=== PATIENT | male | born 1945 | race Caucasian/White ===

== ENCOUNTER 2017-06-19 02:44 | Inpatient (IN) | payer OTHER, MEDICARE ==
[~2017-06-19 02:44] MED LIST: ANUC25SU RE; GLIM1 PO; HYDR2.5%T TOP; JANU100T PO; LEVO150T7 PO; LISI-363 PO; LITH300C2 PO; PIOG30 PO; TRAZ100 PO
[2017-06-19 03:03] VITALS: BP 159/73; PULSE 60; RESP 20; TEMP 97.8; O2SAT 96
[2017-06-19] MEDS ORDERED: LISI10TA3 PO (03:12)
[2017-06-19 03:51] LABS: AUTOMATED NEUTROPHIL # 4.1 TH/MM3 (1.8-7.7); BASOPHIL # 0.1 TH/MM3 (0-0.2); BASOPHIL % 1.1 % (0.0-2.0); EOSINOPHIL % 0.7 % (0.0-4.0); HEMATOCRIT 29.2 % (39.0-51.0); LYMPH % 21.3 % (9.0-44.0); LYMPHOCYTE # 1.3 TH/MM3 (1.0-4.8); MEAN CELL VOLUME 97.4 FL (80.0-100.0); MEAN CORPUSCULAR HEMOGLOBIN 36.8 PG (27.0-34.0); MONO % 11.8 % (0.0-8.0); NEUT % 65.1 % (16.0-70.0); PLATELET COUNT 163 TH/MM3 (150-450); RED CELL DISTRIBUTION WIDTH 12.9 % (11.6-17.2); WHITE BLOOD COUNT 6.3 TH/MM3 (4.0-11.0)
[2017-06-19 04:01] LABS: HEMO FLAGS AUTO DIFF; MEAN CORPUSCULAR HGB CONC 37.8 % (32.0-36.0)
--- NOTE | 2017-06-19 04:09 | PD ---
HPI Chief Complaint: Psychiatric Symptoms Time Seen by Provider: 02:57 Travel History International Travel<30 days: No Contact w/Intl Traveler<30days: No Traveled to known affect area: No History of Present Illness HPI 72-year-old male presents to emergency department under a Ballard act for psychiatric evaluation. Patient states that he has been off his lithium for several months after he decided not to take it after getting sick from lithium toxicity. Patient states he is not suicidal but made suicidal comments to his "in passing." Patient states he was just frustrated. Denies any illicit drug use. Takes his prescribed medication as needed for blood pressure and diabetes. He does not take his medication for his bipolar disorder. Patient has no acute medical needs at this time. PFS Past Medical History Bipolar Disorder: Yes Depression: Yes Diabetes: Yes Patient Takes Glucophage: No Diminished Hearing: No Hypertension: Yes Thyroid Disease: Yes Past Surgical History Eye Surgery: Yes (cataract) Tonsillectomy: Yes Other Surgery: Yes (CYST- NECK ) Social History Alcohol Use: No Tobacco Use: Yes (1.5 ppd) Substance Use: No Allergies-Medications (Allergen,Severity, Reaction): Coded Allergies: penicillin G (Unverified Allergy, Unknown, CHILDHOOD , 06/19/17) Reported Meds & Prescriptions Reported Meds & Active Scripts Active Reported Lisinopril 10 Mg Tab 10 Mg PO DAILY PRN Review of Systems Except as stated in HPI: all other systems reviewed are Neg Physical Exam Narrative GENERAL: Well-nourished male patient, ambulatory and in no acute distress SKIN: Focused skin assessment warm/dry. HEAD: Atraumatic. Normocephalic. EYES: Pupils equal and round. No scleral icterus. No injection or drainage. ENT: No nasal bleeding or discharge. Mucous membranes pink and moist. NECK: Trachea midline. No JVD. CARDIOVASCULAR: Regular rate and rhythm. No murmur appreciated. RESPIRATORY: No accessory muscle use. Clear to auscultation. Breath sounds equal bilaterally. GASTROINTESTINAL: Abdomen soft, non-tender, nondistended. Hepatic and splenic margins not palpable. MUSCULOSKELETAL: No obvious deformities. No clubbing. No cyanosis. No edema. NEUROLOGICAL: Awake and alert. No obvious cranial nerve deficits. Motor grossly within normal limits. Normal speech. Data Data Last Documented VS Vital Signs Date Time Temp Pulse Resp B/P (MAP) Pulse Ox O2 Delivery O2 Flow Rate FiO2 06/19/17 03:03 97.8 60 20 159/73 (101) 96 Orders Orders Complete Blood Count With Diff (06/19/17 02:57) Basic Metabolic Panel (Bmp) (06/19/17 02:57) Urinalysis - C+S If Indicated (06/19/17 02:57) Psych Screen (06/19/17 02:57) Drug Screen, Random Urine (06/19/17 02:57) Alcohol (Ethanol) (06/19/17 02:57) Labs Laboratory Tests Test 06/19/17 03:40 White Blood Count 6.3 TH/MM3 Red Blood Count 3.00 MIL/MM3 Hemoglobin 11.0 GM/DL Hematocrit 29.2 % Mean Corpuscular Volume 97.4 FL Mean Corpuscular Hemoglobin 36.8 PG Mean Corpuscular Hemoglobin Concent 37.8 % Red Cell Distribution Width 12.9 % Platelet Count 163 TH/MM3 Mean Platelet Volume 6.9 FL Neutrophils (%) (Auto) 65.1 % Lymphocytes (%) (Auto) 21.3 % Monocytes (%) (Auto) 11.8 % Eosinophils (%) (Auto) 0.7 % Basophils (%) (Auto) 1.1 % Neutrophils # (Auto) 4.1 TH/MM3 Lymphocytes # (Auto) 1.3 TH/MM3 Monocytes # (Auto) 0.7 TH/MM3 Eosinophils # (Auto) 0.0 TH/MM3 Basophils # (Auto) 0.1 TH/MM3 CBC Comment AUTO DIFF Blood Urea Nitrogen 11 MG/DL Creatinine 0.87 MG/DL Random Glucose 115 MG/DL Calcium Level 8.4 MG/DL Sodium Level 127 MEQ/L Potassium Level 3.7 MEQ/L Chloride Level 93 MEQ/L Carbon Dioxide Level 26.4 MEQ/L Anion Gap 8 MEQ/L Estimat Glomerular Filtration Rate 87 ML/MIN Ethyl Alcohol Level LESS THAN 3 MG/DL MDM Medical Decision Making Medical Screen Exam Complete: Yes Emergency Medical Condition: Yes Medical Record Reviewed: Yes Differential Diagnosis Mood disorder versus personality disorder versus adjustment reaction disorder Narrative Course 72-year-old male presents to the emergency department under a Ballard act for psychiatric evaluation. Patient appears well and without distress. His vital signs are stable. Lab work is without acute concern. Patient is medically cleared to undergo psychiatric screening for further evaluation and disposition. Mental health screening discussed with the patient. Psychiatric screen ordered. Diagnosis Primary Impression: Adjustment reaction Qualified Codes: F43.25 - Adjustment disorder with mixed disturbance of emotions and conduct Additional Impression: Hyponatremia Condition: Stable Deidra Tuttle Jun 19, 2017 04:09
[2017-06-19 04:11] LABS: ANION GAP 8 MEQ/L (5-15); BICARBONATE 26.4 MEQ/L (21.0-32.0); BLOOD UREA NITROGEN 11 MG/DL (7-18); CHLORIDE 93 MEQ/L (98-107); GLOMERULAR FILTRATION RATE 87 ML/MIN (>89); POTASSIUM 3.7 MEQ/L (3.5-5.1); SODIUM (NA) 127 MEQ/L (136-145)
[2017-06-19 04:15] LABS: ALCOHOL LESS THAN 3 MG/DL (0-5)
[2017-06-19 04:29] LABS: SCAN/DIFF AUTO DIFF CONFIRMED
[2017-06-19] MEDS ORDERED: SODIUM CHLORIDE 1 GRAM TAB PO ONE (04:30)
[2017-06-19 04:36] LABS: BLOOD, URINE NEG (NEG); GLUCOSE,URINE 70 mg/dL (NEG); KETONE, URINE NEG (NEG); NITRITE,URINE NEG (NEG); URINE COLOR LIGHT-YELLOW (YELLW/STRAW)
[2017-06-19 04:41] LABS: COMMENT (UR) CULT NOT INDICATED; CULTURE IF INDICATED CULT NOT INDICATED
[2017-06-19 07:46] VITALS: BP 150/77; PULSE 62; RESP 19; TEMP 98.4; O2SAT 97
[2017-06-19] MEDS ORDERED: MAGNESIUM HYDROXIDE SUSP 30 ML CUP PO PRN (13:30)
[2017-06-19] MEDS ORDERED: LORazepam 2 MG/ML VIAL IM PRN (13:30)
[2017-06-19] MEDS ORDERED: LORazepam 1 MG TAB PO PRN (13:30)
[2017-06-19] MEDS ORDERED: ALUMINUM/MAGNESIUM/SIMETH 30 ML CUP PO PRN (13:30)
--- NOTE | 2017-06-19 13:40 | HHI.HP ---
Provisional Diagnosis Admission Date [place] I. Bipolar disorder, mixed, severe with psychotic features. Certification of Person's Competence To Provide Express and Informed Consent I have personally examined Anish Paul , a person being served at [facility] on, Jun 19, 2017 13:28. Express and informed consent means consent voluntarily given in writing, by a competent person, after sufficient explanation and disclosure of the subject matter involved to enable the person to make a knowing and willful decision without any element of force, fraud, deceit, duress, or other form of constraint or coercion. This person is 18 years of age or older, is not now known to be incompetent to consent to treatment with a guardian advocate, and does not have a health care surrogate or proxy currently making medical treatment decisions. I have found this person to be one of the following: [x] Competent to provide express and informed consent, as defined above, for voluntary admission to this facility and is competent to provide express and informed consent for treatment. He/she has the consistent capacity to make well reasoned, willful, and knowing decisions concerning his or her medical or mental health treatment. The person fully and consistently understands the purpose of the admission for examination/placement and is fully capable of personally exercising all rights assured [place] Incompetent to provide express and informed consent to voluntary admission, and this is incompetent to provide express and informed consent to treatment. The person must be transferred to involuntary status and a petition for a guardian advocate filed with the Circuit Court. [] Refusing to provide express and informed consent to voluntary admission but is competent to provide express and informed consent for treatment. The person must be discharged or transferred to involuntary status. Form shall be completed within 24 hours of a person's arrival at the receiving facility and filed in the clinical record of each person: 1. Admitted on a voluntary basis 2. Permitted to provide express and informed consent to his/her own treatment 3. Allowed to transfer from involuntary to voluntary status 4. Prior to permitting a person to consent to his or her own treatment after having been previously found incompetent to consent to treatment. History of Present Illness Capacity: Has Capacity HPI 72-year-old male with a multiyear history of bipolar disorder, presents under a Ballard act for suicidal ideation, psychotic thinking, inability to care for himself, etc. Patient reportedly made suicidal comments to his of many years and to a neighbor. He has been increasingly unstable since stopping his lithium, several months ago. Apparently the patient had a history of lithium toxicity. (He also has diabetes and hypertension and there is concern about his kidneys.) Since he stopped his lithium, however, he has become emotionally unstable. Apparently he is not sleeping. He is quite tearful and suicidal at some moments and hypomanic to manic at other moments, talking to God, relating his special abilities, etc. 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 She called law enforcement for assistance and does not feel capable of caring for him. As the patient is hypomanic to manic, without knowing his medications for diabetes and hypertension or how to treat himself, this physician feels he is unable to care for himself. He denies the use of alcohol or illicit drugs. His has assisted him in being compliant with his non-psychotropic medicines. He is reportedly treated by a nonpsychiatrist. Review of Systems Except as stated in HPI: all other systems reviewed are Neg Past Psych History Psychological trauma history Denied for psychological trauma. Previous inpatient and outpatient treatment for bipolar disorder. Violence risk - others (6 mos) Moderate Violence risk - self (6 mos) High Substance Abuse History Drugs/Alcohol past 12 months Denied Past Family Social History Coded Allergies: penicillin G (Unverified Allergy, Unknown, CHILDHOOD , 06/19/17) Reported Medications Lisinopril (Lisinopril) 10 Mg Tab, 10 MG PO DAILY Y for as prescribed, #30 TAB 0 Refills 06/19/17 Discontinued Reported Medications Levothyroxine Sodium (Levothyroxine 150 mcg) 150 Mcg Tab, 150 MCG PO DAILY, TAB 12/31/15 Lisinopril 20 mg (Lisinopril 20 mg) 20 Mg Tab, 1 TAB PO BID, TAB 12/31/15 Trazodone HCl (Trazodone HCl) 100 Mg Tab, 100 MG PO HS, TAB 12/31/15 Discontinued Scripts Hydrocortisone (Anusol-Hc) 2.5 % Cre, 1 DOSE TOP QID for Pain, #1 TUBE APPLY NEEDED FOR PAIN DISPENSE 1 TUBE Prov:Remi Childs MD 12/31/15 Current Medications Medications (Trade) Dose Ordered Sig/Alanna Route Start Time Stop Time Status Last Admin (Ativan) 1 mg Q6H PRN PO 06/19/17 13:30 UNV (Ativan Inj) 1 mg Q6H PRN IM 06/19/17 13:30 UNV (Tylenol) 650 mg Q4H PRN PO 06/19/17 13:30 UNV (Milk Of Magnesia Liq) 30 ml DAILY PRN PO 06/19/17 13:30 UNV (Mag-Al Plus Susp Liq) 30 ml Q6H PRN PO 06/19/17 13:30 UNV Family History Positive for mood disorders. Social History Lives in a 1 bedroom apartment with his of many years. Denies substance abuse or alcoholism. Unemployed and retired. Treated by his primary care physician. Patient's Strengths (min. 2) Resilient and has access to healthcare. Physical Exam GENERAL: SKIN: Warm and dry. HEAD: Normocephalic. EYES: No scleral icterus. No injection or drainage. NECK: Supple, trachea midline. No JVD or lymphadenopathy. CARDIOVASCULAR: Regular rate and rhythm without murmurs, gallops, or rubs. RESPIRATORY: Breath sounds equal bilaterally. No accessory muscle use. GASTROINTESTINAL: Abdomen soft, non-tender, nondistended. MUSCULOSKELETAL: No cyanosis, or edema. BACK: Nontender without obvious deformity. No CVA tenderness. Vital Signs Vital Signs Date Time Temp Pulse Resp B/P (MAP) Pulse Ox O2 Delivery O2 Flow Rate FiO2 06/19/17 07:46 98.4 62 19 150/77 (101) 97 Room Air Lab Results Test 06/19/17 03:40 06/19/17 04:15 White Blood Count 6.3 TH/MM3 Red Blood Count 3.00 MIL/MM3 Hemoglobin 11.0 GM/DL Hematocrit 29.2 % Mean Corpuscular Volume 97.4 FL Mean Corpuscular Hemoglobin 36.8 PG Mean Corpuscular Hemoglobin Concent 37.8 % Red Cell Distribution Width 12.9 % Platelet Count 163 TH/MM3 Mean Platelet Volume 6.9 FL Neutrophils (%) (Auto) 65.1 % Lymphocytes (%) (Auto) 21.3 % Monocytes (%) (Auto) 11.8 % Eosinophils (%) (Auto) 0.7 % Basophils (%) (Auto) 1.1 % Neutrophils # (Auto) 4.1 TH/MM3 Lymphocytes # (Auto) 1.3 TH/MM3 Monocytes # (Auto) 0.7 TH/MM3 Eosinophils # (Auto) 0.0 TH/MM3 Basophils # (Auto) 0.1 TH/MM3 CBC Comment AUTO DIFF Differential Comment AUTO DIFF CONFIRMED Blood Urea Nitrogen 11 MG/DL Creatinine 0.87 MG/DL Random Glucose 115 MG/DL Calcium Level 8.4 MG/DL Sodium Level 127 MEQ/L Potassium Level 3.7 MEQ/L Chloride Level 93 MEQ/L Carbon Dioxide Level 26.4 MEQ/L Anion Gap 8 MEQ/L Estimat Glomerular Filtration Rate 87 ML/MIN Ethyl Alcohol Level LESS THAN 3 MG/DL Urine Color LIGHT-YELLOW Urine Turbidity CLEAR Urine pH 6.0 Urine Specific [place] 1.004 Urine Protein NEG mg/dL Urine Glucose (UA) 70 mg/dL Urine Ketones NEG mg/dL Urine Occult Blood NEG Urine Nitrite NEG Urine Bilirubin NEG Urine Urobilinogen LESS THAN 2.0 MG/DL Urine Leukocyte Esterase NEG Urine RBC LESS THAN 1 /hpf Microscopic Urinalysis Comment CULT NOT INDICATED Urine Opiates Screen NEG Urine Barbiturates Screen NEG Urine Amphetamines Screen NEG Urine Benzodiazepines Screen NEG Urine Cocaine Screen NEG Urine Cannabinoids Screen POS Mental Status Examination Speech: Pressured, Rapid Orientation: x3 Memory: Unremarkable Thought Process: Circumstantial, Flight of Ideas, Loose Association, Tangential Thought Content: Bizarre thinking, Paranoid Hallucination Type: Auditory Attention and Concentration: Abnormal Suicidal Ideation: Yes Previous Suicide Attempts: No Homicidal Ideation: No Previous Homicide Attempts: No Insight: Fair Judgment: Unrealistic Affect: Irritable, Sad Affect if Inappropriate: Labile Mood: Sad Motor Activity: Normal gait Assessment & Plan Problem List: (1) Bipolar disorder, current episode mixed, severe, with psychotic features ICD Codes: F31.64 - Bipolar disorder, current episode mixed, severe, with psychotic features Status: Acute Assessment & Plan Bipolar disorder. Patient has a history of diabetes and lithium toxicity and therefore may be experiencing metabolic problems which can alter his level of cognitive clarity. We are also checking his thyroid due to the possibility of lithium toxicity to the thyroid gland. We will obtain a thyroid stimulating hormone level. Estimated LOS: days 72-year-old male brought in under a Ballard act for making suicidal statements, talking to God, expressing his special abilities, not taking care of himself and no longer having his be able to care for him. Patient is felt to be at high risk for self neglect and possible self-harm due to his psychosis, suicidal ideation and obvious confusion. For this reason he is being admitted for further evaluation and treatment. Patient is being ordered a CBC and comprehensive metabolic profile to determine if any infectious or metabolic process is causing or contributing to his bipolar disorder instability. As the patient has a history of lithium toxicity , diabetes and hypertension, it is possible that he has renal or other organ impairment which is causing or contributing to his delaney and confusion. Additionally, we will check his thyroid stimulating hormone, vitamin B-12 and vitamin D levels to look for any deficiency that may be causing or contributing to his mood disorder. Patient's history of lithium toxicity may have created a hypothyroid event. As he is elderly and likely not to be in the sun, he may be vitamin D deficient or vitamin B-12 deficient. Furthermore, we are obtaining an EKG to determine the patient's cardiac conduction status prior to starting antipsychotic/mood stabilizing medications. This physician spoke with the patient's nurse regarding his recent behavior. The nurse had spoken with the patient's . Case management is also being involved to assist with information gathering and appropriate disposition planning. Milind Nguyễn MD Jun 19, 2017 13:40
[2017-06-19 14:41] VITALS: BP 166/79; PULSE 77; RESP 18; O2SAT 99
[2017-06-19 14:50] VITALS: BP 166/79; PULSE 77; RESP 18; O2SAT 99
[2017-06-19 16:00] VITALS: BP 147/68; PULSE 67; RESP 20; TEMP 97.9
[2017-06-19] MEDS: NICOTINE 21 MG/24 HR PATCH T-DERMAL SCH (17:00)
--- NOTE | 2017-06-19 17:57 | PD.CONS ---
HPI Service [facility] Consult Requested By Dr Nguyễn Reason for Consult Medical management Primary Care Physician No Primary Care Physician Diagnoses: History of Present Illness This is a 72-year-old male with past medical history of hypertension and diabetes who presents to [facility] after making some suicidal comments. The patient at this moment cannot provide a good history, he is very tearful and crying and stating that his white once he locked up. As per psychiatry medical records the patient has a long-standing history of bipolar disorder and he presented to [facility] under Ballard act for suicidal ideation, psychotic thinking and inability to care for himself. As per documentation the patient made suicidal comments to his of many years until a neighbor. The patient denies these allegations. The patient has been on lithium for several years, however he was taken off this for some concerns of damage to his kidneys. Only the patient has become more emotionally unstable since he stopped his lithium. As per the documentation the called to the enforcement for assistance due to the patient being not be capable of caring for himself. The patient states he takes Tujeo for diabetes and that he takes lisinopril for blood pressure. I also obtain collateral from the patient's states that the patient has been on lithium for several years and on January this was discontinued by his family physician due to his symptoms concordant with lithium toxicity. She said that the patient is supposed to happy on 1800 mg a day of lithium however he was taking 600-900 per day and his level was still high. The patient's also states that the patient has been on Synthroid, however she does not know the dose. The patient otherwise denies any chest pain, trouble breathing, he states that he feels dizzy. Denies nausea, vomiting or diarrhea as well as abdominal pain. The patient states he has been coughing some but not as much today. Review of Systems As per history of present illness, other systems reviewed by me and negative Past Family Social History Allergies: Coded Allergies: penicillin G (Unverified Allergy, Unknown, CHILDHOOD , 06/19/17) Past Medical History Hypertension, diabetes Past Surgical History Patient states that he does not want to discuss this. Reported Medications Reported Meds & Active Scripts Active Reported Lisinopril 10 Mg Tab 10 Mg PO DAILY PRN Active Ordered Medications Current Medications Medications (Trade) Dose Ordered Sig/Alanna Route Start Time Stop Time Status Last Admin (Ativan) 1 mg Q6H PRN PO 06/19/17 13:30 06/19/17 14:24 (Ativan Inj) 1 mg Q6H PRN IM 06/19/17 13:30 (Tylenol) 650 mg Q4H PRN PO 06/19/17 13:30 (Milk Of Magnesia Liq) 30 ml DAILY PRN PO 06/19/17 13:30 (Mag-Al Plus Susp Liq) 30 ml Q6H PRN PO 06/19/17 13:30 (Habitrol 21 Mg Patch.24 Hr) 1 patch DAILY T-DERMAL 06/19/17 17:00 Miscellaneous Information 1 DAILY T-DERMAL 06/20/17 09:00 Family History Patient denies any family history. Social History The patient states she smokes a couple packs per day. Patient states he drinks 1-2 beers per day. Patient denies any illicit drug use. The patient is and has one children. Physical Exam Vital Signs Vital Signs Date Time Temp Pulse Resp B/P (MAP) Pulse Ox O2 Delivery O2 Flow Rate FiO2 06/19/17 16:00 97.9 67 20 147/68 (94) 06/19/17 14:50 77 18 166/79 (108) 99 Room Air 06/19/17 14:41 77 18 166/79 (108) 99 Room Air 06/19/17 07:46 98.4 62 19 150/77 (101) 97 Room Air 06/19/17 03:03 97.8 60 20 159/73 (101) 96 Physical Exam GENERAL: This is a well-nourished, well-developed patient, in no apparent distress. SKIN: No rashes, ecchymoses or lesions. Cool and dry. HEAD: Atraumatic. Normocephalic. No temporal or scalp tenderness. EYES: Pupils equal round and reactive. Extraocular motions intact. No scleral icterus. No injection or drainage. ENT: Nose without bleeding, purulent drainage or septal hematoma. Throat without erythema, tonsillar hypertrophy or exudate. Uvula midline. Airway patent. NECK: Trachea midline. No JVD or lymphadenopathy. Supple, nontender, no meningeal signs. CARDIOVASCULAR: Regular rate and rhythm without murmurs, gallops, or rubs. RESPIRATORY: There is diffuse mild expiratory wheezing. No rales or rhonchi auscultated. There is good air entry bilaterally. GASTROINTESTINAL: Abdomen soft, non-tender, nondistended. No hepato-splenomegaly , or palpable masses. No guarding. MUSCULOSKELETAL: Extremities without clubbing, cyanosis, or edema. No joint tenderness, effusion, or edema noted. No calf tenderness. Negative Homans sign bilaterally. NEUROLOGICAL: Awake and alert. Cranial nerves II through XII intact. Motor and sensory grossly within normal limits. Five out of 5 muscle strength in all muscle groups. Normal speech. Laboratory Laboratory Tests Test 06/19/17 03:40 06/19/17 04:15 White Blood Count 6.3 Red Blood Count 3.00 Hemoglobin 11.0 Hematocrit 29.2 Mean Corpuscular Volume 97.4 Mean Corpuscular Hemoglobin 36.8 Mean Corpuscular Hemoglobin Concent 37.8 Red Cell Distribution Width 12.9 Platelet Count 163 Mean Platelet Volume 6.9 Neutrophils (%) (Auto) 65.1 Lymphocytes (%) (Auto) 21.3 Monocytes (%) (Auto) 11.8 Eosinophils (%) (Auto) 0.7 Basophils (%) (Auto) 1.1 Neutrophils # (Auto) 4.1 Lymphocytes # (Auto) 1.3 Monocytes # (Auto) 0.7 Eosinophils # (Auto) 0.0 Basophils # (Auto) 0.1 CBC Comment AUTO DIFF Differential Comment AUTO DIFF CONFIRMED Blood Urea Nitrogen 11 Creatinine 0.87 Random Glucose 115 Calcium Level 8.4 Sodium Level 127 Potassium Level 3.7 Chloride Level 93 Carbon Dioxide Level 26.4 Anion Gap 8 Estimat Glomerular Filtration Rate 87 Ethyl Alcohol Level LESS THAN 3 Urine Color LIGHT-YELLOW Urine Turbidity CLEAR Urine pH 6.0 Urine Specific [place] 1.004 Urine Protein NEG Urine Glucose (UA) 70 Urine Ketones NEG Urine Occult Blood NEG Urine Nitrite NEG Urine Bilirubin NEG Urine Urobilinogen LESS THAN 2.0 Urine Leukocyte Esterase NEG Urine RBC LESS THAN 1 Microscopic Urinalysis Comment CULT NOT INDICATED Urine Opiates Screen NEG Urine Barbiturates Screen NEG Urine Amphetamines Screen NEG Urine Benzodiazepines Screen NEG Urine Cocaine Screen NEG Urine Cannabinoids Screen POS Result Diagram: 06/19/1733906/19/17339 Assessment and Plan Problem List: (1) Bipolar disorder, current episode mixed, severe, with psychotic features ICD Code: F31.64 - Bipolar disorder, current episode mixed, severe, with psychotic features Status: Acute Plan: Management is per psychiatry. (2) Hyponatremia ICD Code: E87.1 - Hypo-osmolality and hyponatremia Status: Acute Plan: Patient seems to be euvolemic. I will check urine and sodium osmolality. Patient Jony restriction 1 L per day. (3) Diabetes ICD Code: E11.9 - Type 2 diabetes mellitus without complications Plan: I will check hemoglobin A1c. Place on SSI with insulin NovoLog. Patient states that he is on insulin margin at home. He does not remember the dose. I will hold insulin glargine for now. (4) HTN (hypertension) ICD Code: I10 - Essential (primary) hypertension Plan: BP seems to be slightly elevated. Patient is on lisinopril at home which I will continue. Continue to monitor vital signs and BMP. (5) Wheezing ICD Code: R06.2 - Wheezing Status: Acute Plan: The patient has mild diffuse bilateral expiratory wheezing on exam. The patient is a heavy smoker and this is probably likely due to some long-standing damage due to tobacco use. I will start the patient on DuoNeb treatments and steroid inhalers. Will also check a chest x-ray to assess for any infiltrates or any radiologic signs of COPD. (6) Hypothyroidism ICD Code: E03.9 - Hypothyroidism, unspecified Plan: Check TSH, will try to get dose not the patient was taking. As per patient's the patient has not been compliant with his medications. Will resume levothyroxine once the dose is confirmed. (7) Anemia ICD Code: D64.9 - Anemia, unspecified Plan: The patient has history of liver cirrhosis. Anemia is normocytic, likely secondary to liver disease. Continue to monitor hemoglobin and CBC. 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 (9) Tobacco abuse ICD Code: Z72.0 - Tobacco use Plan: Advises smoking cessation, will place on nicotine patch. Assessment and Plan DVT prophylaxis: Encourage early ambulation. Code Status Full code Discussed Condition With , patient, RN. Problem Qualifiers (1) Diabetes: Qualified Codes: E11.9 - Type 2 diabetes mellitus without complications (2) HTN (hypertension): Qualified Codes: I10 - Essential (primary) hypertension (3) Hypothyroidism: Qualified Codes: E03.9 - Hypothyroidism, unspecified Mooney Grajeda,Lawrence MD Jun 19, 2017 17:57
[2017-06-19] MEDS ORDERED: DEXTROSE 50% IN WATER 50 ML VIAL(D50) IV PRN (18:00)
[2017-06-19] MEDS ORDERED: GLUCAGON 1 MG/ML VIAL OTHER PRN (18:00)
[2017-06-20 05:43] VITALS: BP 130/67; PULSE 78; RESP 17; TEMP 98.9; O2SAT 96
--- NOTE | 2017-06-20 07:26 | HHI.PYPN ---
Subjective Remarks Patient seen and examined. Chart reviewed. I note the patient was brought in under a Ballard act from [facility] alleging suicidal ideation. Case discussed with nursing staff. On my examination this morning, the patient accuses his of Ballard acting him "because I smoked a cigarette." He is emotionally labile. He does admit that he saw "a manic episode coming on" and his history of bipolar illness, noting that his mood was becoming more unstable. However, the patient says that he has not been taking medications. He was previously on lithium but has a history of lithium toxicity and stopped this medication in January. He is not interested in taking other medications because they are "synthetic shit." He is somewhat intrusive and distractible. Speech is somewhat pressured. Thought process with some loosening of associations. Affect is fairly dysphoric. Sleep reportedly poor. He denies audiovisual hallucinations. Denies SI or HI but appears unreliable to contract for safety. Remainder of the psychiatric ROS is negative. He is requesting discharge from the inpatient psychiatric unit. With the patient's permission, I have obtained collateral from the patient's over the phone. She notes that the patient has had recent increase in symptoms of psychosis in the setting of his mood illness. She notes that evening he was speaking to God and answering himself as God. She notes that they have been 27 years and he has a history of 4-5 hospitalizations in that time for mood episodes. Typically, when he decompensates with respect to his mood he becomes quite psychotic his says. She does say that he has a history of lithium toxicity. He has tried Abilify in the past but this made him very anxious. She says that he has cut back on his lithium on his own because he enjoys being hypomanic. She also notes that his primary care doctor advised him to stop lithium in January. She also notes that he recently threw away his Synthroid. He gets his prescriptions filled at [facility] in [place] on [address]. is willing to act his healthcare surrogate and believes he requires psychiatric stabilization on the inpatient unit for safety. I have discussed my plan of care highlighting the risks of ongoing hospitalization and the patient of Mr. Paul's age including but not limited to the risk of fall, infection and other misadventure. I have also discussed a possible course of treatment with a sedating atypical antipsychotic such as Zyprexa/Seroquel and reviewed the side effects of these medications in some detail. Past psychiatric history: Patient reports a history of bipolar illness. He has until recently followed with his primary care doctor for this problem. He says that his most recent psychiatric admission was in [facility] several years ago. He denies a history of suicide attempts. Family history: The patient believes his father may have had some sort of bipolar illness. Chemical dependency history: The patient admits to a history of hallucinogen and cannabis use in [place]. He says that he has been drinking 1 or 2 beers a day recently and has a history of heavier drinking in the past. He denies any history of DTs or seizures. Social history: Patient is . He served in [employer] in the . He is presently on disability. Unable to obtain additional social history as the patient is fairly distractible and discursive. Past medical history: Includes a history of diabetes, hypothyroidism, hypertension as well as a history of hepatitis C and associated cirrhosis treated with Harvoni. Review of Systems ROS Limitations: Psychotic, Poor Historian Except as stated in HPI: all other systems reviewed are Neg Objective Alert: Yes [place]: Person, Place, Date Mood: Anxious Affect: Restricted (dysphoric) Memory Intact: Comment (intact on clinical exam) Hallucinations: Other (denies AVH) Delusions: Yes Delusion Type: Paranoid (suspect paranoia related to ) Suicidal: Ideation (denies suicidal ideation but is unreliable to contract for safety) Homicidal: Ideation (denies homicidal ideation but is unreliable to contract for safety) Insight/Judgment Poor Remarks Perhaps some subtle oral dyskinesias, and patient's reports that these are chronic. No other motoric abnormalities noted. Thought process with some loosening of associations. Grooming and hygiene fair. Speech rambling and a little bit pressured. Labs Labs reviewed: I note a hemoglobin of 11. Hyponatremia noted. Urine toxicology is positive for cannabinoids. Vitals/IOs Vital Signs Date Time Temp Pulse Resp B/P (MAP) Pulse Ox O2 Delivery O2 Flow Rate FiO2 06/20/17 05:43 98.9 78 17 130/67 (88) 96 06/19/17 14:50 Room Air Intake and Output 06/20/17 06/20/17 06/21/17 08:00 16:00 00:00 Intake Total 720 ml Balance 720 ml Assessment & Plan Problem List: (1) Bipolar disorder, current episode mixed, severe, with psychotic features ICD Codes: F31.64 - Bipolar disorder, current episode mixed, severe, with psychotic features Status: Acute Assessment & Plan 72-year-old male with psychiatric history as detailed above who presents under Ballard act. Patient continues to display symptoms and signs of severe mixed state with psychotic features. Patient is presently unwilling to remain in the hospital voluntarily but requires hospitalization for safety, observation and stabilization. He is incapacitated with respect to making medical and psychiatric decisions as a consequence of his currently severely decompensated mental illness. I will be assuming primary care of the patient and will initiate a petition for involuntary psychiatric hospitalization. I will consult for a second opinion and request a healthcare surrogate and guardian advocate, most likely the patient's . I have called the patient's pharmacy and requested a medication list be faxed to us once they open. In the meantime, I will continue his lisinopril for which we have a known dose. I will initiate Accu-Cheks and sliding scale and place the patient on a diabetic diet. I will follow up the laboratories ordered by Dr. Nguyễn, and based on these laboratories as well as the EKG consider instituting a course of treatment with a sedating antipsychotic as noted above for the patient's mental illness. Hospitalist input noted and appreciated. Physical therapy consult. Falls precautions. Continue other medications and care as ordered. Justification for Cont. Inpt. Medication changes planned. Impairment in reality construction. High risk for decompensation in less restrictive environment. Discharge Planning pending psychiatric stabilization. ELOS: 7-9 days Request HC Surrog/Guard Advoc?: Yes Piter Fenton MD Jun 20, 2017 07:26
[2017-06-20] MEDS ORDERED: DEXTROSE 50% IN WATER 50 ML VIAL(D50) IV PRN (07:30)
[2017-06-20] MEDS ORDERED: GLUCAGON 1 MG/ML VIAL OTHER PRN (07:30)
[2017-06-20] MEDS ORDERED: REMOVE OLD PATCH T-DERMAL SCH (09:00)
[2017-06-20] MEDS: NICOTINE 21 MG/24 HR PATCH T-DERMAL SCH ×2 (09:00→11:15)
[2017-06-20] MEDS: INSULIN ASPART SUPPLEMENTAL SCALE SQ SCH ×3 (11:00→21:00)
[2017-06-20 11:11] LABS: AUTOMATED NEUTROPHIL # 3.1 TH/MM3 (1.8-7.7); BASOPHIL % 0.8 % (0.0-2.0); LYMPH % 21.5 % (9.0-44.0); MONO % 13.8 % (0.0-8.0); NEUT % 63.9 % (16.0-70.0); PLATELET COUNT 157 TH/MM3 (150-450); WHITE BLOOD COUNT 4.8 TH/MM3 (4.0-11.0)
--- NOTE | 2017-06-20 11:14 | PD.PSY.CON ---
Provisional Diagnosis Admission Date Jun 19, 2017 at 13:23 [place] I. Bipolar disorder, mixed, severe with psychotic features. History of Present Illness Service Psychiatry Consult Requested By Reason for Consult Second opinion Primary Care Physician No Primary Care Physician HPI 72-year-old male with a multiyear history of bipolar disorder, presents under a Ballard act for suicidal ideation, psychotic thinking, inability to care for himself, etc. Patient reportedly made suicidal comments to his of many years and to a neighbor. He has been increasingly unstable since stopping his lithium, several months ago. Apparently the patient had a history of lithium toxicity. (He also has diabetes and hypertension and there is concern about his kidneys.) Since he stopped his lithium, however, he has become emotionally unstable. Apparently he is not sleeping. He is quite tearful and suicidal at some moments and hypomanic to manic at other moments, talking to God, relating his special abilities, etc. 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 She called law enforcement for assistance and does not feel capable of caring for him. As the patient is hypomanic to manic, without knowing his medications for diabetes and hypertension or how to treat himself, this physician feels he is unable to care for himself. He denies the use of alcohol or illicit drugs. His has assisted him in being compliant with his non-psychotropic medicines. He is reportedly treated by a nonpsychiatrist. The patient is a 72-year-old man, domicile with his in [place] , retired, with reported psychiatric history of bipolar disorder, multiple psychiatric hospitalizations, brought under Ballard act due to suicidal ideation, manic behavior, irritability and aggressiveness at home in the context of noncompliance with medications. Patient was consulted to me for second opinion. Patient reports that the reason he is here is because his pressed charges against him. He says that all he did wrong was waking up very late at night and trying to fix his garage. He says that he just call his and try to make a deal "I told her that if she drops charges against man I would forgive her". Patient seems to be kind of disorganized, with somewhat pressured speech, circumstantial, disorganized. However, patient is fully oriented 3. He denies suicidal and homicidal ideation, he denies visual and auditory hallucinations. Review of Systems Constitutional: DENIES: Diaphoretic episodes, Fatigue, Fever, Weight gain, Weight loss, Chills, Dizziness, Change in appetite, Night Sweats Endocrine: DENIES: Heat/cold intolerance, Polydipsia, Polyuria, Polyphagia Ears, nose, mouth, throat: DENIES: Tinnitus, Hearing loss, Vertigo, Nasal discharge, Oral lesions, Throat pain, Hoarseness, Ear Pain, Running Nose, Epistaxis, Sinus Pain, Toothache, Odynophagia Respiratory: DENIES: Apneas, Cough, Snoring, Wheezing, Hemoptysis, Sputum production, Shortness of breath Cardiovascular: DENIES: Chest pain, Palpitations, Syncope, Dyspnea on Exertion , PND, Lower Extremity Edema, Orthopnea, Claudication Gastrointestinal: DENIES: Abdominal pain, Black stools, Bloody stools, Constipation, Diarrhea, Nausea, Vomiting, Difficulty Swallowing, Anorexia Musculoskeletal: DENIES: Joint pain, Muscle aches, Stiffness, Joint Swelling, Back pain, Neck pain Integumentary: DENIES: Abnormal pigmentation, Nail changes, Pruritus, Rash Hematologic/lymphatic: DENIES: Bruising, Lymphadenopathy Immunologic/allergic: DENIES: Eczema, Urticaria Neurologic: DENIES: Abnormal gait, Headache, Localized weakness, Paresthesias, Seizures, Speech Problems, Tremor, Poor Balance Psychiatric: COMPLAINS OF: Delusions, DENIES: Anxiety, Confusion, Mood changes , Depression, Hallucinations, Agitation, Suicidal Ideation, Homicidal Ideation Past Family Social History Coded Allergies: penicillin G (Unverified Allergy, Unknown, CHILDHOOD , 06/19/17) Reported Medications Lisinopril (Lisinopril) 10 Mg Tab, 10 MG PO DAILY Y for as prescribed, #30 TAB 0 Refills 06/19/17 Discontinued Reported Medications Levothyroxine Sodium (Levothyroxine 150 mcg) 150 Mcg Tab, 150 MCG PO DAILY, TAB 12/31/15 Lisinopril 20 mg (Lisinopril 20 mg) 20 Mg Tab, 1 TAB PO BID, TAB 12/31/15 Trazodone HCl (Trazodone HCl) 100 Mg Tab, 100 MG PO HS, TAB 12/31/15 Discontinued Scripts Hydrocortisone (Anusol-Hc) 2.5 % Cre, 1 DOSE TOP QID for Pain, #1 TUBE APPLY NEEDED FOR PAIN DISPENSE 1 TUBE Prov:Remi Childs MD 12/31/15 Current Medications Medications (Trade) Dose Ordered Sig/Alanna Route Start Time Stop Time Status Last Admin (Tylenol) 650 mg Q4H PRN PO 06/19/17 13:30 (Milk Of Magnesia Liq) 30 ml DAILY PRN PO 06/19/17 13:30 (Mag-Al Plus Susp Liq) 30 ml Q6H PRN PO 06/19/17 13:30 (Habitrol 21 Mg Patch.24 Hr) 1 patch DAILY T-DERMAL 06/19/17 17:00 Miscellaneous Information 1 DAILY T-DERMAL 06/20/17 09:00 (Prinivil) 10 mg DAILY PRN PO 06/19/17 18:00 (Ativan) 0.5 mg Q6H PRN PO 06/20/17 13:30 (Ativan Inj) 0.5 mg Q6H PRN IM 06/20/17 13:30 (D50w (Vial) Inj) 50 ml UNSCH PRN IV 06/20/17 07:30 (Glucagon Inj) 1 mg UNSCH PRN OTHER 06/20/17 07:30 (NovoLOG SUPPLEMENTAL SCALE) 1 ACHS SLIDING SCALE SQ 06/20/17 11:00 (Duoneb Neb) 1 ampule Q6HR WHILE AWAKE NEB NEB 06/20/17 14:00 UNV (Symbicort 160-4.5 Inh) 2 puff Q12HR INH 06/20/17 11:15 UNV (Habitrol 21 Mg Patch.24 Hr) 1 patch DAILY T-DERMAL 06/20/17 11:15 UNV Miscellaneous Information 1 DAILY T-DERMAL 06/21/17 09:00 UNV Family History He denies family psychiatric history Social History Patient was born and raised in [place], he lives with his in [place] , is retired, he has a bachelor degree in [employer] Patient's Strengths (min. 2) Resilient and has access to healthcare. Physical Exam Vital Signs Vital Signs Date Time Temp Pulse Resp B/P (MAP) Pulse Ox O2 Delivery O2 Flow Rate FiO2 06/20/17 05:43 98.9 78 17 130/67 (88) 96 06/19/17 14:50 Room Air I/O 06/20/17 06/20/17 06/21/17 08:00 16:00 00:00 Intake Total 720 ml Balance 720 ml Lab Results Test 06/20/17 09:06 Mental Status Examination Appearance man, good hygiene, age appearance, irritable, cooperative Speech: Pressured, Rapid Orientation: x3 Memory: Unremarkable Thought Process: Circumstantial, Flight of Ideas, Loose Association, Tangential Thought Content: Bizarre thinking, Paranoid Hallucination Type: Auditory Attention and Concentration: Abnormal Suicidal Ideation: Yes Previous Suicide Attempts: No Homicidal Ideation: No Previous Homicide Attempts: No Insight: Fair Judgment: Unrealistic Affect: Irritable, Sad Affect if Inappropriate: Labile Mood: Sad Motor Activity: Normal gait Assessment & Plan Problem List: (1) Bipolar disorder, current episode mixed, severe, with psychotic features ICD Codes: F31.64 - Bipolar disorder, current episode mixed, severe, with psychotic features Status: Acute Assessment & Plan: I have seen and examined this patient, reviewed the documentation, I completely agree and concur with Dr. Fenton assessment and plan. Consult appreciated. Assessment & Plan Estimated LOS: days Request HC Surrog/Guard Advoc?: Yes Elder Mark MD Jun 20, 2017 11:14
[2017-06-20] MEDS: BUDESONIDE-FORMOTEROL 160/4.5 MCG INHALER INH SCH ×2 (11:15→21:24)
--- NOTE | 2017-06-20 11:18 | EKG ---
Date Performed: 06/20/2017 Time Performed: 07:18:29 PTAGE: 72 years EKG: Sinus rhythm RIGHT BUNDLE BRANCH BLOCK LEFT ANTERIOR FASCICULAR BLOCK ABNORMAL ECG NO PREVIOUS TRACING DOCTOR: Forrest Calderón Interpretating Date/Time 06/20/2017 11:17:46
[2017-06-20 11:32] LABS: ALT (GPT) 33 U/L (12-78); ANION GAP 5 MEQ/L (5-15); AST (GOT) 34 U/L (15-37); BICARBONATE 28.7 MEQ/L (21.0-32.0); BLOOD UREA NITROGEN 13 MG/DL (7-18); CHLORIDE 99 MEQ/L (98-107); GLOMERULAR FILTRATION RATE 65 ML/MIN (>89); POTASSIUM 4.3 MEQ/L (3.5-5.1); SODIUM (NA) 133 MEQ/L (136-145)
[2017-06-20 11:41] LABS: HEMO FLAGS DIFF FINAL; RED BLOOD COUNT 3.85 MIL/MM3 (4.50-5.90)
[2017-06-20 11:42] LABS: HEMATOCRIT 35.1 % (39.0-51.0); MEAN CELL VOLUME 91.2 FL (80.0-100.0); MEAN CORPUSCULAR HEMOGLOBIN 31.2 PG (27.0-34.0); MEAN CORPUSCULAR HGB CONC 34.2 % (32.0-36.0); RED CELL DISTRIBUTION WIDTH 13.5 % (11.6-17.2)
[2017-06-20 11:58] LABS: ALKALINE PHOSPHATASE 78 U/L (45-117); HDL CHOLESTEROL 20.6 MG/DL (40.0-60.0); LDL CHOLESTEROL 65 MG/DL (0-99)
[2017-06-20] MEDS ORDERED: OLANZapine IM 10 MG VIAL IM PRN (13:45)
[2017-06-20 16:13] LABS: HEMOGLOBIN A1a 0.9 %; HEMOGLOBIN A1b 1.3 %; HEMOGLOBIN LA1C 2.3 %; HEMOGLOBIN P3 3.6 %
--- NOTE | 2017-06-20 17:05 | HHI.PR ---
Subjective Remarks denies cp/sob bp elevated earlier today now better Objective Vitals Vital Signs Date Time Temp Pulse Resp B/P (MAP) Pulse Ox O2 Delivery O2 Flow Rate FiO2 06/20/17 05:43 98.9 78 17 130/67 (88) 96 I/O 06/19/17 06/19/17 06/19/17 06/20/17 06/20/17 06/20/17 07:00 15:00 23:00 07:00 15:00 23:00 Intake Total 720 ml Balance 720 ml Intake Oral 720 ml # Voids 4 Result Diagram: 06/20/1790506/20/17905 Objective Remarks GENERAL: This is a well-nourished, well-developed patient, in no apparent distress. SKIN: No rashes, ecchymoses or lesions. Cool and dry. HEAD: Atraumatic. Normocephalic. No temporal or scalp tenderness. EYES: Pupils equal round and reactive. Extraocular motions intact. No scleral icterus. No injection or drainage. ENT: Nose without bleeding, purulent drainage or septal hematoma. Throat without erythema, tonsillar hypertrophy or exudate. Uvula midline. Airway patent. NECK: Trachea midline. No JVD or lymphadenopathy. Supple, nontender, no meningeal signs. CARDIOVASCULAR: Regular rate and rhythm without murmurs, gallops, or rubs. RESPIRATORY: There is diffuse mild expiratory wheezing. No rales or rhonchi auscultated. There is good air entry bilaterally. GASTROINTESTINAL: Abdomen soft, non-tender, nondistended. No hepato-splenomegaly , or palpable masses. No guarding. MUSCULOSKELETAL: Extremities without clubbing, cyanosis, or edema. No joint tenderness, effusion, or edema noted. No calf tenderness. Negative Homans sign bilaterally. NEUROLOGICAL: Awake and alert. Cranial nerves II through XII intact. Motor and sensory grossly within normal limits. Five out of 5 muscle strength in all muscle groups. Normal speech. Medications and IVs Current Medications Medications (Trade) Dose Ordered Sig/Alanna Route Start Time Stop Time Status Last Admin (Tylenol) 650 mg Q4H PRN PO 06/19/17 13:30 (Milk Of Magnesia Liq) 30 ml DAILY PRN PO 06/19/17 13:30 (Mag-Al Plus Susp Liq) 30 ml Q6H PRN PO 06/19/17 13:30 (Prinivil) 10 mg DAILY PRN PO 06/19/17 18:00 (Ativan) 0.5 mg Q6H PRN PO 06/20/17 13:30 (Ativan Inj) 0.5 mg Q6H PRN IM 06/20/17 13:30 (D50w (Vial) Inj) 50 ml UNSCH PRN IV 06/20/17 07:30 (Glucagon Inj) 1 mg UNSCH PRN OTHER 06/20/17 07:30 (NovoLOG SUPPLEMENTAL SCALE) 1 ACHS SLIDING SCALE SQ 06/20/17 11:00 (Duoneb Neb) 1 ampule Q6HR WHILE AWAKE NEB NEB 06/20/17 14:00 (Symbicort 160-4.5 Inh) 2 puff Q12HR INH 06/20/17 11:15 06/20/17 11:15 (Habitrol 21 Mg Patch.24 Hr) 1 patch DAILY T-DERMAL 06/20/17 11:15 06/20/17 11:15 Miscellaneous Information 1 DAILY T-DERMAL 06/21/17 09:00 (ZyPREXA INJ) 5 mg HS PRN IM 06/20/17 13:45 (ZyPREXA ZYDIS ODT) 5 mg HS PO 06/20/17 21:00 Urinary Catheter: No Vascular Central Line Catheter: No A/P Problem List: (1) Bipolar disorder, current episode mixed, severe, with psychotic features ICD Code: F31.64 - Bipolar disorder, current episode mixed, severe, with psychotic features Status: Acute Plan: Management as per psychiatry. (2) Hyponatremia ICD Code: E87.1 - Hypo-osmolality and hyponatremia Status: Acute Plan: Patient seems to be euvolemic. 06/21 sodium trending up from 127 - 133. Continue fluid restriction. Normal serum osmolality but no sodium osmolality obtained. (3) Diabetes ICD Code: E11.9 - Type 2 diabetes mellitus without complications Plan: I will check hemoglobin A1c. Place on SSI with insulin NovoLog. Patient states that he is on insulin Glargin at home. He does not remember the dose. 06/20 Blood sugars somewhat elevated. Continue SSI with insulin Novolog (4) HTN (hypertension) ICD Code: I10 - Essential (primary) hypertension Plan: BP seems to be slightly elevated. Patient is on lisinopril at home which I will continue. Continue to monitor vital signs and BMP. 06/20 BP better controlled. continue Lisinopril. (5) Wheezing ICD Code: R06.2 - Wheezing Status: Acute Plan: The patient has mild diffuse bilateral expiratory wheezing on exam. The patient is a heavy smoker and this is probably likely due to some long-standing damage due to tobacco use. Continue DuoNeb treatments and steroid inhalers. Will also check a chest x-ray to assess for any infiltrates or any radiologic signs of COPD. (6) Hypothyroidism ICD Code: E03.9 - Hypothyroidism, unspecified Plan: Check TSH, will try to get dose not the patient was taking. As per patient's the patient has not been compliant with his medications. TSH IS ELEVATED AT 4.880 - Check free t4 and will start on 50 mcg of levothyroxine for now. (7) Anemia ICD Code: D64.9 - Anemia, unspecified Plan: The patient has history of liver cirrhosis. Anemia is normocytic, likely secondary to liver disease. Continue to monitor hemoglobin and CBC. 06/20 hemoglobin stable. monitor cbc. 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 (9) Tobacco abuse ICD Code: Z72.0 - Tobacco use Plan: Advises smoking cessation, continue nicotine patch. Assessment and Plan DVT Prophylaxis: SCD's Problem Qualifiers (1) Diabetes: Qualified Codes: E11.9 - Type 2 diabetes mellitus without complications (2) HTN (hypertension): Qualified Codes: I10 - Essential (primary) hypertension (3) Hypothyroidism: Qualified Codes: E03.9 - Hypothyroidism, unspecified Lawrence Reynaga MD Jun 20, 2017 17:05
[2017-06-20] MEDS ORDERED: LISI10TA3 PO (17:20)
[2017-06-20] MEDS ORDERED: TIZA2CAP3 PO (17:20)
[2017-06-20] MEDS ORDERED: SITA1TAB2 PO (17:20)
[2017-06-20] MEDS ORDERED: TIZA4CAP3 PO (17:20)
[2017-06-20] MEDS ORDERED: LEVO150T7 PO (17:20)
[2017-06-20] MEDS ORDERED: HYDR25TA5 PO (17:20)
[2017-06-20] MEDS ORDERED: INSU1.2I SQ (17:20)
[2017-06-20 17:57] VITALS: BP 165/73; PULSE 76; RESP 20; TEMP 99; O2SAT 94
--- NOTE | 2017-06-20 21:00 | RADRPT ---
EXAM DATE/TIME: 06/20/2017 20:38 [facility] COMPARISON: No previous studies available for comparison. INDICATIONS : Coughing and wheezing. MEDICAL HISTORY : None. SURGICAL HISTORY : None. ENCOUNTER: Subsequent ACUITY: 4 - 6 days PAIN SCORE: 0/10 LOCATION: Bilateral chest FINDINGS: A single view of the chest demonstrates the lungs to be symmetrically aerated without evidence of mas s, infiltrate or effusion. Calcified granulomata in the lungs. The cardiomediastinal contours are un remarkable. Osseous structures are intact. CONCLUSION: 1. No acute findings. Calcified granulomata in the lungs. Scoliosis. Navin Kaur MD on June 20, 2017 at 20:58 Board Certified Radiologist. This report was verified electronically.
[2017-06-20] MEDS: OLANZapine ODT 5 MG TAB PO SCH (21:25)
[2017-06-21 06:43] VITALS: BP 165/76; PULSE 91; RESP 18; TEMP 100.2; O2SAT 96
[2017-06-21] MEDS: INSULIN ASPART SUPPLEMENTAL SCALE SQ SCH ×4 (06:57→21:00)
[2017-06-21] MEDS: LEVOTHYROXINE SODIUM 50 MCG TAB PO SCH ×2 (06:59→07:00)
[2017-06-21 09:00] VITALS: TEMP 99.3
[2017-06-21] MEDS: BUDESONIDE-FORMOTEROL 160/4.5 MCG INHALER INH SCH ×2 (09:00→21:04)
[2017-06-21] MEDS: RESP: ALBUTEROL 2.5 MG/IPRATROPIUM 0.5 MG NEB (SCH) NEB ×3 (09:00→21:25)
[2017-06-21] MEDS: REMOVE OLD PATCH T-DERMAL SCH (09:00)
[2017-06-21] MEDS: NICOTINE 21 MG/24 HR PATCH T-DERMAL SCH (09:00)
--- NOTE | 2017-06-21 11:10 | HHI.PYPN ---
Subjective Remarks Remains hypomanic to manic. Easily agitated. Emotionally labile. Reviewed labs. Discuss case with patient's mental health tech. Review of Systems Except as stated in HPI: all other systems reviewed are Neg Objective Alert: Yes [place]: Person, Place, Date Mood: Anxious Affect: Restricted (dysphoric) Memory Intact: Comment (intact on clinical exam) Hallucinations: Other (denies AVH) Delusions: Yes Delusion Type: Paranoid (suspect paranoia related to ) Suicidal: Ideation (denies suicidal ideation but is unreliable to contract for safety) Homicidal: Ideation (denies homicidal ideation but is unreliable to contract for safety) Insight/Judgment Impaired Vitals/IOs Vital Signs Date Time Temp Pulse Resp B/P (MAP) Pulse Ox O2 Delivery O2 Flow Rate FiO2 06/21/17 06:43 100.2 91 18 165/76 (105) 96 06/19/17 14:50 Room Air Intake and Output 06/21/17 06/21/17 06/22/17 08:00 16:00 00:00 Intake Total 720 ml Balance 720 ml Assessment & Plan Problem List: (1) Bipolar disorder, current episode mixed, severe, with psychotic features ICD Codes: F31.64 - Bipolar disorder, current episode mixed, severe, with psychotic features Status: Acute Assessment & Plan Estimated LOS: days continue to observe for medication efficacy and tolerability. Justification for Cont. Inpt. Unable to care for self and dangerous to others. Request HC Surrog/Guard Advoc?: Yes Milind Nguyễn MD Jun 21, 2017 11:10
[2017-06-21 12:52] LABS: BICARBONATE 29.3 MEQ/L (21.0-32.0); POTASSIUM 4.2 MEQ/L (3.5-5.1)
[2017-06-21] MEDS: LISINOPRIL 10 MG TAB PO PRN (18:01)
[2017-06-21 18:11] VITALS: BP 198/91; PULSE 93; RESP 18; TEMP 98.7; O2SAT 97
[2017-06-21] MEDS: OLANZapine ODT 5 MG TAB PO SCH (21:04)
[2017-06-22] MEDS: LORazepam 2 MG/ML VIAL IM PRN (01:43)
[2017-06-22 03:16] VITALS: BP 147/70; PULSE 99
[2017-06-22] MEDS: LEVOTHYROXINE SODIUM 50 MCG TAB PO SCH (05:50)
[2017-06-22 06:00] VITALS: BP 131/53; PULSE 76; RESP 18; TEMP 97.8; O2SAT 98
[2017-06-22] MEDS: INSULIN ASPART SUPPLEMENTAL SCALE SQ SCH ×4 (06:01→20:36)
[2017-06-22] MEDS: RESP: ALBUTEROL 2.5 MG/IPRATROPIUM 0.5 MG NEB (SCH) NEB ×3 (08:00→20:00)
[2017-06-22] MEDS: REMOVE OLD PATCH T-DERMAL SCH (09:00)
[2017-06-22] MEDS: NICOTINE 21 MG/24 HR PATCH T-DERMAL SCH (09:32)
[2017-06-22] MEDS: BUDESONIDE-FORMOTEROL 160/4.5 MCG INHALER INH SCH ×2 (09:33→22:11)
--- NOTE | 2017-06-22 10:53 | HHI.PYPN ---
Subjective Remarks Patient seen and examined. Chart reviewed. Case discussed with nursing staff. Patient apparently slept only 1 hour overnight. Noted by nursing staff to remain somewhat labile. On my examination today, the patient says that he was "getting a little manic" overnight. He says that the Ativan that he received was helpful to get him some sleep. Remains in a little bit mixed state. Denies side effects from medications. Agreeable to titration of Zyprexa. No physical complaints. Review of Systems ROS Limitations: Poor Historian Except as stated in HPI: all other systems reviewed are Neg Objective Alert: Yes [place]: Person, Place, Date Mood: Calm Affect: Restricted (a little dysphoric) Memory Intact: Comment (intact on clinical exam) Hallucinations: Other (No AVH) Delusions: No Delusion Type: Other (No delusions today) Suicidal: Ideation (No SI) Homicidal: Ideation (No HI) Insight/Judgment Poor Remarks No abnormal motor movements noted. Thought process fairly linear. Abdomen appears a little distended but is soft and nontender. Patient reports that he has been moving his bowels without difficulty. Labs Labs reviewed. Mild hyponatremia noted. Anemia improved. Test 06/21/17 11:33 Blood Urea Nitrogen 11 MG/DL Creatinine 0.94 MG/DL Random Glucose 116 MG/DL Calcium Level 8.9 MG/DL Sodium Level 134 MEQ/L Potassium Level 4.2 MEQ/L Chloride Level 98 MEQ/L Carbon Dioxide Level 29.3 MEQ/L Anion Gap 7 MEQ/L Estimat Glomerular Filtration Rate 79 ML/MIN Vitals/IOs Vital Signs Date Time Temp Pulse Resp B/P (MAP) Pulse Ox O2 Delivery O2 Flow Rate FiO2 06/22/17 06:00 97.8 76 18 131/53 (79) 98 06/19/17 14:50 Room Air Assessment & Plan Problem List: (1) Bipolar disorder, current episode mixed, severe, with psychotic features ICD Codes: F31.64 - Bipolar disorder, current episode mixed, severe, with psychotic features Status: Acute Assessment & Plan Titrate Zyprexa to 10 mg at bedtime for mood stabilization and sleep. Hospitalist input noted and appreciated. Continue to monitor on the inpatient unit. Continue other medications and care as ordered. Justification for Cont. Inpt. Med changes. High risk for decompensation in less restrictive environment. Discharge Planning Pending psychiatric stabilization. Possible discharge sometime next week depending on progress on the unit. Request HC Surrog/Guard Advoc?: Yes Piter Fenton MD Jun 22, 2017 10:53
[2017-06-22] MEDS ORDERED: OLANZapine IM 10 MG VIAL IM PRN (11:00)
[2017-06-22 16:05] VITALS: BP 140/86; PULSE 82; RESP 18; TEMP 98.6; O2SAT 99
--- NOTE | 2017-06-22 17:09 | HHI.PR ---
Subjective Remarks In the chair. appears in nad. Says he is breathing well no wheezing. He is able to walk. No chest pain or sob. No fever ro chills/ Doesn't feel weak. No n/ v/d/c. Says he is eating well. Objective Vitals Vital Signs Date Time Temp Pulse Resp B/P (MAP) Pulse Ox O2 Delivery O2 Flow Rate FiO2 06/22/17 16:05 98.6 82 18 140/86 (104) 99 06/22/17 06:00 97.8 76 18 131/53 (79) 98 06/22/17 03:16 99 147/70 (95) 06/21/17 18:11 98.7 93 18 198/91 (126) 97 I/O 06/21/17 06/21/17 06/21/17 06/22/17 06/22/17 06/22/17 06:59 14:59 22:59 06:59 14:59 22:59 Intake Total 720 ml 480 ml 960 ml 720 ml Balance 720 ml 480 ml 960 ml 720 ml Intake Oral 720 ml 480 ml 960 ml 720 ml # Voids 4 2 2 # Bowel Movements 0 Result Diagram: 06/20/17 0906 06/21/17 1133 Imaging Last Impressions Chest X-Ray 06/20/17 0000 Signed Impressions: Service Date/Time: Tuesday, June 20, 2017 20:38 - CONCLUSION: 1. No acute findings. Calcified granulomata in the lungs. Scoliosis. Navin Kaur MD Objective Remarks GENERAL: This is a well-nourished, well-developed patient, in no apparent distress. CARDIOVASCULAR: Regular rate and rhythm without murmurs, gallops, or rubs. RESPIRATORY: There is diffuse mild expiratory wheezing. No rales or rhonchi auscultated. There is good air entry bilaterally. GASTROINTESTINAL: Abdomen soft, non-tender, nondistended. No hepato-splenomegaly , or palpable masses. No guarding. MUSCULOSKELETAL: Extremities without clubbing, cyanosis, or edema. No joint tenderness, effusion, or edema noted. No calf tenderness. Negative Homans sign bilaterally. NEUROLOGICAL: Awake and alert. Cranial nerves II through XII intact. Motor and sensory grossly within normal limits. Five out of 5 muscle strength in all muscle groups. Normal speech. A/P Problem List: (1) Bipolar disorder, current episode mixed, severe, with psychotic features ICD Code: F31.64 - Bipolar disorder, current episode mixed, severe, with psychotic features Status: Acute (2) Hyponatremia ICD Code: E87.1 - Hypo-osmolality and hyponatremia Status: Acute (3) Diabetes ICD Code: E11.9 - Type 2 diabetes mellitus without complications (4) HTN (hypertension) ICD Code: I10 - Essential (primary) hypertension (5) Wheezing ICD Code: R06.2 - Wheezing Status: Acute (6) Hypothyroidism ICD Code: E03.9 - Hypothyroidism, unspecified (7) Anemia ICD Code: D64.9 - Anemia, unspecified (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 (2) Hyponatremia, improving ICD Code: E87.1 - Hypo-osmolality and hyponatremia Status: Acute Plan: Patient seems to be euvolemic. 06/21 sodium trending up from 127 - 133- 134 . Continue fluid restriction. Normal serum osmolality but no sodium osmolality obtained. (3) Diabetes ICD Code: E11.9 - Type 2 diabetes mellitus without complications Plan: I will check hemoglobin A1c. Place on SSI with insulin NovoLog. Patient states that he is on insulin Glargin at home. He does not remember the dose. 06/20 Blood sugars somewhat elevated. Continue SSI with insulin Novolog (4) HTN (hypertension) ICD Code: I10 - Essential (primary) hypertension Plan: BP seems to be slightly elevated. Patient is on lisinopril at home which I will continue. Continue to monitor vital signs and BMP. 06/20 BP better controlled. continue Lisinopril. (5) Wheezing ICD Code: R06.2 - Wheezing Status: Acute Plan: The patient has mild diffuse bilateral expiratory wheezing on exam. The patient is a heavy smoker and this is probably likely due to some long-standing damage due to tobacco use. Continue DuoNeb treatments and steroid inhalers. Wheezing Improved Chest x-ray reviewed shows findings consistent with granuloma of the lungs. Might benefit from steroid use. Also noted scoliosis. ICD Code: E03.9 - Hypothyroidism, unspecified Plan: Check TSH, will try to get dose not the patient was taking. As per patient's the patient has not been compliant with his medications. TSH IS ELEVATED AT 4.880 - Check free t4 and will start on 50 mcg of levothyroxine for now. (7) Anemia ICD Code: D64.9 - Anemia, unspecified Plan: The patient has history of liver cirrhosis. Anemia is normocytic, likely secondary to liver disease. Continue to monitor hemoglobin and CBC. 06/20 hemoglobin stable. monitor cbc. 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 (9) Tobacco abuse ICD Code: Z72.0 - Tobacco use Plan: Advises smoking cessation, continue nicotine patch. Assessment and Plan DVT Prophylaxis: SCD's Discussed with the patient. nurse Problem Qualifiers (1) Diabetes: Qualified Codes: E11.9 - Type 2 diabetes mellitus without complications (2) HTN (hypertension): Qualified Codes: I10 - Essential (primary) hypertension (3) Hypothyroidism: Qualified Codes: E03.9 - Hypothyroidism, unspecified Rola Mcnally MD Jun 22, 2017 17:09
[2017-06-22] MEDS: LORazepam 0.5 MG TAB PO PRN (22:12)
[2017-06-22] MEDS: OLANZapine ODT 5 MG TAB PO SCH (22:12)
[2017-06-23] MEDS: LEVOTHYROXINE SODIUM 50 MCG TAB PO SCH (05:52)
[2017-06-23 06:00] VITALS: BP 154/87; PULSE 91; RESP 18; TEMP 97.6; O2SAT 96
[2017-06-23] MEDS: INSULIN ASPART SUPPLEMENTAL SCALE SQ SCH ×4 (06:14→20:53)
--- NOTE | 2017-06-23 06:57 | HHI.PYPN ---
Subjective Remarks Patient seen and examined. Chart reviewed. Case d/w RN: slept better ON with Zyprexa. On my examination this morning, patient continues with some loosening of associations although mood seems more stable. Subjectively feels like his mood is stabilizing and says that he feels less angry. No SI or HI. Denies side effects from medications. No physical complaints. Review of Systems ROS Limitations: Poor Historian Except as stated in HPI: all other systems reviewed are Neg Objective Alert: Yes [place]: Person, Place (at least) Mood: Calm Affect: Blunted Memory Intact: Comment (not formally assessed) Hallucinations: Other (No AVH) Delusions: No Delusion Type: Other (no delusions) Suicidal: Ideation (No SI) Homicidal: Ideation (No HI) Insight/Judgment Poor Remarks No motor abnormalities noted. Labs Labs reviewed. CBC and BMP ordered this morning are pending. Vitals/IOs Vital Signs Date Time Temp Pulse Resp B/P (MAP) Pulse Ox O2 Delivery O2 Flow Rate FiO2 06/23/17 06:00 97.6 91 18 154/87 (109) 96 06/19/17 14:50 Room Air Assessment & Plan Problem List: (1) Bipolar disorder, current episode mixed, severe, with psychotic features ICD Codes: F31.64 - Bipolar disorder, current episode mixed, severe, with psychotic features Status: Acute Assessment & Plan Continue Zyprexa 10mg qHS as ordered. Follow up on labs ordered by hospitalist. Continue to monitor on geropsychiatric unit. Continue other meds and care as ordered. Justification for Cont. Inpt. Risk for decompensation in less restrictive environment. Discharge Planning Pending stabilization. Request HC Surrog/Guard Advoc?: Yes Piter Fenton MD Jun 23, 2017 06:57
[2017-06-23] MEDS: REMOVE OLD PATCH T-DERMAL SCH (09:00)
[2017-06-23] MEDS: BUDESONIDE-FORMOTEROL 160/4.5 MCG INHALER INH SCH ×2 (09:00→20:52)
[2017-06-23] MEDS: NICOTINE 21 MG/24 HR PATCH T-DERMAL SCH (09:24)
[2017-06-23] MEDS: RESP: ALBUTEROL 2.5 MG/IPRATROPIUM 0.5 MG NEB (SCH) NEB ×3 (10:48→20:20)
[2017-06-23 11:18] LABS: AUTOMATED NEUTROPHIL # 2.5 TH/MM3 (1.8-7.7); BASOPHIL # 0.1 TH/MM3 (0-0.2); BASOPHIL % 1.1 % (0.0-2.0); EOSINOPHIL % 0.2 % (0.0-4.0); HEMATOCRIT 33.5 % (39.0-51.0); HEMO FLAGS DIFF FINAL; LYMPH % 35.5 % (9.0-44.0); LYMPHOCYTE # 1.8 TH/MM3 (1.0-4.8); MEAN CELL VOLUME 91.5 FL (80.0-100.0); MEAN CORPUSCULAR HEMOGLOBIN 32.4 PG (27.0-34.0); MEAN CORPUSCULAR HGB CONC 35.4 % (32.0-36.0); MONO % 14.5 % (0.0-8.0); NEUT % 48.7 % (16.0-70.0); PLATELET COUNT 142 TH/MM3 (150-450); RED BLOOD COUNT 3.66 MIL/MM3 (4.50-5.90); RED CELL DISTRIBUTION WIDTH 13.2 % (11.6-17.2); WHITE BLOOD COUNT 5.1 TH/MM3 (4.0-11.0)
[2017-06-23 11:22] LABS: BICARBONATE 22.9 MEQ/L (21.0-32.0); POTASSIUM 4.1 MEQ/L (3.5-5.1)
--- NOTE | 2017-06-23 16:15 | HHI.PR ---
Subjective Remarks Seen earlier. Denies chest pain or sob. He was noted more agitated and in appropriate he is in the room. No wheezing. No sob No n/v/d/c. Objective Vitals Vital Signs Date Time Temp Pulse Resp B/P (MAP) Pulse Ox O2 Delivery O2 Flow Rate FiO2 06/23/17 06:00 97.6 91 18 154/87 (109) 96 I/O 06/22/17 06/22/17 06/22/17 06/23/17 06/23/17 06/23/17 07:00 15:00 23:00 07:00 15:00 23:00 Intake Total 960 ml 30 ml Balance 960 ml 30 ml Intake Oral 960 ml 30 ml # Voids 2 2 1 Result Diagram: 06/23/1794406/23/17944 Objective Remarks GENERAL: This is a well-nourished, well-developed patient, in no apparent distress. CARDIOVASCULAR: Regular rate and rhythm without murmurs, gallops, or rubs. RESPIRATORY: There is diffuse mild expiratory wheezing. No rales or rhonchi auscultated. There is good air entry bilaterally. GASTROINTESTINAL: Abdomen soft, non-tender, nondistended. No hepato-splenomegaly , or palpable masses. No guarding. MUSCULOSKELETAL: Extremities without clubbing, cyanosis, or edema. No joint tenderness, effusion, or edema noted. No calf tenderness. Negative Homans sign bilaterally. NEUROLOGICAL: Awake and alert. Cranial nerves II through XII intact. Motor and sensory grossly within normal limits. Five out of 5 muscle strength in all muscle groups. Normal speech. A/P Problem List: (1) Bipolar disorder, current episode mixed, severe, with psychotic features ICD Code: F31.64 - Bipolar disorder, current episode mixed, severe, with psychotic features Status: Acute (2) Hyponatremia ICD Code: E87.1 - Hypo-osmolality and hyponatremia Status: Acute (3) Diabetes ICD Code: E11.9 - Type 2 diabetes mellitus without complications (4) HTN (hypertension) ICD Code: I10 - Essential (primary) hypertension (5) Wheezing ICD Code: R06.2 - Wheezing Status: Acute (6) Hypothyroidism ICD Code: E03.9 - Hypothyroidism, unspecified (7) Anemia ICD Code: D64.9 - Anemia, unspecified (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 (2) Hyponatremia, improving ICD Code: E87.1 - Hypo-osmolality and hyponatremia Status: Acute Plan: Patient seems to be euvolemic. 06/21 sodium trending up from 127 - 133- 134 . Continue fluid restriction. Normal serum osmolality but no sodium osmolality obtained. (3) Diabetes ICD Code: E11.9 - Type 2 diabetes mellitus without complications Plan: I will check hemoglobin A1c. Place on SSI with insulin NovoLog. Patient states that he is on insulin Glargin at home. He does not remember the dose. 06/20 Blood sugars somewhat elevated. Continue SSI with insulin Novolog (4) HTN (hypertension) ICD Code: I10 - Essential (primary) hypertension Plan: BP seems to be slightly elevated. Patient is on lisinopril at home which I will continue. Continue to monitor vital signs and BMP. 06/20 BP better controlled. continue Lisinopril. (5) Wheezing ICD Code: R06.2 - Wheezing Status: Acute Plan: The patient has mild diffuse bilateral expiratory wheezing on exam. The patient is a heavy smoker and this is probably likely due to some long-standing damage due to tobacco use. Continue DuoNeb treatments and steroid inhalers. Wheezing Improved Chest x-ray reviewed shows findings consistent with granuloma of the lungs. Might benefit from steroid use. Also noted scoliosis. ICD Code: E03.9 - Hypothyroidism, unspecified Plan: Check TSH, will try to get dose not the patient was taking. As per patient's the patient has not been compliant with his medications. TSH IS ELEVATED AT 4.880 - Check free t4 and will start on 50 mcg of levothyroxine for now. (7) Anemia ICD Code: D64.9 - Anemia, unspecified Plan: The patient has history of liver cirrhosis. Anemia is normocytic, likely secondary to liver disease. Continue to monitor hemoglobin and CBC. 06/20 hemoglobin stable. monitor cbc. 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 (9) Tobacco abuse ICD Code: Z72.0 - Tobacco use Plan: Advises smoking cessation, continue nicotine patch. Assessment and Plan DVT Prophylaxis: SCD's Discussed with the patient. nurse Problem Qualifiers (1) Diabetes: Qualified Codes: E11.9 - Type 2 diabetes mellitus without complications (2) HTN (hypertension): Qualified Codes: I10 - Essential (primary) hypertension (3) Hypothyroidism: Qualified Codes: E03.9 - Hypothyroidism, unspecified Rola Mcnally MD Jun 23, 2017 16:15
[2017-06-23] MEDS: OLANZapine ODT 5 MG TAB PO SCH (20:56)
[2017-06-23] MEDS: LORazepam 0.5 MG TAB PO PRN (20:56)
[2017-06-24] MEDS: LORazepam 0.5 MG TAB PO PRN (03:24)
[2017-06-24] MEDS: ACETAMINOPHEN 325 MG TAB PO PRN (03:25)
[2017-06-24 06:00] VITALS: BP 125/59; PULSE 65; RESP 17; TEMP 97.2; O2SAT 94
[2017-06-24] MEDS: INSULIN ASPART SUPPLEMENTAL SCALE SQ SCH ×4 (06:00→21:00)
[2017-06-24] MEDS: LEVOTHYROXINE SODIUM 50 MCG TAB PO SCH (06:02)
--- NOTE | 2017-06-24 07:34 | HHI.PYPN ---
Subjective Remarks Patient seen and examined. Chart reviewed. Case discussed in treatment team. No behavioral issues overnight per nursing staff. Case discussed with counselor. On my examination today, patient's mood seems fairly stable, and the patient feels subjectively improved in this regard. He denies SI/HI. Denies AVH. Sleep subjectively improved. Complains of feeling a little bit stiff with Zyprexa but no other side effects. Does report ~2 days without BM and says he is not passing flatus. I did check a KUB, which was negative for obstruction. No other physical complaints. Review of Systems ROS Limitations: Poor Historian Except as stated in HPI: all other systems reviewed are Neg Objective Alert: Yes [place]: Person, Place Mood: Calm Affect: Blunted Memory Intact: Comment (Not assessed) Hallucinations: Other (Denies AVH) Delusions: No Delusion Type: Other (No delusional material) Suicidal: Ideation (Denies SI) Homicidal: Ideation (Denies HI) Insight/Judgment Poor Remarks Perhaps some mild stiffness and cog-wheeling in UE. No hypertonia in LE. No signs of NMS. No other motor abnormalities. TP fairly linear. Labs Test 06/23/17 09:45 White Blood Count 5.1 TH/MM3 Red Blood Count 3.66 MIL/MM3 Hemoglobin 11.9 GM/DL Hematocrit 33.5 % Mean Corpuscular Volume 91.5 FL Mean Corpuscular Hemoglobin 32.4 PG Mean Corpuscular Hemoglobin Concent 35.4 % Red Cell Distribution Width 13.2 % Platelet Count 142 TH/MM3 Mean Platelet Volume 8.0 FL Neutrophils (%) (Auto) 48.7 % Lymphocytes (%) (Auto) 35.5 % Monocytes (%) (Auto) 14.5 % Eosinophils (%) (Auto) 0.2 % Basophils (%) (Auto) 1.1 % Neutrophils # (Auto) 2.5 TH/MM3 Lymphocytes # (Auto) 1.8 TH/MM3 Monocytes # (Auto) 0.7 TH/MM3 Eosinophils # (Auto) 0.0 TH/MM3 Basophils # (Auto) 0.1 TH/MM3 CBC Comment DIFF FINAL Differential Comment Hematology Comments Blood Urea Nitrogen 17 MG/DL Creatinine 1.07 MG/DL Random Glucose 135 MG/DL Calcium Level 9.0 MG/DL Sodium Level 131 MEQ/L Potassium Level 4.1 MEQ/L Chloride Level 98 MEQ/L Carbon Dioxide Level 22.9 MEQ/L Anion Gap 10 MEQ/L Estimat Glomerular Filtration Rate 68 ML/MIN Labs reviewed. Stable anemia. Mild hyponatremia being managed by the hospitalist. GFR within recent range. Last Impressions Abdomen X-Ray 06/24/17 0000 Signed Impressions: Service Date/Time: Saturday, June 24, 2017 08:48 - CONCLUSION: Nonobstructive bowel gas pattern. Juan Carlos Emery MD Chest X-Ray 06/20/17 0000 Signed Impressions: Service Date/Time: Tuesday, June 20, 2017 20:38 - CONCLUSION: 1. No acute findings. Calcified granulomata in the lungs. Scoliosis. Navin Kaur MD Vitals/IOs Vital Signs Date Time Temp Pulse Resp B/P (MAP) Pulse Ox O2 Delivery O2 Flow Rate FiO2 06/24/17 06:00 97.2 65 17 125/59 (81) 94 Assessment & Plan Problem List: (1) Bipolar disorder, current episode mixed, severe, with psychotic features ICD Codes: F31.64 - Bipolar disorder, current episode mixed, severe, with psychotic features Status: Acute Assessment & Plan Continue Zyprexa 10 mg at bedtime. The patient does seem to be experiencing some mild EPS, and I will start scheduled Cogentin 0.5 mg twice daily, keeping the dose low on account of his age. Bowel regimen of scheduled [place]-Colace and Dulcolax PRN. Hospitalist input noted and appreciated. Continue to monitor on the inpatient unit. Continue other medications and care as ordered. Justification for Cont. Inpt. Med changes/Side effect management. Risk for decompensation and less restrictive environment. Discharge Planning Pending stabilization. I have asked the counselor to have patient's come out and visit with the patient to see if he is approaching his chronic baseline. Request HC Surrog/Guard Advoc?: Yes Piter Fenton MD Jun 24, 2017 07:34
[2017-06-24] MEDS: REMOVE OLD PATCH T-DERMAL SCH (09:00)
[2017-06-24] MEDS: RESP: ALBUTEROL 2.5 MG/IPRATROPIUM 0.5 MG NEB (SCH) NEB (09:15)
[2017-06-24] MEDS: BUDESONIDE-FORMOTEROL 160/4.5 MCG INHALER INH SCH (09:24)
[2017-06-24] MEDS: NICOTINE 21 MG/24 HR PATCH T-DERMAL SCH (09:24)
--- NOTE | 2017-06-24 09:29 | RADRPT ---
EXAM DATE/TIME: 06/24/2017 08:48 [facility] COMPARISON: No previous studies available for comparison. INDICATIONS : Abdominal distention and possible obstruction.. MEDICAL HISTORY : Hypertension. cardiac disorders, diabetes, smoker, psychiatric disorders SURGICAL HISTORY : None. ENCOUNTER: Initial ACUITY: 4 - 6 days PAIN SCORE: Non-responsive. LOCATION: Bilateral abdomen FINDINGS: 2 AP supine portable views of the abdomen were obtained and demonstrate gas and stool noted segmental ly in the colon. There is no evidence of free air or mass effect on this supine study. The lung bases are clear. The bony structures are intact. There is mild scoliosis. CONCLUSION: Nonobstructive bowel gas pattern. Juan Carlos Emery MD on June 24, 2017 at 9:27 Board Certified Radiologist. This report was verified electronically.
[2017-06-24] MEDS ORDERED: BISACODYL EC 5 MG TABEC PO PRN (10:45)
--- NOTE | 2017-06-24 10:58 | HHI.PR ---
Subjective Remarks In the chair at recreational room. Says he was not able to eat in the morning much. Appetite is good. No n/v/d/c. Has no wheezing. No fever or chills. Objective Vitals Vital Signs Date Time Temp Pulse Resp B/P (MAP) Pulse Ox O2 Delivery O2 Flow Rate FiO2 06/24/17 06:00 97.2 65 17 125/59 (81) 94 I/O 06/23/17 06/23/17 06/23/17 06/24/17 06/24/17 06/24/17 07:00 15:00 23:00 07:00 15:00 23:00 Intake Total 30 ml 460 ml Balance 30 ml 460 ml Intake Oral 30 ml 460 ml # Voids 1 3 2 Result Diagram: 06/23/1745 06/23/17944 Objective Remarks GENERAL: This is a well-nourished, well-developed patient, in no apparent distress. CARDIOVASCULAR: Regular rate and rhythm without murmurs, gallops, or rubs. RESPIRATORY: There is diffuse mild expiratory wheezing. No rales or rhonchi auscultated. There is good air entry bilaterally. GASTROINTESTINAL: Abdomen soft, non-tender, nondistended. No hepato-splenomegaly , or palpable masses. No guarding. MUSCULOSKELETAL: Extremities without clubbing, cyanosis, or edema. No joint tenderness, effusion, or edema noted. No calf tenderness. Negative Homans sign bilaterally. NEUROLOGICAL: Awake and alert. Cranial nerves II through XII intact. Motor and sensory grossly within normal limits. Five out of 5 muscle strength in all muscle groups. Normal speech. A/P Problem List: (1) Bipolar disorder, current episode mixed, severe, with psychotic features ICD Code: F31.64 - Bipolar disorder, current episode mixed, severe, with psychotic features Status: Acute (2) Hyponatremia ICD Code: E87.1 - Hypo-osmolality and hyponatremia Status: Acute (3) Diabetes ICD Code: E11.9 - Type 2 diabetes mellitus without complications (4) HTN (hypertension) ICD Code: I10 - Essential (primary) hypertension (5) Wheezing ICD Code: R06.2 - Wheezing Status: Acute (6) Hypothyroidism ICD Code: E03.9 - Hypothyroidism, unspecified (7) Anemia ICD Code: D64.9 - Anemia, unspecified (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 (2) Hyponatremia, improving ICD Code: E87.1 - Hypo-osmolality and hyponatremia Status: Acute Plan: Patient seems to be euvolemic. 06/21 sodium trending up from 127 - 133- 134 . Continue fluid restriction. Normal serum osmolality but no sodium osmolality obtained. (3) Diabetes ICD Code: E11.9 - Type 2 diabetes mellitus without complications Plan: I will check hemoglobin A1c. Place on SSI with insulin NovoLog. Patient states that he is on insulin Glargin at home. He does not remember the dose. 06/20 Blood sugars somewhat elevated. Continue SSI with insulin Novolog (4) HTN (hypertension) ICD Code: I10 - Essential (primary) hypertension Plan: BP seems to be slightly elevated. Patient is on lisinopril at home which I will continue. Continue to monitor vital signs and BMP. 06/20 BP better controlled. continue Lisinopril. (5) Wheezing ICD Code: R06.2 - Wheezing Status: Acute Plan: The patient has mild diffuse bilateral expiratory wheezing on exam. The patient is a heavy smoker and this is probably likely due to some long-standing damage due to tobacco use. Continue DuoNeb treatments and steroid inhalers. Wheezing Improved Chest x-ray reviewed shows findings consistent with granuloma of the lungs. Might benefit from steroid use. Also noted scoliosis. ICD Code: E03.9 - Hypothyroidism, unspecified Plan: Check TSH, will try to get dose not the patient was taking. As per patient's the patient has not been compliant with his medications. TSH IS ELEVATED AT 4.880 - Check free t4 and will start on 50 mcg of levothyroxine for now. (7) Anemia ICD Code: D64.9 - Anemia, unspecified Plan: The patient has history of liver cirrhosis. Anemia is normocytic, likely secondary to liver disease. Continue to monitor hemoglobin and CBC. 06/20 hemoglobin stable. monitor cbc. 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 (9) Tobacco abuse ICD Code: Z72.0 - Tobacco use Plan: Advises smoking cessation, continue nicotine patch. Assessment and Plan DVT Prophylaxis: SCD's Discussed with the patient. nurse Problem Qualifiers (1) Diabetes: Qualified Codes: E11.9 - Type 2 diabetes mellitus without complications (2) HTN (hypertension): Qualified Codes: I10 - Essential (primary) hypertension (3) Hypothyroidism: Qualified Codes: E03.9 - Hypothyroidism, unspecified Rola Mcnally MD Jun 24, 2017 10:58
[2017-06-24] MEDS: BENZTROPINE MESYLATE 1 MG TAB PO SCH ×2 (11:30→21:43)
[2017-06-24] MEDS: OLANZapine ODT 5 MG TAB PO SCH (21:43)
[2017-06-24] MEDS: DOCUSATE SODIUM 50 MG/SENNA 8.6 MG TAB PO SCH (21:43)
[2017-06-25] MEDS: LEVOTHYROXINE SODIUM 50 MCG TAB PO SCH (06:13)
[2017-06-25 06:24] VITALS: BP 155/82; PULSE 84; RESP 18; TEMP 97.2; O2SAT 98
[2017-06-25] MEDS: INSULIN ASPART SUPPLEMENTAL SCALE SQ SCH ×5 (07:00→21:54)
--- NOTE | 2017-06-25 07:34 | HHI.PYPN ---
Subjective Remarks Patient seen and examined. Chart reviewed. Case discussed with nursing staff. Case also discussed with counselor who has spoken with the patient's . Visit with yesterday evening apparently did not go terribly well. Patient remained labile with increased goal-directed activity in their interaction per counselor. He was likewise noted to be somewhat inappropriate on the unit. On my exam, patient is calm with no evidence of behavioral disturbance. He does present as somewhat grandiose and rambling. No side effects from medications. No physical complaints. Review of Systems ROS Limitations: Poor Historian Except as stated in HPI: all other systems reviewed are Neg Objective Alert: Yes [place]: Person, Place Mood: Calm Affect: Blunted Memory Intact: Comment (Not formally assessed) Hallucinations: Other (None) Delusions: No Delusion Type: Other (No delusions) Suicidal: Ideation (No SI) Homicidal: Ideation (No HI) Insight/Judgment Poor Remarks No motor abnormalities noted. TP with some loosening of associations. Labs Labs reviewed. Vitals/IOs Vital Signs Date Time Temp Pulse Resp B/P (MAP) Pulse Ox O2 Delivery O2 Flow Rate FiO2 06/25/17 06:24 97.2 84 18 155/82 (106) 98 Intake and Output 06/25/17 06/25/17 06/26/17 08:00 16:00 00:00 Intake Total 600 ml Balance 600 ml Assessment & Plan Problem List: (1) Bipolar disorder, current episode mixed, severe, with psychotic features ICD Codes: F31.64 - Bipolar disorder, current episode mixed, severe, with psychotic features Status: Acute Assessment & Plan Titrate Zyprexa to 2.5/10mg for mood stabilization. Check BMP to follow up hyponatremia. Hospitalist input noted and appreciated. Continue to monitor on inpatient unit. Continue other medications and care as ordered. Justification for Cont. Inpt. Med changes. Risk for decompensation in less restrictive environment Request HC Surrog/Guard Advoc?: Yes Piter Fenton MD Jun 25, 2017 07:34
[2017-06-25] MEDS: BENZTROPINE MESYLATE 1 MG TAB PO SCH ×2 (08:43→20:20)
[2017-06-25] MEDS: DOCUSATE SODIUM 50 MG/SENNA 8.6 MG TAB PO SCH ×2 (08:44→20:21)
[2017-06-25] MEDS: NICOTINE 21 MG/24 HR PATCH T-DERMAL SCH (08:44)
[2017-06-25] MEDS: REMOVE OLD PATCH T-DERMAL SCH (09:00)
[2017-06-25] MEDS: BUDESONIDE-FORMOTEROL 160/4.5 MCG INHALER INH SCH ×2 (09:00→20:20)
[2017-06-25] MEDS: OLANZapine 2.5 MG TAB PO SCH (11:30)
--- NOTE | 2017-06-25 11:43 | HHI.PR ---
Subjective Remarks In the chair. Says she has appetite however did not eat much breakfast. No n/v/d /c. Deneis any fever or chills, no cough. No wheezing/ No LE edema. Ambulating without problems. Objective Vitals Vital Signs Date Time Temp Pulse Resp B/P (MAP) Pulse Ox O2 Delivery O2 Flow Rate FiO2 06/25/17 06:24 97.2 84 18 155/82 (106) 98 I/O 06/24/17 06/24/17 06/24/17 06/25/17 06/25/17 06/25/17 07:00 15:00 23:00 07:00 15:00 23:00 Intake Total 120 ml 600 ml Balance 120 ml 600 ml Intake Oral 120 ml 600 ml # Voids 2 3 2 # Bowel Movements 1 0 Result Diagram: 06/23/1794406/23/17944 Objective Remarks GENERAL: This is a well-nourished, well-developed patient, in no apparent distress. CARDIOVASCULAR: Regular rate and rhythm without murmurs, gallops, or rubs. RESPIRATORY: There is diffuse mild expiratory wheezing. No rales or rhonchi auscultated. There is good air entry bilaterally. GASTROINTESTINAL: Abdomen soft, non-tender, nondistended. No hepato-splenomegaly , or palpable masses. No guarding. MUSCULOSKELETAL: Extremities without clubbing, cyanosis, or edema. No joint tenderness, effusion, or edema noted. No calf tenderness. Negative Homans sign bilaterally. NEUROLOGICAL: Awake and alert. Cranial nerves II through XII intact. Motor and sensory grossly within normal limits. Five out of 5 muscle strength in all muscle groups. Normal speech. A/P Problem List: (1) Bipolar disorder, current episode mixed, severe, with psychotic features ICD Code: F31.64 - Bipolar disorder, current episode mixed, severe, with psychotic features Status: Acute (2) Hyponatremia ICD Code: E87.1 - Hypo-osmolality and hyponatremia Status: Acute (3) Diabetes ICD Code: E11.9 - Type 2 diabetes mellitus without complications (4) HTN (hypertension) ICD Code: I10 - Essential (primary) hypertension (5) Wheezing ICD Code: R06.2 - Wheezing Status: Acute (6) Hypothyroidism ICD Code: E03.9 - Hypothyroidism, unspecified (7) Anemia ICD Code: D64.9 - Anemia, unspecified (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 (2) Hyponatremia, improving ICD Code: E87.1 - Hypo-osmolality and hyponatremia Status: Acute Plan: Patient seems to be euvolemic. 06/21 sodium trending up from 127 - 133- 134 . Continue fluid restriction. Normal serum osmolality but no sodium osmolality obtained. (3) Diabetes ICD Code: E11.9 - Type 2 diabetes mellitus without complications Plan: I will check hemoglobin A1c. Place on SSI with insulin NovoLog. Patient states that he is on insulin Glargin at home. He does not remember the dose. 06/20 Blood sugars somewhat elevated. Continue SSI with insulin Novolog (4) HTN (hypertension) ICD Code: I10 - Essential (primary) hypertension Plan: BP seems to be slightly elevated. Patient is on lisinopril at home which I will continue. Continue to monitor vital signs and BMP. 06/20 BP better controlled. continue Lisinopril. (5) Wheezing ICD Code: R06.2 - Wheezing Status: Acute Plan: The patient has mild diffuse bilateral expiratory wheezing on exam. The patient is a heavy smoker and this is probably likely due to some long-standing damage due to tobacco use. Continue DuoNeb treatments and steroid inhalers. Wheezing Improved Chest x-ray reviewed shows findings consistent with granuloma of the lungs. Might benefit from steroid use. Also noted scoliosis. ICD Code: E03.9 - Hypothyroidism, unspecified Plan: Check TSH, will try to get dose not the patient was taking. As per patient's the patient has not been compliant with his medications. TSH IS ELEVATED AT 4.880 - Check free t4 and will start on 50 mcg of levothyroxine for now. (7) Anemia ICD Code: D64.9 - Anemia, unspecified Plan: The patient has history of liver cirrhosis. Anemia is normocytic, likely secondary to liver disease. Continue to monitor hemoglobin and CBC. 06/20 hemoglobin stable. monitor cbc. 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 (9) Tobacco abuse ICD Code: Z72.0 - Tobacco use Plan: Advises smoking cessation, continue nicotine patch. Assessment and Plan DVT Prophylaxis: SCD's Discussed with the patient. nurse Problem Qualifiers (1) Diabetes: Qualified Codes: E11.9 - Type 2 diabetes mellitus without complications (2) HTN (hypertension): Qualified Codes: I10 - Essential (primary) hypertension (3) Hypothyroidism: Qualified Codes: E03.9 - Hypothyroidism, unspecified Rola Mcnally MD Jun 25, 2017 11:43
[2017-06-25 17:34] VITALS: BP 177/80; PULSE 87; RESP 18; TEMP 98.7; O2SAT 97
[2017-06-25] MEDS: LORazepam 0.5 MG TAB PO PRN (20:19)
[2017-06-25] MEDS: OLANZapine 10 MG TAB PO SCH (20:20)
[2017-06-25 22:15] VITALS: BP 116/68
[2017-06-25 22:43] LABS: BICARBONATE 23.8 MEQ/L (21.0-32.0); POTASSIUM 3.9 MEQ/L (3.5-5.1)
[2017-06-26] MEDS: LEVOTHYROXINE SODIUM 50 MCG TAB PO SCH (06:02)
[2017-06-26 06:47] VITALS: BP 159/74; PULSE 84; RESP 16; TEMP 97.1; O2SAT 98
--- NOTE | 2017-06-26 07:05 | HHI.PYPN ---
Subjective Remarks Patient seen and examined. Chart reviewed. Case discussed with RN. On my exam , patient continues to display some looseness of associations. 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 Likewise, when I ask if he thinks he is experiencing some memory difficulties, he talks about his cannabis use. He describes some racing thoughts at HS. He tells me, "I don't think I'm completely recovered" from his mood episode. Denies side effects from medications. No physical complaints. Review of Systems ROS Limitations: Poor Historian Except as stated in HPI: all other systems reviewed are Neg Objective Alert: Yes [place]: Person, Place Mood: Calm Affect: Blunted (remains a little blunted) Memory Intact: Comment (Not formally assessed) Hallucinations: Other (No AVH) Delusions: No Delusion Type: Other (No delusions) Suicidal: Ideation (No SI) Homicidal: Ideation (No HI) Insight/Judgment Poor Remarks Loosening of associations present. Speech a little rambling and disjointed. Mouth dyskinesias as before. No other motor abnormalities noted. Labs Test 06/25/17 21:56 Blood Urea Nitrogen 13 MG/DL Creatinine 0.99 MG/DL Random Glucose 188 MG/DL Calcium Level 9.2 MG/DL Sodium Level 129 MEQ/L Potassium Level 3.9 MEQ/L Chloride Level 96 MEQ/L Carbon Dioxide Level 23.8 MEQ/L Anion Gap 9 MEQ/L Estimat Glomerular Filtration Rate 75 ML/MIN Labs reviewed. GFR improved. Interval worsening of hyponatremia being followed by hospitalist. Vitals/IOs Vital Signs Date Time Temp Pulse Resp B/P (MAP) Pulse Ox O2 Delivery O2 Flow Rate FiO2 06/26/17 06:47 97.1 84 16 159/74 (102) 98 Intake and Output 06/26/17 06/26/17 06/26/17 07:59 15:59 23:59 Intake Total 0 ml Balance 0 ml Assessment & Plan Problem List: (1) Bipolar disorder, current episode mixed, severe, with psychotic features ICD Codes: F31.64 - Bipolar disorder, current episode mixed, severe, with psychotic features Status: Acute Assessment & Plan Titrate Zyprexa to 5/10mg for further mood stabilization. I do wonder about some degree of underlying cognitive impairment, but any cognitive screen performed now would be invalid because of mood episode. To consider evaluation for cognitive impairment once mood stabilizes. Hospitalist human resources consultant input appreciated. Continue to monitor on the inpatient unit. Continue other medications and care as ordered. Justification for Cont. Inpt. Med changes. Risk for decompensation in less restrictive environment. Discharge Planning Pending psychiatric stabilization. Request HC Surrog/Guard Advoc?: Yes Piter Fenton MD Jun 26, 2017 07:05
[2017-06-26] MEDS: INSULIN ASPART SUPPLEMENTAL SCALE SQ SCH ×4 (08:00→20:54)
[2017-06-26] MEDS: OLANZapine 2.5 MG TAB PO SCH (08:52)
[2017-06-26] MEDS: BUDESONIDE-FORMOTEROL 160/4.5 MCG INHALER INH SCH ×3 (08:53→21:00)
[2017-06-26] MEDS: DOCUSATE SODIUM 50 MG/SENNA 8.6 MG TAB PO SCH ×3 (08:53→21:00)
[2017-06-26] MEDS: BENZTROPINE MESYLATE 1 MG TAB PO SCH ×3 (08:53→21:00)
[2017-06-26] MEDS: NICOTINE 21 MG/24 HR PATCH T-DERMAL SCH (08:54)
[2017-06-26] MEDS: REMOVE OLD PATCH T-DERMAL SCH (09:00)
--- NOTE | 2017-06-26 09:30 | HHI.PR ---
Subjective Remarks Ambulating appear in nad. Per nurse he is more alert and less agitated. Deneis any chest pain or sob. No wheezing. Eating better. Objective Vitals Vital Signs Date Time Temp Pulse Resp B/P (MAP) Pulse Ox O2 Delivery O2 Flow Rate FiO2 06/26/17 06:47 97.1 84 16 159/74 (102) 98 06/25/17 22:15 116/68 (84) 06/25/17 17:34 98.7 87 18 177/80 (112) 97 I/O 06/25/17 06/25/17 06/25/17 06/26/17 06/26/17 06/26/17 07:00 15:00 23:00 07:00 15:00 23:00 Intake Total 600 ml 360 ml 0 ml Balance 600 ml 360 ml 0 ml Intake Oral 600 ml 360 ml 0 ml # Voids 2 2 # Bowel Movements 0 Result Diagram: 06/23/17 0945 06/25/17 9825 Objective Remarks GENERAL: This is a well-nourished, well-developed patient, in no apparent distress. CARDIOVASCULAR: Regular rate and rhythm without murmurs, gallops, or rubs. RESPIRATORY: There is diffuse mild expiratory wheezing. No rales or rhonchi auscultated. There is good air entry bilaterally. GASTROINTESTINAL: Abdomen soft, non-tender, nondistended. No hepato-splenomegaly , or palpable masses. No guarding. MUSCULOSKELETAL: Extremities without clubbing, cyanosis, or edema. No joint tenderness, effusion, or edema noted. No calf tenderness. Negative Homans sign bilaterally. NEUROLOGICAL: Awake and alert. Cranial nerves II through XII intact. Motor and sensory grossly within normal limits. Five out of 5 muscle strength in all muscle groups. Normal speech. A/P Problem List: (1) Bipolar disorder, current episode mixed, severe, with psychotic features ICD Code: F31.64 - Bipolar disorder, current episode mixed, severe, with psychotic features Status: Acute (2) Hyponatremia ICD Code: E87.1 - Hypo-osmolality and hyponatremia Status: Acute (3) Diabetes ICD Code: E11.9 - Type 2 diabetes mellitus without complications (4) HTN (hypertension) ICD Code: I10 - Essential (primary) hypertension (5) Wheezing ICD Code: R06.2 - Wheezing Status: Acute (6) Hypothyroidism ICD Code: E03.9 - Hypothyroidism, unspecified (7) Anemia ICD Code: D64.9 - Anemia, unspecified (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 (2) Hyponatremia, improving ICD Code: E87.1 - Hypo-osmolality and hyponatremia Status: Acute Plan: Patient seems to be euvolemic. 06/21 sodium trending up from 127 - 133- 134 . Continue fluid restriction. Normal serum osmolality but no sodium osmolality obtained. (3) Diabetes ICD Code: E11.9 - Type 2 diabetes mellitus without complications Plan: I will check hemoglobin A1c. Place on SSI with insulin NovoLog. Patient states that he is on insulin Glargin at home. He does not remember the dose. 06/20 Blood sugars somewhat elevated. Continue SSI with insulin Novolog (4) HTN (hypertension) ICD Code: I10 - Essential (primary) hypertension Plan: BP seems to be slightly elevated. Patient is on lisinopril at home which I will continue. Continue to monitor vital signs and BMP. 06/20 BP better controlled. continue Lisinopril. (5) Wheezing ICD Code: R06.2 - Wheezing Status: Acute Plan: The patient has mild diffuse bilateral expiratory wheezing on exam. The patient is a heavy smoker and this is probably likely due to some long-standing damage due to tobacco use. Continue DuoNeb treatments and steroid inhalers. Wheezing Improved Chest x-ray reviewed shows findings consistent with granuloma of the lungs. Might benefit from steroid use. Also noted scoliosis. ICD Code: E03.9 - Hypothyroidism, unspecified Plan: Check TSH, will try to get dose not the patient was taking. As per patient's the patient has not been compliant with his medications. TSH IS ELEVATED AT 4.880 - Check free t4 and will start on 50 mcg of levothyroxine for now. (7) Anemia ICD Code: D64.9 - Anemia, unspecified Plan: The patient has history of liver cirrhosis. Anemia is normocytic, likely secondary to liver disease. Continue to monitor hemoglobin and CBC. 06/20 hemoglobin stable. monitor cbc. 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 (9) Tobacco abuse ICD Code: Z72.0 - Tobacco use Plan: Advises smoking cessation, continue nicotine patch. Assessment and Plan DVT Prophylaxis: SCD's Discussed with the patient. nurse Problem Qualifiers (1) Diabetes: Qualified Codes: E11.9 - Type 2 diabetes mellitus without complications (2) HTN (hypertension): Qualified Codes: I10 - Essential (primary) hypertension (3) Hypothyroidism: Qualified Codes: E03.9 - Hypothyroidism, unspecified Rola Mcnally MD Jun 26, 2017 09:30
[2017-06-26 18:07] VITALS: BP 154/103; PULSE 79; RESP 17; TEMP 97.9
[2017-06-26] MEDS: OLANZapine 10 MG TAB PO SCH (20:55)
[2017-06-26] MEDS: LORazepam 2 MG/ML VIAL IM PRN (22:18)
[2017-06-27 05:38] VITALS: BP 164/75; PULSE 90; RESP 18; TEMP 98.1
[2017-06-27] MEDS: LEVOTHYROXINE SODIUM 50 MCG TAB PO SCH (05:42)
[2017-06-27] MEDS: LORazepam 2 MG/ML VIAL IM PRN ×2 (07:45→13:07)
--- NOTE | 2017-06-27 07:57 | HHI.PYPN ---
Subjective Remarks Patient seen and examined. Chart reviewed. Case discussed with RN who reports that patient banged his head yesterday evening and punched mirror this morning. It does not appear physician was notified about the head-banging. I have ordered a STAT head CT as well as a R hand XR and ordered patient placed with 1: 1 sitter. On my exam this morning, patient presents as labile, alternating between anger and tears. He has disrobed. He tells me, "I hate you so much! You never know how much I thank you!" When I ask about the cause of his self- injurious behavior, he says, "I'm trying to con my [id number]. Scam her. Rajiv Paredes, Benedicto Peralta, Himanshu Dunne." When I ask about ongoing SI or SIB, patient is oppositional and says, "I'm not telling you." No side effects from medications. No physical complaints. Updated patient's over phone. She notes that on her visit yesterday patient was labile with family and disinhibited, singing at times. We discuss lack of progress with Zyprexa and alternatives for treatment going forward. Patient did not tolerate Abilify previously. Geodon might be a reasonable alternative. Given history of liver issues, VPA and CBZ are likely not great options. After a discussion of therapeutic options, we settle on a trial of Geodon. Also will check an ammonia level and updated set of basic labs. Review of Systems ROS Limitations: Poor Historian Except as stated in HPI: all other systems reviewed are Neg Objective Alert: Yes [place]: Person, Place, Date Mood: Agitated, Oppositional Affect: Labile Memory Intact: Comment (Not formally assessed) Hallucinations: Other (No hallucinations) Delusions: No Delusion Type: Other (No mirlande delusions) Suicidal: Ideation (Will not say re: SI) Homicidal: Ideation (No HI) Insight/Judgment Poor Remarks No abnormal motor movements noted. TP with significant loosening of associations. Speech rambling. Labs Labs reviewed. Vitals/IOs Vital Signs Date Time Temp Pulse Resp B/P (MAP) Pulse Ox O2 Delivery O2 Flow Rate FiO2 06/27/17 05:38 98.1 90 18 164/75 (104) 06/26/17 06:47 98 Assessment & Plan Problem List: (1) Bipolar disorder, current episode mixed, severe, with psychotic features ICD Codes: F31.64 - Bipolar disorder, current episode mixed, severe, with psychotic features Status: Acute Assessment & Plan Patient remains agitated and at high risk for ongoing self-injury. Haldol and Benadryl ETO. D/c Zyprexa and start Geodon 40mg BID PC with IM backup. Follow up Head CT and hand XR [Update: CT read as no acute process, hand XR read as no fracture]. CBC, CMP and ammonia level. 1:1 prec. Continue other meds and care as ordered. Justification for Cont. Inpt. Impairment in safety. Medication changes in process. High risk for decompensation in less restrictive environment. Discharge Planning Pending psychiatric stabilization Request HC Surrog/Guard Advoc?: Yes Piter Fenton MD Jun 27, 2017 07:57
[2017-06-27] MEDS: INSULIN ASPART SUPPLEMENTAL SCALE SQ SCH ×4 (08:00→22:49)
[2017-06-27] MEDS ORDERED: ZIPRASIDONE MESYLATE 20 MG VIAL IM PRN (08:15)
[2017-06-27] MEDS ORDERED: diphenhydrAMINE HCL 50 MG/ML VIAL IM STA (08:23)
[2017-06-27] MEDS ORDERED: HALOPERIDOL LACTATE 5 MG/ML AMP IM STA (08:25)
[2017-06-27] MEDS: ZIPRASIDONE HCL 40 MG CAP PO SCH ×2 (09:00→17:57)
[2017-06-27] MEDS: DOCUSATE SODIUM 50 MG/SENNA 8.6 MG TAB PO SCH (09:00)
[2017-06-27] MEDS: BENZTROPINE MESYLATE 1 MG TAB PO SCH ×2 (09:00→22:50)
[2017-06-27] MEDS ORDERED: OLANZapine 5 MG TAB PO SCH (09:00)
[2017-06-27] MEDS: NICOTINE 21 MG/24 HR PATCH T-DERMAL SCH (09:00)
[2017-06-27] MEDS: BUDESONIDE-FORMOTEROL 160/4.5 MCG INHALER INH SCH ×2 (09:00→22:50)
[2017-06-27] MEDS: REMOVE OLD PATCH T-DERMAL SCH (09:00)
--- NOTE | 2017-06-27 09:05 | RADRPT ---
EXAM DATE/TIME: 06/27/2017 08:43 [facility] COMPARISON: No previous studies available for comparison. INDICATIONS : Trauma; fall. RADIATION DOSE: 52.13 CTDIvol (mGy) MEDICAL HISTORY : Cardiovascular disease. Hypertension. SURGICAL HISTORY : Tonsillectomy. ENCOUNTER: Initial ACUITY: 1 day PAIN SCALE: 5/10 LOCATION: cranial TECHNIQUE: Multiple contiguous axial images were obtained of the head. Using automated exposure control and adj ustment of the mA and/or kV according to patient size, radiation dose was kept as low as reasonably a chievable to obtain optimal diagnostic quality images. DICOM format image data is available electro nically for review and comparison. FINDINGS: CEREBRUM: The ventricles are normal for age. No evidence of midline shift, mass lesion, hemorrhage or acute in farction. No extra-axial fluid collections are seen. POSTERIOR FOSSA: The cerebellum and brainstem are intact. The 4th ventricle is midline. The cerebellopontine angle i s unremarkable. EXTRACRANIAL: The visualized portion of the orbits is intact. SKULL: The calvaria is intact. No evidence of skull fracture. CONCLUSION: No acute disease. Jose Elias Gonzalez MD on June 27, 2017 at 9:03 Board Certified Radiologist. This report was verified electronically.
--- NOTE | 2017-06-27 09:42 | RADRPT ---
EXAM DATE/TIME: 06/27/2017 08:55 [facility] COMPARISON: ABDOMEN SINGLE VIEW, June 24, 2017, 8:48. INDICATIONS : Right hand pain. MEDICAL HISTORY : Hypertension. cardiac disorders, diabetes, psychiatric disorders SURGICAL HISTORY : None. ENCOUNTER: Initial ACUITY: 3 days PAIN SCORE: Non-responsive. LOCATION: Right hand FINDINGS: Two view examination of the right hand demonstrates no soft tissue swelling, dislocation, or fracture . The joint spaces are maintained. Bony mineralization is normal. CONCLUSION: 1. No acute bony abnormality identified. Jeramy Mccurdy MD on June 27, 2017 at 9:38 Board Certified Radiologist. This report was verified electronically.
[2017-06-27 13:17] LABS: AUTOMATED NEUTROPHIL # 1.1 TH/MM3 (1.8-7.7); BASOPHIL % 0.7 % (0.0-2.0); EOSINOPHIL % 0.3 % (0.0-4.0); HEMATOCRIT 36.8 % (39.0-51.0); LYMPH % 39.2 % (9.0-44.0); MEAN CELL VOLUME 90.2 FL (80.0-100.0); MEAN CORPUSCULAR HEMOGLOBIN 31.6 PG (27.0-34.0); NEUT % 43.8 % (16.0-70.0); PLATELET COUNT 136 TH/MM3 (150-450); RED BLOOD COUNT 4.08 MIL/MM3 (4.50-5.90); RED CELL DISTRIBUTION WIDTH 13.3 % (11.6-17.2); WHITE BLOOD COUNT 2.6 TH/MM3 (4.0-11.0)
[2017-06-27 13:18] LABS: HEMO FLAGS AUTO DIFF
[2017-06-27 13:28] LABS: ANION GAP 4 MEQ/L (5-15); AST (GOT) 47 U/L (15-37); BICARBONATE 29.3 MEQ/L (21.0-32.0); BLOOD UREA NITROGEN 18 MG/DL (7-18); CHLORIDE 102 MEQ/L (98-107); GLOMERULAR FILTRATION RATE 63 ML/MIN (>89); POTASSIUM 3.8 MEQ/L (3.5-5.1); SODIUM (NA) 135 MEQ/L (136-145)
[2017-06-27 13:32] LABS: ALKALINE PHOSPHATASE 61 U/L (45-117); ALT (GPT) 63 U/L (12-78); TOTAL BILIRUBIN ADULT 1.3 MG/DL (0.2-1.0)
[2017-06-27 14:17] LABS: SCAN/DIFF AUTO DIFF CONFIRMED
--- NOTE | 2017-06-27 14:48 | HHI.PR ---
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 The patient is in bed, naked, appears delusional, not moving much . He is not violent . Doesn't answer appropriately questions. Says no to all questions asked. Objective Vitals Vital Signs Date Time Temp Pulse Resp B/P (MAP) Pulse Ox O2 Delivery O2 Flow Rate FiO2 06/27/17 05:38 98.1 90 18 164/75 (104) 06/26/17 18:07 97.9 79 17 154/103 (120) I/O 06/26/17 06/26/17 06/26/17 06/27/17 06/27/17 06/27/17 07:00 15:00 23:00 07:00 15:00 23:00 Intake Total 240 ml 120 ml Balance 240 ml 120 ml Intake Oral 240 ml 120 ml # Voids 2 3 Result Diagram: 06/27/17 1231 06/27/17 1231 Objective Remarks GENERAL: This is a well-nourished, well-developed patient, in no apparent distress. CARDIOVASCULAR: Regular rate and rhythm without murmurs, gallops, or rubs. RESPIRATORY: There is diffuse mild expiratory wheezing. No rales or rhonchi auscultated. There is good air entry bilaterally. GASTROINTESTINAL: Abdomen soft, non-tender, nondistended. No hepato-splenomegaly , or palpable masses. No guarding. MUSCULOSKELETAL: Extremities without clubbing, cyanosis, or edema. No joint tenderness, effusion, or edema noted. No calf tenderness. Negative Homans sign bilaterally. NEUROLOGICAL: Awake and alert. Cranial nerves II through XII intact. Motor and sensory grossly within normal limits. Five out of 5 muscle strength in all muscle groups. Normal speech. A/P Problem List: (1) Bipolar disorder, current episode mixed, severe, with psychotic features ICD Code: F31.64 - Bipolar disorder, current episode mixed, severe, with psychotic features Status: Acute (2) Hyponatremia ICD Code: E87.1 - Hypo-osmolality and hyponatremia Status: Acute (3) Diabetes ICD Code: E11.9 - Type 2 diabetes mellitus without complications (4) HTN (hypertension) ICD Code: I10 - Essential (primary) hypertension (5) Wheezing ICD Code: R06.2 - Wheezing Status: Acute (6) Hypothyroidism ICD Code: E03.9 - Hypothyroidism, unspecified (7) Anemia ICD Code: D64.9 - Anemia, unspecified (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 (2) Hyponatremia, improving ICD Code: E87.1 - Hypo-osmolality and hyponatremia Status: Acute Plan: Patient seems to be euvolemic. 06/21 sodium trending up from 127 - 133- 134 . Continue fluid restriction. Normal serum osmolality but no sodium osmolality obtained. (3) Diabetes ICD Code: E11.9 - Type 2 diabetes mellitus without complications Plan: I will check hemoglobin A1c. Place on SSI with insulin NovoLog. Patient states that he is on insulin Glargin at home. He does not remember the dose. 06/20 Blood sugars somewhat elevated. Continue SSI with insulin Novolog (4) HTN (hypertension) ICD Code: I10 - Essential (primary) hypertension Plan: BP seems to be slightly elevated. Patient is on lisinopril at home which I will continue. Continue to monitor vital signs and BMP. 06/20 BP better controlled. continue Lisinopril. (5) Wheezing ICD Code: R06.2 - Wheezing Status: Acute Plan: The patient has mild diffuse bilateral expiratory wheezing on exam. The patient is a heavy smoker and this is probably likely due to some long-standing damage due to tobacco use. Continue DuoNeb treatments and steroid inhalers. Wheezing Improved Chest x-ray reviewed shows findings consistent with granuloma of the lungs. Might benefit from steroid use. Also noted scoliosis. ICD Code: E03.9 - Hypothyroidism, unspecified Plan: Check TSH, will try to get dose not the patient was taking. As per patient's the patient has not been compliant with his medications. TSH IS ELEVATED AT 4.880 - Check free t4 and will start on 50 mcg of levothyroxine for now. (7) Anemia ICD Code: D64.9 - Anemia, unspecified Plan: The patient has history of liver cirrhosis. Anemia is normocytic, likely secondary to liver disease. Continue to monitor hemoglobin and CBC. 06/20 hemoglobin stable. monitor cbc. 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 (9) Tobacco abuse ICD Code: Z72.0 - Tobacco use Plan: Advises smoking cessation, continue nicotine patch. Assessment and Plan DVT Prophylaxis: SCD's Discussed with the patient. nurse Problem Qualifiers (1) Diabetes: Qualified Codes: E11.9 - Type 2 diabetes mellitus without complications (2) HTN (hypertension): Qualified Codes: I10 - Essential (primary) hypertension (3) Hypothyroidism: Qualified Codes: E03.9 - Hypothyroidism, unspecified Rola Mcnally MD Jun 27, 2017 14:48
[2017-06-27] MEDS: LACTULOSE SYRUP 20 GM/30 ML CUP PO SCH (17:57)
[2017-06-27 18:27] VITALS: BP 111/64; PULSE 83; RESP 18; TEMP 98.2
--- NOTE | 2017-06-27 23:34 | MB ---
cc: CHON POPE M.D. DATE OF CONSULTATION June 27, [address] Fenton REASON FOR CONSULTATION Hematology consulted to render opinion regarding patient with leukopenia and thrombocytopenia. HISTORY OF PRESENT ILLNESS The patient is a 72-year-old male admitted to the [facility] for suicidal ideation and psychosis. He has history of bipolar disorder and reportedly was on lithium which was recently discontinued. During this hospital stay he was started on Zyprexa June 20 which was just discontinued today. On admission his white blood cell count and platelet count were normal. He had mild anemia with hemoglobin of 11. Today his white blood cell count trended down to 2.6 with platelet count down to 136,000. Hemoglobin actually went up to 12.9. He was recently given some sedation and he is quite sleepy. He is able to answer some simple questions. Apparently, he had hepatitis C that was treated about 2 years ago. It is unclear if he has cirrhosis. He denies any known hematology disorder in the past. He denies any chest pain, palpitation. Denies any shortness of breath, coughing, bleeding, bruising. PAST MEDICAL HISTORY Bipolar disorder, hypertension, diabetes mellitus, hypothyroidism, hepatitis C. Unclear if he has cirrhosis. PAST SURGICAL HISTORY None reported. FAMILY HISTORY Noncontributory. SOCIAL HISTORY He smoked one to two packs a day. He drank one to two beers a day. ALLERGIES PENICILLIN G. CURRENT MEDICATIONS 1. Geodon. 2. Lactulose. 3. Cogentin. 4. Synthroid. 5. Symbicort. 6. Nicotine patch. REVIEW OF SYSTEMS CONSTITUTIONAL: Negative. EYES: Negative. ENT: Negative. CARDIOVASCULAR: Denies chest or palpitation. RESPIRATORY: Denies shortness breath, cough. GI: Denies nausea, vomiting, diarrhea, abdominal pain. : Denies dysuria, hematuria. HEMATOLOGY: As above. ENDOCRINE: Negative. PSYCHIATRIC: As above. NEUROLOGIC: Negative. PHYSICAL EXAMINATION VITAL SIGNS: Temperature 98.1, blood pressure 164/75. GENERAL: He is laying in bed naked. In no acute distress. He looks sleepy but easily arousable. HEENT: Atraumatic, normocephalic. Pupils equal, round and reactive to light. Extraocular muscle intact. No scleral icterus. Oropharynx dry mucosa. No lesion. NECK: No thyromegaly. No palpable masses. LYMPHATICS: No palpable cervical, clavicular, axillary, inguinal lymph node. CARDIOVASCULAR: Regular S1-S2, normal. LUNGS: Clear to auscultation bilaterally. ABDOMEN: Slightly distended. Difficult to palpate liver, spleen. Positive bowel sounds. Nontender. EXTREMITIES: No cyanosis, clubbing or edema. SKIN: No rash or petechiae. NEURO: Nonfocal. LABORATORY DATA Reviewed. ASSESSMENT 1. Mild pancytopenia which appeared to be new onset. When he first presented his white blood cell count and platelet count were normal. Over the last week it has trended a little lower. He only had mild neutropenia. He has a history of hepatitis C which may cause him to have a borderline low blood count. The recent drop in blood counts I think is possibly due to Zyprexa. The Zyprexa has been discontinued today. Clinically, he is asymptomatic. I would continue to monitor his CBC for now. If his blood count does not improve then we could proceed with further workup. 2. History of hepatitis C and possible cirrhosis. He said he was treated 2 years ago. His AST is slightly elevated. 3. Bipolar disorder with psychosis 4. Hypothyroidism, on supplement. 5. Diabetes mellitus, hypertension. RECOMMENDATIONS 1. Continue to monitor CBC for now. Anemia workup. 2. Consider getting ultrasound to evaluate liver and spleen when he is more stable. Thank you Dr. Fenton for asking me to see this patient. MD DAMARI Odom/TRUDI /6:00 PM /11:09 PM CHRISTIANO
[2017-06-28] MEDS: LORazepam 0.5 MG TAB PO PRN ×2 (01:04→22:15)
[2017-06-28] MEDS: LEVOTHYROXINE SODIUM 50 MCG TAB PO SCH (04:54)
[2017-06-28] MEDS: ACETAMINOPHEN 325 MG TAB PO PRN (04:55)
[2017-06-28 06:20] VITALS: BP 132/65; PULSE 74; RESP 20; TEMP 98.2; O2SAT 96
[2017-06-28] MEDS: INSULIN ASPART SUPPLEMENTAL SCALE SQ SCH ×4 (08:00→21:00)
--- NOTE | 2017-06-28 08:29 | HHI.PR ---
Subjective Remarks In the chair eating breakfast, more appropriate today. Eating well, no n/v/d/c. Denies sob or wheezing,.no chest pain. Objective Vitals Vital Signs Date Time Temp Pulse Resp B/P (MAP) Pulse Ox O2 Delivery O2 Flow Rate FiO2 06/28/17 06:20 98.2 74 20 132/65 (87) 96 06/27/17 18:27 98.2 83 18 111/64 (80) 06/27/17 17:04 I/O 06/27/17 06/27/17 06/27/17 06/28/17 06/28/17 06/28/17 07:00 15:00 23:00 07:00 15:00 23:00 Intake Total 440 ml Balance 440 ml Intake Oral 440 ml # Voids 3 1 4 # Bowel Movements 2 Result Diagram: 06/27/17 1231 06/27/17 1231 Objective Remarks GENERAL: This is a well-nourished, well-developed patient, in no apparent distress. CARDIOVASCULAR: Regular rate and rhythm without murmurs, gallops, or rubs. RESPIRATORY: There is diffuse mild expiratory wheezing. No rales or rhonchi auscultated. There is good air entry bilaterally. GASTROINTESTINAL: Abdomen soft, non-tender, nondistended. No hepato-splenomegaly , or palpable masses. No guarding. MUSCULOSKELETAL: Extremities without clubbing, cyanosis, or edema. No joint tenderness, effusion, or edema noted. No calf tenderness. Negative Homans sign bilaterally. NEUROLOGICAL: Awake and alert. Cranial nerves II through XII intact. Motor and sensory grossly within normal limits. Five out of 5 muscle strength in all muscle groups. Normal speech. A/P Problem List: (1) Bipolar disorder, current episode mixed, severe, with psychotic features ICD Code: F31.64 - Bipolar disorder, current episode mixed, severe, with psychotic features Status: Acute (2) Hyponatremia ICD Code: E87.1 - Hypo-osmolality and hyponatremia Status: Acute (3) Diabetes ICD Code: E11.9 - Type 2 diabetes mellitus without complications (4) HTN (hypertension) ICD Code: I10 - Essential (primary) hypertension (5) Wheezing ICD Code: R06.2 - Wheezing Status: Acute (6) Hypothyroidism ICD Code: E03.9 - Hypothyroidism, unspecified (7) Anemia ICD Code: D64.9 - Anemia, unspecified (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 (2) Hyponatremia, improving ICD Code: E87.1 - Hypo-osmolality and hyponatremia Status: Acute Plan: Patient seems to be euvolemic. sodium trending up from 127 - 133- 134 . Continue fluid restriction. Monitor Na level. Normal serum osmolality but no sodium osmolality obtained. (3) Diabetes mellitus controlled ICD Code: E11.9 - Type 2 diabetes mellitus without complications Plan: I will check hemoglobin A1c. Place on SSI with insulin NovoLog. Patient states that he is on insulin Glargin at home. He does not remember the dose. 06/20 Blood sugars somewhat elevated. Continue SSI with insulin Novolog (4) HTN (hypertension) ICD Code: I10 - Essential (primary) hypertension Plan: BP seems to be slightly elevated. Patient is on lisinopril at home which I will continue. Continue to monitor vital signs and BMP. 06/20 BP better controlled. continue Lisinopril. (5) Wheezing ICD Code: R06.2 - Wheezing Status: Acute Plan: The patient has mild diffuse bilateral expiratory wheezing on exam. The patient is a heavy smoker and this is probably likely due to some long-standing damage due to tobacco use. Continue DuoNeb treatments and steroid inhalers. Wheezing Improved Chest x-ray reviewed shows findings consistent with granuloma of the lungs. Might benefit from steroid use. Also noted scoliosis. ICD Code: E03.9 - Hypothyroidism, unspecified Plan: Check TSH, will try to get dose not the patient was taking. As per patient's the patient has not been compliant with his medications. TSH IS ELEVATED AT 4.880 - Check free t4 and started on 50 mcg of levothyroxine. (7) Anemia ICD Code: D64.9 - Anemia, unspecified Plan: The patient has history of liver cirrhosis. Anemia is normocytic, likely secondary to liver disease. Continue to monitor hemoglobin and CBC. 06/20 hemoglobin stable. monitor cbc. 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 (9) Tobacco abuse ICD Code: Z72.0 - Tobacco use Plan: Advises smoking cessation, continue nicotine patch. (10) Pancytopenia Monitor CBC. Consult hem/onc Assessment and Plan DVT Prophylaxis: SCD's Discussed with the patient. nurse Problem Qualifiers (1) Diabetes: Qualified Codes: E11.9 - Type 2 diabetes mellitus without complications (2) HTN (hypertension): Qualified Codes: I10 - Essential (primary) hypertension (3) Hypothyroidism: Qualified Codes: E03.9 - Hypothyroidism, unspecified Rola Mcnally MD Jun 28, 2017 08:29
[2017-06-28] MEDS: LACTULOSE SYRUP 20 GM/30 ML CUP PO SCH ×3 (08:53→18:00)
[2017-06-28] MEDS: BENZTROPINE MESYLATE 1 MG TAB PO SCH ×2 (08:53→22:15)
[2017-06-28] MEDS: BUDESONIDE-FORMOTEROL 160/4.5 MCG INHALER INH SCH ×2 (08:53→21:00)
[2017-06-28] MEDS: ZIPRASIDONE HCL 40 MG CAP PO SCH ×2 (08:54→18:00)
[2017-06-28] MEDS: NICOTINE 21 MG/24 HR PATCH T-DERMAL SCH (08:57)
[2017-06-28] MEDS: REMOVE OLD PATCH T-DERMAL SCH (09:00)
[2017-06-28 14:24] LABS: FERRITIN 1601 NG/ML (26-388); TRANSFERRIN IRON PROFILE 171 MG/DL (200-360)
--- NOTE | 2017-06-28 14:26 | HHI.PYPN ---
Subjective Remarks Patient was seen and case discussed with nursing. Patient is more organized compared to yesterday. Less oppositional more compliant with medications. Social with others per nursing. Says he sleeping well. Alert and oriented 3. Denies increased energy or mood lability. Denies depressed mood. Thought process is disorganized Objective Alert: Yes [place]: Person, Place, Date Mood: Agitated, Calm Affect: Labile Memory Intact: Comment (Not formally assessed) Hallucinations: Other (No hallucinations) Delusions: No Delusion Type: Other (No mirlande delusions) Suicidal: Ideation (denies) Homicidal: Ideation (No HI) Insight/Judgment Poor Labs Test 06/28/17 06:00 06/28/17 11:43 Iron Level 44 MCG/DL Vitals/IOs Vital Signs Date Time Temp Pulse Resp B/P (MAP) Pulse Ox O2 Delivery O2 Flow Rate FiO2 06/28/17 06:20 98.2 74 20 132/65 (87) 96 Intake and Output 06/28/17 06/28/17 06/29/17 08:00 16:00 00:00 Intake Total 480 ml Balance 480 ml Assessment & Plan Problem List: (1) Bipolar disorder, current episode mixed, severe, with psychotic features ICD Codes: F31.64 - Bipolar disorder, current episode mixed, severe, with psychotic features Status: Acute Assessment & Plan Continue current treatment plan Justification for Cont. Inpt. Patient would decompensate in a less restrictive setting Request HC Surrog/Guard Advoc?: Yes Jose Mcgrath DO Jun 28, 2017 14:26
[2017-06-28 14:46] LABS: AUTOMATED NEUTROPHIL # 2.3 TH/MM3 (1.8-7.7); BASOPHIL % 0.7 % (0.0-2.0); EOSINOPHIL % 0.5 % (0.0-4.0); HEMATOCRIT 31.5 % (39.0-51.0); HEMO FLAGS AUTO DIFF; LYMPH % 38.7 % (9.0-44.0); LYMPHOCYTE # 1.9 TH/MM3 (1.0-4.8); MEAN CELL VOLUME 89.6 FL (80.0-100.0); MEAN CORPUSCULAR HEMOGLOBIN 30.5 PG (27.0-34.0); MONO % 13.3 % (0.0-8.0); NEUT % 46.8 % (16.0-70.0); PLATELET COUNT 167 TH/MM3 (150-450); RED BLOOD COUNT 3.52 MIL/MM3 (4.50-5.90); RED CELL DISTRIBUTION WIDTH 13.1 % (11.6-17.2); WHITE BLOOD COUNT 3.2 TH/MM3 (4.0-11.0)
[2017-06-28 14:49] LABS: RETIC % 3.9 % (0.4-3.0); REVIEW FLAG FINAL
[2017-06-28 15:05] LABS: BANDS 6 % (0-6); BASOPHILS 1 % (0-2); NEUTROPHIL # MANUAL DIFF 1.5 TH/MM3 (1.8-7.7); POLYS (SEG NEUTROPHILS) 40 % (16-70); WBC DIFF SAMPLE 100
[2017-06-28 15:08] LABS: PLATELET ESTIMATE SMEAR NORMAL (NORMAL); PLATELET MORPHOLOGY NORMAL (NORMAL); SCAN/DIFF FINAL DIFF MANUAL
[2017-06-28 18:25] VITALS: BP 148/68; PULSE 86; RESP 18; TEMP 98.2; O2SAT 98
[2017-06-29 05:33] VITALS: BP 149/78; PULSE 83; RESP 18; TEMP 98.6; O2SAT 90
[2017-06-29] MEDS: LEVOTHYROXINE SODIUM 50 MCG TAB PO SCH (06:25)
--- NOTE | 2017-06-29 07:15 | HHI.PR ---
Subjective Remarks In the chair awaiting for breakfast. No sob or wheezing. no n/v/d/c. Appropriate today. Objective Vitals Vital Signs Date Time Temp Pulse Resp B/P (MAP) Pulse Ox O2 Delivery O2 Flow Rate FiO2 06/29/17 05:33 98.6 83 18 149/78 (101) 90 06/28/17 18:25 98.2 86 18 148/68 (94) 98 I/O 06/28/17 06/28/17 06/28/17 06/29/17 06/29/17 06/29/17 07:00 15:00 23:00 07:00 15:00 23:00 Intake Total 480 ml 480 ml Balance 480 ml 480 ml Intake Oral 480 ml 480 ml # Voids 4 # Bowel Movements 2 Result Diagram: 06/28/17 1143 06/27/17 1231 Objective Remarks GENERAL: This is a well-nourished, well-developed patient, in no apparent distress. CARDIOVASCULAR: Regular rate and rhythm without murmurs, gallops, or rubs. RESPIRATORY: There is diffuse mild expiratory wheezing. No rales or rhonchi auscultated. There is good air entry bilaterally. GASTROINTESTINAL: Abdomen soft, non-tender, nondistended. No hepato-splenomegaly , or palpable masses. No guarding. MUSCULOSKELETAL: Extremities without clubbing, cyanosis, or edema. No joint tenderness, effusion, or edema noted. No calf tenderness. Negative Homans sign bilaterally. NEUROLOGICAL: Awake and alert. Cranial nerves II through XII intact. Motor and sensory grossly within normal limits. Five out of 5 muscle strength in all muscle groups. Normal speech. A/P Problem List: (1) Bipolar disorder, current episode mixed, severe, with psychotic features ICD Code: F31.64 - Bipolar disorder, current episode mixed, severe, with psychotic features Status: Acute (2) Hyponatremia ICD Code: E87.1 - Hypo-osmolality and hyponatremia Status: Acute (3) Diabetes ICD Code: E11.9 - Type 2 diabetes mellitus without complications (4) HTN (hypertension) ICD Code: I10 - Essential (primary) hypertension (5) Wheezing ICD Code: R06.2 - Wheezing Status: Acute (6) Hypothyroidism ICD Code: E03.9 - Hypothyroidism, unspecified (7) Anemia ICD Code: D64.9 - Anemia, unspecified (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 (2) Hyponatremia, improving ICD Code: E87.1 - Hypo-osmolality and hyponatremia Status: Acute Plan: Patient seems to be euvolemic. sodium trending up from 127 - 133- 134 . Continue fluid restriction. Monitor Na level. Normal serum osmolality but no sodium osmolality obtained. (3) Diabetes mellitus controlled ICD Code: E11.9 - Type 2 diabetes mellitus without complications Plan: I will check hemoglobin A1c. Place on SSI with insulin NovoLog. Patient states that he is on insulin Glargin at home. He does not remember the dose. 06/20 Blood sugars somewhat elevated. Continue SSI with insulin Novolog (4) HTN (hypertension) ICD Code: I10 - Essential (primary) hypertension Plan: BP seems to be slightly elevated. Patient is on lisinopril at home which I will continue. Continue to monitor vital signs and BMP. 06/20 BP better controlled. continue Lisinopril. (5) Wheezing ICD Code: R06.2 - Wheezing Status: Acute Plan: The patient has mild diffuse bilateral expiratory wheezing on exam. The patient is a heavy smoker and this is probably likely due to some long-standing damage due to tobacco use. Continue DuoNeb treatments and steroid inhalers. Wheezing Improved Chest x-ray reviewed shows findings consistent with granuloma of the lungs. Might benefit from steroid use. Also noted scoliosis. ICD Code: E03.9 - Hypothyroidism, unspecified Plan: Check TSH, will try to get dose not the patient was taking. As per patient's the patient has not been compliant with his medications. TSH IS ELEVATED AT 4.880 - Check free t4 and started on 50 mcg of levothyroxine. (7) Anemia ICD Code: D64.9 - Anemia, unspecified Plan: The patient has history of liver cirrhosis. Anemia is normocytic, likely secondary to liver disease. Continue to monitor hemoglobin and CBC. 06/20 hemoglobin stable. monitor cbc. 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 (9) Tobacco abuse ICD Code: Z72.0 - Tobacco use Plan: Advises smoking cessation, continue nicotine patch. (10) Pancytopenia Monitor CBC. Consult hem/onc Assessment and Plan DVT Prophylaxis: SCD's Discussed with the patient. nurse Problem Qualifiers (1) Diabetes: Qualified Codes: E11.9 - Type 2 diabetes mellitus without complications (2) HTN (hypertension): Qualified Codes: I10 - Essential (primary) hypertension (3) Hypothyroidism: Qualified Codes: E03.9 - Hypothyroidism, unspecified Rola Mcnally MD Jun 29, 2017 07:15
[2017-06-29 07:57] LABS: AUTOMATED NEUTROPHIL # 1.8 TH/MM3 (1.8-7.7); BASOPHIL # 0.1 TH/MM3 (0-0.2); BASOPHIL % 1.8 % (0.0-2.0); EOSINOPHIL % 0.6 % (0.0-4.0); LYMPHOCYTE # 1.1 TH/MM3 (1.0-4.8); MONO % 12.3 % (0.0-8.0); NEUT % 54.3 % (16.0-70.0); PLATELET COUNT 184 TH/MM3 (150-450); RED CELL DISTRIBUTION WIDTH 13.1 % (11.6-17.2); WHITE BLOOD COUNT 3.4 TH/MM3 (4.0-11.0)
[2017-06-29] MEDS: INSULIN ASPART SUPPLEMENTAL SCALE SQ SCH ×4 (08:00→21:00)
[2017-06-29 08:16] LABS: RED BLOOD COUNT 2.98 MIL/MM3 (4.50-5.90)
[2017-06-29 08:17] LABS: HEMATOCRIT 28.8 % (39.0-51.0); MEAN CELL VOLUME 96.8 FL (80.0-100.0); MEAN CORPUSCULAR HEMOGLOBIN 36.2 PG (27.0-34.0); MEAN CORPUSCULAR HGB CONC 37.4 % (32.0-36.0)
[2017-06-29 08:18] LABS: BICARBONATE 27.5 MEQ/L (21.0-32.0); HEMO FLAGS AUTO DIFF; POTASSIUM 4.2 MEQ/L (3.5-5.1)
[2017-06-29 08:56] LABS: SCAN/DIFF AUTO DIFF CONFIRMED
[2017-06-29] MEDS: REMOVE OLD PATCH T-DERMAL SCH (09:00)
[2017-06-29] MEDS: BENZTROPINE MESYLATE 1 MG TAB PO SCH ×2 (09:15→21:17)
[2017-06-29] MEDS: ZIPRASIDONE HCL 40 MG CAP PO SCH ×2 (09:15→18:35)
[2017-06-29] MEDS: BUDESONIDE-FORMOTEROL 160/4.5 MCG INHALER INH SCH ×2 (09:16→21:17)
[2017-06-29] MEDS: LACTULOSE SYRUP 20 GM/30 ML CUP PO SCH ×3 (09:17→18:35)
[2017-06-29] MEDS: NICOTINE 21 MG/24 HR PATCH T-DERMAL SCH (09:18)
--- NOTE | 2017-06-29 14:03 | HHI.PYPN ---
Subjective Remarks Patient was seen and case discussed with nursing. Patient is bizarre with a disorganized thought process. He is spending the day disrobing. When I approach him he raises his hands and says this stay away because he is contaminated with LSD. Patient claims he used LSD last night, "in his mind." Admits to hallucinations "sometimes, signals." Per one-to-one he has been talking to himself. He has not been aggressive or had any outbursts Objective Alert: Yes [place]: Person, Place Mood: Anxious Affect: Labile Memory Intact: Comment (Not formally assessed) Hallucinations: Auditory ("signals") Delusions: No Delusion Type: Other (bizarre delusions) Suicidal: Ideation (denies) Homicidal: Ideation (No HI) Insight/Judgment Poor Labs Test 06/29/17 07:02 White Blood Count 3.4 TH/MM3 Red Blood Count 2.98 MIL/MM3 Hemoglobin 10.8 GM/DL Hematocrit 28.8 % Mean Corpuscular Volume 96.8 FL Mean Corpuscular Hemoglobin 36.2 PG Mean Corpuscular Hemoglobin Concent 37.4 % Red Cell Distribution Width 13.1 % Platelet Count 184 TH/MM3 Mean Platelet Volume 8.0 FL Neutrophils (%) (Auto) 54.3 % Lymphocytes (%) (Auto) 31.0 % Monocytes (%) (Auto) 12.3 % Eosinophils (%) (Auto) 0.6 % Basophils (%) (Auto) 1.8 % Neutrophils # (Auto) 1.8 TH/MM3 Lymphocytes # (Auto) 1.1 TH/MM3 Monocytes # (Auto) 0.4 TH/MM3 Eosinophils # (Auto) 0.0 TH/MM3 Basophils # (Auto) 0.1 TH/MM3 CBC Comment AUTO DIFF Differential Comment AUTO DIFF CONFIRMED Hematology Comments Blood Urea Nitrogen 13 MG/DL Creatinine 1.23 MG/DL Random Glucose 150 MG/DL Calcium Level 9.2 MG/DL Sodium Level 135 MEQ/L Potassium Level 4.2 MEQ/L Chloride Level 102 MEQ/L Carbon Dioxide Level 27.5 MEQ/L Anion Gap 6 MEQ/L Estimat Glomerular Filtration Rate 58 ML/MIN Vitals/IOs Vital Signs Date Time Temp Pulse Resp B/P (MAP) Pulse Ox O2 Delivery O2 Flow Rate FiO2 06/29/17 05:33 98.6 83 18 149/78 (101) 90 Intake and Output 06/29/17 06/29/17 06/30/17 08:00 16:00 00:00 Intake Total 480 ml Balance 480 ml Assessment & Plan Problem List: (1) Bipolar disorder, current episode mixed, severe, with psychotic features ICD Codes: F31.64 - Bipolar disorder, current episode mixed, severe, with psychotic features Status: Acute Assessment & Plan Continue current treatment plan Justification for Cont. Inpt. Patient will decompensate in a less restrictive setting Request HC Surrog/Guard Advoc?: Yes Jose Mcgrath DO Jun 29, 2017 14:03
--- NOTE | 2017-06-29 16:36 | PD.ONC.PN ---
Subjective Subjective Remarks Feeling better. More calm. Objective Data Date Time Temp Pulse Resp B/P (MAP) Pulse Ox O2 Delivery O2 Flow Rate FiO2 06/29/17 05:33 98.6 83 18 149/78 (101) 90 06/28/17 18:25 98.2 86 18 148/68 (94) 98 06/29/17 06/29/17 06/29/17 07:00 15:00 23:00 Intake Total 480 ml Balance 480 ml Result Diagram: 06/29/17 0702 06/29/17 0702 Laboratory Results Laboratory Tests Test 06/29/17 07:02 White Blood Count 3.4 TH/MM3 Red Blood Count 2.98 MIL/MM3 Hemoglobin 10.8 GM/DL Hematocrit 28.8 % Mean Corpuscular Volume 96.8 FL Mean Corpuscular Hemoglobin 36.2 PG Mean Corpuscular Hemoglobin Concent 37.4 % Red Cell Distribution Width 13.1 % Platelet Count 184 TH/MM3 Mean Platelet Volume 8.0 FL Neutrophils (%) (Auto) 54.3 % Lymphocytes (%) (Auto) 31.0 % Monocytes (%) (Auto) 12.3 % Eosinophils (%) (Auto) 0.6 % Basophils (%) (Auto) 1.8 % Neutrophils # (Auto) 1.8 TH/MM3 Lymphocytes # (Auto) 1.1 TH/MM3 Monocytes # (Auto) 0.4 TH/MM3 Eosinophils # (Auto) 0.0 TH/MM3 Basophils # (Auto) 0.1 TH/MM3 CBC Comment AUTO DIFF Differential Comment AUTO DIFF CONFIRMED Hematology Comments Blood Urea Nitrogen 13 MG/DL Creatinine 1.23 MG/DL Random Glucose 150 MG/DL Calcium Level 9.2 MG/DL Sodium Level 135 MEQ/L Potassium Level 4.2 MEQ/L Chloride Level 102 MEQ/L Carbon Dioxide Level 27.5 MEQ/L Anion Gap 6 MEQ/L Estimat Glomerular Filtration Rate 58 ML/MIN Administered Medications Medications (Trade) Dose Ordered Sig/Alanna Route PRN Reason Start Time Stop Time Status Last Admin Dose Admin Acetaminophen (Tylenol) 650 mg Q4H PRN PO Pain 1-5 or Temp >101F 06/19/17 13:30 06/28/17 04:55 Lisinopril (Prinivil) 10 mg DAILY PRN PO as prescribed 06/19/17 18:00 06/21/17 18:01 Lorazepam (Ativan) 0.5 mg Q6H PRN PO MODERATE TO SEVERE ANXIETY 06/20/17 13:30 06/28/17 22:15 Lorazepam (Ativan Inj) 0.5 mg Q6H PRN IM MODERATE TO SEVERE ANXIETY 06/20/17 13:30 06/27/17 13:07 Insulin Aspart (NovoLOG SUPPLEMENTAL SCALE) 1 ACHS SLIDING SCALE SQ 06/20/17 11:00 06/29/17 11:22 Budesonide/ Formoterol Fumarate (Symbicort 160-4.5 Inh) 2 puff Q12HR INH 06/20/17 11:15 06/29/17 09:16 Nicotine (Habitrol 21 Mg Patch.24 Hr) 1 patch DAILY T-DERMAL 06/20/17 11:15 06/29/17 09:18 Miscellaneous Information 1 DAILY T-DERMAL 06/21/17 09:00 06/27/17 09:00 Levothyroxine Sodium (Synthroid) 50 mcg DAILY@0600 PO 06/20/17 17:15 06/29/17 06:25 Benztropine Mesylate (Cogentin) 0.5 mg Q12HR PO 06/24/17 11:30 06/29/17 09:15 Ziprasidone (Geodon) 40 mg BIDPC PO 06/27/17 09:00 06/29/17 09:15 Lactulose (Lactulose Liq) 30 ml TID PO 06/27/17 18:00 06/29/17 13:21 Objective Remarks GENERAL: Well-nourished, well-developed patient. SKIN: Warm and dry. HEAD: Normocephalic. EYES: No scleral icterus. No injection or drainage. NECK: Supple, trachea midline. No JVD or lymphadenopathy. LYMPHATIC: No adenopathy. CARDIOVASCULAR: Regular rate and rhythm without murmurs. RESPIRATORY: Breath sounds equal bilaterally. No accessory muscle use. GASTROINTESTINAL: Abdomen soft, non-tender, nondistended. EXTREMITIES: No cyanosis, or edema. MUSCULOSKELETAL: Adequate muscle tone. Assessment/Plan Assessment 1. Mild pancytopenia which appeared to be new onset. When he first presented his white blood cell count and platelet count were normal. Over the last week it has trended a little lower. He only had mild neutropenia. He has a history of hepatitis C which may cause him to have a borderline low blood count. The recent drop in blood counts I think is possibly due to Zyprexa. The Zyprexa has been discontinued. Blood counts have trended up. Platelet is now normal. 2. History of hepatitis C and possible cirrhosis. He said he was treated 2 years ago. His AST is slightly elevated. 3. Bipolar disorder with psychosis 4. Hypothyroidism, on supplement. 5. Diabetes mellitus, hypertension. Plan Plan: 1. Continue to monitor CBC. 2. Consider getting ultrasound to evaluate liver and spleen when he is more stable. Jose Fay MD Jun 29, 2017 16:36
[2017-06-29 18:28] VITALS: BP 167/79; PULSE 81; RESP 17; TEMP 98.8; O2SAT 97
[2017-06-29] MEDS: LORazepam 0.5 MG TAB PO PRN (22:56)
[2017-06-30] MEDS: LEVOTHYROXINE SODIUM 50 MCG TAB PO SCH (05:04)
[2017-06-30 05:31] VITALS: BP 153/67; PULSE 75; RESP 19; TEMP 98.9; O2SAT 96
[2017-06-30] MEDS: LISINOPRIL 10 MG TAB PO PRN (05:45)
[2017-06-30 05:54] VITALS: BP 153/67; PULSE 75; RESP 19; TEMP 98.9; O2SAT 96
[2017-06-30 06:00] VITALS: BP 135/64; PULSE 75; RESP 18; TEMP 98.9; O2SAT 97
[2017-06-30] MEDS: INSULIN ASPART SUPPLEMENTAL SCALE SQ SCH ×4 (08:00→21:00)
--- NOTE | 2017-06-30 08:36 | HHI.PYPN ---
Subjective Remarks Patient seen and examined. Chart reviewed. Case discussed with RN. Patient remains a 1:1. He was disrobing overnight and had to be medicated with Ativan PRN. On my examination today, patient continues to display loosening of associations. When I discuss his behavior overnight, he indicates that he was disrobing "because I wanted to get out there [to the day area] and call my . " It is unclear how disrobing would help in this goal, but he insists "it would [help] because someone would have to jump up and stop me [from disrobing]. 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 Denies side effects from medications. No physical complaints. Review of Systems ROS Limitations: Poor Historian Except as stated in HPI: all other systems reviewed are Neg Objective Alert: Yes [place]: Person, Place, Date Mood: Other (somewhat elevated) Affect: Labile (remains labile) Memory Intact: Comment (Not formally assessed) Hallucinations: Other (no AVH) Delusions: No Delusion Type: Other (no delusions) Suicidal: Ideation (no SI) Homicidal: Ideation (no HI) Insight/Judgment Poor Remarks Oral dyskinesias continue unchanged. No other motoric abnormalities noted. Thought process with ongoing loosening of associations. Speech rambling and difficult to follow at times. Grooming and hygiene fair at best. Labs Labs reviewed. Leukopenia/neutrophilia improving. Hyponatremia improved. GFR fairly stable. Ammonia level normalized. Vitals/IOs Vital Signs Date Time Temp Pulse Resp B/P (MAP) Pulse Ox O2 Delivery O2 Flow Rate FiO2 06/30/17 05:54 98.9 75 19 153/67 (95) 96 Intake and Output 06/30/17 06/30/17 07/01/17 08:00 16:00 00:00 Intake Total 120 ml Balance 120 ml Assessment & Plan Problem List: (1) Bipolar disorder, current episode mixed, severe, with psychotic features ICD Codes: F31.64 - Bipolar disorder, current episode mixed, severe, with psychotic features Status: Acute Assessment & Plan Titrate Geodon to 60 mg twice daily with meals for mood stabilization with plans for daily dose titrations as tolerated. Continue to monitor on the geropsychiatric unit on a one-to-one. Appreciate hematology and hospitalist input. As recommended by hematology, we will try to obtain an ultrasound of the liver and spleen once the patient is more psychiatrically stable. Continue other medications and care as ordered. Justification for Cont. Inpt. Medication changes in process. Impairment in social function. Complicating conditions. High risk for decompensation in less restrictive environment. Discharge Planning Pending psychiatric stabilization. Patient will likely require ongoing psychiatric hospitalization through the remainder of the week but might be stable enough for discharge by the end of this week or beginning of next week. Request HC Surrog/Guard Advoc?: Yes Piter Fenton MD Jun 30, 2017 08:36
[2017-06-30] MEDS: REMOVE OLD PATCH T-DERMAL SCH (09:00)
[2017-06-30] MEDS: BENZTROPINE MESYLATE 1 MG TAB PO SCH ×2 (09:40→21:00)
[2017-06-30] MEDS: LACTULOSE SYRUP 20 GM/30 ML CUP PO SCH ×3 (09:40→18:33)
[2017-06-30] MEDS: ZIPRASIDONE HCL 40 MG CAP PO SCH (09:40)
[2017-06-30] MEDS: BUDESONIDE-FORMOTEROL 160/4.5 MCG INHALER INH SCH ×2 (09:41→21:00)
[2017-06-30] MEDS: NICOTINE 21 MG/24 HR PATCH T-DERMAL SCH (09:42)
--- NOTE | 2017-06-30 12:13 | HHI.PR ---
Subjective Remarks Seen skiver welt end. Patient says he gets at times sob, he is satting well on room air at this time. He is not on O2. He is not wheezing. No n/v/d/c. Objective Vitals Vital Signs Date Time Temp Pulse Resp B/P (MAP) Pulse Ox O2 Delivery O2 Flow Rate FiO2 06/30/17 05:54 98.9 75 19 153/67 (95) 96 06/30/17 05:31 98.9 75 19 153/67 (95) 96 06/29/17 18:28 98.8 81 17 167/79 (108) 97 I/O 06/29/17 06/29/17 06/29/17 06/30/17 06/30/17 06/30/17 07:00 15:00 23:00 07:00 15:00 23:00 Intake Total 480 ml 780 ml 120 ml 240 ml Balance 480 ml 780 ml 120 ml 240 ml Intake Oral 480 ml 780 ml 120 ml 240 ml Result Diagram: 06/29/17 0702 06/29/17 0702 Imaging Last Impressions Head CT 06/27/17 0000 Signed Impressions: Service Date/Time: Tuesday, June 27, 2017 08:43 - CONCLUSION: No acute disease. Jose Elias Gonzalez MD Hand X-Ray 06/27/17 0000 Signed Impressions: Service Date/Time: Tuesday, June 27, 2017 08:55 - CONCLUSION: 1. No acute bony abnormality identified. Jeramy Mccurdy MD Abdomen X-Ray 06/24/17 0000 Signed Impressions: Service Date/Time: Saturday, June 24, 2017 08:48 - CONCLUSION: Nonobstructive bowel gas pattern. Juan Carlos Emery MD Chest X-Ray 06/20/17 0000 Signed Impressions: Service Date/Time: Tuesday, June 20, 2017 20:38 - CONCLUSION: 1. No acute findings. Calcified granulomata in the lungs. Scoliosis. Navin Kaur MD Objective Remarks GENERAL: This is a well-nourished, well-developed patient, in no apparent distress. CARDIOVASCULAR: Regular rate and rhythm without murmurs, gallops, or rubs. RESPIRATORY: No wheezing. No rales or rhonchi auscultated. There is good air entry bilaterally. GASTROINTESTINAL: Abdomen soft, non-tender, nondistended. No hepato-splenomegaly , or palpable masses. No guarding. MUSCULOSKELETAL: Extremities without clubbing, cyanosis, or edema. No joint tenderness, effusion, or edema noted. No calf tenderness. Negative Homans sign bilaterally. NEUROLOGICAL: Awake and alert. Cranial nerves II through XII intact. Motor and sensory grossly within normal limits. Five out of 5 muscle strength in all muscle groups. Normal speech. A/P Problem List: (1) Bipolar disorder, current episode mixed, severe, with psychotic features ICD Code: F31.64 - Bipolar disorder, current episode mixed, severe, with psychotic features Status: Acute (2) Hyponatremia ICD Code: E87.1 - Hypo-osmolality and hyponatremia Status: Acute (3) Diabetes ICD Code: E11.9 - Type 2 diabetes mellitus without complications (4) HTN (hypertension) ICD Code: I10 - Essential (primary) hypertension (5) Wheezing ICD Code: R06.2 - Wheezing Status: Acute (6) Hypothyroidism ICD Code: E03.9 - Hypothyroidism, unspecified (7) Anemia ICD Code: D64.9 - Anemia, unspecified (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 (2) Hyponatremia, improving ICD Code: E87.1 - Hypo-osmolality and hyponatremia Status: Acute Plan: Patient seems to be euvolemic. sodium trending up from 127 - 133- 134 . Continue fluid restriction. Monitor Na level. Normal serum osmolality but no sodium osmolality obtained. (3) Diabetes mellitus controlled ICD Code: E11.9 - Type 2 diabetes mellitus without complications Plan: I will check hemoglobin A1c. Place on SSI with insulin NovoLog. Patient states that he is on insulin Glargin at home. He does not remember the dose. 06/20 Blood sugars somewhat elevated. Continue SSI with insulin Novolog (4) HTN (hypertension) ICD Code: I10 - Essential (primary) hypertension Plan: BP seems to be slightly elevated. Patient is on lisinopril at home which I will continue. Continue to monitor vital signs and BMP. 06/20 BP better controlled. continue Lisinopril. (5) Wheezing, resolved ICD Code: R06.2 - Wheezing Status: Acute Plan: The patient is a heavy smoker and this is probably likely due to some long-standing damage due to tobacco use. Continue DuoNeb treatments and steroid inhalers. Wheezing Improved Chest x-ray reviewed shows findings consistent with granuloma of the lungs. Might benefit from steroid use. Also noted scoliosis. (6) Hypothyroidism, unspecified Plan: Check TSH, will try to get dose not the patient was taking. As per patient's the patient has not been compliant with his medications. TSH IS ELEVATED AT 4.880 - Check free t4 and started on 50 mcg of levothyroxine. (7) Anemia ICD Code: D64.9 - Anemia, unspecified Plan: The patient has history of liver cirrhosis. Anemia is normocytic, likely secondary to liver disease. Continue to monitor hemoglobin and CBC. 06/20 hemoglobin stable. monitor cbc. 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 (9) Tobacco abuse ICD Code: Z72.0 - Tobacco use Plan: Advises smoking cessation, continue nicotine patch. (10) Pancytopenia Monitor CBC. Consult hem/onc Assessment and Plan DVT Prophylaxis: SCD's Discussed with the patient. nurse Problem Qualifiers (1) Diabetes: Qualified Codes: E11.9 - Type 2 diabetes mellitus without complications (2) HTN (hypertension): Qualified Codes: I10 - Essential (primary) hypertension (3) Hypothyroidism: Qualified Codes: E03.9 - Hypothyroidism, unspecified Rola Mcnally MD Jun 30, 2017 11:58
[2017-06-30] MEDS: ZIPRASIDONE HCL 60 MG CAP PO SCH (18:33)
--- NOTE | 2017-06-30 19:19 | RADRPT ---
EXAM DATE/TIME: 06/30/2017 17:22 [facility] COMPARISON: No previous studies available for comparison. INDICATIONS : Increased lab values. MEDICAL HISTORY : Hypertension. Thyroid disease. Diabetes. Bipolar disorder. SURGICAL HISTORY : Tonsillectomy. Cyst removed, neck. ENCOUNTER: Initial ACUITY: 1 day PAIN SCORE: 110 LOCATION: Abdomen. MEASUREMENTS: LIVER: 18.2 cm length COMMON DUCT: 3 mm RIGHT KIDNEY: 10.7 x 5.2 x 5.6 cm SPLEEN: 15.6 cm length FINDINGS: The liver is enlarged and demonstrates heterogeneous echotexture suggesting diffuse hepatic disease. No focal hepatic mass is noted. No biliary ductal dilatation is noted. The gallbladder contains debr is but its wall is not thickened. No pericholecystic fluid or sonographic Khan's sign is noted. Th e common bile duct is normal in caliber and measures 3 mm. There is hepatopetal flow within the port al vein. The spleen is mildly enlarged. Moderate hydronephrosis is noted bilaterally of indeterminate etiology. The pancreas is echogenic but demonstrates no focal mass. CONCLUSION: 1. Moderate bilateral hydronephrosis of indeterminate etiology. 2. Hepatosplenomegaly. 3. Coarse echotexture of the liver suggesting diffuse hepatic disease. 4. Gallbladder sludge. Jose Elias Gonzalez MD on June 30, 2017 at 19:09 Board Certified Radiologist. This report was verified electronically.
[2017-06-30] MEDS: LORazepam 0.5 MG TAB PO PRN (22:53)
[2017-07-01 06:01] VITALS: BP 151/72; PULSE 89; RESP 19; TEMP 98.6; O2SAT 97
[2017-07-01] MEDS: LEVOTHYROXINE SODIUM 50 MCG TAB PO SCH (06:07)
[2017-07-01] MEDS: LISINOPRIL 10 MG TAB PO PRN (06:27)
[2017-07-01] MEDS: INSULIN ASPART SUPPLEMENTAL SCALE SQ SCH ×4 (08:00→20:41)
--- NOTE | 2017-07-01 08:03 | HHI.PR ---
Subjective Remarks In the chair eating breakfast. Says he is not wheezing today and he is less sob. No fever or chills. No n/v/d/c. Denies chest pain or sob. Had US of liver yesterday Objective Vitals Vital Signs Date Time Temp Pulse Resp B/P (MAP) Pulse Ox O2 Delivery O2 Flow Rate FiO2 07/01/17 06:01 98.6 89 19 151/72 (98) 97 I/O 06/30/17 06/30/17 06/30/17 07/01/17 07/01/17 07/01/17 07:00 15:00 23:00 07:00 15:00 23:00 Intake Total 120 ml 240 ml 0 ml 800 ml Balance 120 ml 240 ml 0 ml 800 ml Intake Oral 120 ml 240 ml 0 ml 800 ml # Voids 3 Result Diagram: 06/29/17 0702 06/29/17 0702 Imaging Last Impressions Liver Ultrasound 06/30/17 0000 Signed Impressions: Service Date/Time: Friday, June 30, 2017 17:22 - CONCLUSION: 1. Moderate bilateral hydronephrosis of indeterminate etiology. 2. Hepatosplenomegaly. 3. Coarse echotexture of the liver suggesting diffuse hepatic disease. 4. Gallbladder sludge. Jose Elias Gonzalez MD Head CT 06/27/17 0000 Signed Impressions: Service Date/Time: Tuesday, June 27, 2017 08:43 - CONCLUSION: No acute disease. Jose Elias Gonzalez MD Hand X-Ray 06/27/17 0000 Signed Impressions: Service Date/Time: Tuesday, June 27, 2017 08:55 - CONCLUSION: 1. No acute bony abnormality identified. Jeramy Mccurdy MD Abdomen X-Ray 06/24/17 0000 Signed Impressions: Service Date/Time: Saturday, June 24, 2017 08:48 - CONCLUSION: Nonobstructive bowel gas pattern. Juan Carlos Emery MD Chest X-Ray 06/20/17 0000 Signed Impressions: Service Date/Time: Tuesday, June 20, 2017 20:38 - CONCLUSION: 1. No acute findings. Calcified granulomata in the lungs. Scoliosis. Navin Kaur MD Objective Remarks GENERAL: This is a well-nourished, well-developed patient, in no apparent distress. CARDIOVASCULAR: Regular rate and rhythm without murmurs, gallops, or rubs. RESPIRATORY: No wheezing. No rales or rhonchi auscultated. There is good air entry bilaterally. GASTROINTESTINAL: Abdomen soft, non-tender, nondistended. No hepato-splenomegaly , or palpable masses. No guarding. MUSCULOSKELETAL: Extremities without clubbing, cyanosis, or edema. No joint tenderness, effusion, or edema noted. No calf tenderness. Negative Homans sign bilaterally. NEUROLOGICAL: Awake and alert. Cranial nerves II through XII intact. Motor and sensory grossly within normal limits. Five out of 5 muscle strength in all muscle groups. Normal speech. A/P Problem List: (1) Bipolar disorder, current episode mixed, severe, with psychotic features ICD Code: F31.64 - Bipolar disorder, current episode mixed, severe, with psychotic features Status: Acute (2) Hyponatremia ICD Code: E87.1 - Hypo-osmolality and hyponatremia Status: Acute (3) Diabetes ICD Code: E11.9 - Type 2 diabetes mellitus without complications (4) HTN (hypertension) ICD Code: I10 - Essential (primary) hypertension (5) Wheezing ICD Code: R06.2 - Wheezing Status: Acute (6) Hypothyroidism ICD Code: E03.9 - Hypothyroidism, unspecified (7) Anemia ICD Code: D64.9 - Anemia, unspecified (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 Hyponatremia, improving ICD Code: E87.1 - Hypo-osmolality and hyponatremia Status: Acute Plan: Patient seems to be euvolemic. sodium trending up from 127 - 133- 134 . Continue fluid restriction. Monitor Na level. Normal serum osmolality but no sodium osmolality obtained. Diabetes mellitus controlled ICD Code: E11.9 - Type 2 diabetes mellitus without complications Plan: I will check hemoglobin A1c. Place on SSI with insulin NovoLog. Patient states that he is on insulin Glargin at home. He does not remember the dose. 06/20 Blood sugars somewhat elevated. Continue SSI with insulin Novolog HTN (hypertension) ICD Code: I10 - Essential (primary) hypertension Plan: BP seems to be slightly elevated. Patient is on lisinopril at home which I will continue. Continue to monitor vital signs and BMP. 06/20 BP better controlled. continue Lisinopril. Wheezing, resolved ICD Code: R06.2 - Wheezing Status: Acute Plan: The patient is a heavy smoker and this is probably likely due to some long-standing damage due to tobacco use. Continue DuoNeb treatments and steroid inhalers. Wheezing Improved Chest x-ray reviewed shows findings consistent with granuloma of the lungs. Might benefit from steroid use. Also noted scoliosis. Hypothyroidism, unspecified Plan: Check TSH, will try to get dose not the patient was taking. As per patient's the patient has not been compliant with his medications. TSH IS ELEVATED AT 4.880 - Check free t4 and started on 50 mcg of levothyroxine. Anemia Pancytopenia . Hem;/onc consulted ICD Code: D64.9 - Anemia, unspecified Plan: The patient has history of liver cirrhosis. Anemia is normocytic, likely secondary to liver disease. Continue to monitor hemoglobin and CBC. 06/20 hemoglobin stable. monitor cbc. Patient with pancytopenia, consult hem/onc recommends liver/spleen US when stable. Patient has liver /spleen US 06/30/17 reviewed, patient with bilateral hydronephrosis, hepatosplenomegaly, diffuse hepatic disease. 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 Tobacco abuse ICD Code: Z72.0 - Tobacco use Plan: Advises smoking cessation, continue nicotine patch. Assessment and Plan DVT Prophylaxis: SCD's Discussed with the patient. nurse Problem Qualifiers (1) Diabetes: Qualified Codes: E11.9 - Type 2 diabetes mellitus without complications (2) HTN (hypertension): Qualified Codes: I10 - Essential (primary) hypertension (3) Hypothyroidism: Qualified Codes: E03.9 - Hypothyroidism, unspecified Rola Mcnally MD Jul 01, 2017 08:03
[2017-07-01] MEDS: REMOVE OLD PATCH T-DERMAL SCH (09:00)
[2017-07-01] MEDS: BUDESONIDE-FORMOTEROL 160/4.5 MCG INHALER INH SCH ×2 (09:00→21:28)
[2017-07-01] MEDS: ZIPRASIDONE HCL 60 MG CAP PO SCH (09:40)
[2017-07-01] MEDS: LACTULOSE SYRUP 20 GM/30 ML CUP PO SCH ×3 (09:40→17:32)
[2017-07-01] MEDS: BENZTROPINE MESYLATE 1 MG TAB PO SCH ×2 (09:40→20:40)
[2017-07-01 09:41] LABS: AUTOMATED NEUTROPHIL # 2.1 TH/MM3 (1.8-7.7); BASOPHIL # 0.3 TH/MM3 (0-0.2); BASOPHIL % 7.8 % (0.0-2.0); EOSINOPHIL % 0.2 % (0.0-4.0); LYMPH % 23.6 % (9.0-44.0); LYMPHOCYTE # 0.9 TH/MM3 (1.0-4.8); MONO % 11.4 % (0.0-8.0); PLATELET COUNT 220 TH/MM3 (150-450); WHITE BLOOD COUNT 3.7 TH/MM3 (4.0-11.0)
[2017-07-01] MEDS: NICOTINE 21 MG/24 HR PATCH T-DERMAL SCH (09:41)
--- NOTE | 2017-07-01 09:52 | RADRPT ---
EXAM DATE/TIME: 07/01/2017 09:07 [facility] COMPARISON: US ABDOMEN - LIVER, June 30, 2017, 17:22. INDICATIONS : Hyrdonephrosis. MEDICAL HISTORY : Hypothyroidism. Hypertension. Diabetes. Bipolar disorder. Substance use. Anemia. SURGICAL HISTORY : Tonsillectomy. Cataract removal. Cyst on neck removed. ENCOUNTER: Initial ACUITY: 1 day PAIN SCORE: 0/10 LOCATION: Bilateral flank MEASUREMENTS: RIGHT KIDNEY: 12.0 x 5.7 x 6.2 cm LEFT KIDNEY: 12.8 x 5.4 x 7.1 cm FINDINGS: RIGHT KIDNEY: The examination demonstrates mild hydronephrotic changes. This appears slightly increased when compar ed to previous study dated 06/30/17. The renal cortex appears of adequate thickness. No masses seen. LEFT KIDNEY: The examination demonstrates mild hydronephrosis. This is unchanged from previous examination. The re nal cortex appears of adequate thickness. No masses identified. BLADDER: The bladder is distended but otherwise unremarkable. CONCLUSION: Mild hydronephrotic changes bilaterally. Hydronephrosis on the left is stable. Hydronephrosis on the right appear slightly increased when compared to previous. Jeramy Mccurdy MD on July 01, 2017 at 9:39 Board Certified Radiologist. This report was verified electronically.
[2017-07-01 10:06] LABS: HEMATOCRIT 31.1 % (39.0-51.0); HEMO FLAGS AUTO DIFF; MEAN CELL VOLUME 98.5 FL (80.0-100.0); MEAN CORPUSCULAR HGB CONC 36.6 % (32.0-36.0); RED BLOOD COUNT 3.15 MIL/MM3 (4.50-5.90); RED CELL DISTRIBUTION WIDTH 13.2 % (11.6-17.2)
[2017-07-01 11:14] LABS: SCAN/DIFF AUTO DIFF CONFIRMED
--- NOTE | 2017-07-01 11:37 | HHI.PYPN ---
Subjective Remarks Patient seen and examined. Chart reviewed. Case discussed in treatment team. On my examination today, the patient feels his mood is stabilizing. He is more organized and relevant in conversation. Patient did try to disrobe once yesterday per nursing notes but has not engaged in any inappropriate behaviors so far this morning. Sleep remains somewhat poor per nursing staff. He denies SI, HI or AVH. Denies side effects from medications. No physical complaints. Review of Systems Except as stated in HPI: all other systems reviewed are Neg Objective Alert: Yes [place]: Person, Place, Date Mood: Calm Affect: Other (fairly appropriate today) Memory Intact: Comment (Not formally assessed) Hallucinations: Other (denies AVH) Delusions: No Delusion Type: Other (no delusional material) Suicidal: Ideation (denies SI) Homicidal: Ideation (denies HI) Insight/Judgment Poor Remarks Thought process more organized and linear. Motoric abnormalities noted. Grooming and hygiene remain marginal. Labs Test 07/01/17 06:55 White Blood Count 3.7 TH/MM3 Red Blood Count 3.15 MIL/MM3 Hemoglobin 11.4 GM/DL Hematocrit 31.1 % Mean Corpuscular Volume 98.5 FL Mean Corpuscular Hemoglobin 36.0 PG Mean Corpuscular Hemoglobin Concent 36.6 % Red Cell Distribution Width 13.2 % Platelet Count 220 TH/MM3 Mean Platelet Volume 8.1 FL Neutrophils (%) (Auto) 57.0 % Lymphocytes (%) (Auto) 23.6 % Monocytes (%) (Auto) 11.4 % Eosinophils (%) (Auto) 0.2 % Basophils (%) (Auto) 7.8 % Neutrophils # (Auto) 2.1 TH/MM3 Lymphocytes # (Auto) 0.9 TH/MM3 Monocytes # (Auto) 0.4 TH/MM3 Eosinophils # (Auto) 0.0 TH/MM3 Basophils # (Auto) 0.3 TH/MM3 CBC Comment AUTO DIFF Differential Comment AUTO DIFF CONFIRMED Hematology Comments Labs reviewed. Cell counts improving on CBC. Ultrasound results noted, and I see the hospitalist has consulted urology. Last Impressions Renal Ultrasound 07/01/17 0000 Signed Impressions: Service Date/Time: Saturday, July 01, 2017 09:07 - CONCLUSION: Mild hydronephrotic changes bilaterally. Hydronephrosis on the left is stable. Hydronephrosis on the right appear slightly increased when compared to previous. Jeramy Mccurdy MD Liver Ultrasound 06/30/17 0000 Signed Impressions: Service Date/Time: Friday, June 30, 2017 17:22 - CONCLUSION: 1. Moderate bilateral hydronephrosis of indeterminate etiology. 2. Hepatosplenomegaly. 3. Coarse echotexture of the liver suggesting diffuse hepatic disease. 4. Gallbladder sludge. Jose Elias Gonzalez MD Head CT 06/27/17 0000 Signed Impressions: Service Date/Time: Tuesday, June 27, 2017 08:43 - CONCLUSION: No acute disease. Jose Elias Gonzalez MD Hand X-Ray 06/27/17 0000 Signed Impressions: Service Date/Time: Tuesday, June 27, 2017 08:55 - CONCLUSION: 1. No acute bony abnormality identified. Jeramy Mccurdy MD Abdomen X-Ray 06/24/17 0000 Signed Impressions: Service Date/Time: Saturday, June 24, 2017 08:48 - CONCLUSION: Nonobstructive bowel gas pattern. Juan Carlos Emery MD Chest X-Ray 06/20/17 0000 Signed Impressions: Service Date/Time: Tuesday, June 20, 2017 20:38 - CONCLUSION: 1. No acute findings. Calcified granulomata in the lungs. Scoliosis. Navin Kaur MD Vitals/IOs Vital Signs Date Time Temp Pulse Resp B/P (MAP) Pulse Ox O2 Delivery O2 Flow Rate FiO2 07/01/17 06:01 98.6 89 19 151/72 (98) 97 Intake and Output 07/01/17 07/01/17 07/02/17 08:00 16:00 00:00 Intake Total 1040 ml Balance 1040 ml Assessment & Plan Problem List: (1) Bipolar disorder, current episode mixed, severe, with psychotic features ICD Codes: F31.64 - Bipolar disorder, current episode mixed, severe, with psychotic features Status: Acute Assessment & Plan Titrate Geodon to 80mg BIDPC for further mood stabilization; patient seems to be responding better to this agent and he did to the Zyprexa. Add melatonin at HS for sleep. D/c 1:1 and monitor on unit. Political Scientist input appreciated. Follow-up urology recommendations. Continue to monitor on the geropsychiatric unit. Continue other medications and care as ordered. Justification for Cont. Inpt. Medication changes in process. Risk for decompensation in less restrictive environment. Discharge Planning Pending stabilization. If trajectory of improvement continues, possible discharge by the end of the week. Request HC Surrog/Guard Advoc?: Yes Piter Fenton MD Jul 01, 2017 11:37
--- NOTE | 2017-07-01 13:05 | MB ---
cc: SERGEI OHARA MD DATE OF CONSULTATION 07/01/2017 REASON FOR CONSULTATION Bilateral hydronephrosis. HISTORY OF PRESENT ILLNESS The patient is a 72-year-old male admitted to the psychiatric [facility] for suicidal ideation and psychosis. He has a history of bipolar disorder and reportedly was on lithium which he recently discontinued. He told his and some family members that he wanted to hurt himself. During his hospital stay, he was found to have leukopenia and thrombocytopenia. An abdominal ultrasound was done which showed bilateral hydronephrosis. Subsequently, a renal ultrasound was then performed earlier today which showed bilateral hydronephrosis as well as a distended bladder of approximated 1500 cc's of urine in the bladder. Urology was consulted for this urinary retention and bilateral hydronephrosis. The patient states he does have significant problems urinating including nocturia times five weeks, occasional burning and leaking on himself. He does not feel like he empties his bladder. Today he continues to feel full and has more abdominal pain. He denies history of kidney stones or history of genitourinary malignancies. Denies history of urinary tract infections as well. He denies fevers, chills, nausea, vomiting, flank pain or hematuria at this time. PAST HISTORY Significant for: 1. Bipolar disorder 2. Hypertension 3. Diabetes 4. Hypothyroidism 5. Hepatitis C 6. Cirrhosis PAST SURGICAL HISTORY Denies any surgical. FAMILY HISTORY Denies urolithiasis or genitourinary malignancies. He smokes one to two packs a day. Drinks one to two beers a day. Denies illicit drugs. He is . ALLERGIES PENICILLIN-G MEDICATIONS Current medications include: 1. Geodon 2. Lactulose 3. Cogentin 4. Synthroid 5. Symbicort 6. Nicotine patch REVIEW OF SYSTEMS See HPI. All systems reviewed and are otherwise negative. PHYSICAL EXAMINATION VITAL SIGNS: Temperature 98.6, pulse 89, respiratory rate 19, BP 151/72, sating 97% on room air. GENERAL: He is alert and oriented x3 in no apparent stress pleasant and cooperative, appears his stated age. HEAD: Normocephalic, atraumatic. EYES: No scleral icterus. Extraocular muscles intact. NECK: Supple. Trachea is midline. No JVD. LUNGS: Clear to auscultation bilaterally. No wheezes, rales or rhonchi. HEART: Regular rhythm. No murmurs, gallops or rubs. ABDOMEN: Soft, nontender, nondistended, but his bladder appears to be palpable his. GENITOURINARY: No CVA tenderness bilaterally. His penis is uncircumcised. Testes are descended bilaterally. Normal size and consistency without mass. EXTREMITIES: Nontender. No clubbing, cyanosis or edema. PSYCH: Flat affect. NEUROLOGIC: Cranial nerves II-XII, 5/5 in four extremities. SKIN: No ulcers or rashes, pink and moist. LABS White count 3.7, hemoglobin 11.4, hematocrit 31.1, platelet count 220. BMP, no recent BMP. Urine was completely negative. IMAGING STUDIES Renal ultrasound images were reviewed. Agree with radiologist report. The patient has bilateral nephrosis with a large distended bladder with a prostate volume of 1500 cc's. ASSESSMENT The patient is a 72-year-old male admitted with suicidal ideation and was found to have bilateral hydronephrosis secondary to urinary retention. PLAN We will start the patient on Flomax 0.4 mm daily. We will check a BMP today to monitor his renal function. Discussed with the patient the need for having Guevara catheter placement and the patient was agreeable, therefore we will order a catheter to be placed and should be left in place for a minimal of one week then can be void trial as an outpatient. Thank you for this consult. Please call with any questions. MD BARBARA Goldman/LUCIUS /11:59 AM /12:40 PM
[2017-07-01] MEDS: TAMSULOSIN HCL 0.4 MG CAP PO SCH (13:27)
--- NOTE | 2017-07-01 16:10 | PD.TTN ---
Patient Problems 1. Discharge planning 2. Medication compliance 3. Knowledge deficit 4. Lack of coping skills Progress Toward Goals Provider Present: Dr. Kierra Fenton Provider Input: needs labs checked and is on fluid restriction Nurse(s) Input: Nadiya: pt needs to have labs and is still trying to drink a lot yesterday labile and on 1:1 but today calmer Psychiatric Counselors Present: Leix Garcia LCSW Psych Therapist Input: pt is still labile and will visit again, court is tomorrow and she will be there he can return home once stable but reports he has never been this difficult or commenting the way he does now and being inappropriate the way he is now Group Spec/RT/OT/CLARK Present: VALENCIA Sierra Verena LCSW Jul 01, 2017 16:10
[2017-07-01] MEDS: ZIPRASIDONE HCL 80 MG CAP PO SCH (17:31)
[2017-07-01 17:45] VITALS: BP 146/81; PULSE 84; RESP 16; TEMP 98.1; O2SAT 100
[2017-07-01] MEDS: LORazepam 0.5 MG TAB PO PRN (18:26)
[2017-07-01] MEDS: MELATONIN 5 MG TAB PO SCH (21:28)
[2017-07-02] MEDS: LORazepam 0.5 MG TAB PO PRN ×3 (00:19→21:38)
[2017-07-02] MEDS: LEVOTHYROXINE SODIUM 50 MCG TAB PO SCH (05:15)
[2017-07-02] MEDS: ACETAMINOPHEN 325 MG TAB PO PRN (05:16)
[2017-07-02 05:19] VITALS: BP 161/59; PULSE 80; RESP 18; TEMP 98.8; O2SAT 97
--- NOTE | 2017-07-02 07:26 | HHI.PR ---
Subjective Remarks Seen later. Patient in the chair, playing with segura. Says she has no pain. No fever or chiolls. deneis nausea or vomiting Eating well. No sob or wheezing. Segura in place with good UOP Objective Vitals Vital Signs Date Time Temp Pulse Resp B/P (MAP) Pulse Ox O2 Delivery O2 Flow Rate FiO2 07/02/17 06:16 20 07/02/17 05:19 98.8 80 18 161/59 (93) 97 07/01/17 17:45 98.1 84 16 146/81 (102) 100 I/O 07/01/17 07/01/17 07/01/17 07/02/17 07/02/17 07/02/17 07:00 15:00 23:00 07:00 15:00 23:00 Intake Total 800 ml 480 ml 360 ml 480 ml Output Total 750 ml 800 ml Balance 800 ml 480 ml -390 ml -320 ml Intake Oral 800 ml 480 ml 360 ml 480 ml Output Urine Total 750 ml 800 ml # Voids 3 Result Diagram: 07/01/17 0655 06/29/17 0702 Imaging Last Impressions Renal Ultrasound 07/01/17 0000 Signed Impressions: Service Date/Time: Saturday, July 01, 2017 09:07 - CONCLUSION: Mild hydronephrotic changes bilaterally. Hydronephrosis on the left is stable. Hydronephrosis on the right appear slightly increased when compared to previous. Jeramy Mccurdy MD Liver Ultrasound 06/30/17 0000 Signed Impressions: Service Date/Time: Friday, June 30, 2017 17:22 - CONCLUSION: 1. Moderate bilateral hydronephrosis of indeterminate etiology. 2. Hepatosplenomegaly. 3. Coarse echotexture of the liver suggesting diffuse hepatic disease. 4. Gallbladder sludge. Jose Elias Gonzalez MD Head CT 06/27/17 0000 Signed Impressions: Service Date/Time: Tuesday, June 27, 2017 08:43 - CONCLUSION: No acute disease. Jose Elias Gonzalez MD Hand X-Ray 06/27/17 0000 Signed Impressions: Service Date/Time: Tuesday, June 27, 2017 08:55 - CONCLUSION: 1. No acute bony abnormality identified. Jeramy Mccurdy MD Abdomen X-Ray 06/24/17 0000 Signed Impressions: Service Date/Time: Saturday, June 24, 2017 08:48 - CONCLUSION: Nonobstructive bowel gas pattern. Juan Carlos Emery MD Chest X-Ray 06/20/17 0000 Signed Impressions: Service Date/Time: Tuesday, June 20, 2017 20:38 - CONCLUSION: 1. No acute findings. Calcified granulomata in the lungs. Scoliosis. Navin Kaur MD Objective Remarks GENERAL: This is a well-nourished, well-developed patient, in no apparent distress. CARDIOVASCULAR: Regular rate and rhythm without murmurs, gallops, or rubs. RESPIRATORY: No wheezing. No rales or rhonchi auscultated. There is good air entry bilaterally. GASTROINTESTINAL: Abdomen soft, non-tender, nondistended. No hepato-splenomegaly , or palpable masses. No guarding. MUSCULOSKELETAL: Extremities without clubbing, cyanosis, or edema. No joint tenderness, effusion, or edema noted. No calf tenderness. Negative Homans sign bilaterally. NEUROLOGICAL: Awake and alert. Cranial nerves II through XII intact. Motor and sensory grossly within normal limits. Five out of 5 muscle strength in all muscle groups. Normal speech. : Segura in place with good UOP, urine is clear. A/P Problem List: (1) Bipolar disorder, current episode mixed, severe, with psychotic features ICD Code: F31.64 - Bipolar disorder, current episode mixed, severe, with psychotic features Status: Acute (2) Hyponatremia ICD Code: E87.1 - Hypo-osmolality and hyponatremia Status: Acute (3) Diabetes ICD Code: E11.9 - Type 2 diabetes mellitus without complications (4) HTN (hypertension) ICD Code: I10 - Essential (primary) hypertension (5) Wheezing ICD Code: R06.2 - Wheezing Status: Acute (6) Hypothyroidism ICD Code: E03.9 - Hypothyroidism, unspecified (7) Anemia ICD Code: D64.9 - Anemia, unspecified (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 Hyponatremia, improving ICD Code: E87.1 - Hypo-osmolality and hyponatremia Status: Acute Plan: Patient seems to be euvolemic. sodium trending up from 127 - 133- 134 . Continue fluid restriction. Monitor Na level. Normal serum osmolality but no sodium osmolality obtained. Diabetes mellitus controlled ICD Code: E11.9 - Type 2 diabetes mellitus without complications Plan: I will check hemoglobin A1c. Place on SSI with insulin NovoLog. Patient states that he is on insulin Glargin at home. He does not remember the dose. 06/20 Blood sugars somewhat elevated. Continue SSI with insulin Novolog HTN (hypertension) ICD Code: I10 - Essential (primary) hypertension Plan: BP seems to be slightly elevated. Patient is on lisinopril at home which I will continue. Continue to monitor vital signs and BMP. 06/20 BP better controlled. continue Lisinopril. Wheezing, resolved ICD Code: R06.2 - Wheezing Status: Acute Plan: The patient is a heavy smoker and this is probably likely due to some long-standing damage due to tobacco use. Continue DuoNeb treatments and steroid inhalers. Wheezing Improved Chest x-ray reviewed shows findings consistent with granuloma of the lungs. Might benefit from steroid use. Also noted scoliosis. Hypothyroidism, unspecified Plan: Check TSH, will try to get dose not the patient was taking. As per patient's the patient has not been compliant with his medications. TSH IS ELEVATED AT 4.880 - Check free t4 and started on 50 mcg of levothyroxine. Anemia Pancytopenia . Hem;/onc consulted ICD Code: D64.9 - Anemia, unspecified Plan: The patient has history of liver cirrhosis. Anemia is normocytic, likely secondary to liver disease. Continue to monitor hemoglobin and CBC. 06/20 hemoglobin stable. monitor cbc. Patient with pancytopenia, consult hem/onc recommends liver/spleen US when stable. Patient has liver /spleen US 06/30/17 reviewed, patient with bilateral hydronephrosis, hepatosplenomegaly, diffuse hepatic disease. Bilateral hydronephrosis, of undetermined etiology per US, consult urology. Place segura. 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 Tobacco abuse ICD Code: Z72.0 - Tobacco use Plan: Advises smoking cessation, continue nicotine patch. Assessment and Plan DVT Prophylaxis: SCD's Discussed with the patient. nurse Appears stable medically. Patient to be discharged with Segura per urology . To follow up as OP with urology Problem Qualifiers (1) Diabetes: Qualified Codes: E11.9 - Type 2 diabetes mellitus without complications (2) HTN (hypertension): Qualified Codes: I10 - Essential (primary) hypertension (3) Hypothyroidism: Qualified Codes: E03.9 - Hypothyroidism, unspecified Rola Mcnally MD Jul 02, 2017 07:26
[2017-07-02] MEDS: INSULIN ASPART SUPPLEMENTAL SCALE SQ SCH ×4 (08:00→21:00)
--- NOTE | 2017-07-02 08:07 | HHI.PYPN ---
Subjective Remarks Patient seen and examined. Chart reviewed. Case discussed with nursing staff. Patient transferred to the medical psychiatric unit yesterday on account of urinary retention, seen by urology in consultation and urinary catheter was placed. Nursing reports no behavioral disturbance so far this morning but reports that the patient was yelling at nurse yesterday evening without provocation. On my examination today, patient is calm but continues to exhibit some odd ideation and loosening of associations. For example, when I ask about homicidal ideation, he says that he will "take out my aggressions on this" pointing to a butter container he had from breakfast. He denies SI. Denies AVH. Patient's was present at [employer] today and feels patient is not yet at his baseline. She notes that during their visit last evening and this morning prior to court, the patient rambled about [facility] being associated with [facility] and that the money collected here was sent to him. Denies side effects from medications. No new physical complaints. Review of Systems ROS Limitations: Poor Historian Except as stated in HPI: all other systems reviewed are Neg Objective Alert: Yes [place]: Person, Place, Date Mood: Calm Affect: Appropriate Memory Intact: Comment (Not formally assessed) Hallucinations: Other (No AVH) Delusions: No Delusion Type: Other (No delusions for me but some bizarre material to .) Suicidal: Ideation (denies SI) Homicidal: Ideation (denies HI) Insight/Judgment Poor Remarks Oral dyskinesias unchanged. No other motoric abnormalities noted. Thought process with some lingering loosening of associations. Speech within normal limits for rate, tone and volume. Labs Labs reviewed. No new labs. Vitals/IOs Vital Signs Date Time Temp Pulse Resp B/P (MAP) Pulse Ox O2 Delivery O2 Flow Rate FiO2 07/02/17 06:16 20 07/02/17 05:19 98.8 80 161/59 (93) 97 Intake and Output 07/02/17 07/02/17 07/03/17 08:00 16:00 00:00 Intake Total 480 ml Output Total 800 ml Balance -320 ml Assessment & Plan Problem List: (1) Bipolar disorder, current episode mixed, severe, with psychotic features ICD Codes: F31.64 - Bipolar disorder, current episode mixed, severe, with psychotic features Status: Acute Assessment & Plan Titrate Geodon to 100mg BID for mood stabilization. Urology recs appreciated. Hospitalist input appreciated. Continue to monitor on medical psychiatric unit. Continue other medications and care as ordered. Patient's case was presented to [place] [facility] and case was placed in continuance for 2 weeks and was appointed as HCS. Justification for Cont. Inpt. Complicating conditions. 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 High risk for decompensation in less restrictive environment. Medication changes in process. Discharge Planning Pending stabilization. Request HC Surrog/Guard Advoc?: Yes Piter Fenton MD Jul 02, 2017 08:07
[2017-07-02 08:12] LABS: BICARBONATE 27.3 MEQ/L (21.0-32.0); POTASSIUM 4.2 MEQ/L (3.5-5.1)
[2017-07-02] MEDS: BENZTROPINE MESYLATE 1 MG TAB PO SCH ×2 (08:59→21:38)
[2017-07-02] MEDS: LACTULOSE SYRUP 20 GM/30 ML CUP PO SCH ×3 (08:59→18:00)
[2017-07-02] MEDS: ZIPRASIDONE HCL 80 MG CAP PO SCH ×2 (08:59→18:00)
[2017-07-02] MEDS: TAMSULOSIN HCL 0.4 MG CAP PO SCH (08:59)
[2017-07-02] MEDS: REMOVE OLD PATCH T-DERMAL SCH (08:59)
[2017-07-02] MEDS: NICOTINE 21 MG/24 HR PATCH T-DERMAL SCH (08:59)
[2017-07-02] MEDS: BUDESONIDE-FORMOTEROL 160/4.5 MCG INHALER INH SCH ×2 (09:00→21:40)
--- NOTE | 2017-07-02 16:24 | PD.ONC.PN ---
Subjective Subjective Remarks Feeling better. No bleeding. Objective Data Date Time Temp Pulse Resp B/P (MAP) Pulse Ox O2 Delivery O2 Flow Rate FiO2 07/02/17 06:16 20 07/02/17 05:19 98.8 80 18 161/59 (93) 97 07/01/17 17:45 98.1 84 16 146/81 (102) 100 07/02/17 07/02/17 07/02/17 07:00 15:00 23:00 Intake Total 480 ml 480 ml Output Total 800 ml Balance -320 ml 480 ml Result Diagram: 07/01/17 0655 07/02/17 0739 Laboratory Results Laboratory Tests Test 07/02/17 07:39 Blood Urea Nitrogen 15 MG/DL Creatinine 1.04 MG/DL Random Glucose 138 MG/DL Calcium Level 9.2 MG/DL Sodium Level 133 MEQ/L Potassium Level 4.2 MEQ/L Chloride Level 99 MEQ/L Carbon Dioxide Level 27.3 MEQ/L Anion Gap 7 MEQ/L Estimat Glomerular Filtration Rate 70 ML/MIN Administered Medications Medications (Trade) Dose Ordered Sig/Alanna Route PRN Reason Start Time Stop Time Status Last Admin Dose Admin Acetaminophen (Tylenol) 650 mg Q4H PRN PO Pain 1-5 or Temp >101F 06/19/17 13:30 07/02/17 05:16 Lisinopril (Prinivil) 10 mg DAILY PRN PO as prescribed 06/19/17 18:00 07/01/17 06:27 Lorazepam (Ativan) 0.5 mg Q6H PRN PO MODERATE TO SEVERE ANXIETY 06/20/17 13:30 07/02/17 12:33 Lorazepam (Ativan Inj) 0.5 mg Q6H PRN IM MODERATE TO SEVERE ANXIETY 06/20/17 13:30 06/27/17 13:07 Insulin Aspart (NovoLOG SUPPLEMENTAL SCALE) 1 ACHS SLIDING SCALE SQ 06/20/17 11:00 07/02/17 12:00 Budesonide/ Formoterol Fumarate (Symbicort 160-4.5 Inh) 2 puff Q12HR INH 06/20/17 11:15 07/01/17 21:28 Nicotine (Habitrol 21 Mg Patch.24 Hr) 1 patch DAILY T-DERMAL 06/20/17 11:15 07/02/17 08:59 Miscellaneous Information 1 DAILY T-DERMAL 06/21/17 09:00 07/01/17 09:00 Levothyroxine Sodium (Synthroid) 50 mcg DAILY@0600 PO 06/20/17 17:15 07/02/17 05:15 Benztropine Mesylate (Cogentin) 0.5 mg Q12HR PO 06/24/17 11:30 07/02/17 08:59 Lactulose (Lactulose Liq) 30 ml TID PO 06/27/17 18:00 07/02/17 12:19 Tamsulosin HCl (Flomax) 0.4 mg DAILY PO 07/01/17 12:00 07/02/17 08:59 Melatonin (Melatonin) 5 mg HS PO 07/01/17 21:00 07/01/17 21:28 Objective Remarks GENERAL: Well-nourished, well-developed patient. SKIN: Warm and dry. HEAD: Normocephalic. EYES: No scleral icterus. No injection or drainage. NECK: Supple, trachea midline. No JVD or lymphadenopathy. LYMPHATIC: No adenopathy. CARDIOVASCULAR: Regular rate and rhythm without murmurs. RESPIRATORY: Breath sounds equal bilaterally. No accessory muscle use. GASTROINTESTINAL: Abdomen soft, non-tender, nondistended. EXTREMITIES: No cyanosis, or edema. MUSCULOSKELETAL: Adequate muscle tone. Assessment/Plan Assessment 1. Mild pancytopenia which appeared to be new onset. When he first presented his white blood cell count and platelet count were normal. Over the last week it has trended a little lower. He only had mild neutropenia. He has a history of hepatitis C which may cause him to have a borderline low blood count. The recent drop in blood counts I think is possibly due to Zyprexa. The Zyprexa has been discontinued. Blood counts have trended up. Platelet is now normal. 07/02 Platelet is remains normal and WBC trending up. Likely due to Zyprexa which has been d/c. 2. History of hepatitis C and possible cirrhosis. He said he was treated 2 years ago. His AST is slightly elevated. US showed hepatosplenomegaly with hepatocellular disease. 3. Bipolar disorder with psychosis 4. Hypothyroidism, on supplement. 5. Diabetes mellitus, hypertension. Plan Plan: 1. Continue to monitor CBC. 2. Continue supportive care. Jose Fay MD Jul 02, 2017 16:24
[2017-07-02] MEDS: ZIPRASIDONE HCL 20 MG CAP PO SCH (18:00)
[2017-07-02 18:02] VITALS: BP 146/66; PULSE 98; RESP 18; TEMP 99; O2SAT 97
[2017-07-02] MEDS ORDERED: clonazePAM 1 MG TAB PO ONE (22:30)
[2017-07-02] MEDS: MELATONIN 5 MG TAB PO SCH (22:33)
[2017-07-03 05:48] VITALS: BP 122/61; PULSE 76; RESP 16; TEMP 98.7; O2SAT 94
[2017-07-03] MEDS: LEVOTHYROXINE SODIUM 50 MCG TAB PO SCH (06:00)
--- NOTE | 2017-07-03 07:40 | PD.ONC.PN ---
Subjective Subjective Remarks Still confused. No report of bleeding. Objective Data Date Time Temp Pulse Resp B/P (MAP) Pulse Ox O2 Delivery O2 Flow Rate FiO2 07/03/17 05:48 98.7 76 16 122/61 (81) 94 07/02/17 18:02 99.0 98 18 146/66 (92) 97 07/03/17 07/03/17 07/03/17 07:00 15:00 23:00 Intake Total 360 ml Output Total 1250 ml Balance -890 ml Result Diagram: 07/01/17 0655 07/02/17 0739 Laboratory Results Laboratory Tests Test 07/02/17 07:39 Blood Urea Nitrogen 15 MG/DL Creatinine 1.04 MG/DL Random Glucose 138 MG/DL Calcium Level 9.2 MG/DL Sodium Level 133 MEQ/L Potassium Level 4.2 MEQ/L Chloride Level 99 MEQ/L Carbon Dioxide Level 27.3 MEQ/L Anion Gap 7 MEQ/L Estimat Glomerular Filtration Rate 70 ML/MIN Administered Medications Medications (Trade) Dose Ordered Sig/Alanna Route PRN Reason Start Time Stop Time Status Last Admin Dose Admin Acetaminophen (Tylenol) 650 mg Q4H PRN PO Pain 1-5 or Temp >101F 06/19/17 13:30 07/02/17 05:16 Lisinopril (Prinivil) 10 mg DAILY PRN PO as prescribed 06/19/17 18:00 07/01/17 06:27 Lorazepam (Ativan) 0.5 mg Q6H PRN PO MODERATE TO SEVERE ANXIETY 06/20/17 13:30 07/02/17 21:38 Lorazepam (Ativan Inj) 0.5 mg Q6H PRN IM MODERATE TO SEVERE ANXIETY 06/20/17 13:30 06/27/17 13:07 Insulin Aspart (NovoLOG SUPPLEMENTAL SCALE) 1 ACHS SLIDING SCALE SQ 06/20/17 11:00 07/02/17 12:00 Budesonide/ Formoterol Fumarate (Symbicort 160-4.5 Inh) 2 puff Q12HR INH 06/20/17 11:15 07/02/17 21:40 Nicotine (Habitrol 21 Mg Patch.24 Hr) 1 patch DAILY T-DERMAL 06/20/17 11:15 07/02/17 08:59 Miscellaneous Information 1 DAILY T-DERMAL 06/21/17 09:00 07/01/17 09:00 Levothyroxine Sodium (Synthroid) 50 mcg DAILY@0600 PO 06/20/17 17:15 07/03/17 06:00 Benztropine Mesylate (Cogentin) 0.5 mg Q12HR PO 06/24/17 11:30 07/02/17 21:38 Lactulose (Lactulose Liq) 30 ml TID PO 06/27/17 18:00 07/02/17 18:00 Tamsulosin HCl (Flomax) 0.4 mg DAILY PO 07/01/17 12:00 07/02/17 08:59 Melatonin (Melatonin) 5 mg HS PO 07/01/17 21:00 07/02/17 22:33 Ziprasidone (Geodon) 80 mg BIDPC PO 07/02/17 18:00 07/02/17 18:00 Ziprasidone (Geodon) 20 mg BIDPC PO 07/02/17 18:00 07/02/17 18:00 Objective Remarks GENERAL: Well-nourished, well-developed patient. SKIN: Warm and dry. HEAD: Normocephalic. EYES: No scleral icterus. No injection or drainage. NECK: Supple, trachea midline. No JVD or lymphadenopathy. LYMPHATIC: No adenopathy. CARDIOVASCULAR: Regular rate and rhythm without murmurs. RESPIRATORY: Breath sounds equal bilaterally. No accessory muscle use. GASTROINTESTINAL: Abdomen soft, non-tender, nondistended. EXTREMITIES: No cyanosis, or edema. MUSCULOSKELETAL: Adequate muscle tone. NEUROLOGICAL: No obvious focal deficit. Confused. Assessment/Plan Assessment 1. Mild pancytopenia which appeared to be new onset. When he first presented his white blood cell count and platelet count were normal. Over the last week it has trended a little lower. He only had mild neutropenia. He has a history of hepatitis C which may cause him to have a borderline low blood count. The recent drop in blood counts I think is possibly due to Zyprexa. The Zyprexa has been discontinued. Blood counts have trended up. Platelet is now normal. 07/02 Platelet is remains normal and WBC trending up. Likely due to Zyprexa which has been d/c. 07/03 No new symptoms, CBC pending 2. History of hepatitis C and possible cirrhosis. He said he was treated 2 years ago. His AST is slightly elevated. US showed hepatosplenomegaly with hepatocellular disease. 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 3. Bipolar disorder with psychosis 4. Hypothyroidism, on supplement. 5. Diabetes mellitus, hypertension. Plan Plan: 1. Continue to monitor CBC. 2. Continue supportive care. Jose Fay MD Jul 03, 2017 07:40
--- NOTE | 2017-07-03 07:47 | HHI.PR ---
Subjective Remarks In the chair appears in no acute distress. Shortness of breath is ambulating without any problems. Segura catheter in place with clear urine. No fever or chills. No abdominal pain. Objective Vitals Vital Signs Date Time Temp Pulse Resp B/P (MAP) Pulse Ox O2 Delivery O2 Flow Rate FiO2 07/03/17 05:48 98.7 76 16 122/61 (81) 94 07/02/17 18:02 99.0 98 18 146/66 (92) 97 I/O 07/02/17 07/02/17 07/02/17 07/03/17 07/03/17 07/03/17 07:00 15:00 23:00 07:00 15:00 23:00 Intake Total 480 ml 480 ml 480 ml 360 ml Output Total 800 ml 400 ml 1250 ml Balance -320 ml 480 ml 80 ml -890 ml Intake Oral 480 ml 480 ml 480 ml 360 ml Output Urine Total 800 ml 400 ml 1250 ml Result Diagram: 07/01/17 0655 07/02/17 0739 Imaging Last Impressions Renal Ultrasound 07/01/17 0000 Signed Impressions: Service Date/Time: Saturday, July 01, 2017 09:07 - CONCLUSION: Mild hydronephrotic changes bilaterally. Hydronephrosis on the left is stable. Hydronephrosis on the right appear slightly increased when compared to previous. Jeramy Mccurdy MD Liver Ultrasound 06/30/17 0000 Signed Impressions: Service Date/Time: Friday, June 30, 2017 17:22 - CONCLUSION: 1. Moderate bilateral hydronephrosis of indeterminate etiology. 2. Hepatosplenomegaly. 3. Coarse echotexture of the liver suggesting diffuse hepatic disease. 4. Gallbladder sludge. Jose Elias Gonzalez MD Head CT 06/27/17 0000 Signed Impressions: Service Date/Time: Tuesday, June 27, 2017 08:43 - CONCLUSION: No acute disease. Jose Elias Gonzalez MD Hand X-Ray 06/27/17 0000 Signed Impressions: Service Date/Time: Tuesday, June 27, 2017 08:55 - CONCLUSION: 1. No acute bony abnormality identified. Jeramy Mccuryd MD Abdomen X-Ray 06/24/17 0000 Signed Impressions: Service Date/Time: Saturday, June 24, 2017 08:48 - CONCLUSION: Nonobstructive bowel gas pattern. Juan Carlos Emery MD Chest X-Ray 06/20/17 0000 Signed Impressions: Service Date/Time: Tuesday, June 20, 2017 20:38 - CONCLUSION: 1. No acute findings. Calcified granulomata in the lungs. Scoliosis. Navin Kaur MD Objective Remarks GENERAL: This is a well-nourished, well-developed patient, in no apparent distress. CARDIOVASCULAR: Regular rate and rhythm without murmurs, gallops, or rubs. RESPIRATORY: No wheezing. No rales or rhonchi auscultated. There is good air entry bilaterally. GASTROINTESTINAL: Abdomen soft, non-tender, nondistended. No hepato-splenomegaly , or palpable masses. No guarding. MUSCULOSKELETAL: Extremities without clubbing, cyanosis, or edema. No joint tenderness, effusion, or edema noted. No calf tenderness. Negative Homans sign bilaterally. NEUROLOGICAL: Awake and alert. Cranial nerves II through XII intact. Motor and sensory grossly within normal limits. Five out of 5 muscle strength in all muscle groups. Normal speech. : Segura in place with good UOP, urine is clear. A/P Problem List: (1) Bipolar disorder, current episode mixed, severe, with psychotic features ICD Code: F31.64 - Bipolar disorder, current episode mixed, severe, with psychotic features Status: Acute (2) Hyponatremia ICD Code: E87.1 - Hypo-osmolality and hyponatremia Status: Acute (3) Diabetes ICD Code: E11.9 - Type 2 diabetes mellitus without complications (4) HTN (hypertension) ICD Code: I10 - Essential (primary) hypertension (5) Wheezing ICD Code: R06.2 - Wheezing Status: Acute (6) Hypothyroidism ICD Code: E03.9 - Hypothyroidism, unspecified (7) Anemia ICD Code: D64.9 - Anemia, unspecified (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 Hyponatremia, improving ICD Code: E87.1 - Hypo-osmolality and hyponatremia Status: Acute Plan: Patient seems to be euvolemic. sodium trending up from 127 - 133- 134 . Continue fluid restriction. Monitor Na level. Normal serum osmolality but no sodium osmolality obtained. Diabetes mellitus controlled ICD Code: E11.9 - Type 2 diabetes mellitus without complications Plan: I will check hemoglobin A1c. Place on SSI with insulin NovoLog. Patient states that he is on insulin Glargin at home. He does not remember the dose. 06/20 Blood sugars somewhat elevated. Continue SSI with insulin Novolog HTN (hypertension) ICD Code: I10 - Essential (primary) hypertension Plan: BP seems to be slightly elevated. Patient is on lisinopril at home which I will continue. Continue to monitor vital signs and BMP. 06/20 BP better controlled. continue Lisinopril. Wheezing, resolved ICD Code: R06.2 - Wheezing Status: Acute Plan: The patient is a heavy smoker and this is probably likely due to some long-standing damage due to tobacco use. Continue DuoNeb treatments and steroid inhalers. Wheezing Improved Chest x-ray reviewed shows findings consistent with granuloma of the lungs. Might benefit from steroid use. Also noted scoliosis. Hypothyroidism, unspecified Plan: Check TSH, will try to get dose not the patient was taking. As per patient's the patient has not been compliant with his medications. TSH IS ELEVATED AT 4.880 - Check free t4 and started on 50 mcg of levothyroxine. Anemia Pancytopenia . Hem;/onc consulted ICD Code: D64.9 - Anemia, unspecified Plan: The patient has history of liver cirrhosis. Anemia is normocytic, likely secondary to liver disease. Continue to monitor hemoglobin and CBC. 06/20 hemoglobin stable. monitor cbc. Patient with pancytopenia, consult hem/onc recommends liver/spleen US when stable. Patient has liver /spleen US 06/30/17 reviewed, patient with bilateral hydronephrosis, hepatosplenomegaly, diffuse hepatic disease. Bilateral hydronephrosis, of undetermined etiology per US, consult urology. Place segura. 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 Tobacco abuse ICD Code: Z72.0 - Tobacco use Plan: Advises smoking cessation, continue nicotine patch. Assessment and Plan DVT Prophylaxis: SCD's Discussed with the patient. nurse Appears stable medically. Patient to be discharged with Segura per urology . To follow up as OP with urology , pCP and other consultants. Problem Qualifiers (1) Diabetes: Qualified Codes: E11.9 - Type 2 diabetes mellitus without complications (2) HTN (hypertension): Qualified Codes: I10 - Essential (primary) hypertension (3) Hypothyroidism: Qualified Codes: E03.9 - Hypothyroidism, unspecified Rola Mcnally MD Jul 03, 2017 07:47
[2017-07-03] MEDS: INSULIN ASPART SUPPLEMENTAL SCALE SQ SCH ×4 (08:00→20:22)
--- NOTE | 2017-07-03 08:24 | HHI.PYPN ---
Subjective Remarks Patient seen and examined. Chart reviewed. Case discussed with nursing staff who reports that the patient behaved well during dayshift yesterday but apparently began cursing at the nursing staff during the evening. He was medicated by the on-call psychiatrist with Klonopin 2 mg once. On my examination today, the patient presents is broadly dysphoric. He describes his current mood as "extremely shitty!" In talking with him, he seems to be upset about his catheter and also about the outcome of the [place] court. He presents as paranoid, saying "Oh yeah, yeah, it's pretty damn obvious that someone is bullshitting someone. Fuck! I don't give a shit!" He also believes "my had me purposely committed here. Now she's scared. I'm probably not gonna be here much longer." No suicidal thoughts, but he does volunteer "I've got some real fucking violent thoughts" although this seems to be said out of anger. No side effects from medications. No physical complaints. Case d/w /HCS. Discussed hospital course so far and presentation this morning. We discuss pharmacologic strategies going forward for mood stabilization. After a discussion of the risks, benefits and treatment alternatives, we settle on a trial of low-dose lithium to augment patient's Geodon. Review of Systems ROS Limitations: Poor Historian Except as stated in HPI: all other systems reviewed are Neg Objective Alert: Yes [place]: Person, Place, Date Mood: Angry Affect: Restricted (dysphoric) Memory Intact: Comment (Not formally assessed) Hallucinations: Other (None) Delusions: Yes Delusion Type: Paranoid Suicidal: Ideation (No SI) Homicidal: Ideation (See above. No specific victim. Patient has been yelling at staff but has not been physically violent.) Insight/Judgment Poor Remarks No motoric abnormalities noted. TP perseverative on being held in the hospital. Speech a little loud, angry. Labs Labs reviewed. Item Value Date Time White Blood Count 5.7 TH/MM3 07/03/17 0752 Hemoglobin 11.5 GM/DL L 07/03/17 0752 Platelet Count 205 TH/MM3 07/03/17 0752 Neutrophils # (Auto) 5.1 TH/MM3 07/03/17 0752 Sodium Level 134 MEQ/L L 07/03/17 0915 Estimat Glomerular Filtration Rate 60 ML/MIN L 07/03/17 0915 Vitals/IOs Vital Signs Date Time Temp Pulse Resp B/P (MAP) Pulse Ox O2 Delivery O2 Flow Rate FiO2 07/03/17 05:48 98.7 76 16 122/61 (81) 94 Intake and Output 07/03/17 07/03/17 07/04/17 08:00 16:00 00:00 Intake Total 360 ml Output Total 1250 ml Balance -890 ml Assessment & Plan Problem List: (1) Bipolar disorder, current episode mixed, severe, with psychotic features ICD Codes: F31.64 - Bipolar disorder, current episode mixed, severe, with psychotic features Status: Acute Assessment & Plan Initiate lithium 150mg BID. Plan to closely monitor renal function for any worsening after starting lithium. If well tolerated, we'll likely titrate lithium dose slightly and then check a level. Continue Geodon. Low threshold for replacing 1:1 if patient should begin to act out physically. Aluminum Container Tester input noted and appreciated. Continue to monitor on the inpatient unit. Continue other medications and care as ordered. Justification for Cont. Inpt. Complicating conditions. Medication changes. Impairment in social function. High risk for decompensation in less restrictive environment. Discharge Planning Pending psychiatric stabilization Request HC Surrog/Guard Advoc?: Yes Piter Fenton MD Jul 03, 2017 08:24
[2017-07-03 09:00] LABS: AUTOMATED NEUTROPHIL # 5.1 TH/MM3 (1.8-7.7); BASOPHIL # 0.1 TH/MM3 (0-0.2); BASOPHIL % 1.2 % (0.0-2.0); EOSINOPHIL # 0.1 TH/MM3 (0-0.4); EOSINOPHIL % 0.9 % (0.0-4.0); HEMATOCRIT 32.3 % (39.0-51.0); LYMPH % 26.3 % (9.0-44.0); LYMPHOCYTE # 2.1 TH/MM3 (1.0-4.8); MEAN CELL VOLUME 93.6 FL (80.0-100.0); MEAN CORPUSCULAR HEMOGLOBIN 33.4 PG (27.0-34.0); MEAN CORPUSCULAR HGB CONC 35.6 % (32.0-36.0); MONO % 8.6 % (0.0-8.0); RED BLOOD COUNT 3.45 MIL/MM3 (4.50-5.90); RED CELL DISTRIBUTION WIDTH 13.3 % (11.6-17.2)
[2017-07-03] MEDS: ZIPRASIDONE HCL 80 MG CAP PO SCH ×2 (09:00→17:44)
[2017-07-03] MEDS: TAMSULOSIN HCL 0.4 MG CAP PO SCH (09:00)
[2017-07-03] MEDS: LACTULOSE SYRUP 20 GM/30 ML CUP PO SCH ×3 (09:00→17:49)
[2017-07-03] MEDS: BENZTROPINE MESYLATE 1 MG TAB PO SCH ×2 (09:00→20:21)
[2017-07-03] MEDS: NICOTINE 21 MG/24 HR PATCH T-DERMAL SCH (09:00)
[2017-07-03] MEDS: REMOVE OLD PATCH T-DERMAL SCH (09:00)
[2017-07-03] MEDS: BUDESONIDE-FORMOTEROL 160/4.5 MCG INHALER INH SCH ×2 (09:00→20:21)
[2017-07-03] MEDS: ZIPRASIDONE HCL 20 MG CAP PO SCH ×2 (09:00→17:43)
[2017-07-03 09:01] LABS: CORRECTED WBC 5.7 TH/MM3 (4.0-11.0); HEMO FLAGS AUTO DIFF; PLATELET COUNT 205 TH/MM3 (150-450); WHITE BLOOD COUNT 5.7 TH/MM3 (4.0-11.0)
[2017-07-03 09:35] LABS: SCAN/DIFF AUTO DIFF CONFIRMED
[2017-07-03 09:37] LABS: POTASSIUM 3.8 MEQ/L (3.5-5.1)
[2017-07-03 09:53] LABS: BICARBONATE 29.7 MEQ/L (21.0-32.0)
[2017-07-03] MEDS ORDERED: PILL SPLITTER OTHER PRN (14:15)
[2017-07-03 18:55] VITALS: BP 152/70; PULSE 94; RESP 18; TEMP 98.3; O2SAT 95
[2017-07-03] MEDS: LITHIUM CARBONATE 300 MG TAB PO SCH (20:22)
[2017-07-03] MEDS: MELATONIN 5 MG TAB PO SCH (20:22)
[2017-07-04] MEDS: LEVOTHYROXINE SODIUM 50 MCG TAB PO SCH (05:06)
[2017-07-04 06:13] VITALS: BP 158/79; PULSE 84; RESP 18; TEMP 98.7; O2SAT 95
--- NOTE | 2017-07-04 07:35 | PD.ONC.PN ---
Subjective Subjective Remarks No CP/SOB. Objective Data Date Time Temp Pulse Resp B/P (MAP) Pulse Ox O2 Delivery O2 Flow Rate FiO2 07/04/17 06:13 98.7 84 18 158/79 (105) 95 07/03/17 18:55 98.3 94 18 152/70 (97) 95 07/04/17 07/04/17 07/04/17 07:00 15:00 23:00 Intake Total 360 ml Output Total 1000 ml Balance -640 ml Result Diagram: 07/03/17 0752 07/03/17 0915 Laboratory Results Laboratory Tests Test 07/03/17 07:52 07/03/17 09:15 White Blood Count 5.7 TH/MM3 Corrected White Blood Count 5.7 TH/MM3 Red Blood Count 3.45 MIL/MM3 Hemoglobin 11.5 GM/DL Hematocrit 32.3 % Mean Corpuscular Volume 93.6 FL Mean Corpuscular Hemoglobin 33.4 PG Mean Corpuscular Hemoglobin Concent 35.6 % Red Cell Distribution Width 13.3 % Platelet Count 205 TH/MM3 Mean Platelet Volume 7.2 FL Neutrophils (%) (Auto) 63.0 % Lymphocytes (%) (Auto) 26.3 % Monocytes (%) (Auto) 8.6 % Eosinophils (%) (Auto) 0.9 % Basophils (%) (Auto) 1.2 % Neutrophils # (Auto) 5.1 TH/MM3 Lymphocytes # (Auto) 2.1 TH/MM3 Monocytes # (Auto) 0.7 TH/MM3 Eosinophils # (Auto) 0.1 TH/MM3 Basophils # (Auto) 0.1 TH/MM3 CBC Comment AUTO DIFF Differential Comment AUTO DIFF CONFIRMED Hematology Comments Blood Urea Nitrogen 14 MG/DL Creatinine 1.20 MG/DL Random Glucose 184 MG/DL Calcium Level 8.9 MG/DL Sodium Level 134 MEQ/L Potassium Level 3.8 MEQ/L Chloride Level 99 MEQ/L Carbon Dioxide Level 29.7 MEQ/L Anion Gap 5 MEQ/L Estimat Glomerular Filtration Rate 60 ML/MIN Administered Medications Medications (Trade) Dose Ordered Sig/Alanna Route PRN Reason Start Time Stop Time Status Last Admin Dose Admin Acetaminophen (Tylenol) 650 mg Q4H PRN PO Pain 1-5 or Temp >101F 06/19/17 13:30 07/02/17 05:16 Lisinopril (Prinivil) 10 mg DAILY PRN PO as prescribed 06/19/17 18:00 07/01/17 06:27 Lorazepam (Ativan) 0.5 mg Q6H PRN PO MODERATE TO SEVERE ANXIETY 06/20/17 13:30 07/02/17 21:38 Lorazepam (Ativan Inj) 0.5 mg Q6H PRN IM MODERATE TO SEVERE ANXIETY 06/20/17 13:30 06/27/17 13:07 Insulin Aspart (NovoLOG SUPPLEMENTAL SCALE) 1 ACHS SLIDING SCALE SQ 06/20/17 11:00 07/03/17 08:00 Budesonide/ Formoterol Fumarate (Symbicort 160-4.5 Inh) 2 puff Q12HR INH 06/20/17 11:15 07/03/17 20:21 Nicotine (Habitrol 21 Mg Patch.24 Hr) 1 patch DAILY T-DERMAL 06/20/17 11:15 07/03/17 09:00 Miscellaneous Information 1 DAILY T-DERMAL 06/21/17 09:00 07/01/17 09:00 Levothyroxine Sodium (Synthroid) 50 mcg DAILY@0600 PO 06/20/17 17:15 07/04/17 05:06 Benztropine Mesylate (Cogentin) 0.5 mg Q12HR PO 06/24/17 11:30 07/03/17 20:21 Lactulose (Lactulose Liq) 30 ml TID PO 06/27/17 18:00 07/03/17 17:49 Tamsulosin HCl (Flomax) 0.4 mg DAILY PO 07/01/17 12:00 07/03/17 09:00 Melatonin (Melatonin) 5 mg HS PO 07/01/17 21:00 07/03/17 20:22 Ziprasidone (Geodon) 80 mg BIDPC PO 07/02/17 18:00 07/03/17 17:44 Ziprasidone (Geodon) 20 mg BIDPC PO 07/02/17 18:00 07/03/17 17:43 Dales Carbonate (Lithotabs) 150 mg Q12HR PO 07/03/17 21:00 07/03/17 20:22 Objective Remarks GENERAL: Well-nourished, well-developed patient. SKIN: Warm and dry. HEAD: Normocephalic. EYES: No scleral icterus. No injection or drainage. NECK: Supple, trachea midline. No JVD or lymphadenopathy. LYMPHATIC: No adenopathy. CARDIOVASCULAR: Regular rate and rhythm without murmurs. RESPIRATORY: Breath sounds equal bilaterally. No accessory muscle use. GASTROINTESTINAL: Abdomen soft, non-tender, nondistended. EXTREMITIES: No cyanosis, or edema. MUSCULOSKELETAL: Adequate muscle tone. Assessment/Plan Assessment 1. Mild pancytopenia which appeared to be new onset. When he first presented his white blood cell count and platelet count were normal. Over the last week it has trended a little lower. He only had mild neutropenia. He has a history of hepatitis C which may cause him to have a borderline low blood count. The recent drop in blood counts I think is possibly due to Zyprexa. The Zyprexa has been discontinued. Blood counts have trended up. Platelet is now normal. 07/02 Platelet is remains normal and WBC trending up. Likely due to Zyprexa which has been d/c. 07/03 No new symptoms, CBC pending 07/04 WBC and platelet are now normal. Mild anemia likely due to chronic disease. 2. History of hepatitis C and possible cirrhosis. He said he was treated 2 years ago. His AST is slightly elevated. US showed hepatosplenomegaly with hepatocellular disease. 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 3. Bipolar disorder with psychosis 4. Hypothyroidism, on supplement. 5. Diabetes mellitus, hypertension. Plan Plan: 1. Continue to monitor CBC periodically. 2. No other hematology w/u planned at this time. Jose Fay MD Jul 04, 2017 07:35
[2017-07-04] MEDS: INSULIN ASPART SUPPLEMENTAL SCALE SQ SCH ×4 (07:36→21:00)
[2017-07-04 08:18] LABS: POTASSIUM 3.9 MEQ/L (3.5-5.1)
--- NOTE | 2017-07-04 08:50 | HHI.PR ---
Subjective Remarks He is naked and agitated today morning. Segura is in place, draining clear urine. Says he is not treated well. Poor insight into his medial problems. Denies any abdominal pain. Not wheezing at this time. He is letting me examine him. \ No n/v/d/c. No fever or chills. Objective Vitals Vital Signs Date Time Temp Pulse Resp B/P (MAP) Pulse Ox O2 Delivery O2 Flow Rate FiO2 07/04/17 06:13 98.7 84 18 158/79 (105) 95 07/03/17 18:55 98.3 94 18 152/70 (97) 95 I/O 07/03/17 07/03/17 07/03/17 07/04/17 07/04/17 07/04/17 07:00 15:00 23:00 07:00 15:00 23:00 Intake Total 360 ml 360 ml 360 ml Output Total 1250 ml 100 ml 1000 ml Balance -890 ml 260 ml -640 ml Intake Oral 360 ml 360 ml 360 ml Output Urine Total 1250 ml 100 ml 1000 ml # Voids 0 Result Diagram: 07/03/17 0752 07/04/17 0739 Imaging Last Impressions Renal Ultrasound 07/01/17 0000 Signed Impressions: Service Date/Time: Saturday, July 01, 2017 09:07 - CONCLUSION: Mild hydronephrotic changes bilaterally. Hydronephrosis on the left is stable. Hydronephrosis on the right appear slightly increased when compared to previous. Jeramy Mccurdy MD Liver Ultrasound 06/30/17 0000 Signed Impressions: Service Date/Time: Friday, June 30, 2017 17:22 - CONCLUSION: 1. Moderate bilateral hydronephrosis of indeterminate etiology. 2. Hepatosplenomegaly. 3. Coarse echotexture of the liver suggesting diffuse hepatic disease. 4. Gallbladder sludge. Jose Elias Gonzalez MD Head CT 06/27/17 0000 Signed Impressions: Service Date/Time: Tuesday, June 27, 2017 08:43 - CONCLUSION: No acute disease. Jose Elias Gonzalez MD Hand X-Ray 06/27/17 0000 Signed Impressions: Service Date/Time: Tuesday, June 27, 2017 08:55 - CONCLUSION: 1. No acute bony abnormality identified. Jeramy Mccurdy MD Abdomen X-Ray 06/24/17 0000 Signed Impressions: Service Date/Time: Saturday, June 24, 2017 08:48 - CONCLUSION: Nonobstructive bowel gas pattern. Juan Carlos Emery MD Chest X-Ray 06/20/17 0000 Signed Impressions: Service Date/Time: Tuesday, June 20, 2017 20:38 - CONCLUSION: 1. No acute findings. Calcified granulomata in the lungs. Scoliosis. Navin Kaur MD Objective Remarks GENERAL: This is a well-nourished, well-developed patient, in no apparent distress. CARDIOVASCULAR: Regular rate and rhythm without murmurs, gallops, or rubs. RESPIRATORY: No wheezing. No rales or rhonchi auscultated. There is good air entry bilaterally. GASTROINTESTINAL: Abdomen soft, non-tender, nondistended. No hepato-splenomegaly , or palpable masses. No guarding. MUSCULOSKELETAL: Extremities without clubbing, cyanosis, or edema. No joint tenderness, effusion, or edema noted. No calf tenderness. Negative Homans sign bilaterally. NEUROLOGICAL: Awake and alert. Cranial nerves II through XII intact. Motor and sensory grossly within normal limits. Five out of 5 muscle strength in all muscle groups. Normal speech. : Segura in place with good UOP, urine is clear. A/P Problem List: (1) Bipolar disorder, current episode mixed, severe, with psychotic features ICD Code: F31.64 - Bipolar disorder, current episode mixed, severe, with psychotic features Status: Acute (2) Hyponatremia ICD Code: E87.1 - Hypo-osmolality and hyponatremia Status: Acute (3) Diabetes ICD Code: E11.9 - Type 2 diabetes mellitus without complications (4) HTN (hypertension) ICD Code: I10 - Essential (primary) hypertension (5) Wheezing ICD Code: R06.2 - Wheezing Status: Acute (6) Hypothyroidism ICD Code: E03.9 - Hypothyroidism, unspecified (7) Anemia ICD Code: D64.9 - Anemia, unspecified (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 Hyponatremia, improving ICD Code: E87.1 - Hypo-osmolality and hyponatremia Status: Acute Plan: Patient seems to be euvolemic. sodium trending up from 127 - 133- 134 . Continue fluid restriction. Monitor Na level. Normal serum osmolality but no sodium osmolality obtained. Diabetes mellitus controlled ICD Code: E11.9 - Type 2 diabetes mellitus without complications Plan: I will check hemoglobin A1c. Place on SSI with insulin NovoLog. Patient states that he is on insulin Glargin at home. He does not remember the dose. 06/20 Blood sugars somewhat elevated. Continue SSI with insulin Novolog HTN (hypertension) ICD Code: I10 - Essential (primary) hypertension Plan: BP seems to be slightly elevated. Patient is on lisinopril at home which I will continue. Continue to monitor vital signs and BMP. 06/20 BP better controlled. continue Lisinopril. Wheezing, resolved ICD Code: R06.2 - Wheezing Status: Acute Plan: The patient is a heavy smoker and this is probably likely due to some long-standing damage due to tobacco use. Continue DuoNeb treatments and steroid inhalers. Wheezing Improved Chest x-ray reviewed shows findings consistent with granuloma of the lungs. Might benefit from steroid use. Also noted scoliosis. Hypothyroidism, unspecified Plan: Check TSH, will try to get dose not the patient was taking. As per patient's the patient has not been compliant with his medications. TSH IS ELEVATED AT 4.880 - Check free t4 and started on 50 mcg of levothyroxine. Anemia Pancytopenia . Hem;/onc consulted ICD Code: D64.9 - Anemia, unspecified Plan: The patient has history of liver cirrhosis. Anemia is normocytic, likely secondary to liver disease. Continue to monitor hemoglobin and CBC. 06/20 hemoglobin stable. monitor cbc. Patient with pancytopenia, consult hem/onc recommends liver/spleen US when stable. Patient has liver /spleen US 06/30/17 reviewed, patient with bilateral hydronephrosis, hepatosplenomegaly, diffuse hepatic disease. Bilateral hydronephrosis, of undetermined etiology per US, consult urology. Place segura. 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 Tobacco abuse ICD Code: Z72.0 - Tobacco use Plan: Advises smoking cessation, continue nicotine patch. Assessment and Plan DVT Prophylaxis: SCD's Discussed with the patient. nurse Appears stable medically. Patient to be discharged with Segura per urology . To follow up as OP with urology , PCP and other consultants. Problem Qualifiers (1) Diabetes: Qualified Codes: E11.9 - Type 2 diabetes mellitus without complications (2) HTN (hypertension): Qualified Codes: I10 - Essential (primary) hypertension (3) Hypothyroidism: Qualified Codes: E03.9 - Hypothyroidism, unspecified Rola Mcnally MD Jul 04, 2017 08:50
[2017-07-04] MEDS: REMOVE OLD PATCH T-DERMAL SCH (09:00)
[2017-07-04] MEDS: BENZTROPINE MESYLATE 1 MG TAB PO SCH ×2 (09:44→20:51)
[2017-07-04] MEDS: NICOTINE 21 MG/24 HR PATCH T-DERMAL SCH (09:44)
[2017-07-04] MEDS: LACTULOSE SYRUP 20 GM/30 ML CUP PO SCH ×3 (09:45→18:33)
[2017-07-04] MEDS: TAMSULOSIN HCL 0.4 MG CAP PO SCH (09:45)
[2017-07-04] MEDS: BUDESONIDE-FORMOTEROL 160/4.5 MCG INHALER INH SCH ×2 (09:45→20:51)
[2017-07-04] MEDS: ZIPRASIDONE HCL 80 MG CAP PO SCH ×2 (09:45→18:33)
[2017-07-04] MEDS: LITHIUM CARBONATE 300 MG TAB PO SCH ×2 (09:45→20:51)
[2017-07-04] MEDS: ZIPRASIDONE HCL 20 MG CAP PO SCH ×2 (09:45→18:32)
--- NOTE | 2017-07-04 11:02 | HHI.PYPN ---
Subjective Remarks Patient seen and examined. Chart reviewed. Case discussed with nursing staff. On my exam, patient remains quite dysphoric. He has once again disrobed. He remains paranoid regarding his . He does not report any violent thoughts today but is still very irritable. I discuss with him the addition of lithium, and he says he refused this medication because it is "poison" and that the only medication he will take is OTC medication. Nurse informs me that the patient did in fact accept his lithium last night. Denies side effects from meds. No physical complaints. Review of Systems ROS Limitations: Psychotic, Poor Historian Except as stated in HPI: all other systems reviewed are Neg Objective Alert: Yes [place]: Person, Place, Date Mood: Angry Affect: Restricted Memory Intact: Comment (Not formally assessed) Hallucinations: Other (No AVH) Delusions: Yes Delusion Type: Paranoid (ongoing) Suicidal: Ideation (No SI) Homicidal: Ideation (No HI but remains quite irritable) Insight/Judgment Poor Remarks No new motor abnormalities noted. Oral dyskinesias as before, unchanged. Speech a little loud, angry. Grooming and hygiene poor. Labs Test 07/04/17 07:39 Blood Urea Nitrogen 12 MG/DL Creatinine 0.98 MG/DL Random Glucose 184 MG/DL Calcium Level 9.2 MG/DL Sodium Level 136 MEQ/L Potassium Level 3.9 MEQ/L Chloride Level 100 MEQ/L Carbon Dioxide Level 30.0 MEQ/L Anion Gap 6 MEQ/L Estimat Glomerular Filtration Rate 75 ML/MIN Labs reviewed. Hyponatremia, GFR improved. Vitals/IOs Vital Signs Date Time Temp Pulse Resp B/P (MAP) Pulse Ox O2 Delivery O2 Flow Rate FiO2 07/04/17 06:13 98.7 84 18 158/79 (105) 95 Intake and Output 07/04/17 07/04/17 07/05/17 08:00 16:00 00:00 Intake Total 360 ml 240 ml Output Total 1000 ml Balance -640 ml 240 ml Assessment & Plan Problem List: (1) Bipolar disorder, current episode mixed, severe, with psychotic features ICD Codes: F31.64 - Bipolar disorder, current episode mixed, severe, with psychotic features Status: Acute Assessment & Plan In light of ongoing irritability/dysphoria and improved renal function, titrate lithium to 300mg BID. Check a lithium level and BMP Beni morning. We will also check a CBC to assess for status of patient's leukopenia at that time. Continue Geodon as ordered. I have added ADR for Zyprexa to the chart. Continue to monitor on the inpatient unit. Continue other medications and care as ordered. Justification for Cont. Inpt. Med changes in process. Impairment in reality construction. High risk for decompensation in less restrictive environment. Discharge Planning Pending stabilization. Request HC Surrog/Guard Advoc?: Yes Piter Fenton MD Jul 04, 2017 11:02
[2017-07-04 19:00] VITALS: BP_SYST 121; BP_SYST 158; BP_DIAS 67; BP_DIAS 79; PULSE 84; PULSE 99; RESP 18; TEMP 98.7; TEMP 99.7; O2SAT 95; O2SAT 96
[2017-07-04] MEDS: MELATONIN 5 MG TAB PO SCH (20:51)
[2017-07-05] MEDS: LORazepam 0.5 MG TAB PO PRN ×2 (03:46→22:45)
[2017-07-05] MEDS: ACETAMINOPHEN 325 MG TAB PO PRN ×2 (03:47→22:27)
[2017-07-05 05:43] VITALS: BP 128/59; PULSE 88; RESP 18; TEMP 98.8; O2SAT 94
[2017-07-05] MEDS: LEVOTHYROXINE SODIUM 50 MCG TAB PO SCH (06:28)
[2017-07-05] MEDS: REMOVE OLD PATCH T-DERMAL SCH (09:00)
[2017-07-05] MEDS: BUDESONIDE-FORMOTEROL 160/4.5 MCG INHALER INH SCH ×2 (09:00→21:00)
[2017-07-05] MEDS: ZIPRASIDONE HCL 20 MG CAP PO SCH ×2 (09:03→17:45)
[2017-07-05] MEDS: TAMSULOSIN HCL 0.4 MG CAP PO SCH (09:03)
[2017-07-05] MEDS: BENZTROPINE MESYLATE 1 MG TAB PO SCH ×2 (09:03→22:25)
[2017-07-05] MEDS: NICOTINE 21 MG/24 HR PATCH T-DERMAL SCH (09:03)
[2017-07-05] MEDS: ZIPRASIDONE HCL 80 MG CAP PO SCH ×2 (09:03→17:45)
[2017-07-05] MEDS: LACTULOSE SYRUP 20 GM/30 ML CUP PO SCH ×3 (09:04→17:45)
[2017-07-05] MEDS: LITHIUM CARBONATE 300 MG TAB PO SCH ×2 (09:04→22:25)
[2017-07-05] MEDS: INSULIN ASPART SUPPLEMENTAL SCALE SQ SCH ×4 (09:08→21:00)
--- NOTE | 2017-07-05 12:33 | HHI.PYPN ---
Subjective Remarks Patient seen and case discussed with nurse. Patient remains irritable but cooperative with nursing staff. Continues to appear paranoid. Review of Systems Except as stated in HPI: all other systems reviewed are Neg Objective Alert: Yes [place]: Person, Place, Date Mood: Angry Affect: Restricted Memory Intact: Comment (Not formally assessed) Hallucinations: Other (No AVH) Delusions: Yes Delusion Type: Paranoid (ongoing) Suicidal: Ideation (No SI) Homicidal: Ideation (No HI but remains quite irritable) Insight/Judgment Impaired Vitals/IOs Vital Signs Date Time Temp Pulse Resp B/P (MAP) Pulse Ox O2 Delivery O2 Flow Rate FiO2 07/05/17 05:43 98.8 88 18 128/59 (82) 94 Intake and Output 07/05/17 07/05/17 07/06/17 08:00 16:00 00:00 Intake Total 1200 ml Output Total 1000 ml Balance 200 ml Assessment & Plan Problem List: (1) Bipolar disorder, current episode mixed, severe, with psychotic features ICD Codes: F31.64 - Bipolar disorder, current episode mixed, severe, with psychotic features Status: Acute Assessment & Plan Estimated LOS: days continue current antipsychotic/mood stabilizing medicine. Evaluate for efficacy. Justification for Cont. Inpt. Likely to decompensate at lower level of care. Request HC Surrog/Guard Advoc?: Yes Milind Nguyễn MD Jul 05, 2017 12:33
--- NOTE | 2017-07-05 12:47 | HHI.PR ---
Subjective Remarks Patient seen and examined Appears calm and conversing with me in [place] Objective Vitals Vital Signs Date Time Temp Pulse Resp B/P (MAP) Pulse Ox O2 Delivery O2 Flow Rate FiO2 07/05/17 05:43 98.8 88 18 128/59 (82) 94 07/04/17 19:00 99.7 99 18 121/67 (85) 96 I/O 07/04/17 07/04/17 07/04/17 07/05/17 07/05/17 07/05/17 07:00 15:00 23:00 07:00 15:00 23:00 Intake Total 360 ml 480 ml 840 ml 360 ml Output Total 1000 ml 1000 ml Balance -640 ml 480 ml -160 ml 360 ml Intake Oral 360 ml 480 ml 840 ml 360 ml Output Urine Total 1000 ml 1000 ml # Voids 2 Result Diagram: 07/03/17 0752 07/04/17 0739 Imaging Last Impressions Renal Ultrasound 07/01/17 0000 Signed Impressions: Service Date/Time: Saturday, July 01, 2017 09:07 - CONCLUSION: Mild hydronephrotic changes bilaterally. Hydronephrosis on the left is stable. Hydronephrosis on the right appear slightly increased when compared to previous. Jeramy Mccurdy MD Liver Ultrasound 06/30/17 0000 Signed Impressions: Service Date/Time: Friday, June 30, 2017 17:22 - CONCLUSION: 1. Moderate bilateral hydronephrosis of indeterminate etiology. 2. Hepatosplenomegaly. 3. Coarse echotexture of the liver suggesting diffuse hepatic disease. 4. Gallbladder sludge. Jose Elias Gonzalez MD Head CT 06/27/17 0000 Signed Impressions: Service Date/Time: Tuesday, June 27, 2017 08:43 - CONCLUSION: No acute disease. Jose Elias Gonzalez MD Hand X-Ray 06/27/17 0000 Signed Impressions: Service Date/Time: Tuesday, June 27, 2017 08:55 - CONCLUSION: 1. No acute bony abnormality identified. Jeramy Mccurdy MD Abdomen X-Ray 06/24/17 0000 Signed Impressions: Service Date/Time: Saturday, June 24, 2017 08:48 - CONCLUSION: Nonobstructive bowel gas pattern. Juan Carlos Emery MD Chest X-Ray 06/20/17 0000 Signed Impressions: Service Date/Time: Tuesday, June 20, 2017 20:38 - CONCLUSION: 1. No acute findings. Calcified granulomata in the lungs. Scoliosis. Navin Kaur MD Objective Remarks GENERAL: NAD SKIN: Warm and dry. HEAD: Normocephalic. EYES: No scleral icterus. No injection or drainage. NECK: Supple, trachea midline. No JVD or lymphadenopathy. CARDIOVASCULAR: Regular rate and rhythm without murmurs, gallops, or rubs. RESPIRATORY: Breath sounds equal bilaterally. No accessory muscle use. GASTROINTESTINAL: Abdomen soft, non-tender, nondistended. MUSCULOSKELETAL: No cyanosis, or edema. BACK: Nontender without obvious deformity. No CVA tenderness. A/P Problem List: (1) Bipolar disorder, current episode mixed, severe, with psychotic features ICD Code: F31.64 - Bipolar disorder, current episode mixed, severe, with psychotic features Status: Acute Plan: Management as per psychiatry. (2) Hyponatremia ICD Code: E87.1 - Hypo-osmolality and hyponatremia Status: Acute Plan: Resolved (3) Diabetes ICD Code: E11.9 - Type 2 diabetes mellitus without complications Plan: Continue SSI with insulin Novolog (4) HTN (hypertension) ICD Code: I10 - Essential (primary) hypertension Plan: continue Lisinopril. (5) Wheezing ICD Code: R06.2 - Wheezing Status: Acute Plan: Continue DuoNeb treatments and steroid inhalers. (6) Hypothyroidism ICD Code: E03.9 - Hypothyroidism, unspecified Plan: Currently on 50 mcg of levothyroxine . (7) Anemia ICD Code: D64.9 - Anemia, unspecified Plan: Continue to monitor hemoglobin and CBC. 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 (9) Tobacco abuse ICD Code: Z72.0 - Tobacco use Plan: Advises smoking cessation, continue nicotine patch. Problem Qualifiers (1) Diabetes: Qualified Codes: E11.9 - Type 2 diabetes mellitus without complications (2) HTN (hypertension): Qualified Codes: I10 - Essential (primary) hypertension (3) Hypothyroidism: Qualified Codes: E03.9 - Hypothyroidism, unspecified Soto Mosquera MD Jul 05, 2017 12:47
[2017-07-05 19:38] VITALS: BP 162/69; PULSE 95; RESP 18; TEMP 99.8; O2SAT 99
[2017-07-05] MEDS: MELATONIN 5 MG TAB PO SCH (22:27)
[2017-07-06 06:15] VITALS: BP 154/74; PULSE 70; RESP 20; TEMP 97.5; O2SAT 95
[2017-07-06] MEDS: LEVOTHYROXINE SODIUM 50 MCG TAB PO SCH (06:23)
[2017-07-06] MEDS: INSULIN ASPART SUPPLEMENTAL SCALE SQ SCH ×4 (08:00→21:00)
[2017-07-06] MEDS: REMOVE OLD PATCH T-DERMAL SCH (09:00)
[2017-07-06] MEDS: LACTULOSE SYRUP 20 GM/30 ML CUP PO SCH ×3 (09:13→17:44)
[2017-07-06] MEDS: NICOTINE 21 MG/24 HR PATCH T-DERMAL SCH (09:13)
[2017-07-06] MEDS: ZIPRASIDONE HCL 20 MG CAP PO SCH ×2 (09:14→17:44)
[2017-07-06] MEDS: TAMSULOSIN HCL 0.4 MG CAP PO SCH (09:14)
[2017-07-06] MEDS: LITHIUM CARBONATE 300 MG TAB PO SCH ×2 (09:14→21:49)
[2017-07-06] MEDS: BUDESONIDE-FORMOTEROL 160/4.5 MCG INHALER INH SCH (09:14)
[2017-07-06] MEDS: BENZTROPINE MESYLATE 1 MG TAB PO SCH ×2 (09:14→21:49)
[2017-07-06] MEDS: ZIPRASIDONE HCL 80 MG CAP PO SCH ×2 (09:14→17:44)
--- NOTE | 2017-07-06 10:03 | HHI.PR ---
Subjective Remarks Patient was talking to himself Vitals stable and no acute event overnight Objective Vitals Vital Signs Date Time Temp Pulse Resp B/P (MAP) Pulse Ox O2 Delivery O2 Flow Rate FiO2 07/06/17 06:15 97.5 70 20 154/74 (100) 95 07/05/17 19:38 99.8 95 18 162/69 (100) 99 I/O 07/05/17 07/05/17 07/05/17 07/06/17 07/06/17 07/06/17 07:00 15:00 23:00 07:00 15:00 23:00 Intake Total 840 ml 360 ml 260 ml 680 ml Output Total 1000 ml 1700 ml Balance -160 ml 360 ml 260 ml -1020 ml Intake Oral 840 ml 360 ml 260 ml 680 ml Output Urine Total 1000 ml 1700 ml # Voids 2 Result Diagram: 07/03/17 0752 07/04/17 0739 Objective Remarks GENERAL: NAD SKIN: Warm and dry. HEAD: Normocephalic. EYES: No scleral icterus. No injection or drainage. NECK: Supple, trachea midline. No JVD or lymphadenopathy. CARDIOVASCULAR: Regular rate and rhythm without murmurs, gallops, or rubs. RESPIRATORY: Breath sounds equal bilaterally. No accessory muscle use. GASTROINTESTINAL: Abdomen soft, non-tender, nondistended. MUSCULOSKELETAL: No cyanosis, or edema. BACK: Nontender without obvious deformity. No CVA tenderness. A/P Problem List: (1) Bipolar disorder, current episode mixed, severe, with psychotic features ICD Code: F31.64 - Bipolar disorder, current episode mixed, severe, with psychotic features Status: Acute Plan: Management as per psychiatry. (2) Hyponatremia ICD Code: E87.1 - Hypo-osmolality and hyponatremia Status: Acute Plan: Resolved and monitor BMP when necessary (3) Diabetes ICD Code: E11.9 - Type 2 diabetes mellitus without complications Plan: Continue SSI with insulin Novolog Monitor blood glucose (4) HTN (hypertension) ICD Code: I10 - Essential (primary) hypertension Plan: continue Lisinopril. (5) Wheezing ICD Code: R06.2 - Wheezing Status: Acute (6) Hypothyroidism ICD Code: E03.9 - Hypothyroidism, unspecified Plan: Currently on 50 mcg of levothyroxine . (7) Anemia ICD Code: D64.9 - Anemia, unspecified Plan: Continue to monitor hemoglobin and CBC. 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 (9) Tobacco abuse ICD Code: Z72.0 - Tobacco use Plan: Advised on smoking cessation, continue nicotine patch. Problem Qualifiers (1) Diabetes: Qualified Codes: E11.9 - Type 2 diabetes mellitus without complications (2) HTN (hypertension): Qualified Codes: I10 - Essential (primary) hypertension (3) Hypothyroidism: Qualified Codes: E03.9 - Hypothyroidism, unspecified Soto Mosquera MD Jul 06, 2017 10:03
[2017-07-06 10:48] LABS: BICARBONATE 28.9 MEQ/L (21.0-32.0); POTASSIUM 4.1 MEQ/L (3.5-5.1)
[2017-07-06 10:53] LABS: BASOPHIL % 0.5 % (0.0-2.0); EOSINOPHIL # 0.1 TH/MM3 (0-0.4); EOSINOPHIL % 1.2 % (0.0-4.0); HEMATOCRIT 31.8 % (39.0-51.0); LYMPHOCYTE # 1.3 TH/MM3 (1.0-4.8); MEAN CELL VOLUME 97.1 FL (80.0-100.0); MEAN CORPUSCULAR HEMOGLOBIN 35.3 PG (27.0-34.0); MONO % 9.5 % (0.0-8.0); NEUT % 66.8 % (16.0-70.0); PLATELET COUNT 195 TH/MM3 (150-450); RED BLOOD COUNT 3.28 MIL/MM3 (4.50-5.90); RED CELL DISTRIBUTION WIDTH 13.4 % (11.6-17.2); WHITE BLOOD COUNT 5.9 TH/MM3 (4.0-11.0)
[2017-07-06 10:54] LABS: HEMO FLAGS AUTO DIFF; MEAN CORPUSCULAR HGB CONC 36.3 % (32.0-36.0)
[2017-07-06 11:39] LABS: SCAN/DIFF AUTO DIFF CONFIRMED
[2017-07-06 17:47] VITALS: BP 192/84; PULSE 80; RESP 18; TEMP 98.5; O2SAT 96
[2017-07-06 17:51] VITALS: BP 158/81
--- NOTE | 2017-07-06 18:20 | HHI.PYPN ---
Subjective Remarks Patient seen, medical record reviewed and case discussed with nurse. Patient less irritable today. Still does not trust this physician. Review of Systems Except as stated in HPI: all other systems reviewed are Neg Objective Alert: Yes [place]: Person, Place, Date Mood: Angry Affect: Restricted Memory Intact: Comment (Not formally assessed) Hallucinations: Other (No AVH) Delusions: Yes Delusion Type: Paranoid (ongoing) Suicidal: Ideation (No SI) Homicidal: Ideation (No HI but remains quite irritable) Insight/Judgment Impaired Labs Test 07/06/17 09:59 White Blood Count 5.9 TH/MM3 Red Blood Count 3.28 MIL/MM3 Hemoglobin 11.6 GM/DL Hematocrit 31.8 % Mean Corpuscular Volume 97.1 FL Mean Corpuscular Hemoglobin 35.3 PG Mean Corpuscular Hemoglobin Concent 36.3 % Red Cell Distribution Width 13.4 % Platelet Count 195 TH/MM3 Mean Platelet Volume 7.6 FL Neutrophils (%) (Auto) 66.8 % Lymphocytes (%) (Auto) 22.0 % Monocytes (%) (Auto) 9.5 % Eosinophils (%) (Auto) 1.2 % Basophils (%) (Auto) 0.5 % Neutrophils # (Auto) 4.0 TH/MM3 Lymphocytes # (Auto) 1.3 TH/MM3 Monocytes # (Auto) 0.6 TH/MM3 Eosinophils # (Auto) 0.1 TH/MM3 Basophils # (Auto) 0.0 TH/MM3 CBC Comment AUTO DIFF Differential Comment AUTO DIFF CONFIRMED Red Cell Morphology Comment Hematology Comments Blood Urea Nitrogen 9 MG/DL Creatinine 1.02 MG/DL Random Glucose 151 MG/DL Calcium Level 9.3 MG/DL Sodium Level 136 MEQ/L Potassium Level 4.1 MEQ/L Chloride Level 101 MEQ/L Carbon Dioxide Level 28.9 MEQ/L Anion Gap 6 MEQ/L Estimat Glomerular Filtration Rate 72 ML/MIN [place] Level 0.4 MEQ/L Vitals/IOs Vital Signs Date Time Temp Pulse Resp B/P (MAP) Pulse Ox O2 Delivery O2 Flow Rate FiO2 07/06/17 17:51 158/81 (106) 07/06/17 17:47 98.5 80 18 96 Intake and Output 07/06/17 07/06/17 07/07/17 08:00 16:00 00:00 Intake Total 680 ml 360 ml Output Total 1700 ml 700 ml Balance -1020 ml -340 ml Assessment & Plan Problem List: (1) Bipolar disorder, current episode mixed, severe, with psychotic features ICD Codes: F31.64 - Bipolar disorder, current episode mixed, severe, with psychotic features Status: Acute Assessment & Plan Estimated LOS: days continue current treatment plan. Justification for Cont. Inpt. Likely to decompensate at lower level of care. Request HC Surrog/Guard Advoc?: Yes Milind Nguyễn MD Jul 06, 2017 18:20
[2017-07-06] MEDS: MELATONIN 5 MG TAB PO SCH (21:49)
[2017-07-07 06:08] VITALS: BP 176/88; PULSE 80; RESP 18; TEMP 97.1; O2SAT 97
[2017-07-07] MEDS: LEVOTHYROXINE SODIUM 50 MCG TAB PO SCH (06:43)
--- NOTE | 2017-07-07 07:03 | HHI.PYPN ---
Subjective Remarks Patient seen and examined. Chart reviewed. Case discussed with nursing staff who reports patient seems to be "afraid of being alone." On my examination this morning, patient is emotionally incontinent and tearful. He tells me his was in for a visit over the weekend, and he misses her terribly this morning. He says they had a good visit. He does indeed seem to be trying to avoid being left alone and makes small requests, such as adjusting his bed, in an effort to keep me in his room. No SI/HI. Pauses when I ask about AVH but ultimately denies. No side effects from medications. No physical complaints. Patient's was in to visit over the weekend and notes ongoing confusion, change in mood to "weepy." She feels he is worsening. Review of Systems ROS Limitations: Poor Historian Except as stated in HPI: all other systems reviewed are Neg Objective Alert: Yes [place]: Person, Place, Date (2016) Mood: Other (Sad) Affect: Tearful Memory Intact: Comment (Not formally assessed) Hallucinations: Other (Denies AVH) Delusions: No Delusion Type: Other (No delusions elicited today) Suicidal: Ideation (no SI) Homicidal: Ideation (no HI) Insight/Judgment Poor Remarks No hand tremor, no cogwheeling, no other motoric abnormalities appreciated. Grooming and hygiene poor. Thought process perseverative on and loneliness. When I ask him to spell WORLD for attention testing, spells [place]IRL[place] instead. Labs Test 07/06/17 09:59 White Blood Count 5.9 TH/MM3 Red Blood Count 3.28 MIL/MM3 Hemoglobin 11.6 GM/DL Hematocrit 31.8 % Mean Corpuscular Volume 97.1 FL Mean Corpuscular Hemoglobin 35.3 PG Mean Corpuscular Hemoglobin Concent 36.3 % Red Cell Distribution Width 13.4 % Platelet Count 195 TH/MM3 Mean Platelet Volume 7.6 FL Neutrophils (%) (Auto) 66.8 % Lymphocytes (%) (Auto) 22.0 % Monocytes (%) (Auto) 9.5 % Eosinophils (%) (Auto) 1.2 % Basophils (%) (Auto) 0.5 % Neutrophils # (Auto) 4.0 TH/MM3 Lymphocytes # (Auto) 1.3 TH/MM3 Monocytes # (Auto) 0.6 TH/MM3 Eosinophils # (Auto) 0.1 TH/MM3 Basophils # (Auto) 0.0 TH/MM3 CBC Comment AUTO DIFF Differential Comment AUTO DIFF CONFIRMED Red Cell Morphology Comment Hematology Comments Blood Urea Nitrogen 9 MG/DL Creatinine 1.02 MG/DL Random Glucose 151 MG/DL Calcium Level 9.3 MG/DL Sodium Level 136 MEQ/L Potassium Level 4.1 MEQ/L Chloride Level 101 MEQ/L Carbon Dioxide Level 28.9 MEQ/L Anion Gap 6 MEQ/L Estimat Glomerular Filtration Rate 72 ML/MIN [place] Level 0.4 MEQ/L Labs reviewed. CBC stable. BMP reveals stable GFR. [place] level subtherapeutic. Vitals/IOs Vital Signs Date Time Temp Pulse Resp B/P (MAP) Pulse Ox O2 Delivery O2 Flow Rate FiO2 07/07/17 06:08 97.1 80 18 176/88 (117) 97 Intake and Output 07/07/17 07/07/17 07/08/17 08:00 16:00 00:00 Intake Total 120 ml Output Total 450 ml Balance -330 ml Assessment & Plan Problem List: (1) Bipolar disorder, current episode mixed, severe, with psychotic features ICD Codes: F31.64 - Bipolar disorder, current episode mixed, severe, with psychotic features Status: Acute Assessment & Plan Adequate mood stabilization has not been achieved, and patient presents as much more dysphoric today. I will titrate lithium to 300mg TID with plans to obtain lithium level and BMP later in the week. We will continue periodic surveillance a CBC. Continue Geodon as ordered for now. Denture Model Maker input noted and appreciated. Continue other medications and care as ordered. Justification for Cont. Inpt. Impairment in self-care. Medication changes and process. High risk for decompensation in less restrictive environment. Discharge Planning Pending psychiatric stabilization. Possible discharge home with home health later in the week if insurance provides this benefit; I will discuss case with counselor. Request HC Surrog/Guard Advoc?: Yes Piter Fenton MD Jul 07, 2017 07:03
[2017-07-07] MEDS: INSULIN ASPART SUPPLEMENTAL SCALE SQ SCH ×4 (08:00→21:00)
[2017-07-07] MEDS: ZIPRASIDONE HCL 20 MG CAP PO SCH ×2 (08:38→17:44)
[2017-07-07] MEDS: ZIPRASIDONE HCL 80 MG CAP PO SCH ×2 (08:38→17:44)
[2017-07-07] MEDS: TAMSULOSIN HCL 0.4 MG CAP PO SCH (08:38)
[2017-07-07] MEDS: LACTULOSE SYRUP 20 GM/30 ML CUP PO SCH ×3 (08:39→17:45)
[2017-07-07] MEDS: NICOTINE 21 MG/24 HR PATCH T-DERMAL SCH (08:40)
[2017-07-07] MEDS: LITHIUM CARBONATE 300 MG TAB PO SCH ×3 (08:44→21:41)
[2017-07-07] MEDS: BENZTROPINE MESYLATE 1 MG TAB PO SCH ×2 (09:00→21:41)
--- NOTE | 2017-07-07 10:33 | HHI.PR ---
Subjective Remarks Patient seen and examined State, he feels depressed Vitals stable and currently afebrile Objective Vitals Vital Signs Date Time Temp Pulse Resp B/P (MAP) Pulse Ox O2 Delivery O2 Flow Rate FiO2 07/07/17 06:08 97.1 80 18 176/88 (117) 97 07/06/17 17:51 158/81 (106) 07/06/17 17:47 98.5 80 18 192/84 (120) 96 I/O 07/06/17 07/06/17 07/06/17 07/07/17 07/07/17 07/07/17 07:00 15:00 23:00 07:00 15:00 23:00 Intake Total 680 ml 360 ml 40 ml 240 ml Output Total 1700 ml 700 ml 1200 ml Balance -1020 ml -340 ml 40 ml -960 ml Intake Oral 680 ml 360 ml 40 ml 240 ml Output Urine Total 1700 ml 700 ml 1200 ml Result Diagram: 07/06/1759 07/06/1759 Objective Remarks GENERAL: NAD SKIN: Warm and dry. HEAD: Normocephalic. EYES: No scleral icterus. No injection or drainage. NECK: Supple, trachea midline. No JVD or lymphadenopathy. CARDIOVASCULAR: Regular rate and rhythm without murmurs, gallops, or rubs. RESPIRATORY: Breath sounds equal bilaterally. No accessory muscle use. GASTROINTESTINAL: Abdomen soft, non-tender, nondistended. MUSCULOSKELETAL: No cyanosis, or edema. BACK: Nontender without obvious deformity. No CVA tenderness. A/P Problem List: (1) Bipolar disorder, current episode mixed, severe, with psychotic features ICD Code: F31.64 - Bipolar disorder, current episode mixed, severe, with psychotic features Status: Acute Plan: Management as per psychiatry. (2) Hyponatremia ICD Code: E87.1 - Hypo-osmolality and hyponatremia Status: Acute (3) Diabetes ICD Code: E11.9 - Type 2 diabetes mellitus without complications Plan: Continue SSI with insulin Novolog Monitor blood glucose Good glycemic control (4) HTN (hypertension) ICD Code: I10 - Essential (primary) hypertension Plan: continue Lisinopril. Monitor BP (5) Wheezing ICD Code: R06.2 - Wheezing Status: Acute (6) Hypothyroidism ICD Code: E03.9 - Hypothyroidism, unspecified Plan: Currently on 50 mcg of levothyroxine . (7) Anemia ICD Code: D64.9 - Anemia, unspecified Plan: Continue to monitor hemoglobin and CBC. (8) Cannabinosis ICD Code: J66.2 - Cannabinosis (9) Tobacco abuse ICD Code: Z72.0 - Tobacco use Problem Qualifiers (1) Diabetes: Qualified Codes: E11.9 - Type 2 diabetes mellitus without complications (2) HTN (hypertension): Qualified Codes: I10 - Essential (primary) hypertension (3) Hypothyroidism: Qualified Codes: E03.9 - Hypothyroidism, unspecified Soto Mosquera MD Jul 07, 2017 10:33
[2017-07-07] MEDS: REMOVE OLD PATCH T-DERMAL SCH (11:56)
[2017-07-07 17:49] VITALS: BP 151/75; PULSE 84; RESP 16; TEMP 98.6; O2SAT 98
[2017-07-07] MEDS: BUDESONIDE-FORMOTEROL 160/4.5 MCG INHALER INH SCH ×2 (21:00→21:41)
[2017-07-07] MEDS: MELATONIN 5 MG TAB PO SCH (21:41)
[2017-07-07] MEDS: LORazepam 0.5 MG TAB PO PRN (23:35)
[2017-07-08 00:45] VITALS: BP 150/79; PULSE 94; RESP 16; TEMP 97.4; O2SAT 100
[2017-07-08 02:30] VITALS: BP 128/57; PULSE 72; RESP 16; TEMP 97.3; O2SAT 97
[2017-07-08] MEDS: ACETAMINOPHEN 325 MG TAB PO PRN (02:40)
[2017-07-08] MEDS: LORazepam 2 MG/ML VIAL IM PRN ×4 (02:40→20:43)
[2017-07-08] MEDS: LEVOTHYROXINE SODIUM 50 MCG TAB PO SCH (06:15)
[2017-07-08] MEDS: INSULIN ASPART SUPPLEMENTAL SCALE SQ SCH ×4 (08:00→21:04)
--- NOTE | 2017-07-08 08:22 | HHI.PYPN ---
Subjective Remarks Patient seen and examined. Chart reviewed. Case discussed in treatment team. Per nursing staff, the patient took a fall overnight and is being evaluated by the hospitalist today. I find the patient nude on his back, knees pulled up to his ears. He is in no physical distress. He tells me he is doing yoga and finds clothing too cumbersome in this context. Mood is more stable today. No SI/HI. Denies side effects from medications. No physical complaints for me today. Review of Systems ROS Limitations: Poor Historian Except as stated in HPI: all other systems reviewed are Neg Objective Alert: Yes [place]: Person, Place ([place] 4th floor), Date (07/13/17) Mood: Calm Affect: Appropriate Memory Intact: Comment (Able to do serial 7s through 3 iterations) Hallucinations: Other (No AVH) Delusions: No Delusion Type: Other (No delusions) Suicidal: Ideation (No SI) Homicidal: Ideation (No HI) Insight/Judgment Poor Remarks No motor abnormalities noted. Thought process is fairly linear today. Labs Labs reviewed. Chest x-ray obtained today read as no acute disease. Vitals/IOs Vital Signs Date Time Temp Pulse Resp B/P (MAP) Pulse Ox O2 Delivery O2 Flow Rate FiO2 07/08/17 02:30 97.3 72 16 128/57 (80) 97 Intake and Output 07/08/17 07/08/17 07/09/17 08:00 16:00 00:00 Intake Total 120 ml Output Total 150 ml Balance -30 ml Assessment & Plan Problem List: (1) Bipolar disorder, in partial remission, most recent episode mixed ICD Codes: F31.77 - Bipolar disorder, in partial remission, most recent episode mixed Assessment & Plan Continue lithium and Geodon as ordered. We will plan to obtain a lithium level along with other basic laboratories on morning and likely will adjust the dose based on the level. To consider an alternative antipsychotic, although we do seem to be making some progress with current regimen. Hospitalist input noted and appreciated. I will ask the physical therapist to reassess the patient with particular focus on discharge needs. Anticipate trial avoiding off of Guevara within the next few days as recommended by urology. Continue other medications and care as ordered. Justification for Cont. Inpt. Risk for decompensation in less restrictive environment. Discharge Planning Pending psychiatric stabilization. I have instructed the counselor to look into possible facilities for temporary placement as patient may require convalescent stay. Request HC Surrog/Guard Advoc?: Yes Piter Fenton MD Jul 08, 2017 08:22
[2017-07-08] MEDS: REMOVE OLD PATCH T-DERMAL SCH (09:00)
[2017-07-08] MEDS: ZIPRASIDONE HCL 20 MG CAP PO SCH ×2 (09:00→17:55)
[2017-07-08] MEDS: BUDESONIDE-FORMOTEROL 160/4.5 MCG INHALER INH SCH ×2 (09:00→20:28)
[2017-07-08 09:14] VITALS: BP 127/61; PULSE 68; RESP 19; TEMP 97.7; O2SAT 96
[2017-07-08] MEDS: ZIPRASIDONE HCL 80 MG CAP PO SCH ×2 (09:23→17:55)
[2017-07-08] MEDS: LACTULOSE SYRUP 20 GM/30 ML CUP PO SCH ×3 (09:23→17:24)
[2017-07-08] MEDS: BENZTROPINE MESYLATE 1 MG TAB PO SCH ×2 (09:23→20:29)
[2017-07-08] MEDS: TAMSULOSIN HCL 0.4 MG CAP PO SCH (09:23)
[2017-07-08] MEDS: LITHIUM CARBONATE 300 MG TAB PO SCH ×3 (09:25→20:34)
[2017-07-08] MEDS: NICOTINE 21 MG/24 HR PATCH T-DERMAL SCH (09:25)
--- NOTE | 2017-07-08 09:38 | HHI.PR ---
Subjective Remarks Patient seen and examined He had an episode for overnight however there was no head trauma and no loss of consciousness Patient complains of right sided chest/rib cage pain times several weeks duration Objective Vitals Vital Signs Date Time Temp Pulse Resp B/P (MAP) Pulse Ox O2 Delivery O2 Flow Rate FiO2 07/08/17 09:14 97.7 68 19 127/61 (83) 96 07/08/17 02:30 97.3 72 16 128/57 (80) 97 07/08/17 00:45 97.4 94 16 150/79 (102) 100 07/07/17 17:49 98.6 84 16 151/75 (100) 98 I/O 07/07/17 07/07/17 07/07/17 07/08/17 07/08/17 07/08/17 07:00 15:00 23:00 07:00 15:00 23:00 Intake Total 240 ml 240 ml 120 ml 360 ml Output Total 1200 ml 500 ml 300 ml 150 ml Balance -960 ml -500 ml -60 ml -30 ml 360 ml Intake Oral 240 ml 240 ml 120 ml 360 ml Output Urine Total 1200 ml 500 ml 300 ml 150 ml # Bowel Movements 2 Result Diagram: 07/06/1759 07/06/1759 Objective Remarks GENERAL: NAD SKIN: Warm and dry. HEAD: Normocephalic. EYES: No scleral icterus. No injection or drainage. NECK: Supple, trachea midline. No JVD or lymphadenopathy. CARDIOVASCULAR: Regular rate and rhythm without murmurs, gallops, or rubs. RESPIRATORY: Breath sounds equal bilaterally. No accessory muscle use. GASTROINTESTINAL: Abdomen soft, non-tender, nondistended. MUSCULOSKELETAL: No cyanosis, or edema. BACK: Nontender without obvious deformity. No CVA tenderness. A/P Problem List: (1) Bipolar disorder, current episode mixed, severe, with psychotic features ICD Code: F31.64 - Bipolar disorder, current episode mixed, severe, with psychotic features Status: Acute Plan: Management as per psychiatry. (2) Hyponatremia ICD Code: E87.1 - Hypo-osmolality and hyponatremia Status: Acute (3) Diabetes ICD Code: E11.9 - Type 2 diabetes mellitus without complications Plan: Continue SSI with insulin Novolog Monitor blood glucose Good glycemic control (4) HTN (hypertension) ICD Code: I10 - Essential (primary) hypertension Plan: continue Lisinopril. Monitor BP (5) Wheezing ICD Code: R06.2 - Wheezing Status: Acute (6) Hypothyroidism ICD Code: E03.9 - Hypothyroidism, unspecified (7) Anemia ICD Code: D64.9 - Anemia, unspecified (8) Cannabinosis ICD Code: J66.2 - Cannabinosis (9) Tobacco abuse ICD Code: Z72.0 - Tobacco use (10) Rib pain on right side ICD Code: R07.81 - Pleurodynia Plan: Long-standing duration However will check x-ray to rule out fracture Likely conservative treatment with NSAIDs versus others Problem Qualifiers (1) Diabetes: Qualified Codes: E11.9 - Type 2 diabetes mellitus without complications (2) HTN (hypertension): Qualified Codes: I10 - Essential (primary) hypertension (3) Hypothyroidism: Qualified Codes: E03.9 - Hypothyroidism, unspecified Soto Mosquera MD Jul 08, 2017 09:38
--- NOTE | 2017-07-08 11:52 | RADRPT ---
EXAM DATE/TIME: 07/08/2017 11:10 [place] COMPARISON: CHEST SINGLE AP, June 20, 2017, 20:38. INDICATIONS : Chest pain. MEDICAL HISTORY : Hypertension. cardiac disorders, diabetes, psychiatric disorders SURGICAL HISTORY : None. ENCOUNTER: Initial ACUITY: 1 day PAIN SCORE: 3/10 LOCATION: Right chest FINDINGS: A single view of the chest demonstrates the lungs to be symmetrically aerated without evidence of mas s, infiltrate or effusion. The cardiomediastinal contours are unremarkable. Osseous structures are intact. CONCLUSION: No acute disease. João Marcial MD on July 08, 2017 at 11:51 Board Certified Radiologist. This report was verified electronically.
--- NOTE | 2017-07-08 12:47 | PD.TTN ---
Patient Problems 1. Discharge planning 2. Medication compliance 3. Knowledge deficit 4. Lack of coping skills Progress Toward Goals Provider Present: Dr. Kierra Fenton Provider Input: Patient medication continues to be adjusted, continue inpatient treatment; counselor to notify patient's to ask her opinion on when patient is mentally stable possible d/c to Rehab for futher treatment Nurse(s) Input: RN/Zraa pt needs to have labs and other medical inpatient service; night staff reports patient had a fall Psychiatric Counselors Present: Alondra Harden [facility] Psych Therapist Input: Patient continues to be liable, lack insight and shows impairment with judgment, basic needs and safety Group Spec/RT/OT/CLARK Present: Wong Huang OT Group Spec/RT/OT/CLARK Input: Patient lacks insight or ability to appropriately participate with groups or activities Patient/Family Input: Patient's states she agrees that patient will probably require a short Health and Rehab admission/stay prior to returning home Alondra Harden [facility] Jul 08, 2017 12:47
[2017-07-08 14:15] LABS: BACTERIA, URINE RARE /hpf; BLOOD, URINE MOD (NEG); GLUCOSE,URINE 70 mg/dL (NEG); KETONE, URINE NEG (NEG); MUCUS URINE FEW /lpf (OCC); NITRITE,URINE NEG (NEG); PH, URINE 6.5 (5.0-8.5); URINE COLOR YELLOW (YELLW/STRAW)
[2017-07-08 14:16] LABS: COMMENT (UR) CATH-CULTURE IND; CULTURE IF INDICATED CATH CULTURE IND
[2017-07-08 18:01] VITALS: BP 136/69; PULSE 65; RESP 19; TEMP 97.9; O2SAT 97
[2017-07-08] MEDS: MELATONIN 5 MG TAB PO SCH (20:29)
[2017-07-08 22:00] VITALS: BP 124/58; PULSE 60; RESP 17; TEMP 98.2; O2SAT 93
[2017-07-09 02:00] VITALS: BP 120/61; PULSE 78; RESP 18; TEMP 98.3; O2SAT 94
[2017-07-09] MEDS: LORazepam 2 MG/ML VIAL IM PRN (02:55)
[2017-07-09 05:47] VITALS: BP 140/73; PULSE 70; RESP 17; TEMP 98.3; O2SAT 97
[2017-07-09] MEDS: LEVOTHYROXINE SODIUM 50 MCG TAB PO SCH (05:54)
[2017-07-09] MEDS: INSULIN ASPART SUPPLEMENTAL SCALE SQ SCH ×4 (08:00→21:00)
--- NOTE | 2017-07-09 08:02 | HHI.PYPN ---
Subjective Remarks Patient seen and examined. Chart reviewed. Case discussed with nursing staff. On my exam today, patient is calm and cooperative with exam. He is clothed appropriately today. Mood is stable, and there is little evidence of ongoing mixed symptomatology besides some mild loosening of associations. In general, though, conversation is focused and relevant. He is agreeable to temporary rehab placement, although he would prefer to go home. No SI/HI. No psychotic symptoms. Denies side effects from medications. No physical complaints. Review of Systems ROS Limitations: Poor Historian Except as stated in HPI: all other systems reviewed are Neg Objective Alert: Yes [place]: Person, Place, Date, Situation Mood: Calm Affect: Appropriate Memory Intact: Comment (fair) Hallucinations: Other (No AVH) Delusions: No Delusion Type: Other (no delusional material) Suicidal: Ideation (No SI) Homicidal: Ideation (No HI) Insight/Judgment Poor but perhaps improving Remarks Thought processes fairly linear. Grooming and hygiene fair. Speech within normal limits for rate, tone and volume. No new motoric abnormalities appreciated. Labs Test 07/08/17 13:30 Urine Color YELLOW Urine Turbidity CLEAR Urine pH 6.5 Urine Specific [place] 1.017 Urine Protein TRACE mg/dL Urine Glucose (UA) 70 mg/dL Urine Ketones NEG mg/dL Urine Occult Blood MOD Urine Nitrite NEG Urine Bilirubin NEG Urine Urobilinogen 2.0 MG/DL Urine Leukocyte Esterase LARGE Urine RBC 21 /hpf Urine WBC 32 /hpf Urine Bacteria RARE /hpf Urine Mucus FEW /lpf Microscopic Urinalysis Comment CATH-CULTURE IND Date/Time Source Procedure Growth Status 07/08/17 13:30 Urine Catheterized Urine Urine Culture Pending Received Labs reviewed. Urine culture pending. Vitals/IOs Vital Signs Date Time Temp Pulse Resp B/P (MAP) Pulse Ox O2 Delivery O2 Flow Rate FiO2 07/09/17 05:47 98.3 70 17 140/73 (95) 97 Intake and Output 07/09/17 07/09/17 07/10/17 08:00 16:00 00:00 Intake Total 480 ml Output Total 500 ml Balance -20 ml Assessment & Plan Problem List: (1) Bipolar disorder, in partial remission, most recent episode mixed ICD Codes: F31.77 - Bipolar disorder, in partial remission, most recent episode mixed Assessment & Plan Patient seems to be significantly improved from a psychiatric standpoint. Continue lithium and Geodon as ordered and plan to check a lithium level along with a BMP/CBC in the morning. Hospitalist input noted and appreciated. Follow -up urine culture. Initiate trial of voiding without catheter as was recommended by urology. Check postvoid residuals. OT consult to assess functional status. Continue to monitor on the inpatient unit. Continue other medications and care as ordered. Justification for Cont. Inpt. Risk for decompensation in less restrictive environment. Discharge Planning PT recs reviewed. Case d/w counselor. Will explore PT at rehab. Request HC Surrog/Guard Advoc?: Yes Piter Fenton MD Jul 09, 2017 08:02
[2017-07-09] MEDS: BENZTROPINE MESYLATE 1 MG TAB PO SCH ×2 (08:23→20:38)
[2017-07-09] MEDS: ZIPRASIDONE HCL 80 MG CAP PO SCH ×2 (08:23→17:35)
[2017-07-09] MEDS: LACTULOSE SYRUP 20 GM/30 ML CUP PO SCH ×3 (08:23→17:52)
[2017-07-09] MEDS: ZIPRASIDONE HCL 20 MG CAP PO SCH ×2 (08:23→17:35)
[2017-07-09] MEDS: BUDESONIDE-FORMOTEROL 160/4.5 MCG INHALER INH SCH ×2 (08:24→21:01)
[2017-07-09] MEDS: TAMSULOSIN HCL 0.4 MG CAP PO SCH (08:24)
[2017-07-09] MEDS: LITHIUM CARBONATE 300 MG TAB PO SCH ×3 (09:00→20:38)
[2017-07-09] MEDS: NICOTINE 21 MG/24 HR PATCH T-DERMAL SCH (09:00)
[2017-07-09] MEDS: REMOVE OLD PATCH T-DERMAL SCH (09:00)
--- NOTE | 2017-07-09 09:41 | HHI.PR ---
Subjective Remarks Patient seen and examined No acute event overnight and patient has no complaint this morning Objective Vitals Vital Signs Date Time Temp Pulse Resp B/P (MAP) Pulse Ox O2 Delivery O2 Flow Rate FiO2 07/09/17 05:47 98.3 70 17 140/73 (95) 97 07/09/17 02:00 98.3 78 18 120/61 (80) 94 07/08/17 22:00 98.2 60 17 124/58 (80) 93 07/08/17 18:01 97.9 65 19 136/69 (91) 97 I/O 07/08/17 07/08/17 07/08/17 07/09/17 07/09/17 07/09/17 07:00 15:00 23:00 07:00 15:00 23:00 Intake Total 120 ml 360 ml 550 ml 480 ml Output Total 150 ml 1050 ml 500 ml Balance -30 ml 360 ml -500 ml -20 ml Intake Oral 120 ml 360 ml 550 ml 480 ml Output Urine Total 150 ml 1050 ml 500 ml Result Diagram: 07/06/1795807/06/17958 Objective Remarks GENERAL: NAD SKIN: Warm and dry. HEAD: Normocephalic. EYES: No scleral icterus. No injection or drainage. NECK: Supple, trachea midline. No JVD or lymphadenopathy. CARDIOVASCULAR: Regular rate and rhythm without murmurs, gallops, or rubs. RESPIRATORY: Breath sounds equal bilaterally. No accessory muscle use. GASTROINTESTINAL: Abdomen soft, non-tender, nondistended. MUSCULOSKELETAL: No cyanosis, or edema. BACK: Nontender without obvious deformity. No CVA tenderness. A/P Problem List: (1) Bipolar disorder, current episode mixed, severe, with psychotic features ICD Code: F31.64 - Bipolar disorder, current episode mixed, severe, with psychotic features Status: Acute Plan: Management as per psychiatry. (2) Hyponatremia ICD Code: E87.1 - Hypo-osmolality and hyponatremia Status: Acute (3) Diabetes ICD Code: E11.9 - Type 2 diabetes mellitus without complications Plan: Continue SSI with insulin Novolog Monitor blood glucose Good glycemic control (4) HTN (hypertension) ICD Code: I10 - Essential (primary) hypertension Plan: continue Lisinopril. Monitor BP (5) Wheezing ICD Code: R06.2 - Wheezing Status: Acute (6) Hypothyroidism ICD Code: E03.9 - Hypothyroidism, unspecified Plan: Continue Synthroid (7) Anemia ICD Code: D64.9 - Anemia, unspecified (8) Cannabinosis ICD Code: J66.2 - Cannabinosis (9) Tobacco abuse ICD Code: Z72.0 - Tobacco use (10) Rib pain on right side ICD Code: R07.81 - Pleurodynia Plan: Chest x-ray without any evidence of fracture Likely conservative treatment with NSAIDs versus others Problem Qualifiers (1) Diabetes: Qualified Codes: E11.9 - Type 2 diabetes mellitus without complications (2) HTN (hypertension): Qualified Codes: I10 - Essential (primary) hypertension (3) Hypothyroidism: Qualified Codes: E03.9 - Hypothyroidism, unspecified Soto Mosquera MD Jul 09, 2017 09:41
[2017-07-09] MEDS: ACETAMINOPHEN 325 MG TAB PO PRN (12:42)
[2017-07-09] MEDS: LORazepam 0.5 MG TAB PO PRN ×2 (12:42→20:38)
[2017-07-09 17:58] VITALS: BP 139/64; PULSE 75; RESP 18; TEMP 97.4; O2SAT 100
[2017-07-09] MEDS: MELATONIN 5 MG TAB PO SCH (20:38)
[2017-07-09] MEDS: diphenhydrAMINE HCL 50 MG CAP PO PRN (20:39)
[2017-07-09] MEDS: CIPROFLOXACIN 500 MG TAB PO SCH (21:29)
[2017-07-10] MEDS: LORazepam 2 MG/ML VIAL IM PRN (03:13)
[2017-07-10 05:35] VITALS: BP 143/64; PULSE 79; RESP 17; TEMP 98.6; O2SAT 95
[2017-07-10] MEDS: LEVOTHYROXINE SODIUM 50 MCG TAB PO SCH (05:49)
[2017-07-10] MEDS: INSULIN ASPART SUPPLEMENTAL SCALE SQ SCH ×4 (08:00→21:00)
--- NOTE | 2017-07-10 08:19 | HHI.PYPN ---
Subjective Remarks Patient seen and examined. Chart reviewed. Case discussed with counselor and nurse. Patient slept poorly overnight. He had minimal urine production and high residuals, and so I ordered Guevara catheter replaced overnight, but apparently patient was straight catheterized instead. On my exam, patient's mood remains stable. He says that he is a little distressed that he is having ongoing urinary issues but otherwise doing well. He is presently a little sleepy, and I have encouraged him to be up during the day to promote restful sleep at HS. No psychotic symptoms. No suicidal/homicidal ideation. No side effects from medications. Besides some residual feeling of fullness from urinary retention, no other physical complaints. Review of Systems Except as stated in HPI: all other systems reviewed are Neg Objective Alert: Yes [place]: Person, Place, Date, Situation Mood: Calm Affect: Appropriate (remains appropriate) Memory Intact: Comment (fair) Hallucinations: Other (none) Delusions: No Delusion Type: Other (no delusions) Suicidal: Ideation (No SI) Homicidal: Ideation (No HI) Insight/Judgment Perhaps improving somewhat Remarks No new motor abnormalities noted. Labs Date/Time Source Procedure Growth Status 07/08/17 13:30 Urine Catheterized Urine Urine Culture - Preliminary Gram Negative Joo Resulted Labs reviewed. Urine culture reviewed. I note the hospitalist has started the patient on Cipro. [place] level, BMP and CBC ordered for today are listed as in process. Vitals/IOs Vital Signs Date Time Temp Pulse Resp B/P (MAP) Pulse Ox O2 Delivery O2 Flow Rate FiO2 07/10/17 05:35 98.6 79 17 143/64 (90) 95 Intake and Output 07/10/17 07/10/17 07/11/17 08:00 16:00 00:00 Intake Total 240 ml Balance 240 ml Assessment & Plan Problem List: (1) Bipolar disorder, in partial remission, most recent episode mixed ICD Codes: F31.77 - Bipolar disorder, in partial remission, most recent episode mixed Assessment & Plan Ongoing issues with urinary retention. I have instructed RN to place Guevara as I ordered and have left a message with Dr. Erickson's office to discuss recs for management of retention going forward. Continue lithium and Geodon as ordered pending level. Follow up labs. Hospitalist input noted and appreciated. Continue to monitor on the med psych unit. Continue other medications and care as ordered. Justification for Cont. Inpt. Risk for decompensation in less restrictive environment. Discharge Planning Case discussed with counselor. Placement is proving difficult, but the counselor continues to work to identify rehab to which pt may go. Request HC Surrog/Guard Advoc?: Yes Piter Fenton MD Jul 10, 2017 08:19
[2017-07-10] MEDS: LACTULOSE SYRUP 20 GM/30 ML CUP PO SCH ×3 (08:35→17:10)
[2017-07-10] MEDS: NICOTINE 21 MG/24 HR PATCH T-DERMAL SCH (08:35)
[2017-07-10] MEDS: REMOVE OLD PATCH T-DERMAL SCH (08:37)
[2017-07-10] MEDS: TAMSULOSIN HCL 0.4 MG CAP PO SCH ×2 (08:38→19:55)
[2017-07-10] MEDS: ZIPRASIDONE HCL 20 MG CAP PO SCH ×2 (08:41→17:10)
[2017-07-10] MEDS: LITHIUM CARBONATE 300 MG TAB PO SCH ×3 (08:43→21:00)
[2017-07-10] MEDS: CIPROFLOXACIN 500 MG TAB PO SCH ×2 (08:45→19:55)
[2017-07-10] MEDS: BENZTROPINE MESYLATE 1 MG TAB PO SCH ×2 (08:45→19:55)
[2017-07-10] MEDS: BUDESONIDE-FORMOTEROL 160/4.5 MCG INHALER INH SCH ×2 (08:47→19:56)
[2017-07-10] MEDS: ZIPRASIDONE HCL 80 MG CAP PO SCH ×2 (08:52→17:10)
--- NOTE | 2017-07-10 09:28 | HHI.PR ---
Subjective Remarks Patient with urinary retention and needed straight cath overnight Started on Cipro for UTI yesterday Currently afebrile Objective Vitals Vital Signs Date Time Temp Pulse Resp B/P (MAP) Pulse Ox O2 Delivery O2 Flow Rate FiO2 07/10/17 05:35 98.6 79 17 143/64 (90) 95 07/09/17 17:58 97.4 75 18 139/64 (89) 100 I/O 07/09/17 07/09/17 07/09/17 07/10/17 07/10/17 07/10/17 07:00 15:00 23:00 07:00 15:00 23:00 Intake Total 480 ml 2520 ml 240 ml Output Total 500 ml 2400 ml Balance -20 ml 120 ml 240 ml Intake Oral 480 ml 2520 ml 240 ml Output Urine Total 500 ml 2400 ml # Voids 2 2 # Bowel Movements 2 Result Diagram: 07/06/1759 07/06/17 0959 Objective Remarks GENERAL: NAD SKIN: Warm and dry. HEAD: Normocephalic. EYES: No scleral icterus. No injection or drainage. NECK: Supple, trachea midline. No JVD or lymphadenopathy. CARDIOVASCULAR: Regular rate and rhythm without murmurs, gallops, or rubs. RESPIRATORY: Breath sounds equal bilaterally. No accessory muscle use. GASTROINTESTINAL: Abdomen soft, non-tender, nondistended. MUSCULOSKELETAL: No cyanosis, or edema. BACK: Nontender without obvious deformity. No CVA tenderness. A/P Problem List: (1) Bipolar disorder, current episode mixed, severe, with psychotic features ICD Code: F31.64 - Bipolar disorder, current episode mixed, severe, with psychotic features Status: Acute Plan: Management as per psychiatry. (2) Hyponatremia ICD Code: E87.1 - Hypo-osmolality and hyponatremia Status: Acute (3) Diabetes ICD Code: E11.9 - Type 2 diabetes mellitus without complications Plan: Continue SSI with insulin Novolog Monitor blood glucose Good glycemic control (4) HTN (hypertension) ICD Code: I10 - Essential (primary) hypertension Plan: continue Lisinopril. 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
[2017-07-10 15:37] LABS: AUTOMATED NEUTROPHIL # 8.3 TH/MM3 (1.8-7.7); BASOPHIL # 0.1 TH/MM3 (0-0.2); BASOPHIL % 0.7 % (0.0-2.0); EOSINOPHIL % 0.1 % (0.0-4.0); HEMATOCRIT 28.5 % (39.0-51.0); LYMPH % 11.8 % (9.0-44.0); LYMPHOCYTE # 1.2 TH/MM3 (1.0-4.8); MEAN CELL VOLUME 96.1 FL (80.0-100.0); MEAN CORPUSCULAR HEMOGLOBIN 41.7 PG (27.0-34.0); MONO % 5.8 % (0.0-8.0); NEUT % 81.6 % (16.0-70.0); PLATELET COUNT 218 TH/MM3 (150-450); RED BLOOD COUNT 2.97 MIL/MM3 (4.50-5.90); WHITE BLOOD COUNT 10.2 TH/MM3 (4.0-11.0)
[2017-07-10 15:40] LABS: HEMO FLAGS AUTO DIFF; MEAN CORPUSCULAR HGB CONC 43.4 % (32.0-36.0)
--- NOTE | 2017-07-10 15:54 | HHI.PR ---
Subjective Patient symptoms today segura removed yesterday. Unable to void. CIC x 2 for >700 overnight. segura placed earlier today for about 1L. Denies pain, fevers. Objective Vital Signs Vital Signs Date Time Temp Pulse Resp B/P (MAP) Pulse Ox O2 Delivery O2 Flow Rate FiO2 07/10/17 05:35 98.6 79 17 143/64 (90) 95 07/09/17 17:58 97.4 75 18 139/64 (89) 100 Intake & Output 07/10/17 07/10/17 07:00 19:00 Intake Total 480 ml 600 ml Output Total 1550 ml Balance 480 ml -950 ml Intake Oral 480 ml 600 ml Output Urine Total 1550 ml Bladder Scan Volume Amount 999 ml # Voids 3 # Bowel Movements 1 Result Diagram: 07/10/17 1455 07/06/17 0959 Objective Remarks NAD. abd soft Segura boy aid color, but draining. Medications and IVs Current Medications Medications (Trade) Dose Ordered Sig/Alanna Route Start Time Stop Time Status Last Admin (Tylenol) 650 mg Q4H PRN PO 06/19/17 13:30 07/09/17 12:42 (Milk Of Magnesia Liq) 30 ml DAILY PRN PO 06/19/17 13:30 (Mag-Al Plus Susp Liq) 30 ml Q6H PRN PO 06/19/17 13:30 (Prinivil) 10 mg DAILY PRN PO 06/19/17 18:00 07/01/17 06:27 (Ativan) 0.5 mg Q6H PRN PO 06/20/17 13:30 07/09/17 20:38 (Ativan Inj) 0.5 mg Q6H PRN IM 06/20/17 13:30 07/10/17 03:13 (D50w (Vial) Inj) 50 ml UNSCH PRN IV 06/20/17 07:30 (Glucagon Inj) 1 mg UNSCH PRN OTHER 06/20/17 07:30 (NovoLOG SUPPLEMENTAL SCALE) 1 ACHS SLIDING SCALE SQ 06/20/17 11:00 07/10/17 11:48 (Symbicort 160-4.5 Inh) 2 puff Q12HR INH 06/20/17 11:15 07/10/17 08:47 (Habitrol 21 Mg Patch.24 Hr) 1 patch DAILY T-DERMAL 06/20/17 11:15 07/10/17 08:35 Miscellaneous Information 1 DAILY T-DERMAL 06/21/17 09:00 07/10/17 08:37 (Synthroid) 50 mcg DAILY@0600 PO 06/20/17 17:15 07/10/17 05:49 (Dulcolax Ec) 10 mg DAILY PRN PO 06/24/17 10:45 (Cogentin) 0.5 mg Q12HR PO 06/24/17 11:30 07/10/17 08:45 (Geodon Inj) 10 mg BIDPC PRN IM 06/27/17 08:15 (Lactulose Liq) 30 ml TID PO 06/27/17 18:00 07/10/17 11:49 (Flomax) 0.4 mg DAILY PO 07/01/17 12:00 07/10/17 08:38 (Melatonin) 5 mg HS PO 07/01/17 21:00 07/09/17 20:38 (Geodon) 80 mg BIDPC PO 07/02/17 18:00 07/10/17 08:52 (Geodon) 20 mg BIDPC PO 07/02/17 18:00 07/10/17 08:41 (Pill Splitter) 1 ea UNSCH PRN OTHER 07/03/17 14:15 (Lithotabs) 300 mg DAILY@0900,1300,2100 PO 07/07/17 09:00 07/10/17 11:49 (Cipro) 500 mg Q12HR PO 07/09/17 21:00 07/10/17 08:45 (Benadryl) 50 mg HS PRN PO 07/09/17 19:45 07/09/17 20:39 Assessment and Plan Problem List: (1) Urinary retention due to benign prostatic hyperplasia ICD Code: N40.1 - Benign prostatic hyperplasia with lower urinary tract symptoms; R33.8 - Other retention of urine Status: Acute (2) UTI (urinary tract infection) ICD Code: N39.0 - Urinary tract infection, site not specified Status: Acute Assessment and Plan 72 yo male with recurrent urinary retention, UTI -Recommend d/c with segura. Outpatient void trial. -Increase Flomax to BID. -antibiotics for UTI -OK to d/c to rehab. F/U as out patient. [phone]. Hiren Erickson MD Jul 10, 2017 15:54
[2017-07-10 15:59] LABS: BICARBONATE 31.4 MEQ/L (21.0-32.0); POTASSIUM 3.9 MEQ/L (3.5-5.1)
[2017-07-10 17:31] VITALS: BP 129/60; PULSE 80; RESP 18; TEMP 98.8; O2SAT 97
[2017-07-10 18:32] LABS: METAMYELOCYTES 1 % (0-1); NEUTROPHIL # MANUAL DIFF 8.4 TH/MM3 (1.8-7.7); POLYS (SEG NEUTROPHILS) 81 % (16-70); WBC DIFF SAMPLE 100
[2017-07-10 18:37] LABS: PLATELET ESTIMATE SMEAR NORMAL (NORMAL); PLATELET MORPHOLOGY NORMAL (NORMAL); SCAN/DIFF FINAL DIFF MANUAL
[2017-07-10] MEDS: ACETAMINOPHEN 325 MG TAB PO PRN (19:54)
[2017-07-10] MEDS: diphenhydrAMINE HCL 50 MG CAP PO PRN (19:55)
[2017-07-10] MEDS: MELATONIN 5 MG TAB PO SCH (19:55)
[2017-07-10] MEDS: LORazepam 0.5 MG TAB PO PRN (19:55)
[2017-07-11] MEDS: LEVOTHYROXINE SODIUM 50 MCG TAB PO SCH (04:45)
[2017-07-11 04:58] VITALS: BP 149/69; PULSE 65; RESP 17; TEMP 98.4; O2SAT 99
[2017-07-11] MEDS: BUDESONIDE-FORMOTEROL 160/4.5 MCG INHALER INH SCH ×2 (07:53→21:00)
[2017-07-11] MEDS: CIPROFLOXACIN 500 MG TAB PO SCH (07:53)
[2017-07-11] MEDS: BENZTROPINE MESYLATE 1 MG TAB PO SCH ×2 (07:54→22:10)
[2017-07-11] MEDS: ZIPRASIDONE HCL 20 MG CAP PO SCH (07:55)
[2017-07-11] MEDS: TAMSULOSIN HCL 0.4 MG CAP PO SCH ×2 (07:55→21:00)
[2017-07-11] MEDS: ZIPRASIDONE HCL 80 MG CAP PO SCH ×2 (07:56→17:40)
[2017-07-11] MEDS: LACTULOSE SYRUP 20 GM/30 ML CUP PO SCH ×3 (07:57→17:40)
[2017-07-11] MEDS: INSULIN ASPART SUPPLEMENTAL SCALE SQ SCH ×4 (08:00→21:00)
[2017-07-11] MEDS: LITHIUM CARBONATE 300 MG TAB PO SCH ×3 (08:55→21:00)
[2017-07-11] MEDS: REMOVE OLD PATCH T-DERMAL SCH (08:55)
[2017-07-11] MEDS: NICOTINE 21 MG/24 HR PATCH T-DERMAL SCH (08:58)
--- NOTE | 2017-07-11 09:51 | HHI.PR ---
Subjective Remarks Stable and afebrile Denies any right sided chest pain or flank pain Objective Vitals Vital Signs Date Time Temp Pulse Resp B/P (MAP) Pulse Ox O2 Delivery O2 Flow Rate FiO2 07/11/17 04:58 98.4 65 17 149/69 (95) 99 07/10/17 17:31 98.8 80 18 129/60 (83) 97 I/O 07/10/17 07/10/17 07/10/17 07/11/17 07/11/17 07/11/17 07:00 15:00 23:00 07:00 15:00 23:00 Intake Total 240 ml 600 ml 1325 ml 400 ml 240 ml Output Total 700 ml 2100 ml 400 ml Balance 240 ml -100 ml -775 ml 0 ml 240 ml Intake Oral 240 ml 600 ml 1325 ml 400 ml 240 ml Output Urine Total 700 ml 2100 ml 400 ml Bladder Scan Volume Amount 999 ml # Voids 2 # Bowel Movements 1 Result Diagram: 07/10/17 1455 07/10/17 1455 Objective Remarks GENERAL: NAD SKIN: Warm and dry. HEAD: Normocephalic. EYES: No scleral icterus. No injection or drainage. NECK: Supple, trachea midline. No JVD or lymphadenopathy. CARDIOVASCULAR: Regular rate and rhythm without murmurs, gallops, or rubs. RESPIRATORY: Breath sounds equal bilaterally. No accessory muscle use. GASTROINTESTINAL: Abdomen soft, non-tender, nondistended. MUSCULOSKELETAL: No cyanosis, or edema. BACK: Nontender without obvious deformity. No CVA tenderness. A/P Problem List: (1) Bipolar disorder, current episode mixed, severe, with psychotic features ICD Code: F31.64 - Bipolar disorder, current episode mixed, severe, with psychotic features Status: Acute Plan: Management as per psychiatry. (2) Hyponatremia ICD Code: E87.1 - Hypo-osmolality and hyponatremia Status: Acute (3) Diabetes ICD Code: E11.9 - Type 2 diabetes mellitus without complications Plan: Continue SSI with insulin Novolog Monitor blood glucose Good glycemic control (4) HTN (hypertension) ICD Code: I10 - Essential (primary) hypertension Plan: continue Lisinopril. Monitor BP (5) Wheezing ICD Code: R06.2 - Wheezing Status: Acute (6) Hypothyroidism ICD Code: E03.9 - Hypothyroidism, unspecified Plan: Continue Synthroid (7) Anemia ICD Code: D64.9 - Anemia, unspecified (8) Cannabinosis ICD Code: J66.2 - Cannabinosis (9) Tobacco abuse ICD Code: Z72.0 - Tobacco use (10) Rib pain on right side ICD Code: R07.81 - Pleurodynia (11) UTI (urinary tract infection) ICD Code: N39.0 - Urinary tract infection, site not specified Status: Acute Plan: Discontinue Cipro and start Macrobid 100 mg by mouth twice a day Problem Qualifiers (1) Diabetes: Qualified Codes: E11.9 - Type 2 diabetes mellitus without complications (2) HTN (hypertension): Qualified Codes: I10 - Essential (primary) hypertension (3) Hypothyroidism: Qualified Codes: E03.9 - Hypothyroidism, unspecified Soto Mosquera MD Jul 11, 2017 09:51
--- NOTE | 2017-07-11 11:52 | HHI.PYPN ---
Subjective Remarks Patient seen and examined. Chart reviewed. Case discussed with nursing staff. On my examination today, the patient is quite calm and appropriate. His mood is reportedly stable and I can elicit no depressive or significant hypomanic or manic symptoms at this time. Denies any hallucinations. Denies any SI or HI. Denies side effects from medications. I discussed my concerns with him regarding the potential impact of lithium on his renal function. No physical complaints. Review of Systems Except as stated in HPI: all other systems reviewed are Neg Objective Alert: Yes [place]: Person, Place, Date, Situation Mood: Calm Affect: Appropriate Memory Intact: Comment (fair) Hallucinations: Other (denies AVH) Delusions: No Delusion Type: Other (no delusions) Suicidal: Ideation (No SI) Homicidal: Ideation (denies HI) Insight/Judgment Improving Remarks Oral dyskinesias persist. No other motor abnormalities noted. Thought process linear today. Grooming and hygiene fair. Labs Test 07/10/17 14:55 White Blood Count 10.2 TH/MM3 Red Blood Count 2.97 MIL/MM3 Hemoglobin 12.4 GM/DL Hematocrit 28.5 % Mean Corpuscular Volume 96.1 FL Mean Corpuscular Hemoglobin 41.7 PG Mean Corpuscular Hemoglobin Concent 43.4 % Red Cell Distribution Width 13.0 % Platelet Count 218 TH/MM3 Mean Platelet Volume 7.7 FL Neutrophils (%) (Auto) 81.6 % Lymphocytes (%) (Auto) 11.8 % Monocytes (%) (Auto) 5.8 % Eosinophils (%) (Auto) 0.1 % Basophils (%) (Auto) 0.7 % Neutrophils # (Auto) 8.3 TH/MM3 Lymphocytes # (Auto) 1.2 TH/MM3 Monocytes # (Auto) 0.6 TH/MM3 Eosinophils # (Auto) 0.0 TH/MM3 Basophils # (Auto) 0.1 TH/MM3 CBC Comment AUTO DIFF Differential Total Cells Counted 100 Neutrophils % (Manual) 81 % Lymphocytes % 11 % Monocytes % 7 % Neutrophils # (Manual) 8.4 TH/MM3 Metamyelocytes 1 % Differential Comment FINAL DIFF MANUAL Platelet Estimate NORMAL Platelet Morphology Comment NORMAL Hematology Comments Blood Urea Nitrogen 15 MG/DL Creatinine 1.23 MG/DL Random Glucose 140 MG/DL Calcium Level 9.5 MG/DL Sodium Level 132 MEQ/L Potassium Level 3.9 MEQ/L Chloride Level 97 MEQ/L Carbon Dioxide Level 31.4 MEQ/L Anion Gap 4 MEQ/L Estimat Glomerular Filtration Rate 58 ML/MIN [place] Level 1.1 MEQ/L Date/Time Source Procedure Growth Status 07/08/17 13:30 Urine Catheterized Urine Urine Culture - Final Escherichia Coli Complete Labs reviewed. BMP ordered for today pending. Vitals/IOs Vital Signs Date Time Temp Pulse Resp B/P (MAP) Pulse Ox O2 Delivery O2 Flow Rate FiO2 07/11/17 04:58 98.4 65 17 149/69 (95) 99 Intake and Output 07/11/17 07/11/17 07/12/17 08:00 16:00 00:00 Intake Total 640 ml Output Total 400 ml Balance 240 ml Assessment & Plan Problem List: (1) Bipolar disorder, in partial remission, most recent episode mixed ICD Codes: F31.77 - Bipolar disorder, in partial remission, most recent episode mixed Assessment & Plan Taper Geodon back to 80mg BIDPC with plans for further slow taper now that mood has largely stabilized and psychosis resolved. Continue lithium as ordered. Seltzer level ordered for tomorrow. Follow-up BMP. Continue other medications and care as ordered. Justification for Cont. Inpt. High risk for decompensation and less restrictive environment. Discharge Planning Case discussed with counselor who continues to explore rehabilitation placement options. Request HC Surrog/Guard Advoc?: Yes Piter Fenton MD Jul 11, 2017 11:52
[2017-07-11] MEDS: NITROFURANTOIN MONOHYD MACROCR 100 MG CAP PO SCH ×2 (17:40→17:55)
[2017-07-11 18:00] VITALS: BP 130/72; PULSE 96; RESP 16; TEMP 98.5; O2SAT 98
[2017-07-11 19:49] LABS: BICARBONATE 29.1 MEQ/L (21.0-32.0); POTASSIUM 4.4 MEQ/L (3.5-5.1)
[2017-07-11] MEDS: MELATONIN 5 MG TAB PO SCH (22:10)
[2017-07-12 04:39] VITALS: BP 170/79; PULSE 75; RESP 16; TEMP 98.6; O2SAT 97
[2017-07-12] MEDS: LEVOTHYROXINE SODIUM 50 MCG TAB PO SCH (06:00)
[2017-07-12] MEDS: INSULIN ASPART SUPPLEMENTAL SCALE SQ SCH ×4 (08:00→21:12)
--- NOTE | 2017-07-12 08:28 | HHI.PR ---
Subjective Remarks Follow-up visit urinary retention, urinary tract infection. Patient seen and examined today sitting in a Shana chair. Reports he is doing well. Confused but able to respond to questions and commands. Complaints of suprapubic pain unable to describe. Segura catheter in place draining yellow urine. As per nursing, no acute issues overnight. Objective Vitals Vital Signs Date Time Temp Pulse Resp B/P (MAP) Pulse Ox O2 Delivery O2 Flow Rate FiO2 07/12/17 04:39 98.6 75 16 170/79 (109) 97 07/11/17 18:00 98.5 96 16 130/72 (91) 98 I/O 07/11/17 07/11/17 07/11/17 07/12/17 07/12/17 07/12/17 07:00 15:00 23:00 07:00 15:00 23:00 Intake Total 400 ml 360 ml 1560 ml 480 ml Output Total 400 ml 1600 ml 1600 ml Balance 0 ml 360 ml -40 ml -1120 ml Intake Oral 400 ml 360 ml 1560 ml 480 ml Output Urine Total 400 ml 1600 ml 1600 ml Bladder Scan Volume Amount 999 ml Result Diagram: 07/10/17 1455 07/11/17 1850 Imaging Last Impressions Chest X-Ray 07/08/17 0000 Signed Impressions: Service Date/Time: Saturday, July 08, 2017 11:10 - CONCLUSION: No acute disease. João Marcial MD Renal Ultrasound 07/01/17 0000 Signed Impressions: Service Date/Time: Saturday, July 01, 2017 09:07 - CONCLUSION: Mild hydronephrotic changes bilaterally. Hydronephrosis on the left is stable. Hydronephrosis on the right appear slightly increased when compared to previous. Jeramy Mccurdy MD Liver Ultrasound 06/30/17 0000 Signed Impressions: Service Date/Time: Friday, June 30, 2017 17:22 - CONCLUSION: 1. Moderate bilateral hydronephrosis of indeterminate etiology. 2. Hepatosplenomegaly. 3. Coarse echotexture of the liver suggesting diffuse hepatic disease. 4. Gallbladder sludge. Jose Elias Gonzalez MD Head CT 06/27/17 0000 Signed Impressions: Service Date/Time: Tuesday, June 27, 2017 08:43 - CONCLUSION: No acute disease. Jose Elias Gonzalez MD Hand X-Ray 06/27/17 0000 Signed Impressions: Service Date/Time: Tuesday, June 27, 2017 08:55 - CONCLUSION: 1. No acute bony abnormality identified. Jeramy Mccurdy MD Abdomen X-Ray 06/24/17 0000 Signed Impressions: Service Date/Time: Saturday, June 24, 2017 08:48 - CONCLUSION: Nonobstructive bowel gas pattern. Juan Carlos Emery MD Objective Remarks GENERAL: Appears older than stated age, well-developed patient, in no apparent distress. SKIN: Warm and dry. HEENT: Normocephalic. Pupils equal round and reactive. Nose without bleeding. Airway patent. NECK: Trachea midline. Supple. CARDIOVASCULAR: Regular rate and rhythm without murmurs, gallops, or rubs. RESPIRATORY: Clear to auscultation. Breath sounds equal bilaterally. No wheezes , rales, or rhonchi. GASTROINTESTINAL: Abdomen soft, nondistended. Bowel Sounds normoactive x4. : Segura catheter draining yellow urine. Suprapubic area with tenderness to palpation. MUSCULOSKELETAL: Extremities without clubbing, cyanosis, or edema. NEUROLOGICAL: Awake and alert. Oriented to person. Confuse. Normal speech. A/P Problem List: (1) Bipolar disorder, current episode mixed, severe, with psychotic features ICD Code: F31.64 - Bipolar disorder, current episode mixed, severe, with psychotic features Status: Acute (2) Hyponatremia ICD Code: E87.1 - Hypo-osmolality and hyponatremia Status: Acute (3) Diabetes ICD Code: E11.9 - Type 2 diabetes mellitus without complications (4) HTN (hypertension) ICD Code: I10 - Essential (primary) hypertension (5) Wheezing ICD Code: R06.2 - Wheezing Status: Acute (6) Hypothyroidism ICD Code: E03.9 - Hypothyroidism, unspecified (7) Anemia ICD Code: D64.9 - Anemia, unspecified (8) Cannabinosis ICD Code: J66.2 - Cannabinosis (9) Tobacco abuse ICD Code: Z72.0 - Tobacco use (10) Rib pain on right side ICD Code: R07.81 - Pleurodynia (11) UTI (urinary tract infection) ICD Code: N39.0 - Urinary tract infection, site not specified Status: Acute Assessment and Plan 72-year-old male with past medical history of hypertension and diabetes who presents to [facility] after making some suicidal comments. He is now admitted to medical psychiatry unit for further evaluation. Consulted for medical management. Bipolar disorder - Management per psychiatry team Urinary retention Urinary tract infection - Continue tamsulosin 0.4mg increase to BID as per Urology recommendation - Segura catheter in place. Reinserted yesterday due to failed voiding trial - Urology following. Recommends to be dcd with segura and will have outpatient voiding trial. Urology follow up in outpatient - Patient was started on Cipro 500 mg nightly 12, stop date 07/11. On Macrobid now - Monitor urine output Hyponatremia - Hypoosmolality - Fluid restriction Hyperglycemia - Insulin sliding scale. Monitor Accu-Cheks. Monitor for hypoglycemia. - Hemoglobin A1c 5.7 Hypertension - Lisinopril 10mg daily - Monitor BP trend Hypothyroidism - Continue levothyroxine 50mcg Substance use Cannabinoids, Tobacco - Counseled. Nicotine patch. Generalized weakness, unsteady gait - PT OT eval and treat DVT prop early ambulation, if unable to ambulate and participate with activities will start lovenox daily Discussed with patient, nursing, Dr. Mosquera Problem Qualifiers (1) Diabetes: Qualified Codes: E11.9 - Type 2 diabetes mellitus without complications (2) HTN (hypertension): Qualified Codes: I10 - Essential (primary) hypertension (3) Hypothyroidism: Qualified Codes: E03.9 - Hypothyroidism, unspecified Christy Mishra Jul 12, 2017 08:28
[2017-07-12] MEDS: LACTULOSE SYRUP 20 GM/30 ML CUP PO SCH ×3 (08:29→18:00)
[2017-07-12] MEDS: TAMSULOSIN HCL 0.4 MG CAP PO SCH ×2 (08:30→20:50)
[2017-07-12] MEDS: ZIPRASIDONE HCL 80 MG CAP PO SCH ×2 (08:30→17:48)
[2017-07-12] MEDS: NITROFURANTOIN MONOHYD MACROCR 100 MG CAP PO SCH ×2 (08:31→17:48)
[2017-07-12] MEDS: BENZTROPINE MESYLATE 1 MG TAB PO SCH ×2 (08:32→20:50)
[2017-07-12] MEDS: REMOVE OLD PATCH T-DERMAL SCH (08:34)
[2017-07-12] MEDS: NICOTINE 21 MG/24 HR PATCH T-DERMAL SCH (08:36)
[2017-07-12] MEDS: LORazepam 0.5 MG TAB PO PRN (08:36)
[2017-07-12] MEDS: LITHIUM CARBONATE 300 MG TAB PO SCH ×3 (08:45→20:51)
[2017-07-12] MEDS: BUDESONIDE-FORMOTEROL 160/4.5 MCG INHALER INH SCH ×2 (09:00→21:00)
--- NOTE | 2017-07-12 09:27 | HHI.PYPN ---
Subjective Remarks Patient seen for follow-up, chart review. Patient found sitting in the hallway and chair eating breakfast, cooperative interview. Patient states that he slept "minimal" but recalls having been given trazodone previously which had helped. Patient states that he continues to hear some auditory hallucinations but was not able to discern what he had heard stating "I heard something". He reports that his mood is "good", concentration being "bad but still getting better". Patient was advised that his lithium level was within therapeutic range she was glad about. Patient reports tolerating medication well with no adverse drug reactions at this time. Review of Systems Except as stated in HPI: all other systems reviewed are Neg Objective Alert: Yes [place]: Person, Place, Date, Situation Mood: Calm Affect: Appropriate Memory Intact: Comment (fair) Hallucinations: Other (denies AVH) Delusions: No Delusion Type: Other (no delusions) Suicidal: Ideation (No SI) Homicidal: Ideation (denies HI) Insight/Judgment Limited insight, fair impulse control and judgment Labs Labs reviewed. Test 07/11/17 18:50 07/12/17 04:07 Blood Urea Nitrogen 16 MG/DL Creatinine 1.15 MG/DL Random Glucose 181 MG/DL Calcium Level 9.5 MG/DL Sodium Level 131 MEQ/L Potassium Level 4.4 MEQ/L Chloride Level 97 MEQ/L Carbon Dioxide Level 29.1 MEQ/L Anion Gap 5 MEQ/L Estimat Glomerular Filtration Rate 63 ML/MIN [place] Level 0.8 MEQ/L Date/Time Source Procedure Growth Status 07/08/17 13:30 Urine Catheterized Urine Urine Culture - Final Escherichia Coli Complete Vitals/IOs Vital Signs Date Time Temp Pulse Resp B/P (MAP) Pulse Ox O2 Delivery O2 Flow Rate FiO2 07/12/17 04:39 98.6 75 16 170/79 (109) 97 Intake and Output 07/12/17 07/12/17 07/13/17 08:00 16:00 00:00 Intake Total 480 ml Output Total 1600 ml Balance -1120 ml Assessment & Plan Problem List: (1) Bipolar disorder, in partial remission, most recent episode mixed ICD Codes: F31.77 - Bipolar disorder, in partial remission, most recent episode mixed Assessment & Plan Patient continues to endorse racing thoughts, poor sleep but appears to be responding to current treatment. Will add trazodone 50 mg by mouth at bedtime for sleep disturbance. Continue aggressive treatment, discharge planning in progress Justification for Cont. Inpt. At risk for further decompensation event lower level of care Request HC Surrog/Guard Advoc?: Yes Soto Fonseca MD Jul 12, 2017 09:27
[2017-07-12] MEDS: LISINOPRIL 10 MG TAB PO SCH (14:30)
[2017-07-12] MEDS: MELATONIN 5 MG TAB PO SCH (20:51)
[2017-07-12] MEDS: traZODone HCL 50 MG TAB PO PRN (20:51)
[2017-07-13] MEDS: LORazepam 2 MG/ML VIAL IM PRN (00:30)
[2017-07-13 05:06] VITALS: BP 120/57; PULSE 71; RESP 14; TEMP 97.5; O2SAT 96
[2017-07-13] MEDS: LEVOTHYROXINE SODIUM 50 MCG TAB PO SCH (05:20)
[2017-07-13] MEDS: INSULIN ASPART SUPPLEMENTAL SCALE SQ SCH ×4 (08:00→21:51)
--- NOTE | 2017-07-13 08:30 | HHI.PR ---
Subjective Remarks Follow-up visit urinary retention, urinary tract infection. Patient seen and examined today sitting in a Shana chair. Reports he is doing well. States that he was played by the nurses last night with a game about suicide. "The nurse want me to say, I want to commit suicide." States it passes his thoughts but he has no intention. Denies SI/ HI. Denies pain and discomfort. Denies SOB/ dyspnea. Denies chest pain, palpitations, headaches, dizziness. Denies fevers, n/v/d. Objective Vitals Vital Signs Date Time Temp Pulse Resp B/P (MAP) Pulse Ox O2 Delivery O2 Flow Rate FiO2 07/13/17 05:06 97.5 71 14 120/57 (78) 96 I/O 07/12/17 07/12/17 07/12/17 07/13/17 07/13/17 07/13/17 07:00 15:00 23:00 07:00 15:00 23:00 Intake Total 480 ml 240 ml 100 ml 240 ml Output Total 1600 ml 1600 ml 400 ml Balance -1120 ml -1360 ml -300 ml 240 ml Intake Oral 480 ml 240 ml 100 ml 240 ml Output Urine Total 1600 ml 1600 ml 400 ml # Bowel Movements 2 Result Diagram: 07/10/17 1455 07/11/17 1850 Imaging Last Impressions Chest X-Ray 07/08/17 0000 Signed Impressions: Service Date/Time: Saturday, July 08, 2017 11:10 - CONCLUSION: No acute disease. João Marcial MD Renal Ultrasound 07/01/17 0000 Signed Impressions: Service Date/Time: Saturday, July 01, 2017 09:07 - CONCLUSION: Mild hydronephrotic changes bilaterally. Hydronephrosis on the left is stable. Hydronephrosis on the right appear slightly increased when compared to previous. Jeramy Mccurdy MD Liver Ultrasound 06/30/17 0000 Signed Impressions: Service Date/Time: Friday, June 30, 2017 17:22 - CONCLUSION: 1. Moderate bilateral hydronephrosis of indeterminate etiology. 2. Hepatosplenomegaly. 3. Coarse echotexture of the liver suggesting diffuse hepatic disease. 4. Gallbladder sludge. Jose Elias Gonzalez MD Head CT 06/27/17 0000 Signed Impressions: Service Date/Time: Tuesday, June 27, 2017 08:43 - CONCLUSION: No acute disease. Jose Elias Gonzalez MD Hand X-Ray 06/27/17 0000 Signed Impressions: Service Date/Time: Tuesday, June 27, 2017 08:55 - CONCLUSION: 1. No acute bony abnormality identified. Jeramy Mccurdy MD Abdomen X-Ray 06/24/17 0000 Signed Impressions: Service Date/Time: Saturday, June 24, 2017 08:48 - CONCLUSION: Nonobstructive bowel gas pattern. Juan Carlos Emery MD Objective Remarks GENERAL: Appears older than stated age, well-developed patient, in no apparent distress. SKIN: Warm and dry. HEENT: Normocephalic. Pupils equal round and reactive. Nose without bleeding. Airway patent. NECK: Trachea midline. Supple. CARDIOVASCULAR: Regular rate and rhythm without murmurs, gallops, or rubs. RESPIRATORY: Clear to auscultation. Breath sounds equal bilaterally. No wheezes , rales, or rhonchi. GASTROINTESTINAL: Abdomen soft, nondistended. Bowel Sounds normoactive x4. : Segura catheter draining alberto urine. No Suprapubic tenderness to palpation. MUSCULOSKELETAL: Extremities without clubbing, cyanosis, or edema. NEUROLOGICAL: Awake and alert. Oriented to person. Confuse. Normal speech. A/P Problem List: (1) Bipolar disorder, current episode mixed, severe, with psychotic features ICD Code: F31.64 - Bipolar disorder, current episode mixed, severe, with psychotic features Status: Acute (2) Hyponatremia ICD Code: E87.1 - Hypo-osmolality and hyponatremia Status: Acute (3) Diabetes ICD Code: E11.9 - Type 2 diabetes mellitus without complications (4) HTN (hypertension) ICD Code: I10 - Essential (primary) hypertension (5) Wheezing ICD Code: R06.2 - Wheezing Status: Acute (6) Hypothyroidism ICD Code: E03.9 - Hypothyroidism, unspecified (7) Anemia ICD Code: D64.9 - Anemia, unspecified (8) Cannabinosis ICD Code: 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 He is now admitted to medical psychiatry unit for further evaluation. Consulted for medical management. Bipolar disorder - Management per psychiatry team Urinary retention Urinary tract infection - Continue tamsulosin 0.4mg increase to BID as per Urology recommendation - Segura catheter in place. Reinserted yesterday due to failed voiding trial - Urology following. Recommends to be dcd with segura and will have outpatient voiding trial. Urology follow up in outpatient - Patient was started on Cipro 500 mg nightly 12, stop date 07/11. On Macrobid now - Monitor urine output Hyponatremia - Hypoosmolality - Fluid restriction - Repeat BMP tomorrow Hyperglycemia - Insulin sliding scale. Monitor Accu-Cheks. Monitor for hypoglycemia. - Hemoglobin A1c 5.7 Hypertension - Lisinopril 10mg daily - Monitor BP trend Elevated Ammonia - Resolving. Decrease lactulose BID - Intermittently check levels Hypothyroidism - Continue levothyroxine 50mcg Substance use Cannabinoids, Tobacco - Counseled. Nicotine patch. Generalized weakness, unsteady gait - PT OT eval and treat DVT prop early ambulation, if unable to ambulate and participate with activities will start lovenox daily Discussed with patient, nursing, Dr. Mosquera Problem Qualifiers (1) Diabetes: Qualified Codes: E11.9 - Type 2 diabetes mellitus without complications (2) HTN (hypertension): Qualified Codes: I10 - Essential (primary) hypertension (3) Hypothyroidism: Qualified Codes: E03.9 - Hypothyroidism, unspecified Christy Mishra Jul 13, 2017 08:30
[2017-07-13] MEDS: BUDESONIDE-FORMOTEROL 160/4.5 MCG INHALER INH SCH ×2 (09:00→21:00)
[2017-07-13] MEDS: REMOVE OLD PATCH T-DERMAL SCH (09:00)
--- NOTE | 2017-07-13 09:00 | HHI.PYPN ---
Subjective Remarks Patient seen for follow-up, chart review. Patient found sitting in the hallway eating breakfast. After discussion with nursing staff patient was reported to have had poor sleep last evenin refused to eat with some meals, noted to be restless and noted to have echolalia when visited by his . Patient reports that he slept "not bad" but states that he is always had difficulty maintaining more than 4 hours of sleep. Patient states that the medications last evening helped him rest a little more. Patient said states that his mood is "happy and sad and feels that at home he had been feeling sad due to the of his pets but happy due to his and relatives. Patient reports having been visited by his last evening and that she thinks he is still not completely well stating "she doesn't think I'm doing as good as I think I'm doing". Patient states that upon discharge he would like to go back home. Review of Systems Except as stated in HPI: all other systems reviewed are Neg Objective Alert: Yes [place]: Person, Place, Date, Situation Mood: Calm Affect: Appropriate Memory Intact: Comment (fair) Hallucinations: Other (denies AVH) Delusions: No Delusion Type: Other (no delusions) Suicidal: Ideation (No SI) Homicidal: Ideation (denies HI) Insight/Judgment Limited insight, fair impulse control and judgment Labs Labs reviewed. Test 07/13/17 04:54 Ammonia 20 MCMOL/L Date/Time Source Procedure Growth Status 07/08/17 13:30 Urine Catheterized Urine Urine Culture - Final Escherichia Coli Complete Vitals/IOs Vital Signs Date Time Temp Pulse Resp B/P (MAP) Pulse Ox O2 Delivery O2 Flow Rate FiO2 07/13/17 05:06 97.5 71 14 120/57 (78) 96 Intake and Output 07/13/17 07/13/17 07/14/17 08:00 16:00 00:00 Intake Total 100 ml 240 ml Output Total 400 ml Balance -300 ml 240 ml Assessment & Plan Problem List: (1) Bipolar disorder, in partial remission, most recent episode mixed ICD Codes: F31.77 - Bipolar disorder, in partial remission, most recent episode mixed Assessment & Plan Patient at this time continues to be noted to have some disorganization at times , refusing to be consistent with meals, noted to be restless and continues with disturbed sleep. Patient seems to be improving although still has symptoms as previously stated. We'll continue to monitor mood and behavior, patient's lithium level is 0.8, continue current treatment for now. Discharge planning in progress Justification for Cont. Inpt. At risk for further decompensation event lower level of care Request HC Surrog/Guard Advoc?: Yes Soto Fonseca MD Jul 13, 2017 09:00
[2017-07-13] MEDS: NITROFURANTOIN MONOHYD MACROCR 100 MG CAP PO SCH ×2 (09:11→17:49)
[2017-07-13] MEDS: LITHIUM CARBONATE 300 MG TAB PO SCH ×3 (09:11→21:50)
[2017-07-13] MEDS: BENZTROPINE MESYLATE 1 MG TAB PO SCH ×2 (09:11→21:49)
[2017-07-13] MEDS: LISINOPRIL 10 MG TAB PO SCH (09:12)
[2017-07-13] MEDS: LORazepam 0.5 MG TAB PO PRN (09:12)
[2017-07-13] MEDS: TAMSULOSIN HCL 0.4 MG CAP PO SCH ×2 (09:13→21:48)
[2017-07-13] MEDS: ZIPRASIDONE HCL 80 MG CAP PO SCH ×2 (09:13→17:49)
[2017-07-13] MEDS: LACTULOSE SYRUP 20 GM/30 ML CUP PO SCH ×2 (09:14→21:49)
[2017-07-13] MEDS: NICOTINE 21 MG/24 HR PATCH T-DERMAL SCH (09:17)
[2017-07-13 18:00] VITALS: BP 140/67; PULSE 71; RESP 16; TEMP 98.6; O2SAT 100
[2017-07-13] MEDS: MELATONIN 5 MG TAB PO SCH (21:48)
[2017-07-14] MEDS: traZODone HCL 50 MG TAB PO PRN (01:18)
[2017-07-14 05:12] VITALS: BP 113/53; PULSE 88; RESP 16; TEMP 97.1; O2SAT 99
[2017-07-14] MEDS: LEVOTHYROXINE SODIUM 50 MCG TAB PO SCH (05:48)
[2017-07-14] MEDS: NICOTINE 21 MG/24 HR PATCH T-DERMAL SCH (08:40)
[2017-07-14] MEDS: INSULIN ASPART SUPPLEMENTAL SCALE SQ SCH ×4 (08:40→21:00)
[2017-07-14] MEDS: BUDESONIDE-FORMOTEROL 160/4.5 MCG INHALER INH SCH ×2 (08:52→21:00)
[2017-07-14] MEDS: BENZTROPINE MESYLATE 1 MG TAB PO SCH ×2 (08:53→21:00)
[2017-07-14] MEDS: LISINOPRIL 10 MG TAB PO SCH (08:53)
[2017-07-14] MEDS: LACTULOSE SYRUP 20 GM/30 ML CUP PO SCH (08:54)
[2017-07-14] MEDS: TAMSULOSIN HCL 0.4 MG CAP PO SCH ×2 (08:54→21:12)
[2017-07-14] MEDS: ZIPRASIDONE HCL 80 MG CAP PO SCH ×2 (08:54→17:08)
[2017-07-14] MEDS: NITROFURANTOIN MONOHYD MACROCR 100 MG CAP PO SCH ×2 (08:56→17:08)
--- NOTE | 2017-07-14 08:56 | HHI.PR ---
Subjective Remarks Follow-up visit urinary retention, urinary tract infection. Patient seen and examined today sitting in a Shana chair. States he did not have a good night because "every time I wake up, I am told by a black person standing in front of me to go to sleep." Denies pain and discomfort. Denies SOB/ dyspnea. Denies fevers, abdominal pain, n/v/d. Objective Vitals Vital Signs Date Time Temp Pulse Resp B/P (MAP) Pulse Ox O2 Delivery O2 Flow Rate FiO2 07/14/17 05:12 97.1 88 16 113/53 (73) 99 07/13/17 18:00 98.6 71 16 140/67 (91) 100 I/O 07/13/17 07/13/17 07/13/17 07/14/17 07/14/17 07/14/17 07:00 15:00 23:00 07:00 15:00 23:00 Intake Total 100 ml 840 ml 1200 ml 240 ml Output Total 400 ml 1200 ml 850 ml Balance -300 ml 840 ml 0 ml -850 ml 240 ml Intake Oral 100 ml 840 ml 1200 ml 240 ml Output Urine Total 400 ml 1200 ml 850 ml # Voids 2 Result Diagram: 07/10/17 1455 07/11/17 1850 Objective Remarks GENERAL: Appears older than stated age, well-developed patient, in no apparent distress. SKIN: Warm and dry. HEENT: Normocephalic. Pupils equal round and reactive. Nose without bleeding. Airway patent. NECK: Trachea midline. Supple. CARDIOVASCULAR: Regular rate and rhythm without murmurs, gallops, or rubs. RESPIRATORY: Clear to auscultation. Breath sounds equal bilaterally. No wheezes , rales, or rhonchi. GASTROINTESTINAL: Abdomen soft, nondistended. Bowel Sounds normoactive x4. : Segura catheter draining alberto urine. No Suprapubic tenderness to palpation. MUSCULOSKELETAL: Extremities without clubbing, cyanosis, or edema. NEUROLOGICAL: Awake and alert. Oriented to person. Confuse. Normal speech. A/P Problem List: (1) Bipolar disorder, current episode mixed, severe, with psychotic features ICD Code: F31.64 - Bipolar disorder, current episode mixed, severe, with psychotic features Status: Acute (2) Hyponatremia ICD Code: E87.1 - Hypo-osmolality and hyponatremia Status: Acute (3) Diabetes ICD Code: E11.9 - Type 2 diabetes mellitus without complications (4) HTN (hypertension) ICD Code: I10 - Essential (primary) hypertension (5) Wheezing ICD Code: R06.2 - Wheezing Status: Acute (6) Hypothyroidism ICD Code: E03.9 - Hypothyroidism, unspecified (7) Anemia ICD Code: D64.9 - Anemia, unspecified (8) Cannabinosis ICD Code: J66.2 - Cannabinosis (9) Tobacco abuse ICD Code: Z72.0 - Tobacco use (10) Rib pain on right side ICD Code: R07.81 - Pleurodynia (11) UTI (urinary tract infection) ICD Code: N39.0 - Urinary tract infection, site not specified Status: Acute Assessment and Plan 72-year-old male with past medical history of hypertension and diabetes who presents to [facility] after making some suicidal comments. He is now admitted to medical psychiatry unit for further evaluation. Consulted for medical management. Bipolar disorder - Management per psychiatry team Urinary retention Urinary tract infection - Continue tamsulosin 0.4mg increase to BID as per Urology recommendation - Segura catheter in place. Reinserted yesterday due to failed voiding trial - Urology following. Recommends to be dcd with segura and will have outpatient voiding trial. Urology follow up in outpatient - Patient was started on Cipro 500 mg nightly 12, stop date 07/11. On Macrobid now stop date 07/18/17 - Monitor urine output Hyponatremia - Hypoosmolality - Fluid restriction - Repeat BMP tomorrow Hyperglycemia - Insulin sliding scale. Monitor Accu-Cheks. Monitor for hypoglycemia. - Hemoglobin A1c 5.7 Hypertension - Lisinopril 10mg daily - Monitor BP trend Elevated Ammonia - Resolving. Decrease lactulose daily - Intermittently check levels if warranted or patient is lethargic Hypothyroidism - Continue levothyroxine 50mcg Substance use Cannabinoids, Tobacco - Counseled. Nicotine patch. Generalized weakness, unsteady gait - PT OT eval and treat DVT prop early ambulation, if unable to ambulate and participate with activities will start lovenox daily Discussed with patient, nursing, Dr. Mosquera Problem Qualifiers (1) Diabetes: Qualified Codes: E11.9 - Type 2 diabetes mellitus without complications (2) HTN (hypertension): Qualified Codes: I10 - Essential (primary) hypertension (3) Hypothyroidism: Qualified Codes: E03.9 - Hypothyroidism, unspecified Christy Mishra Jul 14, 2017 08:56
[2017-07-14] MEDS: REMOVE OLD PATCH T-DERMAL SCH (08:58)
[2017-07-14] MEDS: LITHIUM CARBONATE 300 MG TAB PO SCH ×3 (09:02→21:00)
[2017-07-14 13:08] LABS: BICARBONATE 28.4 MEQ/L (21.0-32.0); POTASSIUM 4.4 MEQ/L (3.5-5.1)
[2017-07-14 13:42] LABS: MEAN CELL VOLUME 95.1 FL (80.0-100.0); MEAN CORPUSCULAR HEMOGLOBIN 32.8 PG (27.0-34.0); MEAN CORPUSCULAR HGB CONC 34.5 % (32.0-36.0); PLATELET COUNT 211 TH/MM3 (150-450); RED BLOOD COUNT 3.79 MIL/MM3 (4.50-5.90); REVIEW FLAG FINAL; WHITE BLOOD COUNT 9.6 TH/MM3 (4.0-11.0)
--- NOTE | 2017-07-14 15:01 | HHI.PYPN ---
Subjective Remarks She was seen today for psychiatric reevaluation along with medical student Pamela, medical social worker Aolndra. Patient is calm, cooperative, pleasant. He reports good mood, good response to medications and therapies. Patient described his mood as "fine", denies depressive symptoms, denies hopelessness, denies helplessness, he also denies manic symptoms, no evidence of elevated mood , pressured speech, fluctuation of consciousness, delusions. Patient has been compliant with medications, no significant side effects. [place] level is 0.8 on 07/12/2017. Review of Systems Other No somatic complaints Objective Alert: Yes [place]: Person, Place, Date, Situation Mood: Calm Affect: Appropriate Memory Intact: Comment (fair) Hallucinations: Other (denies AVH) Delusions: No Delusion Type: Other (no delusions) Suicidal: Ideation (No SI) Homicidal: Ideation (denies HI) Insight/Judgment Good Labs Test 07/14/17 11:45 White Blood Count 9.6 TH/MM3 Red Blood Count 3.79 MIL/MM3 Hemoglobin 12.4 GM/DL Hematocrit 36.0 % Mean Corpuscular Volume 95.1 FL Mean Corpuscular Hemoglobin 32.8 PG Mean Corpuscular Hemoglobin Concent 34.5 % Red Cell Distribution Width 13.0 % Platelet Count 211 TH/MM3 Mean Platelet Volume 7.6 FL Hematology Comments Blood Urea Nitrogen 19 MG/DL Creatinine 1.02 MG/DL Random Glucose 138 MG/DL Calcium Level 9.3 MG/DL Sodium Level 132 MEQ/L Potassium Level 4.4 MEQ/L Chloride Level 97 MEQ/L Carbon Dioxide Level 28.4 MEQ/L Anion Gap 7 MEQ/L Estimat Glomerular Filtration Rate 72 ML/MIN Date/Time Source Procedure Growth Status 07/08/17 13:30 Urine Catheterized Urine Urine Culture - Final Escherichia Coli Complete Vitals/IOs Vital Signs Date Time Temp Pulse Resp B/P (MAP) Pulse Ox O2 Delivery O2 Flow Rate FiO2 07/14/17 05:12 97.1 88 16 113/53 (73) 99 Intake and Output 07/14/17 07/14/17 07/15/17 08:00 16:00 00:00 Intake Total 240 ml Output Total 850 ml 1150 ml Balance -850 ml -910 ml Assessment & Plan Problem List: (1) Bipolar disorder, in partial remission, most recent episode mixed ICD Codes: F31.77 - Bipolar disorder, in partial remission, most recent episode mixed Assessment & Plan Estimated LOS: days Justification for Cont. Inpt. Patient is to continue psychiatric hospitalization for stabilization and because patient has an elevator risk to decompensate at a lower level of care. Request HC Surrog/Guard Advoc?: Yes Elder Mark MD Jul 14, 2017 15:01
[2017-07-14 19:59] VITALS: BP 134/63; PULSE 86; RESP 16; TEMP 97.5; O2SAT 96
[2017-07-14] MEDS: MELATONIN 5 MG TAB PO SCH (21:12)
[2017-07-14] MEDS: LORazepam 0.5 MG TAB PO PRN (21:13)
[2017-07-15 06:00] VITALS: BP 134/65; PULSE 71; RESP 18; TEMP 96.7; O2SAT 95
[2017-07-15] MEDS: LEVOTHYROXINE SODIUM 50 MCG TAB PO SCH (06:31)
[2017-07-15] MEDS: INSULIN ASPART SUPPLEMENTAL SCALE SQ SCH ×4 (08:00→21:00)
--- NOTE | 2017-07-15 08:33 | HHI.PR ---
Subjective Remarks Follow-up visit urinary retention, urinary tract infection. Patient seen and examined today sitting in a Shana chair. States he is doing well. Reports "I will call my to inform her, I will go home tomorrow." Denies pain and discomfort. Denies SOB/ dyspnea. Denies fevers, abdominal pain, n/v/d. Objective Vitals Vital Signs Date Time Temp Pulse Resp B/P (MAP) Pulse Ox O2 Delivery O2 Flow Rate FiO2 07/15/17 06:00 96.7 71 18 134/65 (88) 95 07/14/17 19:59 97.5 86 16 134/63 (86) 96 I/O 07/14/17 07/14/17 07/14/17 07/15/17 07/15/17 07/15/17 06:59 14:59 22:59 06:59 14:59 22:59 Intake Total 240 ml 600 ml Output Total 850 ml 1150 ml 2100 ml 1200 ml Balance -850 ml -910 ml -1500 ml -1200 ml Intake Oral 240 ml 600 ml Output Urine Total 850 ml 1150 ml 2100 ml 1200 ml Bladder Scan Volume Amount 999 ml Result Diagram: 07/14/17 1145 07/14/17 1145 Imaging Last Impressions Chest X-Ray 07/08/17 0000 Signed Impressions: Service Date/Time: Saturday, July 08, 2017 11:10 - CONCLUSION: No acute disease. João Marcial MD Renal Ultrasound 07/01/17 0000 Signed Impressions: Service Date/Time: Saturday, July 01, 2017 09:07 - CONCLUSION: Mild hydronephrotic changes bilaterally. Hydronephrosis on the left is stable. Hydronephrosis on the right appear slightly increased when compared to previous. Jeramy Mccurdy MD Liver Ultrasound 06/30/17 0000 Signed Impressions: Service Date/Time: Friday, June 30, 2017 17:22 - CONCLUSION: 1. Moderate bilateral hydronephrosis of indeterminate etiology. 2. Hepatosplenomegaly. 3. Coarse echotexture of the liver suggesting diffuse hepatic disease. 4. Gallbladder sludge. Jose Elias Gonzalez MD Head CT 06/27/17 0000 Signed Impressions: Service Date/Time: Tuesday, June 27, 2017 08:43 - CONCLUSION: No acute disease. Jose Elias Gonzalez MD Hand X-Ray 06/27/17 0000 Signed Impressions: Service Date/Time: Tuesday, June 27, 2017 08:55 - CONCLUSION: 1. No acute bony abnormality identified. Jeramy Mccurdy MD Abdomen X-Ray 06/24/17 0000 Signed Impressions: Service Date/Time: Saturday, June 24, 2017 08:48 - CONCLUSION: Nonobstructive bowel gas pattern. Juan Carlos Emery MD Objective Remarks GENERAL: Appears older than stated age, well-developed patient, in no apparent distress. SKIN: Warm and dry. HEENT: Normocephalic. Pupils equal round and reactive. Nose without bleeding. Airway patent. NECK: Trachea midline. Supple. CARDIOVASCULAR: Regular rate and rhythm without murmurs, gallops, or rubs. RESPIRATORY: Clear to auscultation. Breath sounds equal bilaterally. No wheezes , rales, or rhonchi. GASTROINTESTINAL: Abdomen soft, nondistended. Bowel Sounds normoactive x4. : Segura catheter draining yellow clear urine. No Suprapubic tenderness to palpation. MUSCULOSKELETAL: Extremities without clubbing, cyanosis, or edema. NEUROLOGICAL: Awake and alert. Oriented to person. Confuse. Normal speech. A/P Problem List: (1) Bipolar disorder, current episode mixed, severe, with psychotic features ICD Code: F31.64 - Bipolar disorder, current episode mixed, severe, with psychotic features Status: Acute (2) Hyponatremia ICD Code: E87.1 - Hypo-osmolality and hyponatremia Status: Acute (3) Diabetes ICD Code: E11.9 - Type 2 diabetes mellitus without complications (4) HTN (hypertension) ICD Code: I10 - Essential (primary) hypertension (5) Wheezing ICD Code: R06.2 - Wheezing Status: Acute (6) Hypothyroidism ICD Code: E03.9 - Hypothyroidism, unspecified (7) Anemia ICD Code: D64.9 - Anemia, unspecified (8) Cannabinosis ICD Code: J66.2 - Cannabinosis (9) Tobacco abuse ICD Code: Z72.0 - Tobacco use (10) Rib pain on right side ICD Code: R07.81 - Pleurodynia (11) UTI (urinary tract infection) ICD Code: N39.0 - Urinary tract infection, site not specified Status: Acute Assessment and Plan 72-year-old male with past medical history of hypertension and diabetes who presents to [facility] after making some suicidal comments. He is now admitted to medical psychiatry unit for further evaluation. Consulted for medical management. Bipolar disorder - Management per psychiatry team Urinary retention Urinary tract infection - Continue tamsulosin 0.4mg increase to BID as per Urology recommendation - Segura catheter in place. Reinserted yesterday due to failed voiding trial - Urology following. Recommends to be dcd with segura and will have outpatient voiding trial. Urology follow up in outpatient - Patient was started on Cipro 500 mg nightly 12, stop date 07/11. On Macrobid now stop date 07/18/17 - Monitor urine output Hyponatremia - Hypoosmolality - Fluid restriction - Repeat BMP tomorrow Hyperglycemia - Insulin sliding scale. Monitor Accu-Cheks. Monitor for hypoglycemia. - Hemoglobin A1c 5.7 Hypertension - Lisinopril 10mg daily - Monitor BP trend Elevated Ammonia - Resolving. Decrease lactulose daily - Intermittently check levels if warranted or patient is lethargic Hypothyroidism - Continue levothyroxine 50mcg Substance use Cannabinoids, Tobacco - Counseled. Nicotine patch. Generalized weakness, unsteady gait - PT OT eval and treat - Ambulating with rolling walker. Gait unsteady without walker - Will need [facility] nursing and PT/OT when DC DVT prop early ambulation Discussed with patient, nursing, Dr. Gonzáles Problem Qualifiers (1) Diabetes: Qualified Codes: E11.9 - Type 2 diabetes mellitus without complications (2) HTN (hypertension): Qualified Codes: I10 - Essential (primary) hypertension (3) Hypothyroidism: Qualified Codes: E03.9 - Hypothyroidism, unspecified Christy Mishra Jul 15, 2017 08:33
[2017-07-15] MEDS ORDERED: GETGO ROLLING W1 MI1 (08:36)
[2017-07-15] MEDS: ZIPRASIDONE HCL 80 MG CAP PO SCH ×2 (08:44→18:16)
[2017-07-15] MEDS: NITROFURANTOIN MONOHYD MACROCR 100 MG CAP PO SCH ×2 (08:45→18:23)
[2017-07-15] MEDS: LISINOPRIL 10 MG TAB PO SCH (08:45)
[2017-07-15] MEDS: TAMSULOSIN HCL 0.4 MG CAP PO SCH ×2 (08:45→20:51)
[2017-07-15] MEDS: BENZTROPINE MESYLATE 1 MG TAB PO SCH ×2 (08:45→20:51)
[2017-07-15] MEDS: LACTULOSE SYRUP 20 GM/30 ML CUP PO SCH (08:46)
[2017-07-15] MEDS: BUDESONIDE-FORMOTEROL 160/4.5 MCG INHALER INH SCH ×2 (08:49→20:53)
[2017-07-15] MEDS: LITHIUM CARBONATE 300 MG TAB PO SCH ×3 (08:54→20:53)
[2017-07-15] MEDS: NICOTINE 21 MG/24 HR PATCH T-DERMAL SCH (08:55)
[2017-07-15] MEDS: REMOVE OLD PATCH T-DERMAL SCH (08:55)
[2017-07-15] MEDS ORDERED: SYMB160A INH (09:02)
[2017-07-15] MEDS ORDERED: NITR100C4 PO (09:02)
[2017-07-15] MEDS ORDERED: LISI10TA3 PO (09:02)
[2017-07-15] MEDS ORDERED: TAMS5CAP PO (09:02)
[2017-07-15] MEDS ORDERED: LEVO.05 PO (09:03)
--- NOTE | 2017-07-15 11:59 | HHI.PYPN ---
Subjective Remarks Patient was seen today for psychiatric reevaluation along with medical student Pamela, renal social worker Alondra. Patient is found in the recreational area of the unit, he is watching TV, calm, pleasant and cooperative. Patient is in a good spirits, with a good sense of humor. He says that he is happy his can be discharged tomorrow. Reports good mood, denies depressive symptoms, denies anxiety, denies psychotic symptoms. Denies suicidal and homicidal ideation, he denies visual and auditory hallucinations. Patient is fully oriented 3, without any attention deficit, gross cognitive impairment present. Fully compliant with his medications, no significant side effects. Review of Systems Other No somatic complaints Objective Alert: Yes [place]: Person, Place, Date, Situation Mood: Calm Affect: Appropriate Memory Intact: Comment (fair) Hallucinations: Other (denies AVH) Delusions: No Delusion Type: Other (no delusions) Suicidal: Ideation (No SI) Homicidal: Ideation (denies HI) Insight/Judgment Good Labs Date/Time Source Procedure Growth Status 07/08/17 13:30 Urine Catheterized Urine Urine Culture - Final Escherichia Coli Complete Vitals/IOs Vital Signs Date Time Temp Pulse Resp B/P (MAP) Pulse Ox O2 Delivery O2 Flow Rate FiO2 07/15/17 06:00 96.7 71 18 134/65 (88) 95 Intake and Output 07/15/17 07/15/17 07/16/17 08:00 16:00 00:00 Intake Total 360 ml Output Total 1200 ml Balance -1200 ml 360 ml Assessment & Plan Problem List: (1) Bipolar disorder, in partial remission, most recent episode mixed ICD Codes: F31.77 - Bipolar disorder, in partial remission, most recent episode mixed Assessment & Plan: Patient shows good response to the current topic regimen and psychotherapy. We'll continue current psychotropic regimen. Support psychotherapy provided. Assessment & Plan Estimated LOS: days Justification for Cont. Inpt. Patient has an elevated risk to decompensate at the lower level of care. Request HC Surrog/Guard Advoc?: Yes Elder Mark MD Jul 15, 2017 11:59
--- NOTE | 2017-07-15 13:08 | PD.TTN ---
Patient Problems 1. Discharge planning 2. Medication compliance 3. Knowledge deficit 4. Lack of coping skills Progress Toward Goals Provider Present: Dr. Kierra Fenton, Dr. Mir Mark Provider Input: Patient medication continues to be adjusted, continue inpatient treatment with a discharge plan for 07/16/2017 home, with home health and per medical walker Nurse(s) Input: RN/Dexter pt is eating and taking his medication, able to ambulate with limited assistance and walker Psychiatric Counselors Present: Alondra Harden [facility] Psych Therapist Input: Patient denies suicidal or homicidal ideation, states he is sleeping and feels better than he did upon admission. Group Spec/RT/OT/CLARK Present: Wong Huang OT Group Spec/RT/OT/CLARK Input: Patient is doing exceedingly well with his progress, will benefit with HH to assist with ADL Patient/Family Input: Patient's states she is arranging for additional home assistance during her work hours to ensure patient progression continues. Discharge Plan Home Healthcare (Counselor has faxed [facility], and [employer] medical supplies) Alondra Harden [facility] Jul 15, 2017 13:08
[2017-07-15 17:27] VITALS: BP 121/56; PULSE 79; RESP 17; TEMP 98.1; O2SAT 99
[2017-07-15] MEDS: MELATONIN 5 MG TAB PO SCH (20:51)
[2017-07-15] MEDS: traZODone HCL 50 MG TAB PO PRN (20:51)
[2017-07-16 05:05] VITALS: BP 118/55; PULSE 56; RESP 16; TEMP 98.5; O2SAT 98
[2017-07-16] MEDS: LEVOTHYROXINE SODIUM 50 MCG TAB PO SCH (05:51)
[2017-07-16] MEDS: INSULIN ASPART SUPPLEMENTAL SCALE SQ SCH ×2 (08:00→12:00)
[2017-07-16] MEDS: LACTULOSE SYRUP 20 GM/30 ML CUP PO SCH (08:07)
[2017-07-16] MEDS: BENZTROPINE MESYLATE 1 MG TAB PO SCH (08:08)
[2017-07-16] MEDS: REMOVE OLD PATCH T-DERMAL SCH (08:08)
[2017-07-16] MEDS: NICOTINE 21 MG/24 HR PATCH T-DERMAL SCH (08:08)
[2017-07-16] MEDS: ZIPRASIDONE HCL 80 MG CAP PO SCH (08:08)
[2017-07-16] MEDS: TAMSULOSIN HCL 0.4 MG CAP PO SCH (08:08)
[2017-07-16] MEDS: LISINOPRIL 10 MG TAB PO SCH (08:09)
[2017-07-16] MEDS: BUDESONIDE-FORMOTEROL 160/4.5 MCG INHALER INH SCH (08:10)
--- NOTE | 2017-07-16 08:51 | HHI.PR ---
Subjective Remarks Follow-up visit urinary retention, urinary tract infection. Patient seen and examined today laying in bed. States he is doing well. Denies pain and discomfort. Denies SOB/ dyspnea. Denies fevers, abdominal pain, n/v/d. Objective Vitals Vital Signs Date Time Temp Pulse Resp B/P (MAP) Pulse Ox O2 Delivery O2 Flow Rate FiO2 07/16/17 05:05 98.5 56 16 118/55 (76) 98 07/15/17 17:27 98.1 79 17 121/56 (77) 99 I/O 07/15/17 07/15/17 07/15/17 07/16/17 07/16/17 07/16/17 07:00 15:00 23:00 07:00 15:00 23:00 Intake Total 1800 ml 1440 ml Output Total 1200 ml 850 ml 2000 ml Balance -1200 ml 950 ml -560 ml Intake Oral 1800 ml 1440 ml Output Urine Total 1200 ml 850 ml 2000 ml Bladder Scan Volume Amount 999 ml Result Diagram: 07/14/17 1145 07/14/17 1145 Imaging Last Impressions Chest X-Ray 07/08/17 0000 Signed Impressions: Service Date/Time: Saturday, July 08, 2017 11:10 - CONCLUSION: No acute disease. João Marcial MD Renal Ultrasound 07/01/17 0000 Signed Impressions: Service Date/Time: Saturday, July 01, 2017 09:07 - CONCLUSION: Mild hydronephrotic changes bilaterally. Hydronephrosis on the left is stable. Hydronephrosis on the right appear slightly increased when compared to previous. Jeramy Mccurdy MD Liver Ultrasound 06/30/17 0000 Signed Impressions: Service Date/Time: Friday, June 30, 2017 17:22 - CONCLUSION: 1. Moderate bilateral hydronephrosis of indeterminate etiology. 2. Hepatosplenomegaly. 3. Coarse echotexture of the liver suggesting diffuse hepatic disease. 4. Gallbladder sludge. Jose Elias Gonzalez MD Head CT 06/27/17 0000 Signed Impressions: Service Date/Time: Tuesday, June 27, 2017 08:43 - CONCLUSION: No acute disease. Jose Elias Gonzalez MD Hand X-Ray 06/27/17 0000 Signed Impressions: Service Date/Time: Tuesday, June 27, 2017 08:55 - CONCLUSION: 1. No acute bony abnormality identified. Jeramy Mccurdy MD Abdomen X-Ray 06/24/17 0000 Signed Impressions: Service Date/Time: Saturday, June 24, 2017 08:48 - CONCLUSION: Nonobstructive bowel gas pattern. Juan Carlos Emery MD Objective Remarks GENERAL: Appears older than stated age, well-developed patient, in no apparent distress. SKIN: Warm and dry. HEENT: Normocephalic. Pupils equal round and reactive. Nose without bleeding. Airway patent. NECK: Trachea midline. Supple. CARDIOVASCULAR: Regular rate and rhythm without murmurs, gallops, or rubs. RESPIRATORY: Clear to auscultation. Breath sounds equal bilaterally. No wheezes , rales, or rhonchi. GASTROINTESTINAL: Abdomen soft, nondistended. Bowel Sounds normoactive x4. : Segura catheter draining yellow clear urine. No Suprapubic tenderness to palpation. MUSCULOSKELETAL: Extremities without clubbing, cyanosis, or edema. NEUROLOGICAL: Awake and alert. Oriented to person. Confuse. Normal speech. A/P Problem List: (1) Bipolar disorder, current episode mixed, severe, with psychotic features ICD Code: F31.64 - Bipolar disorder, current episode mixed, severe, with psychotic features Status: Acute (2) Hyponatremia ICD Code: E87.1 - Hypo-osmolality and hyponatremia Status: Acute (3) Diabetes ICD Code: E11.9 - Type 2 diabetes mellitus without complications (4) HTN (hypertension) ICD Code: I10 - Essential (primary) hypertension (5) Wheezing ICD Code: R06.2 - Wheezing Status: Acute (6) Hypothyroidism ICD Code: E03.9 - Hypothyroidism, unspecified (7) Anemia ICD Code: D64.9 - Anemia, unspecified (8) Cannabinosis ICD Code: J66.2 - Cannabinosis (9) Tobacco abuse ICD Code: Z72.0 - Tobacco use (10) Rib pain on right side ICD Code: R07.81 - Pleurodynia (11) UTI (urinary tract infection) ICD Code: N39.0 - Urinary tract infection, site not specified Status: Acute Assessment and Plan Pt is 72-year-old male with past medical history of hypertension and diabetes who presents to [facility] after making some suicidal comments. He is now admitted to medical psychiatry unit for further evaluation. Consulted for medical management. Bipolar disorder - Management per psychiatry team Urinary retention Urinary tract infection - Continue tamsulosin 0.4mg increase to BID as per Urology recommendation - Segura catheter in place. Reinserted yesterday due to failed voiding trial - Urology following. Recommends to be dcd with segura and will have outpatient voiding trial. Urology follow up in outpatient - Patient was started on Cipro 500 mg nightly 12, stop date 07/11. On Macrobid now, to go home with Macrobid until stop date. Hyponatremia - Hypoosmolality - Fluid restriction - improved Hyperglycemia - Insulin sliding scale. Monitor Accu-Cheks. Monitor for hypoglycemia. - Hemoglobin A1c 5.7 Hypertension - Lisinopril 10mg daily - Monitor BP trend Elevated Ammonia - Resolving. Decrease lactulose daily - Intermittently check levels if warranted or patient is lethargic Hypothyroidism - Continue levothyroxine 50mcg Substance use Cannabinoids, Tobacco - Counseled. Nicotine patch. Generalized weakness, unsteady gait - PT OT eval and treat - Ambulating with rolling walker. Gait unsteady without walker - Will need [facility] nursing and PT/OT when DC DVT prop early ambulation Discussed with patient, nursing, Dr. Gonzáles Discharge Planning DC Home today. Follow up with PCP and urology for segura catheter management. Problem Qualifiers (1) Diabetes: Qualified Codes: E11.9 - Type 2 diabetes mellitus without complications (2) HTN (hypertension): Qualified Codes: I10 - Essential (primary) hypertension (3) Hypothyroidism: Qualified Codes: E03.9 - Hypothyroidism, unspecified Christy Mishra Jul 16, 2017 08:51
[2017-07-16] MEDS: LITHIUM CARBONATE 300 MG TAB PO SCH (08:55)
[2017-07-16] MEDS: NITROFURANTOIN MONOHYD MACROCR 100 MG CAP PO SCH (09:00)
[2017-07-16] MEDS ORDERED: LITH300T3 PO (11:14)
[2017-07-16] MEDS ORDERED: GEOD80CA PO (11:14)
--- NOTE | 2017-07-16 11:19 | HHI.DS ---
Psychiatry Discharge Summary Inpatient Psychiatric care?: Yes Advance Directive: No Reason Not Provided: [facility] AdvanceDirective: No Health Care Proxy: No Admission Admission Date Jun 19, 2017 at 13:23 Admission Diagnosis: (1) Bipolar disorder, current episode mixed, severe, with psychotic features ICD Code: F31.64 - Bipolar disorder, current episode mixed, severe, with psychotic features Brief History 72-year-old male with a multiyear history of bipolar disorder, presents under a Ballard act for suicidal ideation, psychotic thinking, inability to care for himself, etc. Patient reportedly made suicidal comments to his of many years and to a neighbor. He has been increasingly unstable since stopping his lithium, several months ago. Apparently the patient had a history of lithium toxicity. (He also has diabetes and hypertension and there is concern about his kidneys.) Since he stopped his lithium, however, he has become emotionally unstable. Apparently he is not sleeping. He is quite tearful and suicidal at some moments and hypomanic to manic at other moments, talking to God, relating his special abilities, etc. 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 She called law enforcement for assistance and does not feel capable of caring for him. As the patient is hypomanic to manic, without knowing his medications for diabetes and hypertension or how to treat himself, this physician feels he is unable to care for himself. He denies the use of alcohol or illicit drugs. His has assisted him in being compliant with his non-psychotropic medicines. He is reportedly treated by a nonpsychiatrist. The patient is a 72-year-old man, domicile with his in [place] , retired, with reported psychiatric history of bipolar disorder, multiple psychiatric hospitalizations, brought under Ballard act due to suicidal ideation, manic behavior, irritability and aggressiveness at home in the context of noncompliance with medications. Patient was consulted to me for second opinion. Patient reports that the reason he is here is because his pressed charges against him. He says that all he did wrong was waking up very late at night and trying to fix his garage. He says that he just call his and try to make a deal "I told her that if she drops charges against man I would forgive her". Patient seems to be kind of disorganized, with somewhat pressured speech, circumstantial, disorganized. However, patient is fully oriented 3. He denies suicidal and homicidal ideation, he denies visual and auditory hallucinations. Tobacco Use In Past 30 Days: 5 or More Cigarettes/Day Alcohol Use: 2-4 Times Per Month Hospital Course Patient was admitted in the med psych unit, at the beginning admitted with disorganized and manic. But he showed a very good response to Geodon 80 mg and lithium 300 mg 3 times a day. During the hospitalization patient did not show any aggressive behavior, agitation, hostility. Patient was compliant with his medications, no significant side effects. AT The moment of discharge patient is at baseline, denies depressive symptoms, denies anxiety, denies psychosis. Results Blood Pressure 118 / 55 Vital Signs Date Time Temp Pulse Resp B/P (MAP) Pulse Ox O2 Delivery O2 Flow Rate FiO2 07/16/17 05:05 98.5 56 16 118/55 (76) 98 Laboratory Tests Test 07/14/17 11:45 Red Blood Count 3.79 MIL/MM3 (4.50-5.90) Hemoglobin 12.4 GM/DL (13.0-17.0) Hematocrit 36.0 % (39.0-51.0) Blood Urea Nitrogen 19 MG/DL (7-18) Random Glucose 138 MG/DL (74-106) Sodium Level 132 MEQ/L (136-145) Chloride Level 97 MEQ/L (98-107) Estimat Glomerular Filtration Rate 72 ML/MIN (>89) Laboratory Results Test 06/20/17 09:06 07/12/17 04:07 Cholesterol Level 117 MG/DL (120-200) HDL Cholesterol 20.6 MG/DL (40.0-60.0) Hemoglobin A1c 5.7 % (4.3-6.0) LDL Cholesterol 65 MG/DL (0-99) Triglycerides Level 156 MG/DL (42-150) [place] Level 0.8 MEQ/L (0.5-1.5) Summary of Procedures None Imaging Last Impressions Chest X-Ray 07/08/17 0000 Signed Impressions: Service Date/Time: Saturday, July 08, 2017 11:10 - CONCLUSION: No acute disease. João Marcial MD Renal Ultrasound 07/01/17 0000 Signed Impressions: Service Date/Time: Saturday, July 01, 2017 09:07 - CONCLUSION: Mild hydronephrotic changes bilaterally. Hydronephrosis on the left is stable. Hydronephrosis on the right appear slightly increased when compared to previous. Jeramy Mccurdy MD Liver Ultrasound 06/30/17 0000 Signed Impressions: Service Date/Time: Friday, June 30, 2017 17:22 - CONCLUSION: 1. Moderate bilateral hydronephrosis of indeterminate etiology. 2. Hepatosplenomegaly. 3. Coarse echotexture of the liver suggesting diffuse hepatic disease. 4. Gallbladder sludge. Jose Elias Gonzalez MD Head CT 06/27/17 0000 Signed Impressions: Service Date/Time: Tuesday, June 27, 2017 08:43 - CONCLUSION: No acute disease. Jose Elias Gonzalez MD Hand X-Ray 06/27/17 0000 Signed Impressions: Service Date/Time: Tuesday, June 27, 2017 08:55 - CONCLUSION: 1. No acute bony abnormality identified. Jeramy Mccurdy MD Abdomen X-Ray 06/24/17 0000 Signed Impressions: Service Date/Time: Saturday, June 24, 2017 08:48 - CONCLUSION: Nonobstructive bowel gas pattern. Juan Carlos Emery MD Pending results at discharge: No Medications # of Antipsychotic meds at D/C: 1 Approp Antipsych med options 1 - Minimum of three failed multiple trials of monotherapy. 2 - Documented plan to taper to monotherapy due to previous use of multiple meds OR cross-taper in progress at D/C. 3 - Documentation of augmentation of Clozapine. 4 - Justification other than those listed in allowable values 1-3, document here : Discharge Discharge Date: Jul 16, 2017 Discharge Diagnosis: (1) Bipolar disorder, in partial remission, most recent episode mixed ICD Code: F31.77 - Bipolar disorder, in partial remission, most recent episode mixed Mental Status Exam at Disch Elderly man, age appearing, [facility], he is calm, cooperative and pleasant. His speech is normal calm and volume. Affect is euthymic, mood is "I am fine". Thought process is linear, coherent and relevant. Thought content is devoid of suicidal ideation, homicidal ideation, visual and auditory hallucinations. Insight, impulse control, judgment are good. Cognition is intact. Pt Condition on Discharge: Stable Discharge Disposition: Discharge Home Discharge Instructions Diet Instructions: Heart Healthy Diet Activities you can perform: Weight Bearing as Rickey Scheduled Appointment: Discharge Time > 30 minutes Discharge/Advance Care Plan Health Problems: (1) Bipolar disorder, in partial remission, most recent episode mixed Goals to promote your health * To prevent worsening of your condition and complications * To maintain your health at the optimal level Directions to meet your goals Take your medications as prescribed Follow your dietary instruction Follow activity as directed Keep your appointments as scheduled Take your immunizations and boosters as scheduled If your symptoms worsen call your PCP, if no PCP go to Urgent Care Center or Emergency Room For 05/05 questions related to your inpatient stay or results of tests pending at discharge, please contact Dr. Elder Mark at Smoking is Dangerous to Your Health. Avoid second hand smoking Elder Mark MD Jul 16, 2017 11:19
== END 2017-07-16 11:45 | disposition home or self-care (01) | DRG 885 ==
LOC: NEPD 02:44 → NEDA 13:23 → H250 15:29 → H4EA 07-01 15:16
PROVIDERS: ADMIT Psychiatry & Neurology Psychiatry; ATTEND Psychiatry & Neurology Psychiatry
DX: F31.64 Bipolar disorder, current episode mixed, severe, with psychotic features (principal); D61.818 Other pancytopenia; E11.9 Type 2 diabetes mellitus without complications; E87.1 Hypo-osmolality and hyponatremia; M41.9 Scoliosis, unspecified; N13.30 Unspecified hydronephrosis; R45.851 Suicidal ideations; N39.0 Urinary tract infection, site not specified; K74.60 Unspecified cirrhosis of liver; D63.8 Anemia in other chronic diseases classified elsewhere; E03.9 Hypothyroidism, unspecified; I10 Essential (primary) hypertension; F17.200 Nicotine dependence, unspecified, uncomplicated; F12.90 Cannabis use, unspecified, uncomplicated; F43.25 Adjustment disorder with mixed disturbance of emotions and conduct; N40.1 Benign prostatic hyperplasia with lower urinary tract symptoms; R33.8 Other retention of urine
CPT/HCPCS: 70450; 71010; 73120; 74000; 76705; 76775; 80048; 80053; 80061; 80178; 80307; 81001; 82140; 82306; 82607; 82728; 82746; 82948; 83036; 83540; 83550; 83930; 83935; 84443; 85007; 85025; 85027; 85044; 87077; 87086; 87186; 93005; 94640; 94664; 99285; J1200; J1630; J1815; J2060; Q0163

== ENCOUNTER 2017-08-03 16:32 | Inpatient (IN) | payer OTHER, MEDICARE ==
[~2017-08-03] VITALS: Ht 182.9 cm; Wt 84.2 kg
[~2017-08-03 16:32] MED LIST changes: -ANUC25SU RE; +GEOD80CA PO; +GETGO ROLLING W1 MI1; -GLIM1 PO; -HYDR2.5%T TOP; -JANU100T PO; +LEVO.05 PO; -LEVO150T7 PO; -LISI-363 PO; +LISI10TA3 PO; -LITH300C2 PO; +LITH300T3 PO; +NITR100C4 PO; -PIOG30 PO; +SITA1TAB2 PO; +SYMB160A INH; +TAMS5CAP PO; +TIZA2CAP3 PO; +TIZA4CAP3 PO; -TRAZ100 PO
[2017-08-03 16:35] VITALS: BP 129/60; PULSE 105; RESP 18; TEMP 101.9; O2SAT 96
[2017-08-03] MEDS ORDERED: IBUP200C PO (16:55)
[2017-08-03 17:00] VITALS: BP 124/65; PULSE 90; RESP 18; TEMP 101.9; O2SAT 97
[2017-08-03] MEDS ORDERED: VANCOMYCIN INJ 1,000 MG in SODIUM CHLOR 0.9% 250 ML INJ 250 ML IV STA (17:07)
[2017-08-03] MEDS ORDERED: CEFEPIME INJ 2,000 MG in SODIUM CHLORIDE 0.9% INJ 100 ML IV ONE (17:15)
--- NOTE | 2017-08-03 17:22 | PD ---
HPI Chief Complaint: Fever Time Seen by Provider: 16:58 Travel History International Travel<30 days: No Contact w/Intl Traveler<30days: No Traveled to known affect area: No History of Present Illness HPI This 72-year-old male presents with complaint of fever and chills. He is having urgency. He had fever as high as 103.6 at home. He was recently discharged from the hospital. He was admitted from June 19 until July 16 because of a episode of bipolar disorder. This episode was triggered when he developed lithium toxicity and was taken off his lithium. While hospitalized he developed an episode of urinary retention and he went home with an indwelling Guevara catheter. Last Friday there was some blood in the bag in the catheter was removed. He has been able to urinate since then. He did have a urinary tract infection while in the hospital and was treated with Macrobid. There is been no cough or congestion. He has been wearing a patch on his left eye because of double vision. He has been evaluated by an evening anchor [facility] Past Medical History Bipolar Disorder: Yes Depression: Yes Cancer: No Cardiovascular Problems: Yes Diabetes: Yes Patient Takes Glucophage: Yes Diminished Hearing: No Headaches: No Hypertension: Yes Psychiatric: Yes Seizures: No Thyroid Disease: Yes Influenza Vaccination: No ?: Not Past Surgical History Eye Surgery: Yes (cataract) Tonsillectomy: Yes Other Surgery: Yes (CYST- NECK ) Social History Alcohol Use: No Tobacco Use: Yes (1.5 ppd) Substance Use: Yes Allergies-Medications (Allergen,Severity, Reaction): Coded Allergies: penicillin G (Unverified Allergy, Unknown, CHILDHOOD , 08/03/17) olanzapine (Verified Adverse Reaction, Intermediate, 08/03/17) Leukopenia Reported Meds & Prescriptions Reported Meds & Active Scripts Active Galien Carbonate 300 Mg Tab 300 Mg PO DAILY@0900,1300,2100 Geodon (Ziprasidone) 80 Mg Cap 80 Mg PO BIDPC 30 Days Synthroid (Levothyroxine Sodium) 50 Mcg Tab 50 Mcg PO DAILY@0600 Flomax (Tamsulosin HCl) 0.4 Mg Cap 0.4 Mg PO Q12HR Reported Ibuprofen 200 Mg Cap 0 PO Q4H PRN Tizanidine (Tizanidine HCl) 2 Mg Cap 2 Mg PO TID PRN Januvia (Sitagliptin Phosphate) 100 Mg Tab 100 Mg PO DAILY Tizanidine (Tizanidine HCl) 4 Mg Cap 4 Mg PO TID PRN Review of Systems General / Constitutional: Positive: Fever, Chills Eyes: Positive: Diploplia, No: Blurred Vision HENT: No: Headaches, Vertigo Cardiovascular: No: Chest Pain or Discomfort, Palpitations Respiratory: No: Cough, Shortness of Breath Gastrointestinal: No: Nausea Genitourinary: Positive: Urgency, Frequency Skin: No Rash Psychiatric: Positive: Mood Disorder, No: Anxiety Endocrine: No: Heat Intolerance, Cold Intolerance Hematologic/Lymphatic: No: Easy Bruising Physical Exam Narrative GENERAL: Well-developed male SKIN: Focused skin assessment warm/dry. HEAD: Atraumatic. Normocephalic. EYES: Pupils equal and round. No scleral icterus. No injection or drainage. ENT: No nasal bleeding or discharge. Mucous membranes pink and moist. NECK: Trachea midline. No JVD. CARDIOVASCULAR: Regular rate and rhythm. No murmur appreciated. RESPIRATORY: No accessory muscle use. Clear to auscultation. Breath sounds equal bilaterally. GASTROINTESTINAL: Abdomen soft, non-tender, nondistended. Hepatic and splenic margins not palpable. MUSCULOSKELETAL: No obvious deformities. No clubbing. No cyanosis. No edema. NEUROLOGICAL: Awake and alert. No obvious cranial nerve deficits. Motor grossly within normal limits. Normal speech. PSYCHIATRIC: Appropriate mood and affect; insight and judgment normal. Data Data Last Documented VS Vital Signs Date Time Temp Pulse Resp B/P (MAP) Pulse Ox O2 Delivery O2 Flow Rate FiO2 08/03/17 17:40 82 20 131/63 (85) 94 08/03/17 17:00 101.9 Room Air Orders Orders Complete Blood Count With Diff (08/03/17 17:07) Comprehensive Metabolic Panel (08/03/17 17:07) Lactic Acid Sepsis Protocol (08/03/17 17:07) Urinalysis - C+S If Indicated (08/03/17 17:07) Blood Culture (08/03/17 17:07) Blood Glucose (08/03/17 17:07) Ecg Monitoring (08/03/17 17:07) Iv Access Insert/Monitor (08/03/17 17:07) Oximetry (08/03/17 17:07) Oxygen Administration (08/03/17 17:07) Vancomycin Inj (Vancomycin Inj) (08/03/17 17:07) Cefepime Inj (Maxipime Inj) (08/03/17 17:15) Galien (Li) (08/03/17 17:17) Sodium Chlor 0.9% 1000 Ml Inj (Ns 1000 M (08/03/17 17:30) Bladder Scan PRN (08/03/17 19:04) Urinary Catheter Insert/Apply (08/03/17 19:04) Labs Laboratory Tests Test 08/03/17 17:25 08/03/17 18:45 White Blood Count 13.7 TH/MM3 Red Blood Count 3.07 MIL/MM3 Hemoglobin 11.1 GM/DL Hematocrit 29.7 % Mean Corpuscular Volume 96.8 FL Mean Corpuscular Hemoglobin 36.2 PG Mean Corpuscular Hemoglobin Concent 37.4 % Red Cell Distribution Width 14.5 % Platelet Count 178 TH/MM3 Mean Platelet Volume 7.2 FL Neutrophils (%) (Auto) 86.1 % Lymphocytes (%) (Auto) 6.8 % Monocytes (%) (Auto) 5.1 % Eosinophils (%) (Auto) 0.0 % Basophils (%) (Auto) 2.0 % Neutrophils # (Auto) 11.8 TH/MM3 Lymphocytes # (Auto) 0.9 TH/MM3 Monocytes # (Auto) 0.7 TH/MM3 Eosinophils # (Auto) 0.0 TH/MM3 Basophils # (Auto) 0.3 TH/MM3 CBC Comment AUTO DIFF Differential Comment AUTO DIFF CONFIRMED Blood Urea Nitrogen 9 MG/DL Creatinine 1.00 MG/DL Random Glucose 170 MG/DL Total Protein 6.7 GM/DL Albumin 3.0 GM/DL Calcium Level 8.2 MG/DL Alkaline Phosphatase 72 U/L Aspartate Amino Transf (AST/SGOT) 10 U/L Alanine Aminotransferase (ALT/SGPT) 21 U/L Total Bilirubin 1.3 MG/DL Sodium Level 134 MEQ/L Potassium Level 4.1 MEQ/L Chloride Level 100 MEQ/L Carbon Dioxide Level 27.5 MEQ/L Anion Gap 7 MEQ/L Estimat Glomerular Filtration Rate 74 ML/MIN Lactic Acid Level 1.1 mmol/L MDM Medical Decision Making Medical Screen Exam Complete: Yes Emergency Medical Condition: Yes Medical Record Reviewed: Yes Differential Diagnosis Differential includes UTI, sepsis, Narrative Course Initial exam the patient did not appear distended or when he was unable to void. He was given a liter of fluid and even after this he was unable to urinate. A bladder scan was done and showed over 1000 cc of urine. His hemoglobin is 11 with a white count of 13,000. His BUNs is 9. Lactate level is 1.1. Tony Mckinnon MD Aug 03, 2017 17:22
[2017-08-03 17:30] VITALS: O2SAT 96
[2017-08-03] MEDS ORDERED: SODIUM CHLOR 0.9% 1000 ML INJ 1,000 ML IV ONE (17:30)
[2017-08-03 17:40] VITALS: BP 131/63; PULSE 82; RESP 20; O2SAT 94
[2017-08-03 17:42] LABS: CHLORIDE 100 MEQ/L (98-107); POTASSIUM 4.1 MEQ/L (3.5-5.1); SODIUM (NA) 134 MEQ/L (136-145)
[2017-08-03 17:47] LABS: ANION GAP 7 MEQ/L (5-15); BICARBONATE 27.5 MEQ/L (21.0-32.0)
[2017-08-03 17:48] LABS: BLOOD UREA NITROGEN 9 MG/DL (7-18)
[2017-08-03 17:50] LABS: ALT (GPT) 21 U/L (12-78)
[2017-08-03 17:51] LABS: AST (GOT) 10 U/L (15-37); GLOMERULAR FILTRATION RATE 74 ML/MIN (>89)
[2017-08-03 17:52] LABS: TOTAL BILIRUBIN ADULT 1.3 MG/DL (0.2-1.0)
[2017-08-03 17:53] LABS: ALKALINE PHOSPHATASE 72 U/L (45-117)
[2017-08-03 17:55] LABS: AUTOMATED NEUTROPHIL # 11.8 TH/MM3 (1.8-7.7); BASOPHIL # 0.3 TH/MM3 (0-0.2); HEMATOCRIT 29.7 % (39.0-51.0); LYMPH % 6.8 % (9.0-44.0); LYMPHOCYTE # 0.9 TH/MM3 (1.0-4.8); MEAN CELL VOLUME 96.8 FL (80.0-100.0); MEAN CORPUSCULAR HEMOGLOBIN 36.2 PG (27.0-34.0); MONO % 5.1 % (0.0-8.0); NEUT % 86.1 % (16.0-70.0); PLATELET COUNT 178 TH/MM3 (150-450); RED BLOOD COUNT 3.07 MIL/MM3 (4.50-5.90); RED CELL DISTRIBUTION WIDTH 14.5 % (11.6-17.2); WHITE BLOOD COUNT 13.7 TH/MM3 (4.0-11.0)
[2017-08-03 18:11] LABS: HEMO FLAGS AUTO DIFF; MEAN CORPUSCULAR HGB CONC 37.4 % (32.0-36.0)
[2017-08-03 18:32] LABS: SCAN/DIFF AUTO DIFF CONFIRMED
[2017-08-03 18:52] LABS: BLOOD, URINE MOD (NEG); GLUCOSE,URINE 100 mg/dL (NEG); KETONE, URINE NEG (NEG); NITRITE,URINE NEG (NEG)
[2017-08-03 19:10] LABS: URINE COLOR YELLOW (YELLW/STRAW)
[2017-08-03 19:11] LABS: WBC, URINE INNUM /hpf (0-5)
[2017-08-03 19:12] LABS: BACTERIA, URINE MANY /hpf; COMMENT (UR) CULTURE INDICATED; CULTURE IF INDICATED CULTURE INDICATED; RBC, URINE 15-19 /hpf (0-3); SQUAMOUS EPITHELIAL CELL URINE 0-5 /hpf (0-5)
[2017-08-03 20:00] VITALS: BP 116/59; PULSE 64; RESP 17; TEMP 98.8; O2SAT 97
[2017-08-03] MEDS ORDERED: MAGNESIUM HYDROXIDE SUSP 30 ML CUP PO PRN (20:15)
[2017-08-03] MEDS ORDERED: ACETAMINOPHEN 325 MG TAB PO PRN (20:15)
[2017-08-03] MEDS ORDERED: DEXTROSE 50% IN WATER 50 ML VIAL(D50) IV PUSH PRN (20:15)
[2017-08-03] MEDS ORDERED: GLUCAGON 1 MG/ML VIAL OTHER PRN (20:15)
[2017-08-03] MEDS ORDERED: SODIUM CHLORIDE 0.9% FLUSH 10 ML FLUSH IV FLUSH PRN (20:15)
[2017-08-03] MEDS ORDERED: ACETAMINOPHEN/HYDROcodone 325 MG/10 MG TAB PO PRN (20:15)
[2017-08-03] MEDS ORDERED: BISACODYL 10 MG SUPP RECTAL PRN (20:15)
[2017-08-03] MEDS ORDERED: SENNOSIDES 8.6 MG TAB PO PRN (20:15)
[2017-08-03] MEDS ORDERED: ACETAMINOPHEN/HYDROcodone 325 MG/5 MG TAB PO PRN (20:15)
[2017-08-03] MEDS ORDERED: ONDANSETRON HCL 4 MG/2 ML VIAL IVP PRN (20:15)
[2017-08-03] MEDS ORDERED: LACTULOSE SYRUP 20 GM/30 ML CUP PO PRN (20:15)
[2017-08-03] MEDS: TAMSULOSIN HCL 0.4 MG CAP PO SCH (21:13)
[2017-08-03] MEDS: SODIUM CHLOR 0.9% 1000 ML INJ 1,000 ML IV SCH (21:13)
[2017-08-03] MEDS: DOCUSATE SODIUM 50 MG/SENNA 8.6 MG TAB PO SCH (21:13)
[2017-08-03] MEDS: INSULIN ASPART SUPPLEMENTAL SCALE SQ SCH (21:14)
[2017-08-03] MEDS: SODIUM CHLORIDE 0.9% FLUSH 10 ML FLUSH IV FLUSH SCH (21:14)
[2017-08-03] MEDS: LITHIUM CARBONATE 300 MG TAB PO SCH (21:22)
[2017-08-04] VITALS (7 sets, daily range): BP systolic 98–146; BP diastolic 56–96; PULSE 55–84; RESP 17–24; TEMP 97.3–100.1; O2SAT 93–100
[2017-08-04] MEDS: LEVOTHYROXINE SODIUM 50 MCG TAB PO SCH (05:20)
[2017-08-04] MEDS: SODIUM CHLOR 0.9% 1000 ML INJ 1,000 ML IV SCH ×2 (05:22→14:31)
[2017-08-04 06:18] LABS: AUTOMATED NEUTROPHIL # 9.7 TH/MM3 (1.8-7.7); BASOPHIL % 0.3 % (0.0-2.0); EOSINOPHIL % 0.3 % (0.0-4.0); HEMATOCRIT 26.7 % (39.0-51.0); LYMPH % 9.9 % (9.0-44.0); LYMPHOCYTE # 1.1 TH/MM3 (1.0-4.8); MEAN CELL VOLUME 97.4 FL (80.0-100.0); MEAN CORPUSCULAR HEMOGLOBIN 35.5 PG (27.0-34.0); MONO % 5.7 % (0.0-8.0); NEUT % 83.8 % (16.0-70.0); PLATELET COUNT 153 TH/MM3 (150-450); RED BLOOD COUNT 2.74 MIL/MM3 (4.50-5.90); RED CELL DISTRIBUTION WIDTH 13.4 % (11.6-17.2); WHITE BLOOD COUNT 11.5 TH/MM3 (4.0-11.0)
[2017-08-04 06:31] LABS: HEMO FLAGS AUTO DIFF; MEAN CORPUSCULAR HGB CONC 36.4 % (32.0-36.0)
[2017-08-04 06:33] LABS: CHLORIDE 104 MEQ/L (98-107); POTASSIUM 3.8 MEQ/L (3.5-5.1); SODIUM (NA) 136 MEQ/L (136-145)
[2017-08-04 06:38] LABS: ANION GAP 6 MEQ/L (5-15); BICARBONATE 26.4 MEQ/L (21.0-32.0); BLOOD UREA NITROGEN 11 MG/DL (7-18)
[2017-08-04 06:41] LABS: ALT (GPT) 17 U/L (12-78); AST (GOT) 14 U/L (15-37); GLOMERULAR FILTRATION RATE 104 ML/MIN (>89)
[2017-08-04 06:44] LABS: ALKALINE PHOSPHATASE 64 U/L (45-117)
[2017-08-04] MEDS: DOCUSATE SODIUM 50 MG/SENNA 8.6 MG TAB PO SCH ×2 (07:56→21:16)
[2017-08-04] MEDS: SODIUM CHLORIDE 0.9% FLUSH 10 ML FLUSH IV FLUSH SCH ×2 (07:57→21:15)
[2017-08-04] MEDS: TAMSULOSIN HCL 0.4 MG CAP PO SCH ×2 (07:57→21:16)
[2017-08-04 08:03] LABS: PLATELET ESTIMATE SMEAR NORMAL (NORMAL); PLATELET MORPHOLOGY NORMAL (NORMAL); SCAN/DIFF AUTO DIFF CONFIRMED
[2017-08-04] MEDS: INSULIN ASPART SUPPLEMENTAL SCALE SQ SCH ×4 (08:08→22:23)
[2017-08-04] MEDS: LITHIUM CARBONATE 300 MG TAB PO SCH ×3 (09:00→22:23)
--- NOTE | 2017-08-04 10:59 | HHI.HP ---
[facility] Service [facility] Primary Care Physician Jacquelin Ortega MD Admission Diagnosis UTI, SEPSIS Diagnoses: Travel History International Travel<30 Days: No Contact w/Intl Traveler <30 Da: No Traveled to Known Affected Are: No History of Present Illness This is a very pleasant 72 year-old female with past medical history of hypertension, type 2 diabetes and bipolar disorder who presents to the hospital with fever and shaking chills beginning yesterday. The patient was hospitalized last month for a bipolar exacerbation. During that hospitalization he also had urinary retention and a Guevara catheter was placed. Urology Dr. stephens was consulted. The patient had the Guevara catheter removed last Friday and has been voiding since then. However in the emergency department he was unable to void a bladder scan showed 1000 mL's and a Guevara catheter was placed. The patient also has been having double vision since May and is wearing an eye patch, he is a follow-up appointment with rigger apprentice in the next several weeks. He has an appointment with Dr. setphens next week. The patient denies nausea vomiting abdominal pain rash diarrhea. Denies auditory or visual hallucinations. Review of Systems Constitutional: COMPLAINS OF: Fever, Chills Eyes: COMPLAINS OF: Diplopia, DENIES: Blurred vision Ears, nose, mouth, throat: DENIES: Throat pain, Odynophagia Respiratory: DENIES: Cough, Shortness of breath Cardiovascular: DENIES: Chest pain, Lower Extremity Edema Gastrointestinal: DENIES: Abdominal pain, Nausea, Vomiting Genitourinary: DENIES: Urgency, Dysuria Musculoskeletal: DENIES: Joint Swelling, Back pain Integumentary: DENIES: Rash Hematologic/lymphatic: DENIES: Lymphadenopathy Neurologic: DENIES: Abnormal gait, Headache Psychiatric: DENIES: Anxiety, Confusion, Hallucinations Past Family Social History Past Medical History Bipolar disorder Hypertension Hypothyroidism Type 2 diabetes History of hepatitis C virus, treated BPH Urinary retention Mild pancytopenia last month attributed to Zyprexa Reported Medications Allergies Coded Allergies Type Severity Reaction Last Updated Verified penicillin G Allergy Unknown CHILDHOOD 08/03/17 No olanzapine Adverse Reaction Intermediate 08/03/17 Yes Active Scripts Medications Dose Route/Sig Max Daily Dose Days Date Category Ibuprofen 200 Mg Cap 0 PO Q4H PRN 08/03/17 Reported [place] Carbonate 300 Mg Tab 300 Mg PO DAILY@0900,1300,2100 07/16/17 Rx Geodon (Ziprasidone) 80 Mg Cap 80 Mg PO BIDPC 30 07/16/17 Rx Synthroid (Levothyroxine Sodium) 50 Mcg Tab 50 Mcg PO DAILY@0600 07/15/17 Rx Flomax (Tamsulosin HCl) 0.4 Mg Cap 0.4 Mg PO Q12HR 07/15/17 Rx Tizanidine (Tizanidine HCl) 2 Mg Cap 2 Mg PO TID PRN 06/20/17 Reported Januvia (Sitagliptin Phosphate) 100 Mg Tab 100 Mg PO DAILY 06/20/17 Reported Tizanidine (Tizanidine HCl) 4 Mg Cap 4 Mg PO TID PRN 06/20/17 Reported Allergies: Coded Allergies: penicillin G (Unverified Allergy, Unknown, CHILDHOOD , 08/03/17) olanzapine (Verified Adverse Reaction, Intermediate, 08/03/17) Leukopenia Family History Reviewed and noncontributory Social History Positive tobacco use He is with one child Occasional beer use Physical Exam Vital Signs Vital Signs Date Time Temp Pulse Resp B/P (MAP) Pulse Ox O2 Delivery O2 Flow Rate FiO2 08/04/17 08:00 98.6 59 24 98/67 (77) 96 08/04/17 04:00 98.1 84 17 146/96 (113) 93 08/04/17 00:00 100.1 75 17 126/66 (86) 94 08/03/17 20:00 98.8 64 17 116/59 (78) 97 08/03/17 17:40 82 20 131/63 (85) 94 08/03/17 17:30 96 08/03/17 17:00 101.9 90 18 124/65 (84) 97 Room Air 08/03/17 16:35 101.9 105 18 129/60 (83) 96 Physical Exam GENERAL: This is a well-nourished, well-developed patient, in no apparent distress. SKIN: No rashes, ecchymoses or lesions. Cool and dry. HEAD: Atraumatic. Normocephalic. EYES: Pupils equal round and reactive. Extraocular motions intact. No scleral icterus. No injection or drainage. ENT: Nose without bleeding, purulent drainage or septal hematoma. Throat without erythema, tonsillar hypertrophy or exudate. Uvula midline. Airway patent. NECK: Trachea midline. No JVD or lymphadenopathy. CARDIOVASCULAR: Regular rate and rhythm without murmurs, gallops, or rubs. RESPIRATORY: Clear to auscultation. Breath sounds equal bilaterally. No wheezes , rales, or rhonchi. GASTROINTESTINAL: Abdomen soft, non-tender, nondistended. No hepato-splenomegaly , or palpable masses. No guarding. MUSCULOSKELETAL: Extremities without clubbing, cyanosis, or edema. No joint tenderness, effusion, or edema noted. NEUROLOGICAL: Awake and alert. Cranial nerves II through XII intact. Rhythmic clenching of mouth. Motor and sensory grossly within normal limits. Normal speech. Laboratory Laboratory Tests Test 08/03/17 17:25 08/03/17 18:45 08/03/17 19:47 08/04/17 05:50 White Blood Count 13.7 11.5 Red Blood Count 3.07 2.74 Hemoglobin 11.1 9.7 Hematocrit 29.7 26.7 Mean Corpuscular Volume 96.8 97.4 Mean Corpuscular Hemoglobin 36.2 35.5 Mean Corpuscular Hemoglobin Concent 37.4 36.4 Red Cell Distribution Width 14.5 13.4 Platelet Count 178 153 Mean Platelet Volume 7.2 7.4 Neutrophils (%) (Auto) 86.1 83.8 Lymphocytes (%) (Auto) 6.8 9.9 Monocytes (%) (Auto) 5.1 5.7 Eosinophils (%) (Auto) 0.0 0.3 Basophils (%) (Auto) 2.0 0.3 Neutrophils # (Auto) 11.8 9.7 Lymphocytes # (Auto) 0.9 1.1 Monocytes # (Auto) 0.7 0.7 Eosinophils # (Auto) 0.0 0.0 Basophils # (Auto) 0.3 0.0 CBC Comment AUTO DIFF AUTO DIFF Differential Comment AUTO DIFF CONFIRMED AUTO DIFF CONFIRMED Blood Urea Nitrogen 9 11 Creatinine 1.00 0.74 Random Glucose 170 172 Total Protein 6.7 5.7 Albumin 3.0 2.5 Calcium Level 8.2 7.7 Alkaline Phosphatase 72 64 Aspartate Amino Transf (AST/SGOT) 10 14 Alanine Aminotransferase (ALT/SGPT) 21 17 Total Bilirubin 1.3 1.0 Sodium Level 134 136 Potassium Level 4.1 3.8 Chloride Level 100 104 Carbon Dioxide Level 27.5 26.4 Anion Gap 7 6 Estimat Glomerular Filtration Rate 74 104 Lactic Acid Level 1.1 Urine Color YELLOW Urine Turbidity MOD Urine pH 6.0 Urine Specific [employer] 1.007 Urine Protein NEG Urine Glucose (UA) 100 Urine Ketones NEG Urine Occult Blood MOD Urine Nitrite NEG Urine Bilirubin NEG Urine Leukocyte Esterase LARGE Urine RBC 15-19 Urine WBC INNUM Urine WBC Clumps MANY Urine Squamous Epithelial Cells 0-5 Urine Bacteria MANY Microscopic Urinalysis Comment CULTURE INDICATED [place] Level 0.6 Platelet Estimate NORMAL Platelet Morphology Comment NORMAL Date/Time Source Procedure Growth Status 08/03/17 17:25 Blood Peripheral Aerobic Blood Culture Pending Received 08/03/17 17:25 Blood Peripheral Anaerobic Blood Culture Pending Received 08/03/17 18:45 Urine Clean Catch Urine Culture Pending Received Result Diagram: 08/04/17 0550 08/04/17 0550 Septic Shock Reassessment Heart: Regular rate and rhythm Lungs: Clear Skin: Warm Peripheral Pulses: Bounding Right Radial Bounding Left Radial Capillary Refill: Brisk Caprini VTE Risk Assessment Caprini VTE Risk Assessment: Mod/High Risk (score >= 2) Caprini Risk Assessment Model Point Value = 1 Point Value = 2 Point Value = 3 Point Value = 5 Age 41-60 Minor surgery BMI > 25 kg/m2 Swollen legs Varicose veins or History of unexplained or recurrent spontaneous Oral contraceptives or hormone replacement Sepsis (< 1 month) Serious lung disease, including pneumonia (< 1 month) Abnormal pulmonary function Acute myocardial infarction Congestive heart failure (< 1 month) History of inflammatory bowel disease Medical patient at bed rest Age 61-74 Arthroscopic surgery Major open surgery (> 45 min) Laparoscopic surgery (> 45 min) Malignancy Confined to bed (> 72 hours) Immobilizing plaster cast Central venous access Age >= 75 History of VTE Family history of VTE Factor V Leiden Prothrombin [id number] Lupus anticoagulant Anticardiolipin antibodies Elevated serum homocysteine Heparin-induced thrombocytopenia Other congenital or acquired thrombophilia Stroke (< 1 month) Elective arthroplasty Hip, pelvis, or leg fracture Acute spinal cord injury (< 1 month) Prophylaxis Regimen Total Risk Factor Score Risk Level Prophylaxis Regimen 0-1 Low Early ambulation 2 Moderate Order ONE of the following: *Sequential Compression Device (SCD) *Heparin 5000 units SQ BID 3-4 Higher Order ONE of the following medications: *Heparin 5000 units SQ TID *Enoxaparin/Lovenox 40 mg SQ daily (WT < 150 kg, CrCl > 30 mL/min) *Enoxaparin/Lovenox 30 mg SQ daily (WT < 150 kg, CrCl > 10-29 mL/min) *Enoxaparin/Lovenox 30 mg SQ BID (WT < 150 kg, CrCl > 30 mL/min) AND/OR *Sequential Compression Device (SCD) 5 or more Highest Order ONE of the following medications: *Heparin 5000 units SQ TID (Preferred with Epidurals) *Enoxaparin/Lovenox 40 mg SQ daily (WT < 150 kg, CrCl > 30 mL/min) *Enoxaparin/Lovenox 30 mg SQ daily (WT < 150 kg, CrCl > 10-29 mL/min) *Enoxaparin/Lovenox 30 mg SQ BID (WT < 150 kg, CrCl > 30 mL/min) AND *Sequential Compression Device (SCD) Assessment and Plan Problem List: (1) UTI (urinary tract infection) ICD Code: N39.0 - Urinary tract infection, site not specified Status: Acute (2) Tobacco abuse ICD Code: Z72.0 - Tobacco use (3) Hypothyroidism ICD Code: E03.9 - Hypothyroidism, unspecified (4) Anemia ICD Code: D64.9 - Anemia, unspecified (5) HTN (hypertension) ICD Code: I10 - Essential (primary) hypertension (6) Diabetes ICD Code: E11.9 - Type 2 diabetes mellitus without complications (7) Urinary retention due to benign prostatic hyperplasia ICD Code: N40.1 - Benign prostatic hyperplasia with lower urinary tract symptoms; R33.8 - Other retention of urine Status: Acute Assessment and Plan UTI, catheter associated - meets sepsis criteria with tachycardia, fever or leukocytosis. Continue Rocephin IV. Follow-up urine and blood cultures. Vital signs are stable lactic acid was not elevated. Recurrent Urinary retention due to BPH - failed trial Guevara catheter removal last Friday. He has a follow-up appointment with Dr. stephens of urology next week. Continue Guevara catheter and Flomax. Bipolar disorder - was hospitalized last month. Now appears stable. Continue Geodon and lithium. Hypothyroidism - continue Synthroid. TSH was 4.8 last month. We'll repeat. Type 2 diabetes - resume Januvia. Mild pancytopenia last month attributed to Zyprexa - still has a mild anemia, platelets within normal limits. Follow CBC. DVT prophylaxis with SCDs. Cyndi Alicea MD Aug 04, 2017 10:59
[2017-08-04] MEDS: ZIPRASIDONE HCL 80 MG CAP PO SCH ×2 (12:32→17:28)
[2017-08-04] MEDS: cefTRIAXone INJ 1,000 MG in SODIUM CHLORIDE 0.9% INJ 100 ML IV SCH (21:16)
[2017-08-05] VITALS (8 sets, daily range): BP systolic 113–156; BP diastolic 59–73; PULSE 54–84; RESP 16–20; TEMP 97.6–100.3; O2SAT 94–98
[2017-08-05] MEDS: SODIUM CHLOR 0.9% 1000 ML INJ 1,000 ML IV SCH ×3 (02:16→20:24)
[2017-08-05] MEDS: LEVOTHYROXINE SODIUM 50 MCG TAB PO SCH (05:42)
[2017-08-05] MEDS: TAMSULOSIN HCL 0.4 MG CAP PO SCH ×2 (08:20→20:15)
[2017-08-05] MEDS: SODIUM CHLORIDE 0.9% FLUSH 10 ML FLUSH IV FLUSH SCH ×2 (08:20→20:12)
[2017-08-05] MEDS: INSULIN ASPART SUPPLEMENTAL SCALE SQ SCH ×4 (08:20→20:23)
[2017-08-05] MEDS: DOCUSATE SODIUM 50 MG/SENNA 8.6 MG TAB PO SCH ×2 (08:21→20:15)
[2017-08-05] MEDS: LITHIUM CARBONATE 300 MG TAB PO SCH ×3 (08:24→20:20)
[2017-08-05] MEDS: ZIPRASIDONE HCL 80 MG CAP PO SCH ×2 (08:24→16:39)
--- NOTE | 2017-08-05 10:54 | HHI.PR ---
Subjective Remarks Patient has had no further fever or chills. Denies abdominal pain. Vital signs stable. Objective Vitals Vital Signs Date Time Temp Pulse Resp B/P (MAP) Pulse Ox O2 Delivery O2 Flow Rate FiO2 08/05/17 08:00 97.6 61 18 130/62 (84) 94 08/05/17 04:00 98.6 64 20 113/59 (77) 98 08/05/17 00:00 100.3 69 18 117/73 (88) 96 08/04/17 20:00 99.8 56 18 121/62 (81) 94 08/04/17 16:00 99.3 55 18 121/65 (83) 98 08/04/17 12:00 97.3 55 18 98/56 (70) 100 I/O 08/04/17 08/04/17 08/04/17 08/05/17 08/05/17 08/05/17 07:00 15:00 23:00 07:00 15:00 23:00 Intake Total 1440 ml 2290 ml 220 ml 993 ml 600 ml Output Total 1250 ml 2350 ml 2700 ml 1850 ml 1501 ml Balance 190 ml -60 ml -2480 ml -857 ml -901 ml Intake Oral 1440 ml 1290 ml 120 ml 600 ml IV Total 1000 ml 100 ml 993 ml Output Urine Total 1250 ml 2350 ml 2700 ml 1850 ml 1500 ml Stool Total 1 ml Result Diagram: 08/04/17 0550 08/04/17 0550 Objective Remarks GENERAL: Well-nourished, well-developed patient. SKIN: Warm and dry. HEAD: Normocephalic. EYES: No scleral icterus. No injection or drainage. Extraocular motions intact. Left eye patch. NECK: Supple, trachea midline. No JVD or lymphadenopathy. CARDIOVASCULAR: Regular rate and rhythm without murmurs, gallops, or rubs. RESPIRATORY: Breath sounds equal bilaterally. No accessory muscle use. GASTROINTESTINAL: Abdomen soft, non-tender, nondistended. EXTREMITIES: No cyanosis, or edema. NEUROLOGICAL: Awake, alert, and oriented x 3. Non-focal. A/P Problem List: (1) UTI (urinary tract infection) ICD Code: N39.0 - Urinary tract infection, site not specified Status: Acute (2) Tobacco abuse ICD Code: Z72.0 - Tobacco use (3) Hypothyroidism ICD Code: E03.9 - Hypothyroidism, unspecified (4) Anemia ICD Code: D64.9 - Anemia, unspecified (5) HTN (hypertension) ICD Code: I10 - Essential (primary) hypertension (6) Diabetes ICD Code: E11.9 - Type 2 diabetes mellitus without complications (7) Urinary retention due to benign prostatic hyperplasia ICD Code: N40.1 - Benign prostatic hyperplasia with lower urinary tract symptoms; R33.8 - Other retention of urine Status: Acute Assessment and Plan UTI, catheter associated - meets sepsis criteria with tachycardia, fever or leukocytosis. Urine culture positive gram-negative bernard, one blood culture positive with variable gram bernard. Consult infectious disease. Continue Rocephin IV. Follow-up urine and blood cultures. Vital signs are stable lactic acid was not elevated. Repeat blood cultures. Recurrent Urinary retention due to BPH - failed trial Guevara catheter removal last Friday. He has a follow-up appointment with Dr. stephens of urology next week. Continue Guevara catheter and Flomax. Bipolar disorder - was hospitalized last month. Now appears stable. Continue Geodon and lithium. Hypothyroidism - continue Synthroid. TSH was 4.8 last month. We'll repeat. Type 2 diabetes - resume Januvia. Mild pancytopenia last month attributed to Zyprexa - still has a mild anemia, platelets within normal limits. Follow CBC. DVT prophylaxis with SCDs. Cyndi Alicea MD Aug 05, 2017 10:54
--- NOTE | 2017-08-05 17:42 | MB ---
cc: GISELA ALICEA MD, FRANKLYN F. MD DATE OF CONSULTATION: 08/05/[address] Alicea REASON FOR CONSULTATION: Gram-negative rods, sepsis. UTI. HISTORY OF PRESENT ILLNESS: This is a 72-year-old white male who presented to the emergency department on 08/03 with fever. The patient complained of fever and chills and is also having urinary urgency. He had a temperature of 101.9 in the emergency department but reported temperature of 103.6 degrees at home prior to arriving. The patient was in the hospital in June and he was discharged on July 16. He was diagnosed with UTI due to E-coli on July 08. He has had a Guevara catheter in place. The patient reportedly was unable to void and had a bladder scan which showed 100 mL residual, and a Guevara catheter was placed. The prior urinary catheter was removed on 08/01. Culture from the blood has gram-negative bernard. Urinalysis revealed innumerable white cells and urine culture has gram-negative bernard. He had cultures from 08/03. Repeated blood culture was sent today. The patient is currently feeling well. He denies chills, nausea or vomiting. He is currently sitting at the bedside eating dinner. His last maximum temperature was 100.3 degrees earlier today. White blood cell count has decreased from 13.7 to 11.5. PAST MEDICAL HISTORY 1. Bipolar disorder. 2. Hypertension. 3. Diabetes mellitus type 2. 4. Hypothyroidism. 5. Benign prostatic hypertrophy. 6. Hepatitis C virus. 7. Urinary retention. ALLERGIES PENICILLIN OLANZAPINE. CAUSES LEUKOPENIA. SOCIAL HISTORY Positive tobacco. Occasional alcohol. No illicit drugs. FAMILY HISTORY Noncontributory. REVIEW OF SYSTEMS General: Significant for fever and chills. HEENT: Positive diplopia. No eye pain. No nasal discharge. No difficulty swallowing or soreness of the throat. Cardiovascular: No palpitation or chest pain. Respiratory: No cough or shortness of breath. Gastrointestinal: No nausea or vomiting, abdominal pain or diarrhea. Genitourinary: No urgency, frequency or dysuria. Hematopoetic: No easy bruising or bleeding. Integumentary. No skin rash or itching. Musculoskeletal: No aches or pains or joint swelling. Neurologic: No dizziness or problems with coordination. Psychiatric: No anxiety or confusion. PHYSICAL EXAMINATION This is a well-developed male who is in no acute distress. He is awake and alert and oriented. Vital signs: Temperature 97.8, BP 149/66, respirations 16, heart rate 62. HEENT: Head is atraumatic. Extraocular movements grossly intact, pupils reactive to light without icterus. Oropharynx moist mucosa without lesions. Neck: Supple without adenopathy. Lungs: Clear breath sounds. Slight diminished at the right base. Heart: Regular rate and rhythm. No murmurs or rubs or gallops. Abdomen: Bowel sounds present, soft, no tenderness appreciated. : The patient has Guevara catheter in place which has clear yellow urine. Rectal: Not performed. Extremities: No clubbing or cyanosis or edema. Skin: No rash. Neuro: Nonfocal site. Psych: The patient is calm and cooperative. LABORATORY DATA WBC 11.5, platelets 153, hemoglobin 9.7, 83% neutrophils, creatinine 0.74, BUN 11, sodium 136. IMPRESSION 1. Gram-negative sepsis in a patient who presented with fever and chills and leukocytosis. 2. Positive urine culture with gram-negative bernard which is the source of sepsis. 3. Patient with recent Guevara catheter. 4. Low grade fever earlier today related to infection. RECOMMENDATIONS 1. Continue the ceftriaxone since the patient appears to be responding to that antibiotic and his temperature has improved and he no longer has chills. 2. Follow the blood cultures for identity and sensitivity of the bacteria. 3. Follow urine culture for identity of the gram-negative bernard. 4. Monitor clinical status. 5. Antibiotic adjustments depending on the sensitivity of the gram-negative bacteria. Thank you this consultation. The patient's progress will be followed with you and further recommendations will be given upon followup if necessary. Kulwant Bello MD FD/CARMEN /4:31 PM /4:46 PM
[2017-08-05] MEDS: cefTRIAXone INJ 1,000 MG in SODIUM CHLORIDE 0.9% INJ 100 ML IV SCH (20:14)
[2017-08-06] VITALS (7 sets, daily range): BP systolic 132–146; BP diastolic 62–72; PULSE 56–80; RESP 18–20; TEMP 98.1–98.5; O2SAT 94–97
[2017-08-06] MEDS: LEVOTHYROXINE SODIUM 50 MCG TAB PO SCH (06:34)
[2017-08-06 07:52] LABS: POTASSIUM 4.3 MEQ/L (3.5-5.1)
[2017-08-06 07:57] LABS: BICARBONATE 26.1 MEQ/L (21.0-32.0)
[2017-08-06] MEDS: INSULIN ASPART SUPPLEMENTAL SCALE SQ SCH ×4 (08:00→21:59)
[2017-08-06] MEDS: ZIPRASIDONE HCL 80 MG CAP PO SCH ×2 (08:17→17:27)
[2017-08-06] MEDS: DOCUSATE SODIUM 50 MG/SENNA 8.6 MG TAB PO SCH ×2 (08:17→20:41)
[2017-08-06] MEDS: TAMSULOSIN HCL 0.4 MG CAP PO SCH ×2 (08:17→20:41)
[2017-08-06] MEDS: SODIUM CHLORIDE 0.9% FLUSH 10 ML FLUSH IV FLUSH SCH ×2 (08:17→20:41)
[2017-08-06] MEDS: SODIUM CHLOR 0.9% 1000 ML INJ 1,000 ML IV SCH ×2 (08:18→17:14)
[2017-08-06 08:26] LABS: AUTOMATED NEUTROPHIL # 5.1 TH/MM3 (1.8-7.7); BASOPHIL # 0.1 TH/MM3 (0-0.2); BASOPHIL % 1.1 % (0.0-2.0); EOSINOPHIL # 0.1 TH/MM3 (0-0.4); EOSINOPHIL % 1.4 % (0.0-4.0); HEMATOCRIT 32.5 % (39.0-51.0); LYMPH % 8.1 % (9.0-44.0); LYMPHOCYTE # 0.5 TH/MM3 (1.0-4.8); MEAN CORPUSCULAR HEMOGLOBIN 30.4 PG (27.0-34.0); MEAN CORPUSCULAR HGB CONC 33.1 % (32.0-36.0); MONO % 6.6 % (0.0-8.0); NEUT % 82.8 % (16.0-70.0); RED BLOOD COUNT 3.53 MIL/MM3 (4.50-5.90); RED CELL DISTRIBUTION WIDTH 13.9 % (11.6-17.2); WHITE BLOOD COUNT 6.2 TH/MM3 (4.0-11.0)
[2017-08-06 08:27] LABS: HEMO FLAGS AUTO DIFF; PLATELET COUNT 154 TH/MM3 (150-450)
[2017-08-06] MEDS: LITHIUM CARBONATE 300 MG TAB PO SCH ×3 (08:28→20:40)
[2017-08-06 09:30] LABS: ROULEAUX PRESENT (NORMAL); SCAN/DIFF AUTO DIFF CONFIRMED
--- NOTE | 2017-08-06 14:37 | HHI.PR ---
Subjective Remarks Patient says he feels "okay". Denies any burning with urination. Nursing denies any deterioration since last night. Objective Vital Signs Date Time Temp Pulse Resp B/P (MAP) Pulse Ox O2 Delivery O2 Flow Rate FiO2 08/06/17 12:00 98.4 70 18 138/70 (92) 96 08/06/17 08:00 98.4 62 18 133/66 (88) 97 08/06/17 04:00 98.5 59 18 141/68 (92) 96 08/06/17 00:00 98.3 68 18 146/72 (96) 97 08/05/17 20:20 72 08/05/17 20:00 98.2 54 18 156/67 (96) 95 08/05/17 16:00 97.7 70 18 138/64 (88) 94 I/O 08/05/17 08/05/17 08/05/17 08/06/17 08/06/17 08/06/17 07:00 15:00 23:00 07:00 15:00 23:00 Intake Total 993 ml 1458 ml 1300 ml 2671 ml 1000 ml Output Total 1850 ml 2002 ml 1550 ml 4450 ml 2650 ml Balance -857 ml -544 ml -250 ml -1779 ml -1650 ml Intake Oral 600 ml 1200 ml 1440 ml IV Total 993 ml 858 ml 100 ml 1231 ml 1000 ml Output Urine Total 1850 ml 2000 ml 1550 ml 4450 ml 2650 ml Stool Total 2 ml Bladder Scan Volume Amount 999 ml # Bowel Movements 1 Result Diagram: 08/06/17 0700 08/06/17 0700 Objective Remarks Lying in bed, awake, alert Has a patch over his left eye Abdomen soft, nontender, nondistended, no jaundice A/P Assessment and Plan UTI, catheter associated - Urine culture positive gram-negative bernard, one blood culture positive with variable gram bernard. ID following, appreciate recs. Continue Rocephin IV. UC growing E. coli. New problem of bacteremia - repeat blood culture showing enterococcus - sensitivities pending Recurrent Urinary retention due to BPH - failed trial Guevara catheter removal last Friday. He has a follow-up appointment with Dr. stephens of urology next week. Continue Guevara catheter and Flomax. Bipolar disorder - was hospitalized last month. Now appears stable. Continue Geodon and lithium. Hypothyroidism - continue Synthroid. worsened (increased TSH) over 6 today, obtaining free T4, will likely need to increase dose of Synthroid Type 2 diabetes - Januvia. Mild pancytopenia last month attributed to Zyprexa - still has a mild anemia, platelets within normal limits. Follow CBC. DVT prophylaxis w/ Robi Richards MD Aug 06, 2017 14:37
[2017-08-06] MEDS: ENOXAPARIN SODIUM 40 MG/0.4 ML SYRINGE SQ SCH (16:05)
--- NOTE | 2017-08-06 17:59 | HHI.IDPN ---
Note Infectious Disease Note Patient marisel hermosillo. Denies chills. No fever. Repeat blood culture has enterococcus in 1 of 4 bottles. Presented to the emergency department on 08/03 with fever. The patient complained of fever and chills and was also having urinary urgency. PAST MEDICAL HISTORY 1. Bipolar disorder. 2. Hypertension. 3. Diabetes mellitus type 2. 4. Hypothyroidism. 5. Benign prostatic hypertrophy. 6. Hepatitis C virus. 7. Urinary retention. ALLERGIES PENICILLIN OLANZAPINE. CAUSES LEUKOPENIA. OBJECTIVE: Vital Signs Date Time Temp Pulse Resp B/P (MAP) Pulse Ox O2 Delivery O2 Flow Rate FiO2 08/06/17 12:00 98.4 70 18 138/70 (92) 96 08/06/17 08:00 98.4 62 18 133/66 (88) 97 08/06/17 04:00 98.5 59 18 141/68 (92) 96 08/06/17 00:00 98.3 68 18 146/72 (96) 97 08/05/17 20:20 72 08/05/17 20:00 98.2 54 18 156/67 (96) 95 Laboratory Tests Test 08/06/17 07:00 White Blood Count 6.2 TH/MM3 Red Blood Count 3.53 MIL/MM3 Hemoglobin 10.7 GM/DL Hematocrit 32.5 % Mean Corpuscular Volume 92.0 FL Mean Corpuscular Hemoglobin 30.4 PG Mean Corpuscular Hemoglobin Concent 33.1 % Red Cell Distribution Width 13.9 % Platelet Count 154 TH/MM3 Mean Platelet Volume 8.8 FL Neutrophils (%) (Auto) 82.8 % Lymphocytes (%) (Auto) 8.1 % Monocytes (%) (Auto) 6.6 % Eosinophils (%) (Auto) 1.4 % Basophils (%) (Auto) 1.1 % Neutrophils # (Auto) 5.1 TH/MM3 Lymphocytes # (Auto) 0.5 TH/MM3 Monocytes # (Auto) 0.4 TH/MM3 Eosinophils # (Auto) 0.1 TH/MM3 Basophils # (Auto) 0.1 TH/MM3 CBC Comment AUTO DIFF Differential Comment AUTO DIFF CONFIRMED Rouleau PRESENT Hematology Comments Laboratory Tests Test 08/05/17 11:40 08/06/17 07:00 Thyroid Stimulating Hormone 3rd Gen 6.860 uIU/ML Blood Urea Nitrogen 10 MG/DL Creatinine 0.67 MG/DL Random Glucose 154 MG/DL Calcium Level 8.4 MG/DL Sodium Level 138 MEQ/L Potassium Level 4.3 MEQ/L Chloride Level 106 MEQ/L Carbon Dioxide Level 26.1 MEQ/L Anion Gap 6 MEQ/L Estimat Glomerular Filtration Rate 117 ML/MIN Free Thyroxine 0.84 NG/DL Microbiology Date/Time Source Procedure Growth Status 08/05/17 11:40 Blood Peripheral Aerobic Blood Culture - Preliminary Enterococcus Faecalis Resulted 08/05/17 11:40 Blood Peripheral Anaerobic Blood Culture - Preliminary NO GROWTH IN 1 DAY Resulted 08/05/17 11:35 Blood Peripheral Aerobic Blood Culture - Preliminary NO GROWTH IN 1 DAY Resulted 08/05/17 11:35 Blood Peripheral Anaerobic Blood Culture - Preliminary NO GROWTH IN 1 DAY Resulted 08/03/17 18:45 Urine Clean Catch Urine Culture - Final Escherichia Coli Complete PHYSICAL EXAMINATION No acute distress. He is awake and alert and oriented. HEENT: Head is atraumatic. Extraocular movements grossly intact, pupils reactive to light without icterus. Oropharynx moist mucosa without lesions. Neck: Supple without adenopathy. Lungs: Clear breath sounds. Heart: Regular rate and rhythm. No murmurs or rubs or gallops. Abdomen: Bowel sounds present, soft, no tenderness. Extremities: No clubbing or cyanosis or edema. Skin: No rash. Neuro: Nonfocal. Psych: The patient is calm and cooperative. IMPRESSION 1. E. coli sepsis in a patient who presented with fever and chills and leukocytosis. 2. Positive urine culture with e. coli. (R) to cipro. 3. Positive blood culture with enterococcus which is likely contaminant. 4. Low grade fever improved. RECOMMENDATIONS 1. Continue Ceftriaxone. 2. Repeat the blood cultures. 3. Monitor clinical status. Kulwant Bello MD Aug 06, 2017 17:59
[2017-08-06] MEDS: cefTRIAXone INJ 1,000 MG in SODIUM CHLORIDE 0.9% INJ 100 ML IV SCH (20:40)
[2017-08-07] VITALS: BP 135/64; PULSE 56; RESP 20; TEMP 98.2; O2SAT 96
[2017-08-07] MEDS: SODIUM CHLOR 0.9% 1000 ML INJ 1,000 ML IV SCH ×2 (05:35→13:37)
[2017-08-07] MEDS: LEVOTHYROXINE SODIUM 50 MCG TAB PO SCH (05:36)
[2017-08-07] MEDS: SODIUM CHLORIDE 0.9% FLUSH 10 ML FLUSH IV FLUSH SCH ×2 (07:48→21:00)
[2017-08-07 08:00] VITALS: BP 138/63; PULSE 58; RESP 20; TEMP 98.8; O2SAT 100
[2017-08-07] MEDS: INSULIN ASPART SUPPLEMENTAL SCALE SQ SCH ×4 (08:53→21:00)
[2017-08-07] MEDS: ZIPRASIDONE HCL 80 MG CAP PO SCH ×2 (08:53→17:44)
[2017-08-07] MEDS: DOCUSATE SODIUM 50 MG/SENNA 8.6 MG TAB PO SCH ×2 (08:53→21:49)
[2017-08-07] MEDS: TAMSULOSIN HCL 0.4 MG CAP PO SCH ×2 (08:53→21:49)
[2017-08-07] MEDS: LITHIUM CARBONATE 300 MG TAB PO SCH ×3 (08:58→21:52)
[2017-08-07 12:00] VITALS: BP 150/67; PULSE 59; RESP 20; TEMP 98; O2SAT 100
[2017-08-07] MEDS: ENOXAPARIN SODIUM 40 MG/0.4 ML SYRINGE SQ SCH (13:40)
--- NOTE | 2017-08-07 15:22 | HHI.PR ---
Subjective Remarks Patient says he feels good. Wants to go home. No abd pain. Objective Vital Signs Date Time Temp Pulse Resp B/P (MAP) Pulse Ox O2 Delivery O2 Flow Rate FiO2 08/07/17 12:00 98.0 59 20 150/67 (94) 100 08/07/17 08:00 98.8 58 20 138/63 (88) 100 08/07/17 00:00 98.2 56 20 135/64 (87) 96 08/06/17 20:00 98.2 58 20 132/62 (85) 94 08/06/17 18:00 80 08/06/17 16:00 98.1 56 18 145/67 (93) 96 I/O 08/06/17 08/06/17 08/06/17 08/07/17 08/07/17 08/07/17 07:00 15:00 23:00 07:00 15:00 23:00 Intake Total 2671 ml 1000 ml 1480 ml 2600 ml 2440 ml Output Total 4450 ml 2650 ml 2851 ml 2675 ml 3750 ml Balance -1779 ml -1650 ml -1371 ml -75 ml -1310 ml Intake Oral 1440 ml 480 ml 1200 ml 1440 ml IV Total 1231 ml 1000 ml 1000 ml 1400 ml 1000 ml Output Urine Total 4450 ml 2650 ml 2850 ml 2675 ml 3750 ml Stool Total 1 ml Bladder Scan Volume Amount 999 ml # Bowel Movements 2 0 3 Result Diagram: 08/06/17 0700 08/06/17 0700 Objective Remarks Lying in bed, awake, alert Has a patch over his left eye Abdomen soft, nontender, nondistended, no jaundice, no suprapubic TTP A/P Assessment and Plan UTI, catheter associated - Urine culture positive growing e.coli. ID following, appreciate recs. Continue Rocephin IV. D/w Dr. Bello, pt could possibly be a candidate for outpatient IV antibiotics via PICC line; relayed to case management to start process. repeat blood culture showing enterococcus likely contaminant per ID. Repeat BC' s from yesterday are NGTD so far. Recurrent Urinary retention due to BPH - failed trial Guevara catheter removal last Friday. He has a follow-up appointment with Dr. stephens of urology next week. D/w Dr. Erickson today via phone, recommended pt keep Guevara in this time due to substantial retention in the 1000 mL's upon ED presentation. Anticipates TURP procedure in near future. Bipolar disorder - was hospitalized last month. Now appears stable. Continue Geodon and lithium. Hypothyroidism - continue Synthroid. worsened (increased TSH) over 6 today, free T7 borderline low, increase synthroid from 50 to 88 mcg daily Type 2 diabetes - Januvia. Mild pancytopenia last month attributed to Zyprexa - still has a mild anemia. Follow CBC. DVT prophylaxis w/ Robi Richards MD Aug 07, 2017 15:22
--- NOTE | 2017-08-07 15:47 | HHI.FF ---
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 [] May leave port accessed during therapy. [] May leave peripheral site accessed for duration of therapy. [x] If patient has SOB or respiratory distress, check oxygen saturation. If less than 90% or clinical signs of respiratory distress, administer oxygen at 2 L/min. via nasal cannula and notify physician. [x] Anaphylaxis/Reaction orders: * Stop infusion. * Keep IV line open with saline flush. * Notify physician. * Monitor vital signs every 15 minutes until symptoms resolve. * Check Oxygen saturation; Oxygen at 2 L/min. via nasal cannula if less than 90% or clinical signs of respiratory distress. * Administer diphenhydramine (Benadryl) 25 mg IV STAT, (unless patient has received as pre-med). May repeat once, if necessary. * Solu-Cortef 250 mg IVP over 30-60 seconds, use 100 mg vials for each dissolution. * Epinephrine (1mg/1 ml) 0.3 mg subcutaneously or IVP now with any signs of respiratory distress. * Check with physician for new additional pre-med orders if patient is re- challenged or re-treated. [x] May remove PICC line when treatment complete, after confirming with Physician. [x] If the patient is admitted to the hospital, the ED, or transferred via [facility] , complete transfer form including medication reconciliation order sheet. Laboratory Tests Weekly Labs: Kulwant Porras MD Aug 07, 2017 15:47
--- NOTE | 2017-08-07 15:53 | HHI.IDPN ---
Note Infectious Disease Note Patient has no new complaints. Denies chills. No fever, SOB. Urine clear in segura. Presented to the emergency department on 08/03 with fever. The patient complained of fever and chills and was also having urinary urgency. PAST MEDICAL HISTORY 1. Bipolar disorder. 2. Hypertension. 3. Diabetes mellitus type 2. 4. Hypothyroidism. 5. Benign prostatic hypertrophy. 6. Hepatitis C virus. 7. Urinary retention. ALLERGIES PENICILLIN OLANZAPINE. CAUSES LEUKOPENIA. ANTIBIOTICS: Ceftriaxone. OBJECTIVE: Laboratory Tests Test 08/06/17 07:00 White Blood Count 6.2 TH/MM3 Red Blood Count 3.53 MIL/MM3 Hemoglobin 10.7 GM/DL Hematocrit 32.5 % Mean Corpuscular Volume 92.0 FL Mean Corpuscular Hemoglobin 30.4 PG Mean Corpuscular Hemoglobin Concent 33.1 % Red Cell Distribution Width 13.9 % Platelet Count 154 TH/MM3 Mean Platelet Volume 8.8 FL Neutrophils (%) (Auto) 82.8 % Lymphocytes (%) (Auto) 8.1 % Monocytes (%) (Auto) 6.6 % Eosinophils (%) (Auto) 1.4 % Basophils (%) (Auto) 1.1 % Neutrophils # (Auto) 5.1 TH/MM3 Lymphocytes # (Auto) 0.5 TH/MM3 Monocytes # (Auto) 0.4 TH/MM3 Eosinophils # (Auto) 0.1 TH/MM3 Basophils # (Auto) 0.1 TH/MM3 CBC Comment AUTO DIFF Differential Comment AUTO DIFF CONFIRMED Rouleau PRESENT Hematology Comments Laboratory Tests Test 08/06/17 07:00 Blood Urea Nitrogen 10 MG/DL Creatinine 0.67 MG/DL Random Glucose 154 MG/DL Calcium Level 8.4 MG/DL Sodium Level 138 MEQ/L Potassium Level 4.3 MEQ/L Chloride Level 106 MEQ/L Carbon Dioxide Level 26.1 MEQ/L Anion Gap 6 MEQ/L Estimat Glomerular Filtration Rate 117 ML/MIN Free Thyroxine 0.84 NG/DL Microbiology Date/Time Source Procedure Growth Status 08/06/17 19:05 Blood Peripheral Aerobic Blood Culture - Preliminary NO GROWTH IN 1 DAY Resulted 08/06/17 19:05 Blood Peripheral Anaerobic Blood Culture - Preliminary NO GROWTH IN 1 DAY Resulted 08/06/17 18:55 Blood Peripheral Aerobic Blood Culture - Preliminary NO GROWTH IN 1 DAY Resulted 08/06/17 18:55 Blood Peripheral Anaerobic Blood Culture - Preliminary NO GROWTH IN 1 DAY Resulted 08/05/17 11:40 Blood Peripheral Aerobic Blood Culture - Preliminary Enterococcus Faecalis Resulted 08/05/17 11:40 Blood Peripheral Anaerobic Blood Culture - Preliminary NO GROWTH IN 2 DAYS Resulted 08/05/17 11:35 Blood Peripheral Aerobic Blood Culture - Preliminary NO GROWTH IN 2 DAYS Resulted 08/05/17 11:35 Blood Peripheral Anaerobic Blood Culture - Preliminary NO GROWTH IN 2 DAYS Resulted Microbiology Date/Time Source Procedure Growth Status 08/05/17 11:40 Blood Peripheral Aerobic Blood Culture - Preliminary Enterococcus Faecalis Resulted 08/05/17 11:40 Blood Peripheral Anaerobic Blood Culture - Preliminary NO GROWTH IN 1 DAY Resulted 08/05/17 11:35 Blood Peripheral Aerobic Blood Culture - Preliminary NO GROWTH IN 1 DAY Resulted 08/05/17 11:35 Blood Peripheral Anaerobic Blood Culture - Preliminary NO GROWTH IN 1 DAY Resulted 08/03/17 18:45 Urine Clean Catch Urine Culture - Final Escherichia Coli Complete PHYSICAL EXAMINATION GENERAL: No acute distress. Awake and oriented. HEENT: No icterus. Oropharynx moist mucosa without lesions. Neck: Supple without adenopathy. Lungs: Clear breath sounds. Heart: Regular rate and rhythm. No murmurs or rubs or gallops. Abdomen: Bowel sounds present, soft, no tenderness. Extremities: No clubbing or cyanosis or edema. Skin: No rash. Neuro: Nonfocal. Psych: Calm and cooperative. IMPRESSION 1. E. coli sepsis. 2. Positive urine culture with e. coli. (R) to cipro. 3. Positive blood culture with enterococcus which is likely contaminant. 4. Low grade fever improved. RECOMMENDATIONS Arrange outpatient IV Ceftriaxone until 08/13/17. PIC line placement. Okay to discharge once IV antibiotics outpatient is arranged and PIC is placed. Repeat blood cultures has no growth in one day and can be followed up as outpatient. Orders written for IV outpatient antibiotic. Kulwant Bello MD Aug 07, 2017 15:53
[2017-08-07] MEDS: cefTRIAXone INJ 1,000 MG in SODIUM CHLORIDE 0.9% INJ 100 ML IV SCH (15:56)
[2017-08-07 16:00] VITALS: BP 135/66; PULSE 59; RESP 20; TEMP 98.4; O2SAT 97
[2017-08-07 20:00] VITALS: BP 141/67; PULSE 62; RESP 18; TEMP 98.9; O2SAT 93
[2017-08-08] VITALS: BP 134/63; PULSE 60; RESP 18; TEMP 97.9; O2SAT 98
[2017-08-08] MEDS: SODIUM CHLOR 0.9% 1000 ML INJ 1,000 ML IV SCH (01:42)
[2017-08-08] MEDS ORDERED: LEVOTHYROXINE SODIUM 88 MCG TAB PO SCH (06:00)
[2017-08-08 08:00] VITALS: BP 164/70; PULSE 53; RESP 20; TEMP 98.1; O2SAT 97
[2017-08-08] MEDS: INSULIN ASPART SUPPLEMENTAL SCALE SQ SCH ×2 (08:00→12:00)
[2017-08-08] MEDS: TAMSULOSIN HCL 0.4 MG CAP PO SCH (08:34)
[2017-08-08] MEDS: ZIPRASIDONE HCL 80 MG CAP PO SCH (08:34)
[2017-08-08] MEDS: DOCUSATE SODIUM 50 MG/SENNA 8.6 MG TAB PO SCH (08:34)
[2017-08-08] MEDS: SODIUM CHLORIDE 0.9% FLUSH 10 ML FLUSH IV FLUSH SCH (08:35)
[2017-08-08] MEDS: LITHIUM CARBONATE 300 MG TAB PO SCH ×2 (08:39→14:32)
[2017-08-08] MEDS ORDERED: SYNT88TA PO (11:58)
[2017-08-08 12:00] VITALS: BP 143/65; PULSE 55; RESP 20; TEMP 98.5; O2SAT 100
[2017-08-08] MEDS: ENOXAPARIN SODIUM 40 MG/0.4 ML SYRINGE SQ SCH (15:00)
--- NOTE | 2017-08-08 15:40 | HHI.DCPOC ---
Discharge Care Plan Diagnosis: (1) Urinary retention due to benign prostatic hyperplasia (2) UTI (urinary tract infection) Goals to Promote Your Health * To prevent worsening of your condition and complications * To maintain your health at the optimal level Directions to Meet Your Goals Take your medications as prescribed Follow your dietary instruction Follow activity as directed Keep your appointments as scheduled Take your immunizations and boosters as scheduled If your symptoms worsen call your PCP, if no PCP go to Urgent Care Center or Emergency Room Smoking is Dangerous to Your Health. Avoid second hand smoke Call the 24-hour hour crisis hotline for domestic abuse at Robi Tran MD Aug 08, 2017 15:40
[2017-08-08 15:41] VITALS: BP 138/66; PULSE 57; RESP 20; TEMP 98.3; O2SAT 97
[2017-08-08] MEDS ORDERED: cefTRIAXone INJ 1,000 MG in SODIUM CHLORIDE 0.9% INJ 100 ML IV SCH (16:00)
--- NOTE | 2017-08-08 17:39 | HHI.DS ---
Discharge Summary Admission Date Aug 03, 2017 at 20:06 Discharge Date: Aug 08, 2017 Admitting Diagnosis UTI, SEPSIS (1) UTI (urinary tract infection) ICD Code: N39.0 - Urinary tract infection, site not specified Status: Acute (2) Tobacco abuse ICD Code: Z72.0 - Tobacco use (3) Hypothyroidism ICD Code: E03.9 - Hypothyroidism, unspecified (4) Anemia ICD Code: D64.9 - Anemia, unspecified (5) HTN (hypertension) ICD Code: I10 - Essential (primary) hypertension (6) Diabetes ICD Code: E11.9 - Type 2 diabetes mellitus without complications (7) Urinary retention due to benign prostatic hyperplasia ICD Code: N40.1 - Benign prostatic hyperplasia with lower urinary tract symptoms; R33.8 - Other retention of urine Status: Acute Procedures segura catheter, PICC line insertion Brief History - From Admission This is a very pleasant 72 year-old female with past medical history of hypertension, type 2 diabetes and bipolar disorder who presents to the hospital with fever and shaking chills beginning yesterday. The patient was hospitalized last month for a bipolar exacerbation. During that hospitalization he also had urinary retention and a Segura catheter was placed. Urology Dr. stephens was consulted. The patient had the Segura catheter removed last Friday and has been voiding since then. However in the emergency department he was unable to void a bladder scan showed 1000 mL's and a Segura catheter was placed. The patient also has been having double vision since May and is wearing an eye patch, he is a follow-up appointment with tool programmer in the next several weeks. He has an appointment with Dr. stephens next week. The patient denies nausea vomiting abdominal pain rash diarrhea. Denies auditory or visual hallucinations. CBC/BMP: 08/06/17 0700 08/06/17 0700 Significant Findings Laboratory Tests Test 08/06/17 07:00 Red Blood Count 3.53 MIL/MM3 (4.50-5.90) Hemoglobin 10.7 GM/DL (13.0-17.0) Hematocrit 32.5 % (39.0-51.0) Neutrophils (%) (Auto) 82.8 % (16.0-70.0) Lymphocytes (%) (Auto) 8.1 % (9.0-44.0) Lymphocytes # (Auto) 0.5 TH/MM3 (1.0-4.8) Rouleau PRESENT (NORMAL) Random Glucose 154 MG/DL (74-106) Calcium Level 8.4 MG/DL (8.5-10.1) PE at Discharge NAD no suprapubic TTP Hospital Course Patient was admitted, started on IV antibiotics. His Segura catheter was maintained. Infectious disease was consulted and over the course of his stay the patient's antibiotics were adjusted, his urine and blood were ultimately growing out Escherichia coli - both sensitive to Rocephin. Blood culture result of enterococcus was concluded to be a contaminant per ID. Patient's symptoms had resolved and he was tolerating by mouth intake well without any fevers. Urology instructed to keep the Segura in for him to have that evaluated for removal as an outpatient, we will need to be evaluated for a TURP given that this is a recurrent issue of retention. Patient had a PICC line placed and had arrangements made to receive IV of Rocephin at home. Patient has met maximum benefit from hospitalization and is clinically stable for discharge. Pt Condition on Discharge: Stable Discharge Disposition: Disch w/ Home Health Serv Discharge Time: <= 30 minutes Discharge Instructions DIET: Follow Instructions for: As Tolerated, No Restrictions Activities you can perform: Weight Bearing as Rickey Follow up Referrals: PCP Follow-up - 2 Weeks Urology - 3-5 Days with Hiren Erickson MD New Medications: Levothyroxine (Synthroid) 88 Mcg Tab 88 MCG PO DAILY@0600 for hypothyroidism, #30 TAB Continued Medications: [place] Carbonate ([place] Carbonate) 300 Mg Tab 300 MG PO DAILY@0900,1300,2100 for health, #90 TAB Sitagliptin (Januvia) 100 Mg Tab 100 MG PO DAILY for Blood Sugar Management, #30 TAB 0 Refills Tamsulosin (Flomax) 0.4 Mg Cap 0.4 MG PO Q12HR for Urinary Retention, #60 CAP Tizanidine (Tizanidine) 4 Mg Cap 4 MG PO TID PRN for BLADDER SPASM, CAP 0 Refills Tizanidine (Tizanidine) 2 Mg Cap 2 MG PO TID PRN for SEVERE PAIN, CAP 0 Refills Ziprasidone (Geodon) 80 Mg Cap 80 MG PO BIDPC for health for 30 Days, #60 CAP Discontinued Medications: Ibuprofen (Ibuprofen) 200 Mg Cap 0 PO Q4H PRN for FEVER, CAP 0 Refills Levothyroxine (Synthroid) 50 Mcg Tab 50 MCG PO DAILY@0600 for Thyroid, #30 TAB Robi Tran MD Aug 08, 2017 17:39
== END 2017-08-08 16:56 | disposition home health service (06) | DRG 698 ==
LOC: PHED 16:32 → PHEDA 20:06 → PH3A 21:55
PROVIDERS: ADMIT Family Medicine; ATTEND Hospitalist
DX: T83.511A Infection and inflammatory reaction due to indwelling urethral catheter, initial encounter (principal); A41.51 Sepsis due to Escherichia coli [E. coli]; E11.9 Type 2 diabetes mellitus without complications; B96.20 Unspecified Escherichia coli [E. coli] as the cause of diseases classified elsewhere; E03.9 Hypothyroidism, unspecified; I10 Essential (primary) hypertension; D64.9 Anemia, unspecified; F31.9 Bipolar disorder, unspecified; N39.0 Urinary tract infection, site not specified; Y84.6 Urinary catheterization as the cause of abnormal reaction of the patient, or of later complication, without mention of misadventure at the time of the procedure; N40.1 Benign prostatic hyperplasia with lower urinary tract symptoms; R33.8 Other retention of urine; H53.2 Diplopia; F17.210 Nicotine dependence, cigarettes, uncomplicated; Z79.84 Long term (current) use of oral hypoglycemic drugs; Z88.0 Allergy status to penicillin; Z88.8 Allergy status to other drugs, medicaments and biological substances
CPT/HCPCS: 51702; 51798; 76937; 80048; 80053; 80178; 81001; 82948; 83605; 84439; 84443; 85025; 87040; 87077; 87086; 87186; 87205; 96365; 96366; 96367; J0692; J0696; J1650; J1815; J3370; J7030; J7050